=== PATIENT | female | born 1935 | race Caucasian/White ===

== ENCOUNTER 2016-05-10 04:47 | Inpatient (IN) | payer BC, OTHER ==
[2016-05-10] VITALS (8 sets, daily range): BP systolic 114–161; BP diastolic 55–73; PULSE 72–88; TEMP 36.7–37.9; O2SAT 90–99; Ht 154.9 cm; Wt 81.1 kg
[~2016-05-10] VITALS: Ht 154.9 cm; Wt 81.1 kg
[~2016-05-10 04:47] MED LIST: CLIN300C2 PO; CYAN100020 PO; LACTCAP3 PO; MENT1CRE TOP; OMEG10007 PO; PRED10TA PO
[2016-05-10] MEDS ORDERED: ACETAMINOPHEN 500 MG TAB PO STA (05:07)
[2016-05-10] MEDS ORDERED: SODIUM CHLORIDE 0.9% 1000ML 1,000 ML IV ONE (05:15)
[2016-05-10 05:31] LABS: URINE APPEARANCE CLOUDY (CLEAR); URINE BILIRUBIN NEG (NEG); URINE COLOR YELLOW; URINE NITRITE NEG (NEG); URINE PH 6.5 (4.5-7.5); URINE SPECIFIC GRAVITY 1.012 (1.000-1.030); UROBILINOGEN NEG (NEG); ZZUR CULT IF INDIC CLEAN CATCH YES
[2016-05-10 05:32] LABS: MANUAL MICROSCOPIC REQUIRED? NO; REVIEW REQ? NO
[2016-05-10] MEDS ORDERED: PRD/1 PO (05:32)
[2016-05-10] MEDS ORDERED: LEVAQUIN 500MG / 100ML D5W IV ONE (05:45)
--- NOTE | 2016-05-10 06:27 | DIAGNOSTIC IMAGING REPORT ---
CT HEAD WITHOUT CONTRAST (CT) CLINICAL HISTORY: Head pain status post head trauma COMPARISON STUDY: 09/25/2015 TECHNIQUE: Axial CT of the brain is performed from the vertex to the skull base. IV contrast was not administered for this examination. CT DOSE: 638.56 mGycm FINDINGS: No intra or extra-axial mass lesions are visualized. There is no CT evidence of acute cortical infarction. There is no evidence of midline shift. There is no acute hemorrhage. No calvarial fractures are visualized. There are patchy white matter hypodensities likely on a small vessel basis. There is no evidence of pathologic ventricular dilatation. There is no evidence of acute sinusitis IMPRESSION: No acute intracranial findings Electronically signed by: Chung Quispe M.D. 05/10/2016 6:25 AM
--- NOTE | 2016-05-10 06:29 | DIAGNOSTIC IMAGING REPORT ---
RIGHT SHOULDER MIN 2 VIEWS ROUTINE CLINICAL HISTORY: Right shoulder pain status post trauma COMPARISON: None. DISCUSSION: No fractures or dislocations are visualized. There are degenerative changes present within the AC joint. There are low lung volumes with interstitial thickening visualized within the right lung. IMPRESSION: No acute fractures or dislocations. Electronically signed by: Chung Quispe M.D. 05/10/2016 6:27 AM
--- NOTE | 2016-05-10 06:30 | DIAGNOSTIC IMAGING REPORT ---
CHEST ONE VIEW PORTABLE CLINICAL HISTORY: Fever. Fall. COMPARISON STUDY: 09/25/2015 FINDINGS: The heart is enlarged. There is mild interstitial thickening similar to the prior study. There is no lobar consolidation. There are no definite pleural effusions.[ No pneumothorax is visualized. IMPRESSION: Cardiomegaly and stable residual thickening. No evidence of lobar consolidation Electronically signed by: Chung Quispe M.D. 05/10/2016 6:29 AM
[2016-05-10 06:55] LABS: BUN/CREATININE RATIO 20.4 (10-20); CALCIUM 8.9 mg/dl (8.5-10.1); CREATININE 1.2 mg/dl (0.60-1.20); MAGNESIUM 1.8 mg/dl (1.8-2.4); POTASSIUM 3.2 mmol/L (3.5-5.1)
[2016-05-10 06:58] LABS: ALB/GLOB RATIO 0.8 (0.9-2)
[2016-05-10 07:15] LABS: BASO % 0.1 %; BASO ABS # 0.02 K/uL (0-0.2); COMPLETE YES; EOS % 0.1 %; HEMATOCRIT 31.9 % (37-47); IG% 0.5 %; LYMPH % 7.2 %; LYMPH ABS # 1.09 K/uL (1.2-3.4); MEAN CELL VOLUME 86.2 fL (80-100); MEAN CORPUSCULAR HEMOGLOBIN 28.4 pg (25-34); MEAN CORPUSCULAR HGB CONC 32.9 g/dl (32-36); MEAN PLATELET VOLUME 9.8 fL (7.4-10.4); MONO % 6.9 %; NEUT % 85.2 %; PLATELET COUNT 188 K/uL (130-400); WHITE BLOOD COUNT 15.05 K/uL (4.8-10.8)
[2016-05-10 07:26] LABS: INR 1.1 (0.9-1.1); PARTIAL THROMBOPLASTIN RATIO 1.2
[2016-05-10 07:37] LABS: CKMB/CK RATIO 0.9 (0-3.0)
--- NOTE | 2016-05-10 07:58 | EMERGENCY ROOM VISIT NOTE ---
ED Visit Note First contact with patient: 04:55 I have personally evaluated and examined this patient. I agree with assessment and plan of Matias Penaloza PA-C. 80 yr old female with fall, generalized weakness, and fever found to have UTI as well as mild hypoxia. In no distress and feeling comfortable on NC O2.
[2016-05-10] MEDS: SODIUM CHLORIDE 0.9% 1000ML 1,000 ML IV SCH ×2 (09:25→22:14)
[2016-05-10] MEDS ORDERED: ONDANSETRON INJ 2 MG/ML 2 ML VIAL IV PRN (09:30)
[2016-05-10] MEDS ORDERED: GLUCOSE 40% GEL 15 GM TUBE PO PRN (09:30)
[2016-05-10] MEDS ORDERED: ALUMINUM/MAGNESIUM/SIMETH (MAALOX MAX) 30 ML UDC PO PRN (09:30)
[2016-05-10] MEDS ORDERED: GLUCAGON FOR INJ 1 MG VIAL SQ PRN (09:30)
[2016-05-10] MEDS ORDERED: GLUCOSE 10 TABS/TUBE PO PRN (09:30)
[2016-05-10] MEDS ORDERED: DEXTROSE 50% 50 ML SYR IV PRN (09:30)
[2016-05-10] MEDS ORDERED: POLYETHYLENE (MIRALAX) 17 GM PACK PO PRN (09:30)
[2016-05-10] MEDS ORDERED: NON-FORMULARY MEDICATION (Misc Natural Products (Osteo Bi-Flex Triple Stre) 1 TAB) PO SCH (09:30)
[2016-05-10] MEDS ORDERED: MAGNESIUM HYDROXIDE SUSP 30 ML UDC PO PRN (09:30)
[2016-05-10] MEDS ORDERED: PRED10TA PO (09:49)
[2016-05-10] MEDS ORDERED: OPTIRAY 320 IV PRN (10:00)
--- NOTE | 2016-05-10 10:19 | History and Physical ---
History & Physical Date & Time of Service: May 10, 2016 at 09:45 Chief Complaint: FALL Primary Care Physician: Olvin Quigley M.D. History of Present Illness Source: patient, clinic records, hospital records This is a 80 y/o female with a history of CAD, DM II, HTN, HLD, ischemic cardiomyopathy, anemia, polymyalgia rheumatica, and GERD who presented to the ED on 05/10 following a fall one hour prior to arrival and fever. The patient states that she fell out of her bed this morning and hit the right side of her head and right shoulder. She does not really recall the actual fall, just recalls waking up on the floor. She thinks she was probably getting up to go the bathroom as she has nocturia and urge incontinence. She was not able to get up, so she activated her Life Alert. She states that she has felt weak in her left leg for the last 2 weeks and has been more fatigued than usual. She complains of lightheadedness when standing up. She complains of 5/10 aching pain on the right side of head where she hit the ground and her right shoulder. The right shoulder pain radiates down to her elbow. She is able to move her shoulder freely, but it is painful to do so. She complains of some nausea since this morning but denies any vomiting. She states that when she was on the ground, a suitcase fell onto her lower abdomen, causing her some mild bruising discomfort there where the suitcase fell. The patient denies chills, sweats, chest pain, claudication, cough, wheezing, shortness of breath, vomiting , dysuria, hematuria, urinary retention, paralysis, numbness and tingling. Past Medical/Surgical History Medical Problems: (1) Arthritis Status: Chronic (2) Cardiac stent placement Status: Resolved (3) Chronic myocardial ischemia Status: Resolved (4) Diabetes mellitus type 2 Status: Chronic (5) Heart disease Status: Chronic (6) HTN (hypertension) Status: Chronic HLD Anemia PMR GERD H/o uterine cancer Surgical Problems: (1) H/O cardiac catheterization Status: Resolved (2) History of knee replacement Status: Resolved Family History FH: HTN (hypertension) FH: diabetes mellitus Stroke Social History Smoking Status: Never Smoker Smokeless Tobacco Use: No Alcohol Use: none Drug Use: none Marital Status: Housing status: lives alone (son lives next door) Occupational Status: retired Immunizations History of Influenza Vaccine: Yes History of Tetanus Vaccine?: Unknown History of Pneumococcal: Yes History of Hepatitis B Vaccine: No Multi-Drug Resistant Organisms History of MDRO: No Allergies Coded Allergies: Cephalosporins (Verified Allergy, Intermediate, HIVES, 05/10/16) Penicillins (Verified Allergy, Intermediate, HIVES, 05/10/16) Valdecoxib (Verified Allergy, Unknown, ITCHING,NAUSEATED, 05/10/16) Codeine (Verified Adverse Reaction, Mild, NAUSEA, 05/10/16) Pantoprazole (Verified Adverse Reaction, Mild, NAUSEATED, 05/10/16) Home Medications Scheduled Aspirin (Aspirin Ec), 81 MG PO QAM Carvedilol (Coreg), 1 TAB PO BID Clindamycin Hcl (Cleocin), 600 MG PO UD Coenzyme Q10 (Ubidecarenone) (Co Q10), 200 MG PO QAM Cyanocobalamin (Vitamin B12), 1 TAB PO QAM Fish Oil ([place]-3), 1 CAP PO QPM Metformin Hcl (Glucophage), 250 MG PO BID Misc Natural Products (Osteo Bi-Flex Triple Stre), 1 TAB PO noon Multivitamin (Multivitamin), 1 TAB PO DAILY Prednisone Tab (Prednisone), 10 MG PO DAILY Ranitidine HCl (Zantac), 150 MG PO BID Rosuvastatin Calcium (Crestor), 40 MG PO QPM Saccharomyces Boulardii (Probiotic), 1 CAP PO HS Tolterodine Tartrate (Detrol LA), 2 CAP PO QPM Valsartan/Hctz (Diovan Hct 320MG/25MG), 1 TAB PO QAM Scheduled PRN Acetaminophen (Tylenol), 650 MG PO q5 PRN for Pain Fluticasone Furoate (Veramyst), 2 SPRY DAVID DAILY PRN for prn Review of Systems Constitutional: + fatigue, + fever (this am, resolved with Tylenol in ED), + weakness, No chills, No sweats Eyes: No diplopia, No eye pain, No worsening of vision ENT: No hearing loss, No sore throat, No tinnitus Respiratory: No cough, No shortness of breath, No wheezing Cardiovascular: + palpitations, No chest pain, No claudication Abdomen: + nausea, + pain (lower abdomen), No diarrhea, No vomiting Musculoskeletal: + joint pain (R shoulder), No calf pain, No swelling Genitourinary - Female: + urinary frequency, + urinary incontinence, No dysuria , No hematuria Neurologic: + problem reported (lightheaded), + weakness (L leg), No numbness/ tingling, No paralysis Integumentary: No color change, No itch, No rash Physical Exam Vital Signs Date Time Temp Pulse Resp B/P Pulse Ox O2 Delivery O2 Flow Rate FiO2 05/10/16 09:09 69 23 129/58 94 Room Air 05/10/16 08:35 94 Room Air 2.0 05/10/16 08:05 66 05/10/16 07:12 37.5 74 20 101/51 92 Room Air 05/10/16 06:19 74 18 108/57 97 Nasal Cannula 2.0 05/10/16 04:57 87 05/10/16 04:53 38.2 84 18 124/47 89 Room Air General Appearance: WD/WN, no apparent distress Head: normocephalic, atraumatic Eyes: normal inspection, PERRL, EOMI ENT: normal ENT inspection, hearing grossly normal, pharynx normal, + pertinent finding (dry oral mucosa) Neck: supple, no JVD, trachea midline Respiratory/Chest: normal breath sounds, no respiratory distress, + crackles ( bases bilaterally R>L) Cardiovascular: regular rate, rhythm, no gallop, + systolic murmur Abdomen/GI: normal bowel sounds, soft, + tenderness (mild diffuse tenderness without guarding) Extremities/Musculoskelatal: normal inspection, no calf tenderness, no pedal edema Neurologic/Psych: alert, normal mood/affect, oriented x 3 Skin: normal color, warm/dry, no rash Diagnostics Laboratory Results Results Past 24 Hours Test 05/10/16 05:18 05/10/16 05:55 05/10/16 06:01 05/10/16 06:05 Range/Units Urine Color YELLOW Urine Appearance CLOUDY CLEAR Urine pH 6.5 4.5-7.5 Urine Specific [place] 1.012 1.000-1.030 Urine Protein 1+ NEG Urine Glucose (UA) NEG NEG Urine Ketones NEG NEG Urine Occult Blood 3+ NEG Urine Nitrite NEG NEG Urine Bilirubin NEG NEG Urine Urobilinogen NEG NEG Urine Leukocyte Esterase MODERATE NEG Urine WBC (Auto) >30 0-5 /hpf Urine RBC (Auto) 10-30 0-4 /hpf Urine Hyaline Casts (Auto) 5-10 0-5 /lpf Urine Epithelial Cells (Auto) 10-20 0-5 /lpf Urine Bacteria (Auto) 4+ NEG Sodium Level 138 136-145 mmol/L Potassium Level 3.2 3.5-5.1 mmol/L Chloride Level 99 98-107 mmol/L Carbon Dioxide Level 27 21-32 mmol/L Anion Gap 12.0 3-11 mmol/L Blood Urea Nitrogen 25 7-18 mg/dl Creatinine 1.20 0.60-1.20 mg/dl Est Creatinine Clear Calc Drug Dose 37.7 ml/min Estimated GFR () 50.1 Estimated GFR (Non- 43.3 BUN/Creatinine Ratio 20.4 10-20 Random Glucose 160 70-99 mg/dl Calcium Level 8.9 8.5-10.1 mg/dl Magnesium Level 1.8 1.8-2.4 mg/dl Total Bilirubin 1.0 0.2-1 mg/dl Aspartate Amino Transf (AST/SGOT) 25 15-37 U/L Alanine Aminotransferase (ALT/SGPT) 12 12-78 U/L Alkaline Phosphatase 58 45-117 U/L Total Protein 7.0 6.4-8.2 gm/dl Albumin 3.1 3.4-5.0 gm/dl Globulin 3.9 2.5-4.0 gm/dl Albumin/Globulin Ratio 0.8 0.9-2 Bedside Lactic Acid Venous 1.24 0.90-1.70 mmol/L Bedside Troponin I 0.220 0-0.045 ng/ml Test 05/10/16 07:03 05/10/16 09:25 Range/Units White Blood Count 15.05 4.8-10.8 K/uL Red Blood Count 3.70 4.2-5.4 M/uL Hemoglobin 10.5 12.0-16.0 g/dL Hematocrit 31.9 37-47 % Mean Corpuscular Volume 86.2 80-100 fL Mean Corpuscular Hemoglobin 28.4 25-34 pg Mean Corpuscular Hemoglobin Concent 32.9 32-36 g/dl Platelet Count 188 130-400 K/uL Mean Platelet Volume 9.8 7.4-10.4 fL Neutrophils (%) (Auto) 85.2 % Lymphocytes (%) (Auto) 7.2 % Monocytes (%) (Auto) 6.9 % Eosinophils (%) (Auto) 0.1 % Basophils (%) (Auto) 0.1 % Neutrophils # (Auto) 12.81 1.4-6.5 K/uL Lymphocytes # (Auto) 1.09 1.2-3.4 K/uL Monocytes # (Auto) 1.04 0.11-0.59 K/uL Eosinophils # (Auto) 0.02 0-0.5 K/uL Basophils # (Auto) 0.02 0-0.2 K/uL RDW Standard Deviation 49.3 36.4-46.3 fL RDW Coefficient of Variation 15.6 11.5-14.5 % Immature Granulocyte % (Auto) 0.5 % Immature Granulocyte # (Auto) 0.07 0.00-0.02 K/uL Prothrombin Time 12.0 9.0-12.0 SECONDS Prothromb Time International Ratio 1.1 0.9-1.1 Activated Partial Thromboplast Time 31.6 21.0-31.0 SECONDS Partial Thromboplastin Ratio 1.2 Total Creatine Kinase 284 26-192 U/L Creatine Kinase MB 2.5 0.5-3.6 ng/ml Creatine Kinase MB Ratio 0.9 0-3.0 Microbiology Results 05/10/16 Blood Culture, Received Pending 05/10/16 Blood Culture, Received Pending 05/10/16 Urine Culture, Received Pending Diagnostic Radiology Reviewed the following studies and agree with interpretation as follows: Patient Name: EMANUEL ORONA Unit Number: [id number] Dictated: 05/10/16625 Transcribed: 05/10/16625 ARG Printed Date/Time: [~ rep prt dt]/[~ rep prt tm] [~ rep ct labl] - [~ rep ct ivnm] [facility] [place] [address] Dictated: 05/10/16625 Transcribed: 05/10/16625 ARG Printed Date/Time: [~ rep prt dt]/[~ rep prt tm] [~ rep ct labl] - [~ rep ct ivnm] Patient: EMANUEL ORONA Address1: [address] [facility] Rec: [id number] Address2: [address] Acct ID: [id number] [facility] Zip: [place] [address] Date: 1935 Sex: F Room/Bed: Ref Phy: Olvin Quigley M.D. SC: AJB Att Phy: Report #: [id number] [place] Phy: Olvin Quigley M.D. Test: SHD Admit Phy: Counter Former: JAJA Interpreting Phy: Chung Quispe M.D. Diagnosis: FALL Ordering Phy: Matias Penaloza PA-C Service Date: 05/10/16 Admit Date: 05/10/16 MNE: PWRSCRIBE CONF: DICTATED BY: Chung Quispe M.D.]] CC: Matias Penaloza PA-C Dranov, Jonathan, M.D. McKinley, Daniel F., M.D. Endcc: [~ rep ct add3]] RIGHT SHOULDER MIN 2 VIEWS ROUTINE CLINICAL HISTORY: Right shoulder pain status post trauma COMPARISON: None. DISCUSSION: No fractures or dislocations are visualized. There are degenerative changes present within the AC joint. There are low lung volumes with interstitial thickening visualized within the right lung. IMPRESSION: No acute fractures or dislocations. Electronically signed by: Chung Quispe M.D. 05/10/2016 6:27 AM The status of this report is Signed. Draft = Not yet reviewed or approved by Radiologist. Signed = Reviewed and approved by Radiologist. <AttendingPhy></AttendingPhy> <FamilyPhy>Olvin Quigley M.D.</FamilyPhy> < PrimaryPhy>Olvin Quigley M.D.</PrimaryPhy> <UnitNumber>[id number]</UnitNumber > <VisitNumber>[id number]</VisitNumber> <PatientName>EMANUEL ORONA</ PatientName> <DateOfBirth>1935</DateOfBirth> <Location>C.EDB</Location> < ServiceDate>05/10/16</ServiceDate> <MNE>ESINDI</MNE> <OrderingPhy>Matias Penaloza PA-C</OrderingPhy> <OrderingPhyMNE>f rep ord dr cesar</OrderingPhyMNE> < DictatingPhyMNE>f rep dict dr cesar</DictatingPhyMNE> <CCListMNE>f rep ct mne</ CCListMNE> <AdmittingPhyMNE>f pt admit dr cesar</AdmittingPhyMNE> <AttendingPhyMNE >f pt attend dr cesar</AttendingPhyMNE> <ConsultingPhyMNE>f pt consult dr cesar</ConsultingPhyMNE> <FamilyPhyMNE>f pt fam dr cesar</FamilyPhyMNE> <OtherPhyMNE>f pt other dr cesar</OtherPhyMNE> < PrimaryPhyMNE>f pt prim care dr cesar</PrimaryPhyMNE> <ReferringPhyMNE>f pt referring dr cesar</ReferringPhyMNE> Patient Name: EMANUEL ORONA Unit Number: [id number] Dictated: 05/10/16624 Transcribed: 05/10/16624 ARG Printed Date/Time: [~ rep prt dt]/[~ rep prt tm] [~ rep ct labl] - [~ rep ct ivnm] [facility] [place] [address] Dictated: 05/10/16624 Transcribed: 05/10/16624 ARG Printed Date/Time: [~ rep prt dt]/[~ rep prt tm] [~ rep ct labl] - [~ rep ct ivnm] Patient: EMANUEL ORONA Address1: [address] [facility] Rec: [id number] Address2: [facility] [address] Acct ID: [id number] [facility] Zip: [place] [address] Date: 1935 Sex: F Room/Bed: Ref Phy: Olvin Quigley M.D. SC: ZEYAD Att Phy: Report #: [id number] [place] Phy: Olvin Quigley M.D. Test: HWO Admit Phy: Counter Former: COLE Interpreting Phy: Chung Quispe M.D. Diagnosis: FALL Ordering Phy: Matias Penaloza PA-C Service Date: 05/10/16 Admit Date: 05/10/16 MNE: PWRSCRIBE CONF: DICTATED BY: Chung Quispe M.D.]] CC: Matias Penaloza PA-C Dranov, Jonathan, M.D. McKinley, Daniel F., M.D. Endcc: [~ rep ct add3]] CT HEAD WITHOUT CONTRAST (CT) CLINICAL HISTORY: Head pain status post head trauma COMPARISON STUDY: 09/25/2015 TECHNIQUE: Axial CT of the brain is performed from the vertex to the skull base. IV contrast was not administered for this examination. CT DOSE: 638.56 mGycm FINDINGS: No intra or extra-axial mass lesions are visualized. There is no CT evidence of acute cortical infarction. There is no evidence of midline shift. There is no acute hemorrhage. No calvarial fractures are visualized. There are patchy white matter hypodensities likely on a small vessel basis. There is no evidence of pathologic ventricular dilatation. There is no evidence of acute sinusitis IMPRESSION: No acute intracranial findings Electronically signed by: Chung Quispe M.D. 05/10/2016 6:25 AM The status of this report is Signed. Draft = Not yet reviewed or approved by Radiologist. Signed = Reviewed and approved by Radiologist. <AttendingPhy></AttendingPhy> <FamilyPhy>Olvin Quigley M.D.</FamilyPhy> < PrimaryPhy>Olvin Quigley M.D.</PrimaryPhy> <UnitNumber>[id number]</UnitNumber > <VisitNumber>[id number]</VisitNumber> <PatientName>EMANUEL ORONA</ PatientName> <DateOfBirth>1935</DateOfBirth> <Location>C.EDB</Location> < ServiceDate>05/10/16</ServiceDate> <MNE>ESINDI</MNE> <OrderingPhy>Matias Penaloza PA-C</OrderingPhy> <OrderingPhyMNE>f rep ord dr mne</OrderingPhyMNE> < DictatingPhyMNE>f rep dict dr cesar</DictatingPhyMNE> <CCListMNE>f rep ct mne</ CCListMNE> <AdmittingPhyMNE>f pt admit dr cesar</AdmittingPhyMNE> <AttendingPhyMNE >f pt attend dr cesar</AttendingPhyMNE> <ConsultingPhyMNE>f pt consult dr cesar</ConsultingPhyMNE> <FamilyPhyMNE>f pt fam dr cesar</FamilyPhyMNE> <OtherPhyMNE>f pt other dr cesar</OtherPhyMNE> < PrimaryPhyMNE>f pt prim care dr cesar</PrimaryPhyMNE> <ReferringPhyMNE>f pt referring dr cesar</ReferringPhyMNE> Patient Name: EMANUEL ORONA Unit Number: [id number] Dictated: 05/10/16627 Transcribed: 05/10/16627 ARG Printed Date/Time: [~ rep prt dt]/[~ rep prt tm] [~ rep ct labl] - [~ rep ct ivnm] [facility] [place] [address] Dictated: 05/10/16627 Transcribed: 05/10/16627 ARG Printed Date/Time: [~ rep prt dt]/[~ rep prt tm] [~ rep ct labl] - [~ rep ct ivnm] Patient: EMANUEL ORONA Address1: [address] [facility] Rec: [id number] Address2: [place] [address] Acct ID: [id number] [facility] Zip: [place] [address] Date: 1935 Sex: F Room/Bed: Ref Phy: Olvin Quigley M.D. SC: ZEYAD Att Phy: Report #: [id number] [place] Phy: Olvin Quigley M.D. Test: CXR1P Admit Phy: Counter Former: JAJA Interpreting Phy: Chung Quispe M.D. Diagnosis: FALL Ordering Phy: Matias Penaloza PA-C Service Date: 05/10/16 Admit Date: 05/10/16 MNE: PWRSCRIBE CONF: DICTATED BY: Chung Quispe M.D.]] CC: Matias Penaloza PA-C Dranov, Jonathan, M.D. McKinley, Daniel F., M.D. Endcc: [~ rep ct add3]] CHEST ONE VIEW PORTABLE CLINICAL HISTORY: Fever. Fall. COMPARISON STUDY: 09/25/2015 FINDINGS: The heart is enlarged. There is mild interstitial thickening similar to the prior study. There is no lobar consolidation. There are no definite pleural effusions.[ No pneumothorax is visualized. IMPRESSION: Cardiomegaly and stable residual thickening. No evidence of lobar consolidation Electronically signed by: Chnug Quispe M.D. 05/10/2016 6:29 AM The status of this report is Signed. Draft = Not yet reviewed or approved by Radiologist. Signed = Reviewed and approved by Radiologist. <AttendingPhy></AttendingPhy> <FamilyPhy>Olvin Quigley M.D.</FamilyPhy> < PrimaryPhy>Olvin Quigley M.D.</PrimaryPhy> <UnitNumber>[id number]</UnitNumber > <VisitNumber>[id number]</VisitNumber> <PatientName>EMANUEL ORONA</ PatientName> <DateOfBirth>1935</DateOfBirth> <Location>C.EDB</Location> < ServiceDate>05/10/16</ServiceDate> <MNE>ESINDI</MNE> <OrderingPhy>Matias Penaloza PA-C</OrderingPhy> <OrderingPhyMNE>f rep ord dr cesar</OrderingPhyMNE> < DictatingPhyMNE>f rep dict dr cesar</DictatingPhyMNE> <CCListMNE>f rep ct mne</ CCListMNE> <AdmittingPhyMNE>f pt admit dr cesar</AdmittingPhyMNE> <AttendingPhyMNE >f pt attend dr cesar</AttendingPhyMNE> <ConsultingPhyMNE>f pt consult dr cesar</ConsultingPhyMNE> <FamilyPhyMNE>f pt fam dr cesar</FamilyPhyMNE> <OtherPhyMNE>f pt other dr cesar</OtherPhyMNE> < PrimaryPhyMNE>f pt prim care dr cesar</PrimaryPhyMNE> <ReferringPhyMNE>f pt referring dr cesar</ReferringPhyMNE> EKG Reviewed EKG and agree with interpretation as follows: 80 bpm, NSR, old inferior infarct Impression Assessment and Plan 80 y/o female with a history of CAD, DM II, HTN, HLD, ischemic cardiomyopathy, anemia, polymyalgia rheumatica, and GERD who presented to the ED on 05/10 following a fall one hour prior to arrival and fever. Temp 38.2 upon arrival, resolved with Tylenol in ED. EKG no ischemic changes. Shoulder x-ray negative for fractures, dislocations or acute disease. Head CT negative for acute disease. CXR negative. Elevated WBC at 15.05. UA positive for UTI. -Admit to telemetry for cardiac monitoring -CT abdomen/pelvis with IV contrast to r/o pyelonephritis, obstruction, hydronephrosis -Levaquin 750 mg IV q48h as pt. allergic to cephalosporins. Renally dosed as creatinine clearance 37. Will receive 5 doses total. 1 dose given in ED. -IVF NSS at 100 cc/hr. Continue to monitor renal function. Baseline creatinine around 0.8, was 1.2 upon arrival and elevated BUN of 25. CAD, h/o ME and 2 cardiac stents in circumflex 2014 -Mildly elevated POC troponin at 0.22. No chest pain, shortness of breath -Mildly elevated CK at 284, likely due to fall -Trend cardiac enzymes q8h x 3 -EKG q am and prn with chest pain -Continue ASA 81 mg PO qd Diabetes mellitus type 2--Last HgbA1c checked 04/25/16 was 6.8 -Hold metformin -Insulin sliding scale -Check BSGs q ac and qhs Cardiomyopathy, HTN--stable, BP 129/58 during examination -Continue carvedilol 12.5 mg PO BID -Hold valsartan/HCTZ for now as pt receiving IVF and renal function mildly elevated above baseline as above HLD -Continue Crestor 40 mg PO qpm Polymyalgia rheumatica -Continue prednisone 10 mg PO qd Urinary incontinence -Continue Detrol 4 mg PO qd GERD -Continue ranitidine 150 mg PO BID GI prophylaxis -Maalox Max 15 mL PO q4h prn dyspepsia -Milk of magnesia 30 mL PO q6h prn constipation -Miralax 17 gm PO qd prn constipation -Zofran 4 mg IV q6h prn nausea DVT prophylaxis -Enoxaparin 40 mg SC q24h -MARYBEL carmichael and SCDs Code Status -Level I, FULL RESUSCITATION STATUS Level of Care Telemetry Advanced Directives Existing Advance Directive: Yes Existing Living Will: Yes Existing Power of Power Saw Operator: Yes Resuscitation Status FULL RESUSCITATION VTE Prophylaxis VTE Risk Assessment Done? Y/N: Yes Risk Level: Moderate Given or contraindicated: Enoxaparin (Lovenox)SQ, T.E.D. Stockings, SCD's
--- NOTE | 2016-05-10 10:32 | DIAGNOSTIC IMAGING REPORT ---
ABDOMEN AND PELVIS CT WITH IV CONTRAST CT DOSE: 1004.38 mGycm HISTORY: febrile, positive UA, r/o pyelo, obstruction TECHNIQUE: Multiaxial CT images of the abdomen and pelvis were performed following the use of intravenous contrast. COMPARISON STUDY: Abdomen and pelvis CT 06/30/2015. FINDINGS: Calcified granuloma seen within the left lower lobe. Bibasilar interstitial thickening. No pneumoperitoneum. No pneumatosis. Left total hip arthroplasty. The liver, adrenal glands, and pancreas are unremarkable. There are few small gallstones. No retroperitoneal lymphadenopathy. The uterus is surgically absent. Mild pelvic floor collapse. Colonic diverticulosis. No bowel wall thickening or obstruction. Bladder is partially obscured by the metallic artifact from the left hip prosthesis. No definite bladder wall thickening. No hydronephrosis. The right kidney enhances normally. Focal area of heterogeneous enhancement within the left kidney at the interpolar region. This measures approximately 2.7 cm in size. There is also mild thickening within the left Gerota's fascia. Tiny focus of fluid inferior to the spleen. Multiple calcified splenic granulomas. An 11 mm cyst within the left kidney. The right kidney enhances normally. IMPRESSION: 1. A 2.7 cm area of heterogeneity within the interpolar region of the left kidney with adjacent fat stranding/thickening of Gerota's fascia. This likely represents a pyelonephritis. One month abdomen CT follow-up is recommended to ensure resolution of this finding. 2. Cholelithiasis. 3. Colonic diverticulosis. 4. No bowel wall thickening or obstruction. Electronically signed by: Anthony Conley M.D. 05/10/2016 10:30 AM
[2016-05-10] MEDS: ENOXAPARIN 40 MG/0.4 ML SYR SC SCH (12:30)
[2016-05-10 16:09] LABS: CKMB/CK RATIO 0.5 (0-3.0)
[2016-05-10] MEDS: INSULIN ASPART 100 UNITS/ML 3 ML PEN SC SCH ×2 (16:15→21:00)
[2016-05-10] MEDS: CARVEDILOL 12.5 MG TAB PO SCH (22:08)
[2016-05-10] MEDS: ROSUVASTATIN CALCIUM 20 MG TAB PO SCH (22:08)
[2016-05-10] MEDS: TOLTERODINE TARTRATE LA 2 MG CAPCR PO SCH (22:08)
[2016-05-10] MEDS: SACCHAROMYCES BOUL (FLORASTOR) 250 MG CAP PO SCH (22:08)
[2016-05-10] MEDS: RANITIDINE HCL 150 MG TAB PO SCH (22:08)
[2016-05-10] MEDS: ACETAMINOPHEN 325 MG TAB PO PRN (22:24)
[2016-05-11] VITALS (9 sets, daily range): BP systolic 117–155; BP diastolic 65–76; PULSE 57–68; TEMP 36.5–37.2; O2SAT 95–99
[2016-05-11 00:20] LABS: CKMB/CK RATIO 0.3 (0-3.0)
--- NOTE | 2016-05-11 06:37 | EMERGENCY ROOM VISIT NOTE ---
History First contact with patient: 04:55 Chief Complaint: FALL Stated Complaint: FALL History of Present Illness The patient is a 80 year old female who presents to the Emergency Room with complaints of a fall that occurred about one hour ago. The patient states that she got out of bed, and she believes that she lost her balance, falling to the ground and striking her right shoulder and the right side of her head. The patient was not able to stand after the fall, and utilized her life alert. The patient presents to the department via ambulance, where she is found to have a low-grade fever as well as mild hypoxia. The patient states her primary discomfort is her right shoulder and the right side of her head. She does not laceration or bleeding. She is unsure if she lost consciousness. She does not report other symptoms and rates her discomfort a 5/10. Review of Systems More than 10 systems were reviewed and otherwise negative with the exception of history of present illness. Past Medical/Surgical History Medical Problems: (1) Abnormal EKG (2) Arthritis (3) Cardiac stent placement (4) Chronic myocardial ischemia (5) Diabetes mellitus (6) Elevated troponin (7) Fall (8) Heart disease (9) HTN (hypertension) (10) Stroke (11) Syncope Surgical Problems: (1) H/O cardiac catheterization (2) History of knee replacement Family History FH: HTN (hypertension) FH: diabetes mellitus Social History Smoking Status: Never Smoker Drug Use: none Marital Status: Housing Status: lives with family Occupation Status: retired Current/Historical Medications Scheduled Aspirin (Aspirin Ec), 81 MG PO QAM Carvedilol (Coreg), 1 TAB PO BID Clindamycin Hcl (Cleocin), 600 MG PO UD Coenzyme Q10 (Ubidecarenone) (Co Q10), 200 MG PO QAM Cyanocobalamin (Vitamin B12), 1 TAB PO QAM Fish Oil ([place]-3), 1 CAP PO QPM Metformin Hcl (Glucophage), 250 MG PO BID Misc Natural Products (Osteo Bi-Flex Triple Stre), 1 TAB PO noon Multivitamin (Multivitamin), 1 TAB PO DAILY Prednisone Tab (Prednisone), 10 MG PO DAILY Ranitidine HCl (Zantac), 150 MG PO BID Rosuvastatin Calcium (Crestor), 40 MG PO QPM Saccharomyces Boulardii (Probiotic), 1 CAP PO HS Tolterodine Tartrate (Detrol LA), 2 CAP PO QPM Valsartan/Hctz (Diovan Hct 320MG/25MG), 1 TAB PO QAM Scheduled PRN Acetaminophen (Tylenol), 650 MG PO q5 PRN for Pain Fluticasone Furoate (Veramyst), 2 SPRY DAVID DAILY PRN for prn Allergies Coded Allergies: Cephalosporins (Verified Allergy, Intermediate, HIVES, 05/10/16) Penicillins (Verified Allergy, Intermediate, HIVES, 05/10/16) Valdecoxib (Verified Allergy, Unknown, ITCHING,NAUSEATED, 05/10/16) Codeine (Verified Adverse Reaction, Mild, NAUSEA, 05/10/16) Pantoprazole (Verified Adverse Reaction, Mild, NAUSEATED, 05/10/16) Physical Exam Vital Signs Date Time Temp Pulse Resp B/P Pulse Ox O2 Delivery O2 Flow Rate FiO2 05/10/16 09:09 69 23 129/58 94 Room Air 05/10/16 08:35 94 Room Air 2.0 05/10/16 08:05 66 05/10/16 07:12 37.5 74 20 101/51 92 Room Air 05/10/16 06:19 74 18 108/57 97 Nasal Cannula 2.0 05/10/16 04:57 87 05/10/16 04:53 38.2 84 18 124/47 89 Room Air Physical Exam VITALS: Vitals are noted on the nurse's note and reviewed by myself. Vital signs with fever GENERAL: Elderly appearing white female who is comfortable in her emergency department bed. She does not appear in acute distress. HEAD: Normocephalic atraumatic. HEART: Regular rate and rhythm without murmurs gallops or rubs. LUNGS: Clear to auscultation bilaterally without wheezes, rales or rhonchi. No retractions or accessory muscle use. MUSCULOSKELETAL: No muscle atrophy, erythema, or edema noted. Mild tenderness appreciated over the lateral aspect of the right shoulder. Exam is somewhat limited secondary to patient's discomfort and body habitus. NEURO: Patient was alert and oriented to person place and time. Medical Decision & Procedures ER Provider Diagnostic Interpretation: CT HEAD WITHOUT CONTRAST (CT) CLINICAL HISTORY: Head pain status post head trauma COMPARISON STUDY: 09/25/2015 TECHNIQUE: Axial CT of the brain is performed from the vertex to the skull base. IV contrast was not administered for this examination. CT DOSE: 638.56 mGycm FINDINGS: No intra or extra-axial mass lesions are visualized. There is no CT evidence of acute cortical infarction. There is no evidence of midline shift. There is no acute hemorrhage. No calvarial fractures are visualized. There are patchy white matter hypodensities likely on a small vessel basis. There is no evidence of pathologic ventricular dilatation. There is no evidence of acute sinusitis IMPRESSION: No acute intracranial findings CHEST ONE VIEW PORTABLE CLINICAL HISTORY: Fever. Fall. COMPARISON STUDY: 09/25/2015 FINDINGS: The heart is enlarged. There is mild interstitial thickening similar to the prior study. There is no lobar consolidation. There are no definite pleural effusions.[ No pneumothorax is visualized. IMPRESSION: Cardiomegaly and stable residual thickening. No evidence of lobar consolidation RIGHT SHOULDER MIN 2 VIEWS ROUTINE CLINICAL HISTORY: Right shoulder pain status post trauma COMPARISON: None. DISCUSSION: No fractures or dislocations are visualized. There are degenerative changes present within the AC joint. There are low lung volumes with interstitial thickening visualized within the right lung. IMPRESSION: No acute fractures or dislocations. Laboratory Results Test 05/10/16 05:18 05/10/16 05:55 05/10/16 06:01 05/10/16 06:05 Urine Color YELLOW Urine Appearance CLOUDY (CLEAR) Urine pH 6.5 (4.5-7.5) Urine Specific [place] 1.012 (1.000-1.030) Urine Protein 1+ (NEG) Urine Glucose (UA) NEG (NEG) Urine Ketones NEG (NEG) Urine Occult Blood 3+ (NEG) Urine Nitrite NEG (NEG) Urine Bilirubin NEG (NEG) Urine Urobilinogen NEG (NEG) Urine Leukocyte Esterase MODERATE (NEG) Urine WBC (Auto) >30 /hpf (0-5) Urine RBC (Auto) 10-30 /hpf (0-4) Urine Hyaline Casts (Auto) 5-10 /lpf (0-5) Urine Epithelial Cells (Auto) 10-20 /lpf (0-5) Urine Bacteria (Auto) 4+ (NEG) Est Creatinine Clear Calc Drug Dose 37.7 ml/min Magnesium Level 1.8 mg/dl (1.8-2.4) Total Bilirubin 1.0 mg/dl (0.2-1) Aspartate Amino Transf (AST/SGOT) 25 U/L (15-37) Alanine Aminotransferase (ALT/SGPT) 12 U/L (12-78) Alkaline Phosphatase 58 U/L (45-117) Total Protein 7.0 gm/dl (6.4-8.2) Albumin 3.1 gm/dl (3.4-5.0) Globulin 3.9 gm/dl (2.5-4.0) Albumin/Globulin Ratio 0.8 (0.9-2) Bedside Lactic Acid Venous 1.24 mmol/L (0.90-1.70) Bedside Troponin I 0.220 ng/ml (0-0.045) Test 05/10/16 07:03 RDW Standard Deviation 49.3 fL (36.4-46.3) RDW Coefficient of Variation 15.6 % (11.5-14.5) White Blood Count 15.05 K/uL (4.8-10.8) Red Blood Count 3.70 M/uL (4.2-5.4) Hemoglobin 10.5 g/dL (12.0-16.0) Hematocrit 31.9 % (37-47) Mean Corpuscular Volume 86.2 fL (80-100) Mean Corpuscular Hemoglobin 28.4 pg (25-34) Mean Corpuscular Hemoglobin Concent 32.9 g/dl (32-36) Platelet Count 188 K/uL (130-400) Mean Platelet Volume 9.8 fL (7.4-10.4) Neutrophils (%) (Auto) 85.2 % Lymphocytes (%) (Auto) 7.2 % Monocytes (%) (Auto) 6.9 % Eosinophils (%) (Auto) 0.1 % Basophils (%) (Auto) 0.1 % Neutrophils # (Auto) 12.81 K/uL (1.4-6.5) Lymphocytes # (Auto) 1.09 K/uL (1.2-3.4) Monocytes # (Auto) 1.04 K/uL (0.11-0.59) Eosinophils # (Auto) 0.02 K/uL (0-0.5) Basophils # (Auto) 0.02 K/uL (0-0.2) Immature Granulocyte % (Auto) 0.5 % Immature Granulocyte # (Auto) 0.07 K/uL (0.00-0.02) Prothrombin Time 12.0 SECONDS (9.0-12.0) Prothromb Time International Ratio 1.1 (0.9-1.1) Activated Partial Thromboplast Time 31.6 SECONDS (21.0-31.0) Partial Thromboplastin Ratio 1.2 Medications Administered Medications (Trade) Dose Ordered Sig/Chaz Route Start Time Stop Time Status Last Admin Dose Admin Sodium Chloride (Nss 1000ml) 1,000 ml @ 333 mls/hr Q3H1M ONCE IV 05/10/16 05:15 05/10/16 08:15 DC 05/10/16 05:15 333 MLS/HR Acetaminophen (Tylenol Tab) 1,000 mg NOW STAT PO 05/10/16 05:07 05/10/16 05:17 DC 05/10/16 05:07 1,000 MG Levofloxacin 500 mg 500 mg NOW ONCE IV 05/10/16 05:45 05/10/16 05:46 DC 05/10/16 06:34 500 MG Sodium Chloride (Nss 1000ml) 1,000 ml @ 100 mls/hr Q10H IV 05/10/16 09:25 06/09/16 09:24 05/10/16 22:14 100 MLS/HR Acetaminophen (Tylenol Tab) 650 mg Q4H PRN PO 05/10/16 09:30 06/09/16 09:29 05/10/16 22:24 650 MG Ondansetron HCl (Zofran Inj) 4 mg Q6H PRN IV 05/10/16 09:30 06/09/16 09:29 05/10/16 20:24 4 MG ED Course Physical exam and history were performed. Nursing notes and EMR were reviewed. Patient appears to have suffered a fall just prior to arrival. On examination the patient does have a low-grade fever. She does not have significant hour signs of trauma. IV access was established and labs were obtained. Patient was medicated as above. Imaging studies were performed due to the patient's injuries. EKG was performed did not show signs of acute ST elevation. The patient will result was reviewed. She does have an elevated white blood count 15,000. She is mildly anemic. Her CK is not elevated. Her troponin, however is elevated. The patient does not have a cranial bleed or skull fracture on CT scan. X-rays are without significant findings. Lactic acid is negative. Urine is concerning for possible infection, and the patient was started on Levaquin. Overall the patient does not appear stable for discharge home. She has an elevated white blood cell count possibly from a urinary tract infection. Additionally she has a fall and elevated troponin that will need further evaluation. I discussed the case with the on-call hospitalist, who agreed to evaluate the patient here in the emergency department. Please see their dictation for further course, plan, and disposition. The chart was completed utilizing [employer] Speech Voice Recognition Software. Grammatical errors, random word insertions, pronoun errors, and incomplete sentences are an occasional consequence of this system due to software limitations, ambient noise, and hardware issues. Any formal questions or concerns about the content, text, or information contained within the body of this dictation should be directly addressed to the provider for clarification. . Medical Decision Differential diagnosis: Etiologies such as metabolic, infection, hypo/hyperglycemia, electrolyte abnormalities, cardiac sources, intracerebral event, toxicologic, neurologic, as well as others were entertained. Impression Primary Impression: Fall Additional Impressions: Contusion of multiple sites, Elevated troponin Departure Information Referrals Olvin Quigley M.D. (PCP) Patient Instructions A Signature Page, [facility]
[2016-05-11] MEDS: INSULIN ASPART 100 UNITS/ML 3 ML PEN SC SCH ×4 (07:00→20:56)
[2016-05-11 07:11] LABS: BASO % 0.1 %; BASO ABS # 0.01 K/uL (0-0.2); COMPLETE YES; EOS % 0.4 %; HEMATOCRIT 32.3 % (37-47); IG% 0.2 %; LYMPH % 9.1 %; LYMPH ABS # 0.81 K/uL (1.2-3.4); MEAN CELL VOLUME 87.3 fL (80-100); MEAN CORPUSCULAR HEMOGLOBIN 27.8 pg (25-34); MEAN CORPUSCULAR HGB CONC 31.9 g/dl (32-36); MEAN PLATELET VOLUME 9.8 fL (7.4-10.4); MONO % 7.2 %; PLATELET COUNT 154 K/uL (130-400)
[2016-05-11 07:36] LABS: CALCIUM 8.1 mg/dl (8.5-10.1); CREATININE 1.1 mg/dl (0.60-1.20); POTASSIUM 3.3 mmol/L (3.5-5.1)
[2016-05-11] MEDS ORDERED: POTASSIUM CHLORIDE 20 MEQ TABCR PO ONE (08:00)
[2016-05-11] MEDS: SODIUM CHLORIDE 0.9% 1000ML 1,000 ML IV SCH (08:25)
[2016-05-11] MEDS: ACETAMINOPHEN 325 MG TAB PO PRN ×2 (08:25→20:59)
[2016-05-11] MEDS: MULTIVITAMIN TAB PO SCH (08:26)
[2016-05-11] MEDS: ASPIRIN 81 MG ECTAB PO SCH (08:26)
[2016-05-11] MEDS: CARVEDILOL 12.5 MG TAB PO SCH ×2 (08:27→21:00)
[2016-05-11] MEDS: CYANOCOBALAMIN 500 MCG TAB (VIT B-12) PO SCH (08:27)
[2016-05-11] MEDS: RANITIDINE HCL 150 MG TAB PO SCH ×2 (08:28→21:00)
[2016-05-11] MEDS: POTASSIUM CHLR 10 MEQ / WTR 10 MEQ in PREMIXED WATER 100 ML IV SCH (08:59)
[2016-05-11] MEDS ORDERED: NON-FORMULARY MEDICATION (Coenzyme Q10 (Ubidecarenone) (Co Q10) 200 MG) PO SCH (09:00)
--- NOTE | 2016-05-11 09:08 | Urology Consultation ---
History General Date of Service: May 11, 2016. Chief Complaint: bladder pressure and pain Primary Care Physician: Olvin Quigley M.D. Pt seen a urologist before?: No History of Present Illness 80 yo female presents to [facility] s/p fall and with fever. She reports 2 weeks of UTI symptoms of bladder pressure and pain which she thought would go away on their own. She has a hx of UTI and nephrolithiasis in the past, but has never seen a urologist. CT scan on admission shows ? small area of the left kidney consistent with pyelonephritis. No ureteral stones or hydro seen. The pt is noted to have a temperature of 38.2C on admission and 37.9C last evening. Blood and urine cultures pending. She has been started on Levaquin. White count has normalized since admission. Cr is 1.1. Imaging Imaging: CT Laboratory Last 24 Hours Test 05/10/16 15:25 05/10/16 16:17 05/10/16 20:34 05/10/16 23:05 Total Creatine Kinase 480 U/L 514 U/L Creatine Kinase MB 2.6 ng/ml 1.6 ng/ml Creatine Kinase MB Ratio 0.5 0.3 Troponin I 0.247 ng/ml 0.405 ng/ml Bedside Glucose 113 mg/dl 154 mg/dl Test 05/11/16 06:27 05/11/16 06:40 Bedside Glucose 109 mg/dl White Blood Count 8.90 K/uL Red Blood Count 3.70 M/uL Hemoglobin 10.3 g/dL Hematocrit 32.3 % Mean Corpuscular Volume 87.3 fL Mean Corpuscular Hemoglobin 27.8 pg Mean Corpuscular Hemoglobin Concent 31.9 g/dl Platelet Count 154 K/uL Mean Platelet Volume 9.8 fL Neutrophils (%) (Auto) 83.0 % Lymphocytes (%) (Auto) 9.1 % Monocytes (%) (Auto) 7.2 % Eosinophils (%) (Auto) 0.4 % Basophils (%) (Auto) 0.1 % Neutrophils # (Auto) 7.38 K/uL Lymphocytes # (Auto) 0.81 K/uL Monocytes # (Auto) 0.64 K/uL Eosinophils # (Auto) 0.04 K/uL Basophils # (Auto) 0.01 K/uL RDW Standard Deviation 50.7 fL RDW Coefficient of Variation 15.6 % Immature Granulocyte % (Auto) 0.2 % Immature Granulocyte # (Auto) 0.02 K/uL Sodium Level 141 mmol/L Potassium Level 3.3 mmol/L Chloride Level 106 mmol/L Carbon Dioxide Level 27 mmol/L Anion Gap 8.0 mmol/L Blood Urea Nitrogen 19 mg/dl Creatinine 1.10 mg/dl Est Creatinine Clear Calc Drug Dose 40.6 ml/min Estimated GFR () 55.7 Estimated GFR (Non- 48.1 BUN/Creatinine Ratio 17.0 Random Glucose 102 mg/dl Calcium Level 8.1 mg/dl Problem List Medical Problems: (1) Angina effort Status: Acute (2) Arthritis Status: Chronic (3) Contusion of multiple sites Status: Acute (4) Diabetes mellitus Status: Chronic (5) Fall Status: Acute (6) Head injury Status: Acute (7) Heart disease Status: Chronic (8) HTN (hypertension) Status: Chronic (9) Injury of left shoulder Status: Acute (10) Non-ST elevation NH (NSTEMI) Status: Acute Past History arthritis, cancer (uterine), coronary artery disease, diabetes, GERD, hypertension, other (HLD, PMR, anemia) Past Surgical History: angioplasty with stent (coronary artery), cardiac catheterization, TKR Family History FH: HTN (hypertension) FH: diabetes mellitus Stroke Social History Hx Tobacco Use In Past Year?: No Smoking: non-smoker Alcohol: never Drug use: none Marital status: Housing status: lives alone (son lives next door) Occupation status: retired Immunizations History of Influenza Vaccine: Yes History of Tetanus Vaccine?: Unknown History of Pneumococcal: Yes History of Hepatitis B Vaccine: No History of MDRO No Allergies Coded Allergies: Cephalosporins (Verified Allergy, Intermediate, HIVES, 05/10/16) Penicillins (Verified Allergy, Intermediate, HIVES, 05/10/16) Valdecoxib (Verified Allergy, Unknown, ITCHING,NAUSEATED, 05/10/16) Codeine (Verified Adverse Reaction, Mild, NAUSEA, 05/10/16) Pantoprazole (Verified Adverse Reaction, Mild, NAUSEATED, 05/10/16) Medications Home Medications: Home Meds and Scripts Medications Dose Route/Sig Max Daily Dose Days Date Category Dose Instructions Prednisone 10 Mg Tab 10 Mg PO DAILY 05/10/16 Reported Veramyst (Fluticasone Furoate) 27.5 Mcg/Helper Spr 2 Oral DAVID DAILY PRN 30 04/25/16 Reported Tylenol (Acetaminophen) 325 Mg Tab 650 Mg PO Q5 PRN 04/25/16 Reported Probiotic (Saccharomyces Boulardii) 250 Mg Cap 1 Cap PO HS 04/25/16 Reported Detrol LA (Tolterodine Tartrate) 2 Mg Capcr 2 Cap PO QPM 90 04/25/16 Reported [place]-3 (Fish Oil) 1 Ea Cap 1 Cap PO QPM 04/25/16 Reported Crestor (Rosuvastatin Calcium) 40 Mg Tab 40 Mg PO QPM 04/25/16 Reported Osteo Bi-Flex Triple Stre (Misc Natural Products) 1 Tab Tab 1 Tab PO NOON 04/25/16 Reported Co Q10 (Coenzyme Q10) 50 Mg Cap 200 Mg PO QAM 04/25/16 Reported Vitamin B12 (Cyanocobalamin) 1,000 Mcg Tab 1 Tab PO QAM 04/25/16 Reported Diovan Hct 320MG/25MG (HCTZ/Valsartan) 1 Tab Tab 1 Tab PO QAM 04/25/16 Reported Coreg (Carvedilol) 12.5 Mg Tab 1 Tab PO BID 90 04/25/16 Reported Glucophage (Metformin Hcl) 500 Mg Tab 250 Mg PO BID 04/25/16 Reported Aspirin Ec (Aspirin) 81 Mg Tab 81 Mg PO QAM 09/25/15 Reported Zantac (Ranitidine HCl) 150 Mg Tab 150 Mg PO BID 09/09/13 Reported Cleocin (Clindamycin Hcl) 300 Mg Cap 600 Mg PO UD 7 05/14/13 Reported TAKE 2 CAPSULES 1 HOUR PRIOR TO PROCEDURES. Multivitamin (Multivitamins) Tab 1 Tab PO DAILY 12/17/08 Reported Inpatient Medications: Current Inpatient Medications Medications (Trade) Dose Ordered Sig/Chaz Route Start Time Stop Time Status Last Admin Dose Admin Enoxaparin Sodium 40 mg 40 mg Q24H SC 05/10/16 12:30 06/09/16 12:29 05/10/16 12:30 40 MG Sodium Chloride (Nss 1000ml) 1,000 ml @ 100 mls/hr Q10H IV 05/10/16 09:25 06/09/16 09:24 05/11/16 08:25 100 MLS/HR Acetaminophen (Tylenol Tab) 650 mg Q4H PRN PO 05/10/16 09:30 06/09/16 09:29 05/11/16 08:25 650 MG Al Hydrox/Mg Hydrox/Simethicone (Maalox Max Susp) 15 ml Q4H PRN PO 05/10/16 09:30 06/09/16 09:29 Magnesium Hydroxide (Milk Of Magnesia Susp) 30 ml Q12H PRN PO 05/10/16 09:30 06/09/16 09:29 Ondansetron HCl (Zofran Inj) 4 mg Q6H PRN IV 05/10/16 09:30 06/09/16 09:29 05/10/16 20:24 4 MG Polyethylene (Miralax Powder Packet) 17 gm DAILY PRN PO 05/10/16 09:30 06/09/16 09:29 Glucose (Glucose 40% Gel) 15-30 GRAMS 15 GRAMS... UD PRN PO 05/10/16 09:30 06/09/16 09:29 Glucose (Glucose Chew Tab) 4-8 Tablets 4 Tabl... UD PRN PO 05/10/16 09:30 06/09/16 09:29 Dextrose (Dextrose 50% 50ML Syringe) 25-50ML OF 50% DW IV FOR... UD PRN IV 05/10/16 09:30 06/09/16 09:29 Glucagon (Glucagon Inj) 1 mg UD PRN SQ 05/10/16 09:30 06/09/16 09:29 Insulin Aspart (novoLOG ASPART) SLIDING SCALE G... ACHS SC 05/10/16 16:15 06/09/16 16:14 Aspirin (Ecotrin Tab) 81 mg QAM PO 05/11/16 09:00 06/10/16 08:59 05/11/16 08:26 81 MG Carvedilol (Coreg Tab) 12.5 mg BID PO 05/10/16 21:00 06/09/16 20:59 05/11/16 08:27 12.5 MG Multivitamins (Multivitamin Tab) 1 tab DAILY PO 05/11/16 09:00 06/10/16 08:59 05/11/16 08:26 1 TAB Ranitidine HCl (zANTac TAB) 150 mg BID PO 05/10/16 21:00 06/09/16 20:59 05/11/16 08:28 150 MG Rosuvastatin Calcium (Crestor Tab) 40 mg QPM PO 05/10/16 21:00 06/09/16 20:59 05/10/16 22:08 40 MG Saccharomyces Boulardii (Florastor Cap) 250 mg HS PO 05/10/16 21:00 06/09/16 20:59 05/10/16 22:08 250 MG Tolterodine Tartrate (Detrol LA Cap) 4 mg QPM PO 05/10/16 21:00 06/09/16 20:59 05/10/16 22:08 4 MG Cyanocobalamin (Vitamin B-12 Tab) 1,000 mcg QAM PO 05/11/16 09:00 06/10/16 08:59 05/11/16 08:27 1,000 MCG Miscellaneous Information 1 ea 1 ea QS N/A 05/10/16 16:00 06/09/16 15:59 Levofloxacin/Prmx (Levaquin / D5W/ Premixed D5W) 150 ml @ 100 mls/hr Q48H IV 05/12/16 08:00 05/20/16 07:59 Prednisone (PredniSONE TAB) 10 mg DAILY PO 05/11/16 09:00 06/10/16 08:59 05/11/16 08:26 10 MG Ioversol 100 ml 100 ml UD PRN IV 05/10/16 10:00 05/14/16 09:59 Potassium Chloride/Prmx (Kcl 10 Meq / Wtr/Premixed Water) 100 ml @ 100 mls/hr TODAY@0800,0900 IV 05/11/16 08:00 05/11/16 09:59 Review of Systems Review of Systems Constitutional: + problem reported (headache after fall, pain 5/10), No chills , No fever Eyes: No double vision Neurological: No dizzy Endocrine: No excessive thirst Gastrointestinal: + abdominal pain (suprapubic pain ), No nausea, No vomiting Cardiovascular: No chest pain Respiratory: No shortness of breath Skin: No rash Musculoskeletal: + joint pain (right shoulder pain 3/10) Female : + painful urination, No blood in urine Physical Exam Vital Signs: Vital Signs Past 12 Hours Date Time Temp Pulse Resp B/P Pulse Ox O2 Delivery O2 Flow Rate FiO2 05/11/16 08:07 36.7 60 18 148/70 99 Room Air 05/11/16 04:00 Nasal Cannula 2.0 05/11/16 03:03 36.6 57 19 117/70 99 Nasal Cannula 2.0 05/10/16 23:59 Nasal Cannula 2.0 05/10/16 22:55 37.9 75 18 134/73 98 Nasal Cannula 2.0 Physical Exam: General Appearance: no apparent distress Eyes: bilateral eyes normal inspection ENT: hearing grossly normal Neck: no JVD Respiratory/Chest: no respiratory distress, no accessory muscle use Cardiovascular: no JVD Gastrointestinal: Abdomen: normal abdomen Extremities: normal inspection Neurologic/Psychiatric: alert, normal mood/affect, oriented x 3 Skin: normal color Assessment & Plan Assessment & Plan A/P: Suspected pyelonephritis AFVSS. Continue IV abx pending culture sensitivities. Would then transition to 14 days of oral abx such as Cipro or Bactrim if sensitive. CT reviewed with Dr. Panchal this morning. CT findings not overly concerning at this time. ? area of pyelonephritis. Recommend repeat CT in 1 month to ensure resolution. Thanks for the consult. Will continue to follow along with primary service at this time.
--- NOTE | 2016-05-11 10:48 | CARDIOLOGY CONSULTATION ---
DATE OF CONSULTATION: 05/11/2016 REASON FOR CONSULTATION: Elevated troponin. CONSULTATION REQUESTED BY: Dr. Rendon. HISTORY OF PRESENT ILLNESS: Ms. Lugo is a very pleasant 80-year-old woman with a history of coronary artery disease status post prior PCI with drug-eluting stent placement to her left circumflex, mild ischemic cardiomyopathy with EF 45-50% and a prior inferior wall motion abnormality, hypertension, dyslipidemia, polymyalgia rheumatica, and diabetes who was admitted yesterday after a fall. The patient is followed by me as an outpatient for her cardiology care. She was last seen 3 weeks ago. At that time she was doing well with no significant changes to her recent health. She has endorsed 1 episode of atypical chest pain recently and a stress test was ordered More recently, the patient states that for the last 3 days prior to admission she had been feeling ill, fatigued, with generalized weakness. On the night prior to admission she states she went to bed, got up to use the restroom and next thing she knew she was on the ground. She fell striking her head, shoulder and arm and was unable to get up. Eventually was brought to the Emergency Department by EMS. Upon arrival, the patient was noted to be febrile with temperature 38.2. She was mildly hypoxic on room air with sats in the high 80s. Initial white count was noted to be elevated at 15 on presentation, her initial troponin was positive at 0.35. Her EKG was unchanged without dynamic ST changes. She was admitted to telemetry, started on levofloxacin and IV fluids, and has had no recurrence of any syncopal or presyncopal events. She denies any precipitating chest pain, palpitations, or shortness of breath. Denies any chest pain while she has been admitted. PAST MEDICAL HISTORY: 1. Coronary artery disease status post prior PCI with drug-eluting stent x2 to her circumflex, known moderate residual LAD disease. 2. GERD. 3. Prior cholecystitis. 4. Diabetes. 5. Polymyalgia rheumatica. 6. Hypertension. 7. Hyperlipidemia. 8. Ischemic cardiomyopathy. 9. Lumbar radiculopathy. 10. Pulmonary nodule. 11. Urinary incontinence. FAMILY HISTORY: Mother had a stroke and her brother had diabetes. No history of premature coronary artery disease or sudden cardiac . SOCIAL HISTORY: She is . She is a never smoker. Denies any significant alcohol or illicit drug use. HOME MEDICATIONS: Include ranitidine, aspirin 81, metformin, docusate, fish oil, fluticasone, multivitamin, rosuvastatin 40, valsartan/hydrochlorothiazide 320/25, carvedilol 12.5 b.i.d., prednisone 5 mg, tolterodine, Coenzyme Q12, metformin, probiotics and B12. ALLERGIES: ALLERGIC TO BEXTRA, CEPHALOSPORINS, CODEINE, PENICILLINS, PROTONIX. REVIEW OF SYSTEMS: Ten point review of systems was completed and otherwise negative unless stated in HPI. PHYSICAL EXAMINATION: VITAL SIGNS: Temperature 36.2, pulse 60, blood pressure 148/70. She is satting 97% on room air. GENERAL: Appears comfortable, in no acute distress. She is alert and oriented x3. HEENT: Sclerae anicteric. Oropharynx is clear. Mucous membranes are moist. NECK: Supple with no lymphadenopathy. She has no jugular venous distention. LUNGS: Clear except for a few crackles at the left base, otherwise no significant rhonchi or wheezes. CARDIAC: She has a regular rate and rhythm. She has a 2/6 systolic ejection murmur heard best at the right upper sternal border. Otherwise, no rubs or gallops. ABDOMEN: Soft, nontender, nondistended with positive bowel sounds. EXTREMITIES: Has positive costovertebral angle tenderness on the left. Her extremities are well perfused. She has no significant lower extremity edema. SKIN: Shows no rashes or lesions. NEUROLOGIC: Nonfocal with grossly intact cranial nerves. PSYCHIATRIC: She is alert and oriented x3. DATA: Her sodium is 141, potassium is 3.3, BUN is 19, creatinine is 1.1. Her white blood cell count is 8.9, down from 15 this morning, hemoglobin is 10.3, platelets 154. Troponins have been 0.3, 0.25, 0.4. UA was grossly positive with blood cultures and urine cultures pending. IMAGING: Shoulder x-ray is negative for fracture. Head CT showed no acute cranial process. CT of her abdomen and pelvis showed questionable left pyelonephritis, also evidence of cholelithiasis and chronic diverticulosis. CARDIAC IMAGING: EKG on admission showed normal sinus rhythm at a rate of 80 with LVH and inferior infarct. Repeat EKG this morning showed normal sinus rhythm with a ventricular rate of 58. Again, LVH, no dynamic ST changes prior. Prior cardiac imaging includes echo September 2015, which showed mild LVH, normal LV function with an EF of 65%, mild eccentric MR and inferior wall motion abnormality. Carotid duplex September of 2015, mild to moderate atherosclerotic plaque, less than 50% stenosis bilaterally. Holter October 2015, normal sinus rhythm with heart rates ranging 58 to 92, mean of 69. No significant pauses, few isolated APCs and VPCs. Cardiac catheterization (July 2013) proximal LAD 50-70% stenosis. Mid circumflex with 80% long diffuse stenosis. RCA with no significant disease. PCI was performed with 2.25 x 22 Resolute drug-eluting stent overlapped with another 2.25 x 15 Resolute stent. IMPRESSION AND PLAN: 1. Fall. 2. Urinary tract infection/pyelonephritis. 3. Mildly elevated troponin. 4. Severe coronary artery disease status post prior percutaneous coronary intervention with drug-eluting stent to circumflex. 5. Mild cardiomyopathy. 6. Diabetes. Patient is currently hemodynamically, electrically stable, and is chest pain free. Mild troponin elevation. Suspect it is likely due to demand ischemia in the setting of the patient's pyelonephritis and residual coronary artery disease. Low concern for true ACS/acute plaque rupture. Going forward, would plan to continue to trend troponins as you are doing. Would plan to repeat an echocardiogram. Continue on aspirin, beta anamaria and current statin. At this time, would hold off on heparin, unless chest pain , rising troponins, or new wall motion abnormalities. Otherwise, additional risk stratification including stress testing can be completed as an outpatient assuming clinical course is unremarkable. Thank you for allowing us to participate in the care of this patient. Please contact with any questions. CADY
[2016-05-11] MEDS: ENOXAPARIN 40 MG/0.4 ML SYR SC SCH (12:30)
--- NOTE | 2016-05-11 14:59 | Hospitalist Progress Note ---
Hospitalist Progress Note Date of Service May 11, 2016. Subjective Pt evaluation today including: conversation w/ patient, physical exam, chart review, lab review, review of studies, review of inpatient medication list Pain: 5/10 dull headache, 4/10 dull right shoulder pain PO Intake: Tolerating PO diet Voiding: no voiding problems The patient had a low grade fever over night, Tmax 37.9C with chills. Patient complains of pain in the right side of her head where she hit the floor. It remains unchanged from yesterday, 5/10 dull pain. The patient states that her right shoulder is now bruised by the pain is somewhat less severe than yesterday. She rates her shoulder pain as a 4/10 dull pain. She complains of generalized myalgias from her fall, as well as mild dull pain in her suprapubic area, where a suitcase had fell on her yesterday. The patient states that she had one episode of nausea and vomiting last night. No nausea or vomiting since then. The patient denies sweats, chest pain, palpitations, claudication, cough , wheezing, shortness of breath, dysuria, hematuria, urinary retention, paralysis, weakness, numbness and tingling. Additional Comments: See HPI for pertinent positives and negatives. All other systems reviewed and negative. Objective Vital Signs Date Time Temp Pulse Resp B/P Pulse Ox O2 Delivery O2 Flow Rate FiO2 05/11/16 12:00 99 Nasal Cannula 2.0 05/11/16 11:22 37.0 62 20 131/76 97 Nasal Cannula 2.0 05/11/16 08:07 36.7 60 18 148/70 99 Room Air 05/11/16 08:00 99 Nasal Cannula 2.0 05/11/16 04:00 Nasal Cannula 2.0 05/11/16 03:03 36.6 57 19 117/70 99 Nasal Cannula 2.0 05/10/16 23:59 Nasal Cannula 2.0 05/10/16 22:55 37.9 75 18 134/73 98 Nasal Cannula 2.0 05/10/16 20:30 37.9 88 18 161/71 90 05/10/16 20:00 Nasal Cannula 2.0 05/10/16 19:45 36.8 76 18 129/59 99 05/10/16 16:00 92 Room Air 2.0 05/10/16 15:39 36.7 76 18 136/55 98 Physical Exam General Appearance: WD/WN, no apparent distress Eyes: normal inspection, PERRL, EOMI ENT: normal ENT inspection, hearing grossly normal, pharynx normal Neck: supple, no JVD, trachea midline Respiratory/Chest: normal breath sounds, no respiratory distress, + crackles ( bases bilaterally) Cardiovascular: regular rate, rhythm, no gallop, no murmur Abdomen: normal bowel sounds, soft, + tenderness (mild diffuse tenderness without guarding) Extremities: non-tender, normal inspection, no pedal edema Neurologic/Psychiatric: alert, normal mood/affect, oriented x 3 Skin: normal color, warm/dry, no rash, + pertinent finding (ecchymosis on right posterior shoulder) Laboratory Results Last 24 Hours Test 05/10/16 15:25 05/10/16 16:17 05/10/16 20:34 05/10/16 23:05 Total Creatine Kinase 480 U/L 514 U/L Creatine Kinase MB 2.6 ng/ml 1.6 ng/ml Creatine Kinase MB Ratio 0.5 0.3 Troponin I 0.247 ng/ml 0.405 ng/ml Bedside Glucose 113 mg/dl 154 mg/dl Test 05/11/16 06:27 05/11/16 06:40 05/11/16 11:15 Bedside Glucose 109 mg/dl 147 mg/dl White Blood Count 8.90 K/uL Red Blood Count 3.70 M/uL Hemoglobin 10.3 g/dL Hematocrit 32.3 % Mean Corpuscular Volume 87.3 fL Mean Corpuscular Hemoglobin 27.8 pg Mean Corpuscular Hemoglobin Concent 31.9 g/dl Platelet Count 154 K/uL Mean Platelet Volume 9.8 fL Neutrophils (%) (Auto) 83.0 % Lymphocytes (%) (Auto) 9.1 % Monocytes (%) (Auto) 7.2 % Eosinophils (%) (Auto) 0.4 % Basophils (%) (Auto) 0.1 % Neutrophils # (Auto) 7.38 K/uL Lymphocytes # (Auto) 0.81 K/uL Monocytes # (Auto) 0.64 K/uL Eosinophils # (Auto) 0.04 K/uL Basophils # (Auto) 0.01 K/uL RDW Standard Deviation 50.7 fL RDW Coefficient of Variation 15.6 % Immature Granulocyte % (Auto) 0.2 % Immature Granulocyte # (Auto) 0.02 K/uL Sodium Level 141 mmol/L Potassium Level 3.3 mmol/L Chloride Level 106 mmol/L Carbon Dioxide Level 27 mmol/L Anion Gap 8.0 mmol/L Blood Urea Nitrogen 19 mg/dl Creatinine 1.10 mg/dl Est Creatinine Clear Calc Drug Dose 40.6 ml/min Estimated GFR () 55.7 Estimated GFR (Non- 48.1 BUN/Creatinine Ratio 17.0 Random Glucose 102 mg/dl Calcium Level 8.1 mg/dl Diagnostic Results Reviewed the following studies and agree with interpretation as follows: Patient Name: EMANUEL ORONA Unit Number: [id number] Dictated: 05/10/161018 Transcribed: 05/10/161018 PA Printed Date/Time: [~ rep prt dt]/[~ rep prt tm] [~ rep ct labl] - [~ rep ct ivnm] [facility] [place] [address] Dictated: 05/10/161018 Transcribed: 05/10/16 101 PAJ Printed Date/Time: [~ rep prt dt]/[~ rep prt tm] [~ rep ct labl] - [~ rep ct ivnm] Patient: EMANUEL ORONA Address1: [address] [place] [address] Rec: [id number] Address2: [place] [address] Acct ID: [id number] [facility] Zip: [place] [address] Date: 1935 Sex: F Room/Bed: Ref Phy: Olvin Quigley M.D. SC: ZEYAD Att Phy: Report #: [id number] [place] Phy: Olvin Quigley M.D. Test: APIV Admit Phy: [employer]ight: PARAS Interpreting Phy: Anthony Conley MD Diagnosis: FALL Ordering Phy: Ashley Goodman PA-C Service Date: 05/10/16 Admit Date: 05/10/16 MNE: [id number] CONF: DICTATED BY: Anthony Conley M.D.]] CC: Ashley Goodman .JARON Jonathan, M.D. McKinley, Daniel F., M.D. End: [~ rep ct add3]] ABDOMEN AND PELVIS CT WITH IV CONTRAST CT DOSE: 1004.38 mGycm HISTORY: febrile, positive UA, r/o pyelo, obstruction TECHNIQUE: Multiaxial CT images of the abdomen and pelvis were performed following the use of intravenous contrast. COMPARISON STUDY: Abdomen and pelvis CT 06/30/2015. FINDINGS: Calcified granuloma seen within the left lower lobe. Bibasilar interstitial thickening. No pneumoperitoneum. No pneumatosis. Left total hip arthroplasty. The liver, adrenal glands, and pancreas are unremarkable. There are few small gallstones. No retroperitoneal lymphadenopathy. The uterus is surgically absent. Mild pelvic floor collapse. Colonic diverticulosis. No bowel wall thickening or obstruction. Bladder is partially obscured by the metallic artifact from the left hip prosthesis. No definite bladder wall thickening. No hydronephrosis. The right kidney enhances normally. Focal area of heterogeneous enhancement within the left kidney at the interpolar region. This measures approximately 2.7 cm in size. There is also mild thickening within the left Gerota's fascia. Tiny focus of fluid inferior to the spleen. Multiple calcified splenic granulomas. An 11 mm cyst within the left kidney. The right kidney enhances normally. IMPRESSION: 1. A 2.7 cm area of heterogeneity within the interpolar region of the left kidney with adjacent fat stranding/thickening of Gerota's fascia. This likely represents a pyelonephritis. One month abdomen CT follow-up is recommended to ensure resolution of this finding. 2. Cholelithiasis. 3. Colonic diverticulosis. 4. No bowel wall thickening or obstruction. Electronically signed by: Anthony Conley M.D. 05/10/2016 10:30 AM The status of this report is Signed. Draft = Not yet reviewed or approved by Radiologist. Signed = Reviewed and approved by Radiologist. <AttendingPhy></AttendingPhy> <FamilyPhy>Olvin Quigley M.D.</FamilyPhy> < PrimaryPhy>Olvin Quigley M.D.</PrimaryPhy> <UnitNumber>[id number]</UnitNumber > <VisitNumber>[id number]</VisitNumber> <PatientName>EMANUEL ORONA</ PatientName> <DateOfBirth>1935</DateOfBirth> <Location>C.EDB</Location> < ServiceDate>05/10/16</ServiceDate> <MNE>ESINDI</MNE> <OrderingPhy>Ashley Goodman PA-C</OrderingPhy> <OrderingPhyMNE>f rep ord dr cesar</OrderingPhyMNE> < DictatingPhyMNE>f rep dict dr cesar</DictatingPhyMNE> <CCListMNE>f rep ct arsenio</ CCListMNE> <AdmittingPhyMNE>f pt admit dr cesar</AdmittingPhyMNE> <AttendingPhyMNE >f pt attend dr cesar</AttendingPhyMNE> <ConsultingPhyMNE>f pt consult dr cesar</ConsultingPhyMNE> <FamilyPhyMNE>f pt fam dr cesar</FamilyPhyMNE> <OtherPhyMNE>f pt other dr cesar</OtherPhyMNE> < PrimaryPhyMNE>f pt prim care dr cesar</PrimaryPhyMNE> <ReferringPhyMNE>f pt referring dr cesar</ReferringPhyMNE> Assessment and Plan 80 y/o female with a history of CAD, DM II, HTN, HLD, ischemic cardiomyopathy, anemia, polymyalgia rheumatica, and GERD who presented to the ED on 05/10 following a fall one hour prior to arrival and fever. Temp 38.2 upon arrival, resolved with Tylenol in ED. EKG no ischemic changes. Shoulder x-ray negative for fractures, dislocations or acute disease. Head CT negative for acute disease. CXR negative. Elevated WBC at 15.05. UA positive for UTI. -Admit to telemetry for cardiac monitoring -Urine culture positive for Gram negative deanna, sensitivities pending -Blood cultures pending -CT abdomen/pelvis with IV contrast to r/o pyelonephritis, obstruction, hydronephrosis: 2.7 cm heterogeneity w/stranding likely pyelonephritis of left kidney. Recommend f/u CT in 1 month to ensure resolution. -Levaquin 750 mg IV q48h as pt. allergic to cephalosporins. Renally dosed as creatinine clearance 37. Will receive 5 doses total. 1 dose given in ED. -WBC improved to 8.9 on 05/11 -IVF NSS at 100 cc/hr. Continue to monitor renal function. Baseline creatinine around 0.8, was 1.2 upon arrival and elevated BUN of 25. Renal function improved 05/11, creatinine 1.1 and BUN 19. -Urology consulted: agree with current management, awaiting culture sensitivities then switch to PO abx CAD, h/o ME and 2 cardiac stents in circumflex 2013 -Mildly elevated POC troponin at 0.22 on arrival. No chest pain, shortness of breath -Mildly elevated CK at 284 on arrival, likely due to fall -Trend cardiac enzymes q8h x 3 -CK trending upward, most likely from fall and mild rhabdomyolysis: 284-->480-- >514 -Troponin trending upward: 0.305-->0.247-->0.405 -EKG q am and prn with chest pain -Continue ASA 81 mg PO qd -Cardiology consulted: continue to trend troponin, mild elevation likely demand ischemia due to infection. Recommend repeat echo. Can do stress test outpatient. Diabetes mellitus type 2--Last HgbA1c checked 04/25/16 was 6.8 -Hold metformin -Insulin sliding scale -Check BSGs q ac and qhs Cardiomyopathy, HTN--stable, BP 129/58 during examination -Continue carvedilol 12.5 mg PO BID -Hold valsartan/HCTZ for now as pt receiving IVF and renal function mildly elevated above baseline as above HLD -Continue Crestor 40 mg PO qpm Polymyalgia rheumatica -Continue prednisone 10 mg PO qd Urinary incontinence -Continue Detrol 4 mg PO qd GERD -Continue ranitidine 150 mg PO BID GI prophylaxis -Maalox Max 15 mL PO q4h prn dyspepsia -Milk of magnesia 30 mL PO q6h prn constipation -Miralax 17 gm PO qd prn constipation -Zofran 4 mg IV q6h prn nausea DVT prophylaxis -Enoxaparin 40 mg SC q24h -MARYBEL Tavares Code Status -Level I, FULL RESUSCITATION STATUS
[2016-05-11] MEDS: ROSUVASTATIN CALCIUM 20 MG TAB PO SCH (21:00)
[2016-05-11] MEDS: TOLTERODINE TARTRATE LA 2 MG CAPCR PO SCH (21:00)
[2016-05-11] MEDS: SACCHAROMYCES BOUL (FLORASTOR) 250 MG CAP PO SCH (21:01)
[2016-05-12] VITALS (7 sets, daily range): BP systolic 137–175; BP diastolic 67–79; PULSE 63–71; TEMP 36.7–37; O2SAT 94–98
[2016-05-12 06:53] LABS: BASO % 0.1 %; BASO ABS # 0.01 K/uL (0-0.2); COMPLETE YES; EOS % 1.4 %; HEMATOCRIT 31.4 % (37-47); IG% 0.1 %; LYMPH % 12.6 %; MEAN CELL VOLUME 88.2 fL (80-100); MEAN CORPUSCULAR HEMOGLOBIN 28.1 pg (25-34); MEAN CORPUSCULAR HGB CONC 31.8 g/dl (32-36); MEAN PLATELET VOLUME 10.5 fL (7.4-10.4); MONO % 6.5 %; NEUT % 79.3 %; PLATELET COUNT 152 K/uL (130-400); RED BLOOD COUNT 3.56 M/uL (4.2-5.4); WHITE BLOOD COUNT 7.13 K/uL (4.8-10.8)
[2016-05-12] MEDS: INSULIN ASPART 100 UNITS/ML 3 ML PEN SC SCH ×4 (07:00→21:22)
[2016-05-12 07:29] LABS: BUN/CREATININE RATIO 19.6 (10-20); CALCIUM 8.6 mg/dl (8.5-10.1); CREATININE 0.92 mg/dl (0.60-1.20); MAGNESIUM 2.4 mg/dl (1.8-2.4); POTASSIUM 3.6 mmol/L (3.5-5.1)
[2016-05-12] MEDS: RANITIDINE HCL 150 MG TAB PO SCH ×2 (07:46→21:18)
[2016-05-12] MEDS: ASPIRIN 81 MG ECTAB PO SCH (07:46)
[2016-05-12] MEDS: CYANOCOBALAMIN 500 MCG TAB (VIT B-12) PO SCH (07:47)
[2016-05-12] MEDS: MULTIVITAMIN TAB PO SCH (07:47)
[2016-05-12] MEDS: CARVEDILOL 12.5 MG TAB PO SCH ×2 (07:47→21:19)
[2016-05-12] MEDS ORDERED: LEVOFLOXACIN / D5W 750 MG in PREMIXED IN D5W 150 ML IV SCH (08:00)
[2016-05-12] MEDS ORDERED: PERFLUTREN LIPID MICROSPHERE (DEFINITY) IV ONE (09:42)
--- NOTE | 2016-05-12 10:10 | Progress Note ---
Subjective Date of Service: May 12, 2016. Subjective Pt evaluation today including: conversation w/ patient, chart review, lab review, review of studies pt reports she is feeling better- bladder pressure and back pain are mild. AFVSS White count and creatinine normal. Preliminary reports on Blood cultures show no growth and Urine culture shows diaz sensitive Klebsiella pneumoniae. She remains on IV Levaquin. Problem List Medical Problems: (1) Angina effort Status: Acute (2) Arthritis Status: Chronic (3) Contusion of multiple sites Status: Acute (4) Diabetes mellitus Status: Chronic (5) Fall Status: Acute (6) Head injury Status: Acute (7) Heart disease Status: Chronic (8) HTN (hypertension) Status: Chronic (9) Injury of left shoulder Status: Acute (10) Non-ST elevation WI (NSTEMI) Status: Acute Review of Systems Constitutional: No chills, No fever ENT: No hearing loss Respiratory: No cough, No dyspnea on exertion, No shortness of breath Cardiac: No chest pain Abdomen: No pain Female : + see HPI Neurologic: No memory loss Psychiatric: No depression symptoms Heme: No abnormal bleeding/bruising Endo: No fatigue Objective Vital Signs Date Time Temp Pulse Resp B/P Pulse Ox O2 Delivery O2 Flow Rate FiO2 05/12/16 09:10 71 95 05/12/16 08:00 98 Room Air 05/12/16 07:42 36.8 63 18 163/67 98 Room Air 05/12/16 04:00 Room Air 05/12/16 04:00 36.9 63 18 137/74 97 Room Air 05/11/16 23:59 Room Air 05/11/16 23:24 36.5 60 18 155/74 98 Room Air 05/11/16 20:19 37.1 63 18 134/71 95 Room Air 05/11/16 20:00 Room Air 05/11/16 16:00 99 Nasal Cannula 2.0 05/11/16 15:33 37.2 68 21 118/65 96 Room Air 05/11/16 12:00 99 Nasal Cannula 2.0 05/11/16 11:22 37.0 62 20 131/76 97 Nasal Cannula 2.0 Physical Exam General Appearance: WD/WN, no apparent distress ENT: hearing grossly normal Respiratory/Chest: no respiratory distress, no accessory muscle use Extremities: non-tender Neurologic/Psychiatric: alert, normal mood/affect Skin: normal color, warm/dry Laboratory Results Last 24 Hours Test 05/11/16 11:15 05/11/16 16:02 05/11/16 20:23 05/12/16 06:30 Bedside Glucose 147 mg/dl 214 mg/dl 162 mg/dl White Blood Count 7.13 K/uL Red Blood Count 3.56 M/uL Hemoglobin 10.0 g/dL Hematocrit 31.4 % Mean Corpuscular Volume 88.2 fL Mean Corpuscular Hemoglobin 28.1 pg Mean Corpuscular Hemoglobin Concent 31.8 g/dl Platelet Count 152 K/uL Mean Platelet Volume 10.5 fL Neutrophils (%) (Auto) 79.3 % Lymphocytes (%) (Auto) 12.6 % Monocytes (%) (Auto) 6.5 % Eosinophils (%) (Auto) 1.4 % Basophils (%) (Auto) 0.1 % Neutrophils # (Auto) 5.65 K/uL Lymphocytes # (Auto) 0.90 K/uL Monocytes # (Auto) 0.46 K/uL Eosinophils # (Auto) 0.10 K/uL Basophils # (Auto) 0.01 K/uL RDW Standard Deviation 49.9 fL RDW Coefficient of Variation 15.5 % Immature Granulocyte % (Auto) 0.1 % Immature Granulocyte # (Auto) 0.01 K/uL Sodium Level 144 mmol/L Potassium Level 3.6 mmol/L Chloride Level 110 mmol/L Carbon Dioxide Level 25 mmol/L Anion Gap 9.0 mmol/L Blood Urea Nitrogen 18 mg/dl Creatinine 0.92 mg/dl Est Creatinine Clear Calc Drug Dose 48.6 ml/min Estimated GFR () 69.1 Estimated GFR (Non- 59.6 BUN/Creatinine Ratio 19.6 Random Glucose 99 mg/dl Calcium Level 8.6 mg/dl Magnesium Level 2.4 mg/dl Troponin I 0.074 ng/ml Test 05/12/16 06:38 Bedside Glucose 98 mg/dl Assessment and Plan UTI Afebrile Upon discharge recommend transition to 14 days of oral abx such as Cipro or Bactrim. Recommend repeat CT in 1 month to ensure resolution of possible small area of pyelonephritis. Our office will contact for follow up appt in 1 month. No further acute management at this time. Please recall prn.
--- NOTE | 2016-05-12 10:35 | Hospitalist Progress Note ---
Hospitalist Progress Note Date of Service May 12, 2016. Subjective Pt evaluation today including: conversation w/ patient, physical exam, chart review, lab review, review of inpatient medication list Pain: 4/10 dull pain right side of head, 3/10 dull R shoulder pain PO Intake: Tolerating PO diet Voiding: no voiding problems Patient reports feeling well. She has been afebrile for over 24 hours. She states that she still has generalized myalgias from her fall, but states that the pain in her head and right shoulder have improved. She currently rates the pain on the right side of her head as a dull 4/10 and the pain in her right shoulder as a 3/10. Her abdominal pain has resolved. She states that she feels weak and fatigued. The patient began to develop some chest tightness last night that is intermittent. This is accompanied by some intermittent shortness of breath. She also now complains of a non-productive cough. The patient denies fevers, chills, sweats, chest pain, palpitations, claudication, wheezing, nausea, vomiting, abdominal pain, dysuria, hematuria, urinary retention, paralysis, numbness and tingling. Additional Comments: See HPI for pertinent positives and negatives. All other systems reviewed and negative. Objective Vital Signs Date Time Temp Pulse Resp B/P Pulse Ox O2 Delivery O2 Flow Rate FiO2 05/12/16 09:10 71 95 05/12/16 08:00 98 Room Air 05/12/16 07:42 36.8 63 18 163/67 98 Room Air 05/12/16 04:00 Room Air 05/12/16 04:00 36.9 63 18 137/74 97 Room Air 05/11/16 23:59 Room Air 05/11/16 23:24 36.5 60 18 155/74 98 Room Air 05/11/16 20:19 37.1 63 18 134/71 95 Room Air 05/11/16 20:00 Room Air 05/11/16 16:00 99 Nasal Cannula 2.0 05/11/16 15:33 37.2 68 21 118/65 96 Room Air 05/11/16 12:00 99 Nasal Cannula 2.0 05/11/16 11:22 37.0 62 20 131/76 97 Nasal Cannula 2.0 Physical Exam General Appearance: WD/WN, no apparent distress Eyes: normal inspection, PERRL, EOMI ENT: normal ENT inspection, hearing grossly normal, pharynx normal Neck: supple, no JVD, trachea midline Respiratory/Chest: normal breath sounds, no respiratory distress, + crackles ( bases bilaterally) Cardiovascular: regular rate, rhythm, no gallop, + systolic murmur Abdomen: normal bowel sounds, non tender, soft Extremities: non-tender, normal inspection, no pedal edema Neurologic/Psychiatric: alert, normal mood/affect, oriented x 3 Skin: normal color, warm/dry, no rash, + pertinent finding (ecchymoses right posterior shoulder and right mid back) Laboratory Results Last 24 Hours Test 05/11/16 11:15 05/11/16 16:02 05/11/16 20:23 05/12/16 06:30 Bedside Glucose 147 mg/dl 214 mg/dl 162 mg/dl White Blood Count 7.13 K/uL Red Blood Count 3.56 M/uL Hemoglobin 10.0 g/dL Hematocrit 31.4 % Mean Corpuscular Volume 88.2 fL Mean Corpuscular Hemoglobin 28.1 pg Mean Corpuscular Hemoglobin Concent 31.8 g/dl Platelet Count 152 K/uL Mean Platelet Volume 10.5 fL Neutrophils (%) (Auto) 79.3 % Lymphocytes (%) (Auto) 12.6 % Monocytes (%) (Auto) 6.5 % Eosinophils (%) (Auto) 1.4 % Basophils (%) (Auto) 0.1 % Neutrophils # (Auto) 5.65 K/uL Lymphocytes # (Auto) 0.90 K/uL Monocytes # (Auto) 0.46 K/uL Eosinophils # (Auto) 0.10 K/uL Basophils # (Auto) 0.01 K/uL RDW Standard Deviation 49.9 fL RDW Coefficient of Variation 15.5 % Immature Granulocyte % (Auto) 0.1 % Immature Granulocyte # (Auto) 0.01 K/uL Sodium Level 144 mmol/L Potassium Level 3.6 mmol/L Chloride Level 110 mmol/L Carbon Dioxide Level 25 mmol/L Anion Gap 9.0 mmol/L Blood Urea Nitrogen 18 mg/dl Creatinine 0.92 mg/dl Est Creatinine Clear Calc Drug Dose 48.6 ml/min Estimated GFR () 69.1 Estimated GFR (Non- 59.6 BUN/Creatinine Ratio 19.6 Random Glucose 99 mg/dl Calcium Level 8.6 mg/dl Magnesium Level 2.4 mg/dl Troponin I 0.074 ng/ml Test 05/12/16 06:38 Bedside Glucose 98 mg/dl Diagnostic Results Reviewed EKG and agree with interpretation as follows: 57 bpm, sinus bradycardia Assessment and Plan 80 y/o female with a history of CAD, DM II, HTN, HLD, ischemic cardiomyopathy, anemia, polymyalgia rheumatica, and GERD who presented to the ED on 05/10 following a fall one hour prior to arrival and fever. Temp 38.2 upon arrival, resolved with Tylenol in ED. EKG no ischemic changes. Shoulder x-ray negative for fractures, dislocations or acute disease. Head CT negative for acute disease. CXR negative. Elevated WBC at 15.05. UA positive for UTI. -Admit to telemetry for cardiac monitoring. Transfer to med/surg 05/12 as stable -Urine culture positive for klebsiella pneumoniae, diaz-sensitive -Blood cultures NGTD x 2 -CT abdomen/pelvis with IV contrast to r/o pyelonephritis, obstruction, hydronephrosis: 2.7 cm heterogeneity w/stranding likely pyelonephritis of left kidney. Recommend f/u CT in 1 month to ensure resolution. -D/C Levaquin, switch to Cipro 500 mg PO BID x 12 days to start 05/13. Will need total of 14 day course, received 2 doses Levaquin (last dose today 05/12). -WBC stable, 7.13 on 05/12 -D/C IVF as pt has adequate PO intake and kidney function back to baseline. -Urology consulted: agree with current management, awaiting culture sensitivities then switch to PO abx Dehydration--resolved -Baseline creatinine around 0.8, was 1.2 upon arrival with elevated BUN of 25 -Creatinine 0.92 on 05/12 -Continue to monitor with PRP CAD, h/o MD and 2 cardiac stents in circumflex 2013 -Mildly elevated POC troponin at 0.22 on arrival. No chest pain, shortness of breath -Mildly elevated CK at 284 on arrival, likely due to fall -Trend cardiac enzymes q8h x 3 -CK trending upward, most likely from fall and mild rhabdomyolysis: 284-->480-- >514 -Troponin trending upward 05/11: 0.305-->0.247-->0.405 -Troponin 05/12 significantly dropped to 0.074 -EKG q am and prn with chest pain -Continue ASA 81 mg PO qd -Cardiology consulted: continue to trend troponin, mild elevation likely demand ischemia due to infection. Recommend repeat echo. Can do stress test outpatient. -Echo ordered for this am, pending Diabetes mellitus type 2--Last HgbA1c checked 04/25/16 was 6.8 -Hold metformin -Insulin sliding scale -Check BSGs q ac and qhs Cardiomyopathy, HTN--stable, BP 129/58 during examination -Continue carvedilol 12.5 mg PO BID -Resume valsartan/HCTZ 320/25 mg PO qd as renal function back to baseline and IVF d/c'd HLD -Continue Crestor 40 mg PO qpm Polymyalgia rheumatica -Continue prednisone 10 mg PO qd Urinary incontinence -Continue Detrol 4 mg PO qd GERD -Continue ranitidine 150 mg PO BID GI prophylaxis -Maalox Max 15 mL PO q4h prn dyspepsia -Milk of magnesia 30 mL PO q6h prn constipation -Miralax 17 gm PO qd prn constipation -Zofran 4 mg IV q6h prn nausea DVT prophylaxis -Enoxaparin 40 mg SC q24h -MARYBEL carmichael and SCDs Code Status -Level I, FULL RESUSCITATION STATUS Dispo -Pt. stable, awaiting echo. Anticipate discharge tomorrow. PT evaluated, recommend continuing physical therapy. Pt. safe to go home with home health services. CM consulted.
[2016-05-12] MEDS: ENOXAPARIN 40 MG/0.4 ML SYR SC SCH (12:30)
--- NOTE | 2016-05-12 12:31 | ECHOCARDIOGRAM REPORT ---
*NOTICE TO RECEIVING REPUBLICAN AGENCY This information is strictly Confidential and protected under [place] law. [place] law prohibits you from making any further disclosure of this information unless further disclosure is expressly permitted by the written consent of the person to whom it pertains or is authorized by law. A general authorization for the release of medical or other information is not sufficient for this purpose. Hospital accepts no responsibility if the information is made available to any other person, INCLUDING THE PATIENT. Interpretation Summary * Name: EMANUEL ORONA Study Date: 05/12/2016 10:11 AM BP: 163/67 mmHg * Patient Location: C.2T\S\E222\S\1 HR: 71 * : 1935 (M/d/yy) Gender: Female Height: 61 in * Age: 80 yrs Ethnicity: [place] Weight: 178 lb * Ordering Physician: Ashley Goodman * Referring Physician: Self, Referred * Performed By: Lubna Menendez RDCS * * Reason For Study: ELEVATED TROPONIN, CARDIOMYOPATHY, H.O [place], CATH W/STENTS * BSA: 1.8 m2 * History: ELEVATED TROPONIN, CARDIOMYOPATHY, H/O [place], CATH WITH STENTS * -- Conclusions -- * Compared with 09/27/15 study, no significant change. * The left ventricle is normal in size. * There is moderate concentric left ventricular hypertrophy. * Ejection Fraction = 50-55%. * Left ventricular systolic function is low normal. * Moderate size inferobasal infarct. * There is mild to moderate right ventricular hypertrophy. * Minimal excursion of posterior mitral leaflet. * There is mild to moderate mitral regurgitation. * The left atrium is mildly dilated. Procedure Details * A contrast injection of Definity was performed to improve assessment of LV function. * Contrast was injected into an intravenous site in the right arm. * One vial of Definity ultrasound contrast was diluted in normal saline to a total volume of 10 ml. A total of '2' ml of solution was administered during imaging. * Lot # [id number] of Definity utilized for procedure. * Expiration date OCT 21. * The attending nurse who injected the contrast agent was SUREKHA VINCENT. Left Ventricle * The left ventricle is normal in size. * There is moderate concentric left ventricular hypertrophy. * Ejection Fraction = 50-55%. * Left ventricular systolic function is low normal. * Moderate size inferobasal infarct. Right Ventricle * The right ventricular cavity size is normal (basal dimension <4.2 cm in right ventricular apical 4-chamber view). * There is mild to moderate right ventricular hypertrophy. * The right ventricular systolic function is normal. Atria * The left atrium is mildly dilated. * Right atrial size is normal. * The interatrial septum is intact with no evidence for an atrial septal defect. Mitral Valve * Minimal excursion of posterior mitral leaflet. * There is mild mitral annular calcification. * There is mild to moderate mitral regurgitation. Tricuspid Valve * The tricuspid valve is normal in structure and function. * Significant tricuspid regurgitation is absent. Aortic Valve * The aortic valve is normal in structure and function. * There is no significant aortic regurgitation. Pulmonic Valve * The pulmonary valve is inadequately visualized, but the Doppler data is adequate for interpretation. * Mild pulmonic valvular regurgitation. Great Vessels * The aortic root is normal size. * No obvious dissection could be visualized. * The pulmonary artery is normal size. Pericardium/Pleural * There is no pericardial effusion. Right Ventricle * The right ventricular wall motion is normal. Great Vessels * Normal inferior vena cava diameter and respiratory variation suggests normal central venous pressure. MMode 2D Measurements and Calculations IVSd 1.1 cm IVSs 1.6 cm LVIDd 5.3 cm LVIDs 3.8 cm LVPWd 1.2 cm LVPWs 1.4 cm IVS/LVPW 0.87 FS 27.2 % EDV(Teich) 133.4 ml ESV(Teich) 63.3 ml EF(Teich) 52.6 % EDV(cubed) 146.2 ml ESV(cubed) 56.3 ml EF(cubed) 61.5 % % IVS thick 51.1 % % LVPW thick 17.9 % LV mass(C)d 235.1 grams LV mass(C)dI 130.8 grams/m\S\2 LV mass(C)s 222.1 grams LV mass(C)sI 123.5 grams/m\S\2 SV(Teich) 70.2 ml SI(Teich) 39.0 ml/m\S\2 SV(cubed) 89.9 ml SI(cubed) 50.0 ml/m\S\2 LA dimension 3.5 cm LVAd ap4 31.5 cm\S\2 LVLd ap4 8.6 cm EDV(MOD-sp4) 94.9 ml EDV(sp4-el) 97.6 ml LVAs ap4 19.1 cm\S\2 LVLs ap4 6.6 cm ESV(MOD-sp4) 45.8 ml ESV(sp4-el) 47.4 ml EF(MOD-sp4) 51.7 % EF(sp4-el) 51.4 % LVAd ap2 31.6 cm\S\2 LVLd ap2 8.8 cm EDV(MOD-sp2) 94.0 ml EDV(sp2-el) 96.2 ml LVAs ap2 19.3 cm\S\2 LVLs ap2 7.2 cm ESV(MOD-sp2) 44.2 ml ESV(sp2-el) 43.5 ml EF(MOD-sp2) 52.9 % EF(sp2-el) 54.8 % LVLd %diff 2.4 % EDV(MOD-bp) 94.7 ml LVLs %diff 9.2 % ESV(MOD-bp) 44.2 ml EF(MOD-bp) 53.4 % SV(MOD-sp4) 49.1 ml SI(MOD-sp4) 27.3 ml/m\S\2 SV(MOD-sp2) 49.7 ml SI(MOD-sp2) 27.7 ml/m\S\2 SV(MOD-bp) 50.5 ml SI(MOD-bp) 28.1 ml/m\S\2 SV(sp4-el) 50.2 ml SI(sp4-el) 27.9 ml/m\S\2 SV(sp2-el) 52.7 ml SI(sp2-el) 29.3 ml/m\S\2 Doppler Measurements and Calculations MV E max morgan 123.1 cm/sec MV A max morgan 99.7 cm/sec MV E/A 1.2 MV dec time 0.26 sec Ao V2 max 200.3 cm/sec Ao max PG 16.0 mmHg Ao max PG (full) 11.8 mmHg LV V1 max PG 4.3 mmHg LV V1 max 103.2 cm/sec TR max morgan 203.2 cm/sec
[2016-05-12] MEDS: ACETAMINOPHEN 325 MG TAB PO PRN ×2 (19:33→21:19)
[2016-05-12] MEDS: TOLTERODINE TARTRATE LA 2 MG CAPCR PO SCH (21:18)
[2016-05-12] MEDS: SACCHAROMYCES BOUL (FLORASTOR) 250 MG CAP PO SCH (21:19)
[2016-05-12] MEDS: ROSUVASTATIN CALCIUM 20 MG TAB PO SCH (21:20)
[2016-05-13] MEDS: INSULIN ASPART 100 UNITS/ML 3 ML PEN SC SCH ×2 (06:30→11:00)
[2016-05-13 06:55] VITALS: BP 170/75; PULSE 61; TEMP 36.8; O2SAT 95
[2016-05-13 07:12] LABS: BASO % 0.3 %; BASO ABS # 0.02 K/uL (0-0.2); COMPLETE YES; EOS % 1.9 %; HEMATOCRIT 30.9 % (37-47); IG% 0.2 %; LYMPH % 21.1 %; LYMPH ABS # 1.34 K/uL (1.2-3.4); MEAN CELL VOLUME 87.3 fL (80-100); MEAN CORPUSCULAR HEMOGLOBIN 27.7 pg (25-34); MEAN CORPUSCULAR HGB CONC 31.7 g/dl (32-36); MONO % 7.2 %; NEUT % 69.3 %; PLATELET COUNT 200 K/uL (130-400); RED BLOOD COUNT 3.54 M/uL (4.2-5.4); WHITE BLOOD COUNT 6.35 K/uL (4.8-10.8)
[2016-05-13 07:41] LABS: BUN/CREATININE RATIO 18.6 (10-20); CALCIUM 8.7 mg/dl (8.5-10.1); CREATININE 0.93 mg/dl (0.60-1.20); POTASSIUM 3.6 mmol/L (3.5-5.1)
[2016-05-13] MEDS: CYANOCOBALAMIN 500 MCG TAB (VIT B-12) PO SCH (07:55)
[2016-05-13] MEDS: RANITIDINE HCL 150 MG TAB PO SCH (07:55)
[2016-05-13] MEDS: MULTIVITAMIN TAB PO SCH (07:56)
[2016-05-13] MEDS: CARVEDILOL 12.5 MG TAB PO SCH (07:56)
[2016-05-13] MEDS: ASPIRIN 81 MG ECTAB PO SCH (07:56)
[2016-05-13] MEDS ORDERED: VALSARTAN/HCTZ 160/12.5 MG TAB PO SCH (08:00)
[2016-05-13] MEDS ORDERED: CPR500 PO (08:48)
--- NOTE | 2016-05-13 08:49 | Discharge Instructions ---
Discharge Instructions Admission Reason for Admission: FALL Discharge Discharge Diagnosis / Problem: uti, pyelonephritis Discharge Goals Goal(s): Decrease discomfort, Improve function, Increase independence, Improve disease control, Improve nutritional status, Learn about illness, Diagnostic testing, Therapeutic intervention, Prevent Disease Progression, Specific goals Activity Recommendations Activity Limitations: resume your previous activity Lifting Limitations: none Exercise/Sports Limitations: as tolerated May Resume Sexual Activity: when tolerated Shower/Bathe: no limitations Driving or Machine Use: no limitations . 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 Loco in 1-2 weeks - you need to follow up with your primary care physician in 1 week, - take medication as instructed, never overdose or any misuse, or take with alcohol, because misuse of medicine may cause organ damage or , call your primary care physician if have questions of medicaitons. - call your primary care physician OR go to local emergency room if has any fever/chill, chest pain, shortness of breathing, nausea/vomiting/abdominal pain , facial droop/slurry speech/local weakness, or if has any questions. - fall precaution - diet as instructed - you need to follow up with your subspecialist - you should understand that it is important to follow up the above instruction , and "not following the above instruction" may cause delayed or missed care of your medical conditions which may cause permanent organ damage and even . Current Hospital Diet Patient's current hospital diet: Diabetes Type 2 Diet Discharge Diet Recommended Diet: AHA Diet (Heart Healthy) Pending Studies Studies pending at discharge: no Laboratory Results Hemoglobin A1c Test 04/25/16 13:08 Range/Units Estimated Average Glucose 148 mg/dl Hemoglobin A1c 6.8 H 4.5-5.6 % Medical Emergencies . Who to Call and When: Medical Emergencies: If at any time you feel your situation is an emergency, please call 911 immediately. . Non-Emergent Contact Non-Emergency issues call your: Primary Care Provider, [facility] . . "Provider Documentation" section prepared by John Rendon. VTE Core Measure Inpt VTE Proph given/why not?: Enoxaparin (Lovenox)ELIZABETH, T.E.D. Stockings, SCD's
[2016-05-13 08:55] VITALS: BP 170/75; PULSE 61; TEMP 36.8; O2SAT 95
--- NOTE | 2016-05-13 08:55 | Discharge Summary ---
Discharge Summary Admission Date: May 10, 2016 at 09:45 Discharge Date: May 13, 2016 Discharge Disposition: Home Principal Diagnosis: urinary track infection and pyelonephritis Problems/Secondary Diagnoses: (1) Arthritis Status: Chronic (2) Diabetes mellitus Status: Chronic (3) Heart disease Status: Chronic (4) HTN (hypertension) Status: Chronic Immunizations: Have You Had Influenza Vaccine: Yes History of Tetanus Vaccine?: Unknown History of Pneumococcal: Yes History of Hepatitis B Vaccine: No Procedures: no Consultations: cardio, Medication Reconciliation New Medications: Ciprofloxacin (Ciprofloxacin HCl) 500 Mg Tab 500 MG PO BID for 10 Days, TAB Continued Medications: Acetaminophen (Tylenol) 325 Mg Tab 650 MG PO q5 PRN for Pain, TAB Aspirin (Aspirin Ec) 81 Mg Tab 81 MG PO QAM Carvedilol (Coreg) 12.5 Mg Tab 1 TAB PO BID for 90 Days, #180 TAB 3 Refills Coenzyme Q10 (Ubidecarenone) (Co Q10) 50 Mg Cap 200 MG PO QAM, CAP Cyanocobalamin (Vitamin B12) 1,000 Mcg Tab 1 TAB PO QAM Fish Oil ([place]-3) 1 Ea Cap 1 CAP PO QPM, CAP Fluticasone Furoate (Veramyst) 27.5 Mcg/[place] Spr 2 SPRY DAVID DAILY PRN for prn for 30 Days, #10 GM 5 Refills Metformin Hcl (Glucophage) 500 Mg Tab 250 MG PO BID, TAB Misc Natural Products (Osteo Bi-Flex Triple Stre) 1 Tab Tab 1 TAB PO noon Multivitamin (Multivitamin) Tab 1 TAB PO DAILY Prednisone Tab (Prednisone) 10 Mg Tab 10 MG PO DAILY, TAB Ranitidine HCl (Zantac) 150 Mg Tab 150 MG PO BID Rosuvastatin Calcium (Crestor) 40 Mg Tab 40 MG PO QPM, TAB Saccharomyces Boulardii (Probiotic) 250 Mg Cap 1 CAP PO HS Tolterodine Tartrate (Detrol LA) 2 Mg Capcr 2 CAP PO QPM for 90 Days, CAP 3 Refills Valsartan/Hctz (Diovan Hct 320MG/25MG) 1 Tab Tab 1 TAB PO QAM, TAB Discontinued Medications: Clindamycin Hcl (Cleocin) 300 Mg Cap 600 MG PO UD for 7 Days, CAP TAKE 2 CAPSULES 1 HOUR PRIOR TO PROCEDURES. Discharge Exam doing well, no f/c, OOB and walk, no c/o Review of Systems: Constitutional: No chills, No fatigue, No fever, No problem reported, No sweats, No weakness, No weight loss Eyes: No diplopia, No discharge, No eye pain, No problem reported, No redness, No worsening of vision ENT: No dental problems, No hearing loss, No nasal symptoms, No problem reported, No sore throat, No tinnitus, No trouble swallowing, No unusual epistaxis Respiratory: No cough, No dyspnea at rest, No dyspnea on exertion, No hemoptysis, No problem reported, No shortness of breath, No sputum, No wheezing Cardiovascular: No PND, No chest pain, No claudication, No edema, No orthopnea, No palpitations, No problem reported Abdomen: No GI bleeding, No constipation, No diarrhea, No nausea, No pain, No problem reported, No vomiting Musculoskeletal: No calf pain, No joint pain, No muscle pain, No problem reported, No swelling Genitourinary - Female: No dysmenorrhea, No dysuria, No hematuria, No menorrhagia, No metrorrhagia, No , No problem reported, No rash, No urinary frequency, No urinary incontinence, No urinary retention, No urinary urgency, No vaginal bleeding, No vaginal discharge, No vaginal itching, No vulvodynia Neurologic: No balance problems, No memory loss, No numbness/tingling, No paralysis, No problem reported, No vertigo, No weakness Psychiatric: No anhedonism, No anxiety, No depression symptoms, No insomnia , No problem reported, No substance abuse Endocrine: No excessive thirst, No excessive urination, No fatigue, No problem reported Hematologic / Lymphatic: No abnormal bleeding/bruising, No clotting problems , No night sweats, No problem reported, No swollen lymph nodes Integumentary: No bleeding, No color change, No itch, No new/changing skin lesions, No problem reported, No rash Physical Exam: General Appearance: WD/WN, no apparent distress, + obese Eyes: normal inspection, PERRL, EOMI ENT: normal ENT inspection, hearing grossly normal Neck: supple, no adenopathy, thyroid normal Respiratory/Chest: chest non-tender, normal breath sounds, no respiratory distress, no accessory muscle use, + decreased breath sounds Cardiovascular: regular rate, rhythm, no edema, no gallop, no JVD, no murmur , normal peripheral pulses Abdomen / GI: normal bowel sounds, non tender, soft, no organomegaly, no pulsatile mass Extremities: normal inspection, no calf tenderness, normal capillary refill , no pedal edema, normal range of motion Neurologic/Psychiatric: crate tier II-XII nml as tested, no motor/sensory deficits , normal mood/affect, normal reflexes Skin: normal color, warm/dry Hospital Course 80 y/o female with a history of CAD, DM II, HTN, HLD, ischemic cardiomyopathy, anemia, polymyalgia rheumatica, and GERD who presented to the ED on 05/10/2016 following a fall one hour prior to arrival and fever. upon admission: Temp 38.2 upon arrival, resolved with Tylenol in ED. EKG no ischemic changes. Shoulder x-ray negative for fractures, dislocations or acute disease. Head CT negative for acute disease. CXR negative. Elevated WBC at 15.05. UA positive for UTI. -Admit to telemetry for cardiac monitoring because of elevated Tn, mild, cardio saw pt, Suspect it is likely due to demand ischemia in the setting of the patient's pyelonephritis and residual coronary artery disease. Low concern for true ACS/acute plaque rupture., continue stable, no medicine changes, echo was done, need out patient follow up with cardio, I told patient about this. UTI, pyelo, -Urine culture positive for klebsiella pneumoniae, diaz-sensitive -Blood cultures NGTD x 2 -CT abdomen/pelvis with IV contrast to r/o pyelonephritis, obstruction, hydronephrosis: 2.7 cm heterogeneity w/stranding likely pyelonephritis of left kidney. Recommend f/u CT in 1 month to ensure resolution. - had been on Levaquin since admission, switch to Cipro 500 mg PO BID x days to start 05/13. Will need total of 10 to 14 day course, will give 10 days cipro upon discharge. -WBC stable, 7.13 on 05/12 -D/C IVF as pt has adequate PO intake and kidney function back to baseline. -Urology consulted: agree with current management, awaiting culture sensitivities then switch to PO abx Dehydration--resolved -Baseline creatinine around 0.8, was 1.2 upon arrival with elevated BUN of 25 -Creatinine 0.92 on 05/12 -Continue to monitor with PRP CAD, h/o AR and 2 cardiac stents in circumflex 2013 -Mildly elevated POC troponin at 0.22 on arrival. No chest pain, shortness of breath -Mildly elevated CK at 284 on arrival, likely due to fall -Trend cardiac enzymes q8h x 3 -CK trending upward, most likely from fall and mild rhabdomyolysis: 284-->480-- >514 -Troponin trending upward 05/11: 0.305-->0.247-->0.405 -Troponin 05/12 significantly dropped to 0.074 -EKG q am and prn with chest pain -Continue ASA 81 mg PO qd -Cardiology consulted: continue to trend troponin, mild elevation likely demand ischemia due to infection. Recommend repeat echo. Can do stress test outpatient. -Echo ordered for this am Diabetes mellitus type 2--Last HgbA1c checked 04/25/16 was 6.8 -Hold metformin while in hospital, restart upon discharge -Insulin sliding scale -Check BSGs q ac and qhs Cardiomyopathy, HTN--stable, BP 129/58 during examination -Continue carvedilol 12.5 mg PO BID -Resume valsartan/HCTZ 320/25 mg PO qd as renal function back to baseline and IVF d/c'd HLD -Continue Crestor 40 mg PO qpm Polymyalgia rheumatica -Continue prednisone 10 mg PO qd Urinary incontinence -Continue Detrol 4 mg PO qd GERD -Continue ranitidine 150 mg PO BID GI prophylaxis -Maalox Max 15 mL PO q4h prn dyspepsia -Milk of magnesia 30 mL PO q6h prn constipation -Miralax 17 gm PO qd prn constipation -Zofran 4 mg IV q6h prn nausea DVT prophylaxis -Enoxaparin 40 mg SC q24h -MARYBEL Tavares Code Status -Level I, FULL RESUSCITATION STATUS Dispo -Pt. 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 Loco in 1-2 weeks - you need to follow up with your primary care physician in 1 week, - take medication as instructed, never overdose or any misuse, or take with alcohol, because misuse of medicine may cause organ damage or , call your primary care physician if have questions of medicaitons. - call your primary care physician OR go to local emergency room if has any fever/chill, chest pain, shortness of breathing, nausea/vomiting/abdominal pain , facial droop/slurry speech/local weakness, or if has any questions. - fall precaution - diet as instructed - you need to follow up with your subspecialist - you should understand that it is important to follow up the above instruction , and "not following the above instruction" may cause delayed or missed care of your medical conditions which may cause permanent organ damage and even . Total Time Spent: Greater than 30 minutes This includes examination of the patient, discharge planning, medication reconciliation, and communication with other providers. Discharge Instructions Please refer to the electronic Patient Visit Report (Discharge Instructions) for additional information. Additional Copies To Olvin Quigley M.D.; Barry Cruz MD
[2016-05-13] MEDS: ENOXAPARIN 40 MG/0.4 ML SYR SC SCH (12:30)
[2016-05-14] MEDS ORDERED: CIPROFLOXACIN 500 MG TAB PO SCH (08:00)
[2016-06-22] MEDS ORDERED: MULT-506 PO (07:35)
[2016-06-22] MEDS ORDERED: ZNTT/150 PO (11:42)
[2016-06-22] MEDS ORDERED: ROSU40TA PO (12:02)
[2016-06-22] MEDS ORDERED: MISCTAB88 PO (12:02)
[2016-06-22] MEDS ORDERED: ACET-1311 PO (12:02)
[2016-06-22] MEDS ORDERED: GLC/500 PO (12:02)
[2016-06-22] MEDS ORDERED: CARV12.5 PO (12:02)
[2016-06-22] MEDS ORDERED: SACC250C11 PO (12:02)
[2016-06-22] MEDS ORDERED: DTRSR/2 PO (12:02)
[2016-06-22] MEDS ORDERED: FLUT27.5 NAE (12:02)
[2016-06-22] MEDS ORDERED: VALS320T2 PO (12:02)
[2016-06-22] MEDS ORDERED: COEN1CAP28 PO (12:02)
[2016-06-22] MEDS ORDERED: ASPI81TA28 PO (14:23)
== END 2016-05-13 13:44 | disposition home or self-care (01) | DRG 690 ==
LOC: CANRESERV → ENRESERVDT → ENRESERVTM → EDBD 04:47 → C.EDB 04:49 → C.2T 09:45 → C.MS4W 05-12 11:06 → CMPBEDREQ 05-12 11:08
PROVIDERS: ADMIT Hospitalist; ATTEND Hospitalist
DX: N39.0 Urinary tract infection, site not specified (principal); I24.8 Other forms of acute ischemic heart disease; M62.82 Rhabdomyolysis; N12 Tubulo-interstitial nephritis, not specified as acute or chronic; B96.1 Klebsiella pneumoniae [K. pneumoniae] as the cause of diseases classified elsewhere; S40.011A Contusion of right shoulder, initial encounter; R51 Headache; E86.0 Dehydration; E11.9 Type 2 diabetes mellitus without complications; I10 Essential (primary) hypertension; I25.10 Atherosclerotic heart disease of native coronary artery without angina pectoris; M35.3 Polymyalgia rheumatica; E78.5 Hyperlipidemia, unspecified; I25.5 Ischemic cardiomyopathy; I25.2 Old myocardial infarction; N39.41 Urge incontinence; K21.9 Gastro-esophageal reflux disease without esophagitis; Z51.81 Encounter for therapeutic drug level monitoring; E66.9 Obesity, unspecified; Z79.899 Other long term (current) drug therapy; Z79.82 Long term (current) use of aspirin; Z79.84 Long term (current) use of oral hypoglycemic drugs; Z79.52 Long term (current) use of systemic steroids; Z68.33 Body mass index [BMI] 33.0-33.9, adult; Z86.73 Personal history of transient ischemic attack (TIA), and cerebral infarction without residual deficits; Z95.5 Presence of coronary angioplasty implant and graft; Z85.42 Personal history of malignant neoplasm of other parts of uterus; Z83.3 Family history of diabetes mellitus; Z82.49 Family history of ischemic heart disease and other diseases of the circulatory system; Z82.3 Family history of stroke; W18.39XA Other fall on same level, initial encounter; Y92.003 Bedroom of unspecified non-institutional (private) residence as the place of occurrence of the external cause; Y99.8 Other external cause status

== ENCOUNTER → 2016-06-01 | Outpatient (CLI) | payer BC ==
[~2016-06-01] MED LIST changes: +ACET-1311 PO; +ASPI81TA28 PO; +CARV12.5 PO; -CLIN300C2 PO; +COEN1CAP28 PO; +CPR500 PO; +DTRSR/2 PO; +FLUT27.5 NAE; +GLC/500 PO; -LACTCAP3 PO; +MCRB100HP PO; -MENT1CRE TOP; +MISCTAB88 PO; +MULT-506 PO; +NIFE1TAB53 PO; +OMEP40CA41 PO; +ROSU40TA PO; +SACC250C11 PO; +VALS320T PO; +VALS320T2 PO; +ZNTT/150 PO
[2016-06-02 06:58] LABS: ESTIMATED AVERAGE GLUCOSE 154 mg/dl; HA1C FLAG Normal (Normal)
== END | disposition home or self-care (01) ==
LOC: C.LAB1850 14:26
PROVIDERS: ATTEND Internal Medicine
DX: E11.9 Type 2 diabetes mellitus without complications (principal)

== ENCOUNTER → 2016-06-01 | Outpatient (CLI) | payer BC ==
--- NOTE | 2016-06-01 14:32 | DIAGNOSTIC IMAGING REPORT ---
ABDOMEN AND PELVIS CT WITHOUT CONTRAST CT DOSE: 1050.66 mGycm HISTORY: N12 [id number] History of kidney [id number] History TECHNIQUE: Multiaxial CT images of the abdomen and pelvis were performed without contrast. COMPARISON STUDY: Abdomen and pelvis CT 05/10/2016. FINDINGS: Focal thickening at the interpolar region of the left kidney has slightly improved. This measures 2.5 cm, previously measuring 2.7 cm. The adjacent perinephric fat stranding/thickening has also significantly improved in the interval. Evaluation for a renal mass is essentially nondiagnostic due to the lack of intravenous contrast on this study. Stable 1 cm hypodense lesion within the interpolar region of the left kidney posteriorly. This is difficult to characterize due to its small size but favors a cyst. Normal right kidney. No renal stones or hydronephrosis. Pelvic floor collapse. Bladder and distal ureters are not well visualized due to the metallic artifact from the left hip prosthesis. However, there is no definite bladder wall thickening. The bladder is not well-distended. Prior hysterectomy. Suboptimal evaluation for bowel pathology due to the lack of intravenous and oral contrast. However, there is no definite bowel wall thickening or obstruction. Colonic diverticulosis. Normal appendix. Multiple small gallstones. Trace pericardial fluid, unchanged. Calcified granulomas within the spleen. The unenhanced liver, adrenal glands, and pancreas are unremarkable. No retroperitoneal lymphadenopathy. There is a left circumaortic renal vein. Interstitial thickening at the lung bases persists. Calcified granuloma at the left lower lobe. IMPRESSION: 1. Interval improvement in the focal area of thickening within the interpolar region of the left kidney and adjacent perinephric fat stranding/thickening. This favors near complete resolution of the suspected pyelonephritis. However, an additional one month abdomen CT with intravenous contrast is recommended for follow-up to exclude the possibility of an underlying renal mass and to ensure complete resolution of these findings. 2. Cholelithiasis. 3. Colonic diverticulosis. Electronically signed by: Anthony Conley M.D. 06/01/2016 2:31 PM Dictated Date/Time: 06/01/2016 2:10 PM
== END | disposition home or self-care (01) ==
LOC: C.CTS 13:46
PROVIDERS: ATTEND Nurse Practitioner Family
DX: N12 Tubulo-interstitial nephritis, not specified as acute or chronic (principal); Z87.442 Personal history of urinary calculi; Z87.440 Personal history of urinary (tract) infections; K80.20 Calculus of gallbladder without cholecystitis without obstruction; K57.90 Diverticulosis of intestine, part unspecified, without perforation or abscess without bleeding; E11.9 Type 2 diabetes mellitus without complications

== ENCOUNTER → 2016-06-06 | Outpatient (CLI) | payer BC ==
[2016-06-06 15:44] LABS: URINE APPEARANCE CLEAR (CLEAR); URINE BILIRUBIN NEG (NEG); URINE COLOR YELLOW; URINE EPITHELIAL CELL AUTO >30 /lpf (0-5); URINE NITRITE NEG (NEG); URINE PH 5.5 (4.5-7.5); UROBILINOGEN NEG (NEG)
[2016-06-06 15:51] LABS: MANUAL MICROSCOPIC REQUIRED? NO; REVIEW REQ? NO
== END | disposition home or self-care (01) ==
LOC: C.LAB1850 14:20
PROVIDERS: ATTEND Internal Medicine
DX: N39.0 Urinary tract infection, site not specified (principal)

== ENCOUNTER → 2016-06-12 | Outpatient (CLI) | payer BC ==
[~2016-06-12] MED LIST changes: +OPTIRAY 320 IV PRN
--- NOTE | 2016-06-12 13:17 | DIAGNOSTIC IMAGING REPORT ---
CT SCAN OF THE CHEST WITH IV CONTRAST CLINICAL HISTORY: Follow-up pulmonary nodule. COMPARISON STUDY: Chest CT dated 10/29/2014. TECHNIQUE: Following the IV administration of 119 cc of Optiray 320, CT scan of the thorax was performed from the thoracic inlet to the upper abdomen. Images are reviewed in the axial, sagittal, and coronal planes. IV contrast was administered without complication. CT DOSE: 543.57 mGy.cm FINDINGS: Thyroid: Imaged portions of the thyroid gland are normal in size and attenuation. A subcentimeter nodule and a coarse calcification are noted in the right lobe. Thoracic aorta: There is moderate atherosclerotic calcification of the thoracic aorta, which is normal in caliber and demonstrates standard 3-vessel arch anatomy. No dissection is seen. Pulmonary vasculature: The main pulmonary arteries are dilated suggesting pulmonary artery hypertension. There are no filling defects identified in the central pulmonary vessels to indicate pulmonary embolus. Note that this examination was not protocoled for evaluation of the pulmonary arteries. Heart: The heart is mildly enlarged and without pericardial effusion. There are coronary artery calcifications. Lungs and pleural spaces: There is diffuse subpleural reticulation with a lower lobe predominance. There are mild associated groundglass opacities. No traction bronchiectasis or honeycombing is seen. No airspace consolidation or pleural effusion is seen. Scattered calcified granulomas are identified. The trachea and central airways are clear. Mediastinum: There is no mediastinal lymphadenopathy. Anjali: Clear. There are calcified left hilar nodes. Axillae: There is no axillary lymphadenopathy. Upper abdomen: There are numerous calcified splenic granulomas. Cholelithiasis is identified. The kidneys demonstrate cortical atrophy. A 1.3 cm cyst is noted in the left kidney. There is a circumaortic left renal vein. Skeletal structures: The skeletal structures are osteopenic. Mild degenerative change is noted in the spine and shoulders. No lytic or blastic bony lesions are seen. IMPRESSION: 1. Findings are consistent with interstitial lung disease. This is similar to previous. 2. There is no airspace consolidation or pleural effusion. 3. No concerning pulmonary nodule is identified as clinically queried. 4. There is evidence of remote granulomas infection. 5. Mild cardiomegaly. 6. Additional changes as above. Electronically signed by: Marcus Todd M.D. 06/12/2016 1:16 PM Dictated Date/Time: 06/12/2016 1:08 PM
== END | disposition home or self-care (01) ==
LOC: C.CTS 12:06
PROVIDERS: ATTEND Internal Medicine
DX: R91.1 Solitary pulmonary nodule (principal); I51.7 Cardiomegaly

== ENCOUNTER → 2016-06-16 | Outpatient (CLI) | payer BC ==
[~2016-06-16] MED LIST changes: -OPTIRAY 320 IV PRN
== END | disposition home or self-care (01) ==
LOC: C.LABSPEC 15:06
PROVIDERS: ATTEND Urology
DX: N28.9 Disorder of kidney and ureter, unspecified (principal)

== ENCOUNTER 2016-06-22 14:49 | Inpatient (IN) | payer BC, OTHER ==
[~2016-06-22] VITALS: Ht 154.9 cm; Wt 83.2 kg
[~2016-06-22 14:49] MED LIST changes: -MCRB100HP PO; -NIFE1TAB53 PO; -OMEP40CA41 PO; -VALS320T PO
[2016-06-22] MEDS ORDERED: KETOROLAC TROMETHAMINE 30 MG/ML VIAL IV STA (15:13)
[2016-06-22] MEDS ORDERED: ACETAMINOPHEN 500 MG TAB PO STA (15:13)
[2016-06-22] MEDS ORDERED: ONDANSETRON INJ 2 MG/ML 2 ML VIAL IV STA (15:13)
[2016-06-22] MEDS ORDERED: HYDROmorphone INJ 1 MG/ML SYR IV STA (15:13)
[2016-06-22] MEDS ORDERED: SODIUM CHLORIDE 0.9% 1000ML 1,000 ML IV STA (15:13)
[2016-06-22 15:45] LABS: BASO % 0.1 %; BASO ABS # 0.01 K/uL (0-0.2); COMPLETE YES; EOS % 0.9 %; HEMATOCRIT 37.1 % (37-47); IG% 0.3 %; LYMPH % 4.9 %; LYMPH ABS # 0.43 K/uL (1.2-3.4); MEAN CELL VOLUME 84.9 fL (80-100); MEAN CORPUSCULAR HEMOGLOBIN 28.8 pg (25-34); MEAN PLATELET VOLUME 9.9 fL (7.4-10.4); MONO % 2.9 %; NEUT % 90.9 %; PLATELET COUNT 174 K/uL (130-400); RED BLOOD COUNT 4.37 M/uL (4.2-5.4); WHITE BLOOD COUNT 8.71 K/uL (4.8-10.8)
[2016-06-22 15:53] LABS: PARTIAL THROMBOPLASTIN RATIO 1.2; PROTHROMBIN TIME (PATIENT) 10.7 SECONDS (9.0-12.0)
[2016-06-22 15:58] LABS: MANUAL MICROSCOPIC REQUIRED? NO; REVIEW REQ? YES; URINE APPEARANCE CLOUDY (CLEAR); URINE BILIRUBIN NEG (NEG); URINE COLOR YELLOW; URINE EPITHELIAL CELL AUTO >30 /lpf (0-5); URINE NITRITE NEG (NEG); URINE SPECIFIC GRAVITY 1.015 (1.000-1.030); UROBILINOGEN NEG (NEG)
[2016-06-22 16:06] LABS: BUN/CREATININE RATIO 17.9 (10-20); CALCIUM 9.6 mg/dl (8.5-10.1); CREATININE 1.7 mg/dl (0.60-1.20); POTASSIUM 3.1 mmol/L (3.5-5.1)
[2016-06-22] MEDS ORDERED: MCRB100HP PO (16:06)
--- NOTE | 2016-06-22 16:10 | EMERGENCY ROOM VISIT NOTE ---
History Report prepared by Denia: Zheng Srinivasan Under the Supervision of: Dr. Brittani Monroy M.D. First contact with patient: 14:59 Chief Complaint: ABDOMINAL PAIN Stated Complaint: HEADACHE/ ABD PAIN/ PAIN ALL OVER History of Present Illness The patient is a 80 year old female who presents to the Emergency Room with complaints of persistent abdominal pain that started 3 days ago. She rates her pain an 8/10 in severity. Associated symptoms include body aches, nausea, dizziness, and a headache. The patient is currently being treated for a UTI. She denies urinary symptoms. Source of History: patient Onset: 12/14 Position: abdomen Symptom Intensity: 8/10 Timing: other (Persistent ) Associated Symptoms: + headache, + nausea, No urinary symptoms Review of Systems See HPI for pertinent positives & negatives. A total of 10 systems reviewed and were otherwise negative. Past Medical & Surgical Medical Problems: (1) Abnormal EKG (2) Acute electrocardiography changes (3) Arthritis (4) Cardiac stent placement (5) Chronic myocardial ischemia (6) Diabetes mellitus (7) Elevated troponin (8) Fall (9) Heart disease (10) HTN (hypertension) (11) Pneumonia (12) Stroke (13) Syncope Surgical Problems: (1) H/O cardiac catheterization (2) History of knee replacement Family History FH: HTN (hypertension) FH: diabetes mellitus Stroke Social History Smoking Status: Never Smoker Drug Use: none Marital Status: Housing Status: lives with family Occupation Status: retired Current/Historical Medications Scheduled Aspirin (Aspirin Ec), 81 MG PO QAM Carvedilol (Coreg), 1 TAB PO BID Coenzyme Q10 (Ubidecarenone) (Co Q10), 200 MG PO QAM Metformin Hcl (Glucophage), 250 MG PO BID Misc Natural Products (Osteo Bi-Flex Triple Stre), 1 TAB PO noon Multivitamin (Multivitamin), 1 TAB PO DAILY Nitrofurantoin (Nitrofurantoin Monohydrat), 1 TAB PO BID Prednisone Tab (Prednisone), 10 MG PO DAILY Ranitidine HCl (Zantac), 150 MG PO BID Rosuvastatin Calcium (Crestor), 40 MG PO QPM Saccharomyces Boulardii (Probiotic), 1 CAP PO HS Tolterodine Tartrate (Detrol LA), 2 CAP PO QPM Valsartan/Hctz (Diovan Hct 320MG/25MG), 1 TAB PO QAM Scheduled PRN Acetaminophen (Tylenol), 650 MG PO q5 PRN for Pain Fluticasone Furoate (Veramyst), 2 SPRY DAVID DAILY PRN for prn Allergies Coded Allergies: Cephalosporins (Verified Allergy, Intermediate, HIVES, 05/10/16) Penicillins (Verified Allergy, Intermediate, HIVES, 05/10/16) Valdecoxib (Verified Allergy, Unknown, ITCHING,NAUSEATED, 05/10/16) Codeine (Verified Adverse Reaction, Mild, NAUSEA, 05/10/16) Pantoprazole (Verified Adverse Reaction, Mild, NAUSEATED, 05/10/16) Physical Exam Vital Signs Date Time Temp Pulse Resp B/P Pulse Ox O2 Delivery O2 Flow Rate FiO2 06/22/16 23:25 60 18 141/82 97 Room Air 06/22/16 22:01 62 20 147/63 97 Room Air 06/22/16 18:57 63 06/22/16 18:30 100 20 152/87 98 06/22/16 17:30 37.2 103 20 127/83 98 06/22/16 17:00 106 20 146/76 94 06/22/16 14:52 38.2 82 20 151/81 94 Room Air Physical Exam CONSTITUTIONAL: Mild painful distress, non toxic. HEENT: No icterus, moist mucous membranes NECK: No meningismus, trachea is midline. CARDIOVASCULAR: Regular rate, normal perfusion RESPIRATORY: Unlabored breathing. Clear to auscultation. GASTROINTESTINAL: Moderate suprapubic tenderness without rebound or guarding. GENITOURINARY: No flank tenderness MUSCULOSKELETAL: Full range of motion NEUROLOGIC: No acute gross focal deficits. PSYCHIATRIC: Normal affect SKIN: Normal for ethnicity. Medical Decision & Procedures ER Provider Diagnostic Interpretation: Radiology results as stated below per my review and radiologist interpretation. CHEST 2 VIEWS ROUTINE CLINICAL HISTORY: fever cough COMPARISON STUDY: 05/10/2016 FINDINGS: Developing lower lobe infiltrate in the left. Chronic parenchymal and pleural changes otherwise stable. Moderate stable cardiomegaly. Mild chronic elevation right hemidiaphragm. IMPRESSION: Developing infiltrate left lung base Electronically signed by: Cm Costa M.D. 06/22/2016 5:54 PM Dictated Date/Time: 06/22/2016 5:53 PM ABDOMEN AND PELVIS CT WITH IV AND ORAL CONTRAST CT DOSE: 623.95 mGy.cm HISTORY: Fever fever, lower abd pain x 3 days. Appears unwell but not toxic TECHNIQUE: Multiaxial CT images of the abdomen and pelvis were performed following the use of intravenous and oral contrast. COMPARISON STUDY: 06/01/2016 FINDINGS: Chronic fibrotic and atelectatic change both lung bases. Mild stable cardiomegaly. Mild fatty infiltration of liver. There are calcified granulomas in the spleen considered benign. Several small gallstones within the gallbladder lumen. Kidneys enhance uniformly. 1 cm cyst posterior aspect lower pole left kidney. Mild cortical scarring centrally unchanged. No evidence for hydronephrosis. Pancreas is unremarkable. Bowel pattern is considered nonobstructive. Normal appendix. Bowel pattern within the pelvis is considered unremarkable for mild scattered colonic diverticulosis. No evidence for acute diverticulitis. Patient status post left hip arthroplasty. IMPRESSION: 1. Several small gallstones unchanged. 2. Mild colonic diverticulosis primarily of the sigmoid. 3. No acute process of the abdomen or pelvis. 4. No change from the prior study. Electronically signed by: Cm Costa M.D. 06/22/2016 6:08 PM Dictated Date/Time: 06/22/2016 6:06 PM Laboratory Results 06/22/16 15:30 Red Blood Count 4.37, Mean Corpuscular Volume 84.9, Mean Corpuscular Hemoglobin 28.8, Mean Corpuscular Hemoglobin Concent 34.0, Mean Platelet Volume 9.9, Neutrophils (%) (Auto) 90.9, Lymphocytes (%) (Auto) 4.9, Monocytes (%) (Auto) 2.9, Eosinophils (%) (Auto) 0.9, Basophils (%) (Auto) 0.1, Neutrophils # (Auto) 7.91, Lymphocytes # (Auto) 0.43, Monocytes # (Auto) 0.25, Eosinophils # (Auto) 0.08, Basophils # (Auto) 0.01 06/22/16 15:30 Test 06/22/16 15:00 06/22/16 15:30 06/22/16 15:35 06/22/16 15:40 Urine Color YELLOW Urine Appearance CLOUDY (CLEAR) Urine pH 6.0 (4.5-7.5) Urine Specific [place] 1.015 (1.000-1.030) Urine Protein 3+ (NEG) Urine Glucose (UA) NEG (NEG) Urine Ketones NEG (NEG) Urine Occult Blood 2+ (NEG) Urine Nitrite NEG (NEG) Urine Bilirubin NEG (NEG) Urine Urobilinogen NEG (NEG) Urine Leukocyte Esterase NEG (NEG) Urine WBC (Auto) 10-30 /hpf (0-5) Urine RBC (Auto) 0-4 /hpf (0-4) Urine Hyaline Casts (Auto) >30 /lpf (0-5) Urine Epithelial Cells (Auto) >30 /lpf (0-5) Urine Bacteria (Auto) 1+ (NEG) Urine Renal Epithelial Cells /lpf (0-5) Urine Crystals AMORPHOUS SEDIMENT (NONE Urine Pathogenic Casts 1-5 GRANULAR CASTS /lpf (0) White Blood Count 8.71 K/uL (4.8-10.8) Red Blood Count 4.37 M/uL (4.2-5.4) Hemoglobin 12.6 g/dL (12.0-16.0) Hematocrit 37.1 % (37-47) Mean Corpuscular Volume 84.9 fL (80-100) Mean Corpuscular Hemoglobin 28.8 pg (25-34) Mean Corpuscular Hemoglobin Concent 34.0 g/dl (32-36) Platelet Count 174 K/uL (130-400) Mean Platelet Volume 9.9 fL (7.4-10.4) Neutrophils (%) (Auto) 90.9 % Lymphocytes (%) (Auto) 4.9 % Monocytes (%) (Auto) 2.9 % Eosinophils (%) (Auto) 0.9 % Basophils (%) (Auto) 0.1 % Neutrophils # (Auto) 7.91 K/uL (1.4-6.5) Lymphocytes # (Auto) 0.43 K/uL (1.2-3.4) Monocytes # (Auto) 0.25 K/uL (0.11-0.59) Eosinophils # (Auto) 0.08 K/uL (0-0.5) Basophils # (Auto) 0.01 K/uL (0-0.2) RDW Standard Deviation 51.5 fL (36.4-46.3) RDW Coefficient of Variation 16.5 % (11.5-14.5) Immature Granulocyte % (Auto) 0.3 % Immature Granulocyte # (Auto) 0.03 K/uL (0.00-0.02) Prothrombin Time 10.7 SECONDS (9.0-12.0) Prothromb Time International Ratio 1.0 (0.9-1.1) Activated Partial Thromboplast Time 30.6 SECONDS (21.0-31.0) Partial Thromboplastin Ratio 1.2 Anion Gap 14.0 mmol/L (3-11) Est Creatinine Clear Calc Drug Dose 25.8 ml/min Estimated GFR () 32.9 Estimated GFR (Non- 28.4 BUN/Creatinine Ratio 17.9 (10-20) Calcium Level 9.6 mg/dl (8.5-10.1) Total Bilirubin 1.1 mg/dl (0.2-1) Direct Bilirubin 0.2 mg/dl (0-0.2) Aspartate Amino Transf (AST/SGOT) 20 U/L (15-37) Alanine Aminotransferase (ALT/SGPT) 11 U/L (12-78) Alkaline Phosphatase 54 U/L (45-117) Troponin I 0.031 ng/ml (0-0.045) Total Protein 7.6 gm/dl (6.4-8.2) Albumin 3.3 gm/dl (3.4-5.0) Bedside Lactic Acid Venous 1.17 mmol/L (0.90-1.70) Phosphorus Level 3.5 mg/dl (2.5-4.9) Magnesium Level 2.3 mg/dl (1.8-2.4) Test 06/22/16 21:27 Influenza Type A Antigen Neg for Influ A (NEG) Influenza Type B Antigen Neg for Influ B (NEG) Labs reviewed by ED physician. Medications Administered Medications (Trade) Dose Ordered Sig/Chaz Route Start Time Stop Time Status Last Admin Dose Admin Acetaminophen 1000 mg 1,000 mg NOW STAT PO 06/22/16 15:13 06/22/16 15:15 DC 06/22/16 16:01 1,000 MG Sodium Chloride (Nss 1000ml) 1,000 ml @ 0 mls/hr Q0M STAT IV 06/22/16 15:13 06/22/16 15:15 DC 06/22/16 16:01 999 MLS/HR Hydromorphone HCl (Dilaudid Inj) 1 mg PRN STAT IV 06/22/16 15:13 06/22/16 15:15 DC 06/22/16 16:00 1 MG Ondansetron HCl (Zofran Inj) 4 mg NOW STAT IV 06/22/16 15:13 06/22/16 15:15 DC 06/22/16 15:59 4 MG Ketorolac Tromethamine (Toradol Inj) 15 mg NOW STAT IV 06/22/16 15:13 06/22/16 15:15 DC 06/22/16 16:00 15 MG Levofloxacin 500 mg 500 mg NOW ONCE IV 06/22/16 19:00 06/22/16 19:01 DC 06/22/16 20:20 500 MG Potassium Chloride/Prmx (Kcl 10 Meq / Wtr/Premixed Water) 100 ml @ 100 mls/hr Q1H IV 06/22/16 21:30 06/22/16 23:29 DC 06/22/16 21:27 100 MLS/HR ED Course 1505: Past medical records reviewed. The patient was evaluated in room C5. A complete history and physical examination was performed. 151: Ordered Toradol Injection 15 mg IV, Zofran Injection 4 mg Iv, Dilaudid Injection 1 mg IV, Sodium Chloride 1,000 ml @ 0mls/hr Wide Open IV, Tylenol Tablet 1,000 mg PO. 1899: Ordered Levofloxacin 500 mg IV. 1901: I updated the patient on the test results and treatment plan. She is agreeable at this time. 1999: I discussed the patient's case with Dr. Starr ([facility] [place]). He will evaluate the patient for further management and care. Medical Decision Differential diagnosis include but are not limited to: UTI, diverticulitis. 80-year-old presented to the emergency room for evaluation of lower abdominal pain for several days after failed treatment for UTI. She notes she feels generally unwell and equally nauseous and dizzy. She denies any focal complaints although temperature to 30.2 is noted in triage. She appears unwell is nontoxic. She clearly had mild to moderate lower abdominal tenderness with a normal CAT scan although likely infiltrate was noted on the left. She has a penicillin allergy and Levaquin IV was subsequently ordered as well as arrangements made for admission. Consults Time Called: 1957 Consulting Physician: Dr. Starr ([facility] [place]) Returned Call: 1999 I discussed the patient's case with Dr. Starr ([facility] [place]). He will evaluate the patient for further management and care. Impression Primary Impression: Pneumonia Scribe Attestation The scribe's documentation has been prepared under my direction and personally reviewed by me in its entirety. I confirm that the note above accurately reflects all work, treatment, procedures, and medical decision making performed by me. Departure Information Dispostion Being Evaluated By Hospitalist Referrals Olvin Quigley M.D. (PCP) Patient Instructions My [facility]
[2016-06-22 16:31] LABS: URINE PATH CASTS 1-5 GRANULAR CASTS /lpf (0)
[2016-06-22] MEDS ORDERED: OPTIRAY 320 IV PRN (17:45)
--- NOTE | 2016-06-22 17:55 | DIAGNOSTIC IMAGING REPORT ---
CHEST 2 VIEWS ROUTINE CLINICAL HISTORY: fever cough COMPARISON STUDY: 05/10/2016 FINDINGS: Developing lower lobe infiltrate in the left. Chronic parenchymal and pleural changes otherwise stable. Moderate stable cardiomegaly. Mild chronic elevation right hemidiaphragm. IMPRESSION: Developing infiltrate left lung base Electronically signed by: Cm Costa M.D. 06/22/2016 5:54 PM Dictated Date/Time: 06/22/2016 5:53 PM
--- NOTE | 2016-06-22 18:10 | DIAGNOSTIC IMAGING REPORT ---
ABDOMEN AND PELVIS CT WITH IV AND ORAL CONTRAST CT DOSE: 623.95 mGy.cm HISTORY: Fever fever, lower abd pain x 3 days. Appears unwell but not toxic TECHNIQUE: Multiaxial CT images of the abdomen and pelvis were performed following the use of intravenous and oral contrast. COMPARISON STUDY: 06/01/2016 FINDINGS: Chronic fibrotic and atelectatic change both lung bases. Mild stable cardiomegaly. Mild fatty infiltration of liver. There are calcified granulomas in the spleen considered benign. Several small gallstones within the gallbladder lumen. Kidneys enhance uniformly. 1 cm cyst posterior aspect lower pole left kidney. Mild cortical scarring centrally unchanged. No evidence for hydronephrosis. Pancreas is unremarkable. Bowel pattern is considered nonobstructive. Normal appendix. Bowel pattern within the pelvis is considered unremarkable for mild scattered colonic diverticulosis. No evidence for acute diverticulitis. Patient status post left hip arthroplasty. IMPRESSION: 1. Several small gallstones unchanged. 2. Mild colonic diverticulosis primarily of the sigmoid. 3. No acute process of the abdomen or pelvis. 4. No change from the prior study. Electronically signed by: Cm Costa M.D. 06/22/2016 6:08 PM Dictated Date/Time: 06/22/2016 6:06 PM
[2016-06-22] MEDS ORDERED: LEVAQUIN 500MG / 100ML D5W IV ONE (19:00)
[2016-06-22] MEDS ORDERED: POLYETHYLENE (MIRALAX) 17 GM PACK PO PRN (20:30)
[2016-06-22] MEDS ORDERED: ONDANSETRON INJ 2 MG/ML 2 ML VIAL IV PRN (20:30)
[2016-06-22] MEDS ORDERED: ACETAMINOPHEN 325 MG TAB PO PRN (20:30)
[2016-06-22] MEDS ORDERED: MAGNESIUM HYDROXIDE SUSP 30 ML UDC PO PRN (20:30)
[2016-06-22] MEDS ORDERED: ALUMINUM/MAGNESIUM/SIMETH (MAALOX MAX) 30 ML UDC PO PRN (20:30)
[2016-06-22] MEDS ORDERED: FLUTICASONE PROPIONATE NA SPR 16 GM BTL NAE PRN (20:45)
[2016-06-22] MEDS ORDERED: NITROGLYCERIN 0.4 MG SL PER TAB CHARGE SL PRN (20:45)
[2016-06-22] MEDS ORDERED: POTASSIUM CHLORIDE 10 MEQ / 100ML WTR IV ONE (21:17)
--- NOTE | 2016-06-22 21:20 | History and Physical ---
History & Physical Date & Time of Service: Jun 22, 2016 at 20:57 Chief Complaint: Headache/ Abd Pain/ Pain All Over Primary Care Physician: Olvin Quigley M.D. History of Present Illness Source: patient This is a 80 year old female coming by ambulance stating "I feel like crap". She complains of diffuse muscles aches and pains as well as a low grade headache. In addition, she is predominantly complaining of lower abdominal pain. It comes and goes without any exacerbating or alleviating factors that she can recall. It is a 6/10 mixed sharp/aching pain across the lower abdomen. She has also been having diarrhea for the past 3 days. She denies blood or dark tarry stool. She notes that she has been on Macrobid for treatment of a UTI since Sunday. She also gives vague complaints on long-standing chest pain discomfort that is overall unchanged. The pain is not related to exertion. She feels it may be slightly worse with coughing. She denies palpitations, syncope or lower extremity edema. She also notes being more short of breath primarily with exertion. She has a chronic cough, but it is not been productive. She denies wheezing. Her appetite has been poor and she has not been able to eat and rink for the past 3 days. She is also nauseated and has been vomiting. She denies fevers, chills or nightsweats. Past Medical/Surgical History Medical Problems: (1) Arthritis Status: Chronic (2) Cardiac stent placement Status: Resolved (3) Chronic myocardial ischemia Status: Resolved (4) Diabetes mellitus Status: Chronic (5) Heart disease Status: Chronic (6) HTN (hypertension) Status: Chronic (7) Stroke Status: Resolved Type 2 Diabetes Hypertension Rheumatoid Arthritis Surgical Problems: (1) H/O cardiac catheterization Status: Resolved (2) History of knee replacement Status: Resolved Family History FH: HTN (hypertension) FH: diabetes mellitus Stroke Social History Smoking Status: Never Smoker Smokeless Tobacco Use: No Alcohol Use: none Drug Use: none Marital Status: Housing status: lives with family (son in [place]) Occupational Status: retired Immunizations History of Influenza Vaccine: Yes History of Tetanus Vaccine?: Unknown History of Pneumococcal: Yes History of Hepatitis B Vaccine: No Multi-Drug Resistant Organisms History of MDRO: No Allergies Coded Allergies: Cephalosporins (Verified Allergy, Intermediate, HIVES, 05/10/16) Penicillins (Verified Allergy, Intermediate, HIVES, 05/10/16) Valdecoxib (Verified Allergy, Unknown, ITCHING,NAUSEATED, 05/10/16) Codeine (Verified Adverse Reaction, Mild, NAUSEA, 05/10/16) Pantoprazole (Verified Adverse Reaction, Mild, NAUSEATED, 05/10/16) Home Medications Scheduled Aspirin (Aspirin Ec), 81 MG PO QAM Carvedilol (Coreg), 1 TAB PO BID Coenzyme Q10 (Ubidecarenone) (Co Q10), 200 MG PO QAM Metformin Hcl (Glucophage), 250 MG PO BID Misc Natural Products (Osteo Bi-Flex Triple Stre), 1 TAB PO noon Multivitamin (Multivitamin), 1 TAB PO DAILY Nitrofurantoin (Nitrofurantoin Monohydrat), 1 TAB PO BID Prednisone Tab (Prednisone), 10 MG PO DAILY Ranitidine HCl (Zantac), 150 MG PO BID Rosuvastatin Calcium (Crestor), 40 MG PO QPM Saccharomyces Boulardii (Probiotic), 1 CAP PO HS Tolterodine Tartrate (Detrol LA), 2 CAP PO QPM Valsartan/Hctz (Diovan Hct 320MG/25MG), 1 TAB PO QAM Scheduled PRN Acetaminophen (Tylenol), 650 MG PO q5 PRN for Pain Fluticasone Furoate (Veramyst), 2 SPRY DAVID DAILY PRN for prn Review of Systems Constitutional: No chills, No fever, No sweats Eyes: No diplopia, No worsening of vision ENT: No hearing loss, No nasal symptoms Respiratory: No cough, No sputum Cardiovascular: No orthopnea, No palpitations Abdomen: + diarrhea, + nausea, + pain, + vomiting Musculoskeletal: + joint pain, + muscle pain Genitourinary - Female: No dysuria, No urinary frequency, No urinary urgency Neurologic: + weakness, No numbness/tingling, No vertigo Hematologic / Lymphatic: No night sweats, No swollen lymph nodes Integumentary: No rash Physical Exam Vital Signs Date Time Temp Pulse Resp B/P Pulse Ox O2 Delivery O2 Flow Rate FiO2 06/22/16 18:57 63 06/22/16 18:30 100 20 152/87 98 06/22/16 17:30 37.2 103 20 127/83 98 06/22/16 17:00 106 20 146/76 94 06/22/16 14:52 38.2 82 20 151/81 94 Room Air General Appearance: WD/WN, no apparent distress, + obese Head: normocephalic, atraumatic Eyes: normal inspection, EOMI ENT: hearing grossly normal, pharynx normal Neck: supple, no adenopathy, no JVD Respiratory/Chest: chest non-tender, + crackles (bilateral, L > R) Cardiovascular: regular rate, rhythm, no gallop, no murmur Abdomen/GI: normal bowel sounds, non tender, soft Genitourinary - Female: normal pelvic exam, uterus normal shape and size Back: normal inspection, no CVA tenderness Extremities/Musculoskelatal: normal inspection, no calf tenderness, no pedal edema Neurologic/Psych: sub acute care nurse II-XII nml as tested, normal mood/affect, oriented x 3 Skin: normal color, warm/dry, no rash Lymphatic: no adenopathy Diagnostics Laboratory Results Results Past 24 Hours Test 06/22/16 15:00 06/22/16 15:30 06/22/16 15:35 Range/Units Urine Color YELLOW Urine Appearance CLOUDY CLEAR Urine pH 6.0 4.5-7.5 Urine Specific Mcleod 1.015 1.000-1.030 Urine Protein 3+ NEG Urine Glucose (UA) NEG NEG Urine Ketones NEG NEG Urine Occult Blood 2+ NEG Urine Nitrite NEG NEG Urine Bilirubin NEG NEG Urine Urobilinogen NEG NEG Urine Leukocyte Esterase NEG NEG Urine WBC (Auto) 10-30 0-5 /hpf Urine RBC (Auto) 0-4 0-4 /hpf Urine Hyaline Casts (Auto) >30 0-5 /lpf Urine Epithelial Cells (Auto) >30 0-5 /lpf Urine Bacteria (Auto) 1+ NEG Urine Renal Epithelial Cells 0-5 /lpf Urine Crystals AMORPHOUS SEDIMENT NONE PRSENT Urine Pathogenic Casts 1-5 GRANULAR CASTS 0 /lpf White Blood Count 8.71 4.8-10.8 K/uL Red Blood Count 4.37 4.2-5.4 M/uL Hemoglobin 12.6 12.0-16.0 g/dL Hematocrit 37.1 37-47 % Mean Corpuscular Volume 84.9 80-100 fL Mean Corpuscular Hemoglobin 28.8 25-34 pg Mean Corpuscular Hemoglobin Concent 34.0 32-36 g/dl Platelet Count 174 130-400 K/uL Mean Platelet Volume 9.9 7.4-10.4 fL Neutrophils (%) (Auto) 90.9 % Lymphocytes (%) (Auto) 4.9 % Monocytes (%) (Auto) 2.9 % Eosinophils (%) (Auto) 0.9 % Basophils (%) (Auto) 0.1 % Neutrophils # (Auto) 7.91 1.4-6.5 K/uL Lymphocytes # (Auto) 0.43 1.2-3.4 K/uL Monocytes # (Auto) 0.25 0.11-0.59 K/uL Eosinophils # (Auto) 0.08 0-0.5 K/uL Basophils # (Auto) 0.01 0-0.2 K/uL RDW Standard Deviation 51.5 36.4-46.3 fL RDW Coefficient of Variation 16.5 11.5-14.5 % Immature Granulocyte % (Auto) 0.3 % Immature Granulocyte # (Auto) 0.03 0.00-0.02 K/uL Prothrombin Time 10.7 9.0-12.0 SECONDS Prothromb Time International Ratio 1.0 0.9-1.1 Activated Partial Thromboplast Time 30.6 21.0-31.0 SECONDS Partial Thromboplastin Ratio 1.2 Sodium Level 133 136-145 mmol/L Potassium Level 3.1 3.5-5.1 mmol/L Chloride Level 92 98-107 mmol/L Carbon Dioxide Level 27 21-32 mmol/L Anion Gap 14.0 3-11 mmol/L Blood Urea Nitrogen 31 7-18 mg/dl Creatinine 1.70 0.60-1.20 mg/dl Est Creatinine Clear Calc Drug Dose 25.8 ml/min Estimated GFR () 32.9 Estimated GFR (Non- 28.4 BUN/Creatinine Ratio 17.9 10-20 Random Glucose 139 70-99 mg/dl Calcium Level 9.6 8.5-10.1 mg/dl Total Bilirubin 1.1 0.2-1 mg/dl Direct Bilirubin 0.2 0-0.2 mg/dl Aspartate Amino Transf (AST/SGOT) 20 15-37 U/L Alanine Aminotransferase (ALT/SGPT) 11 12-78 U/L Alkaline Phosphatase 54 45-117 U/L Troponin I 0.031 0-0.045 ng/ml Total Protein 7.6 6.4-8.2 gm/dl Albumin 3.3 3.4-5.0 gm/dl Bedside Lactic Acid Venous 1.17 0.90-1.70 mmol/L Microbiology Results 06/22/16 Blood Culture, Received Pending 06/22/16 Blood Culture, Received Pending Diagnostic Radiology ABDOMEN AND PELVIS CT WITH IV AND ORAL CONTRAST CT DOSE: 623.95 mGy.cm HISTORY: Fever fever, lower abd pain x 3 days. Appears unwell but not toxic TECHNIQUE: Multiaxial CT images of the abdomen and pelvis were performed following the use of intravenous and oral contrast. COMPARISON STUDY: 06/01/2016 FINDINGS: Chronic fibrotic and atelectatic change both lung bases. Mild stable cardiomegaly. Mild fatty infiltration of liver. There are calcified granulomas in the spleen considered benign. Several small gallstones within the gallbladder lumen. Kidneys enhance uniformly. 1 cm cyst posterior aspect lower pole left kidney. Mild cortical scarring centrally unchanged. No evidence for hydronephrosis. Pancreas is unremarkable. Bowel pattern is considered nonobstructive. Normal appendix. Bowel pattern within the pelvis is considered unremarkable for mild scattered colonic diverticulosis. No evidence for acute diverticulitis. Patient status post left hip arthroplasty. IMPRESSION: 1. Several small gallstones unchanged. 2. Mild colonic diverticulosis primarily of the sigmoid. 3. No acute process of the abdomen or pelvis. 4. No change from the prior study. Electronically signed by: Cm Costa M.D. 06/22/2016 6:08 PM Dictated Date/Time: 06/22/2016 6:06 PM EKG Normal sinus rhythm Voltage criteria for left ventricular hypertrophy Inferior infarct , age undetermined Abnormal ECG When compared with ECG of 12-MAY-2016 06:53, Inferior infarct is now Present Nonspecific T wave abnormality has replaced inverted T waves in Inferior leads Nonspecific T wave abnormality now evident in Lateral leads Confirmed by ISELA CHAWLA ([id number]) on 06/22/2016 8:57:39 PM Impression Assessment and Plan 80 year old female with new left basilar pneumonia. She also presents with an acute kidney injury and electrode abnormalities. These findings are likely secondary to an acute gastroenteritis, vomiting and diarrhea. She has also been receiving treatment for urinary tract infection since 3 days and has experienced diarrhea since then. Our plan for her is as follows: Left basilar Pneumonia - Left basilar infiltrate - Rapid influenza screen - Levaquin 750 daily (or renally dosed per pharmacy) - Duonebs Q4H PRN - Oxygen by nasal cannula; titrate to sat > 94% Acute Kidney Injury - Cr. 1.7 currently; likely secondary to vomiting and poor PO intake, vomiting and diarrhea - Baseline Cr. 0.9 - 1.0 - Will continue IV rehydration at 125 ml/hr and encourage PO intake with full liquid diet and advance as tolerated Diarrhea - Gastro-enteritis vs C.diff infection (due to hx of antibiotic use) - Will check C.diff toxin assay - add Flagyl to current meds if (+) - stool culture if diarrhea persists Chest pain - Appears chronic, based on history; cardiac enzymes negative x 2 - Noted to have had NSTEMI in 2016 - New Q waves reported on EKG in inferior leads - May reflect chronic evolution of known preceding infarction - Will monitor in telemetry overnight with serial enzyme monitoring until peak - Nitro with chest pain - EKG in the morning or with chest pain Urinary Tract Infection - Patient on Macrobid prior to admission - UA in ED not suspicious for UTI - Will be on Levaquin; will add culture of urine to confirm treatment of infection Rheumatoid Arthritis - Patient taking 10 mg PO prednisone daily; to be continued on admission - Patient BP stable in the ED 151/81; Na 133; K 3.1 - If BP drops, would consider adding stress dose of steroids, but will monitor BP until sign out to day team Hyponatremia - No neurological sequelae; drop is mild 133 - Current getting IV rehydration with NSS; continue maintenance rate of 125 mL/ hr - Re-check with morning labs Hypokalemia - K 3.1 - 20 mEq KCl IV now - Re-check with morning labs Coronary Artery Disease - Continue ASA 81 mg daily - Continue Coreg daily - Continue Rosuvastatin Hypertension - Continue Valstartan HCTZ Type 2 Diabetes - Hold Metformin - Start Insulin Sliding Scale Goal 140 - 180 mg/dl; CF 30; Carb Ratio of 10 DVT prophylaxis - Heparin 5000 s.c BID Code Status - Level I Code - Designates Daughter Liliana Junior (daughter) as a substitute decision maker, if she cannot make decisions for herself Disposition - Telemetry - OT and PT orders place; patient lives at home with son and is overall independent prior to arrival (uses cane mostly) Resident Physician Supervision Note: I was present with [Name of resident] during the history and exam. I discussed the case with the resident and agree with the findings and plan as documented in the note. Any exceptions or clarifications are listed here: [None ] Documented By: Jason Starr Pt seen examined - admitted with multiple complaints including Diarrhea , JOHN, weakness and PNM had been treated for a UTI - on Abx which may have triggered her diarrhea O/E gen lethargy AAO x 3 CTA - poor effort but no distinct crackles NT, ND P: JOHN: IVF - recheck BMP AM Levaquin for PNM C diff pending - consider stool culture Sliding scale for DM Discussed above with resident Level of Care Telemetry Resuscitation Status FULL RESUSCITATION VTE Prophylaxis VTE Risk Assessment Done? Y/N: Yes Risk Level: Moderate Given or contraindicated: Unfractionated heparin SQ
[2016-06-22] MEDS: POTASSIUM CHLR 10 MEQ / WTR 10 MEQ in PREMIXED WATER 100 ML IV SCH (21:27)
[2016-06-22] MEDS ORDERED: ALBUT/IPRATROP 3MG/0.5MG NEB 3 ML VIAL INH PRN (21:30)
[2016-06-22 22:02] LABS: MAGNESIUM 2.3 mg/dl (1.8-2.4); PHOSPHORUS 3.5 mg/dl (2.5-4.9)
[2016-06-23] VITALS (8 sets, daily range): BP systolic 136–185; BP diastolic 63–77; PULSE 55–72; TEMP 36.5–37.3; O2SAT 93–98; Ht 154.9 cm; Wt 83.2 kg
[2016-06-23] MEDS ORDERED: GLUCAGON FOR INJ 1 MG VIAL SQ PRN (01:00)
[2016-06-23] MEDS ORDERED: GLUCOSE 40% GEL 15 GM TUBE PO PRN (01:00)
[2016-06-23] MEDS ORDERED: GLUCOSE 10 TABS/TUBE PO PRN (01:00)
[2016-06-23] MEDS ORDERED: DEXTROSE 50% 50 ML SYR IV PRN (01:00)
[2016-06-23] MEDS ORDERED: LEVOFLOXACIN CONSULT ACTIVE PRN (01:15)
[2016-06-23] MEDS: SODIUM CHLORIDE 0.9% 1000ML 1,000 ML IV SCH ×3 (02:31→18:39)
[2016-06-23 02:50] LABS: BASO % 0.1 %; BASO ABS # 0.01 K/uL (0-0.2); COMPLETE YES; EOS % 2.4 %; HEMATOCRIT 32.5 % (37-47); IG% 0.3 %; LYMPH % 3.3 %; LYMPH ABS # 0.24 K/uL (1.2-3.4); MEAN CELL VOLUME 83.3 fL (80-100); MEAN CORPUSCULAR HEMOGLOBIN 27.9 pg (25-34); MEAN CORPUSCULAR HGB CONC 33.5 g/dl (32-36); MEAN PLATELET VOLUME 9.6 fL (7.4-10.4); MONO % 2.7 %; NEUT % 91.2 %; PLATELET COUNT 133 K/uL (130-400); WHITE BLOOD COUNT 7.38 K/uL (4.8-10.8)
[2016-06-23] MEDS: ROSUVASTATIN CALCIUM 20 MG TAB PO SCH ×2 (03:04→21:16)
[2016-06-23] MEDS: TOLTERODINE TARTRATE LA 2 MG CAPCR PO SCH ×2 (03:04→21:16)
[2016-06-23] MEDS: CARVEDILOL 12.5 MG TAB PO SCH ×3 (03:05→21:16)
[2016-06-23] MEDS: SACCHAROMYCES BOUL (FLORASTOR) 250 MG CAP PO SCH ×2 (03:05→21:15)
[2016-06-23 03:11] LABS: BUN/CREATININE RATIO 19.4 (10-20); CREATININE 1.7 mg/dl (0.60-1.20); POTASSIUM 3.3 mmol/L (3.5-5.1)
[2016-06-23 03:21] LABS: ALB/GLOB RATIO 0.7 (0.9-2); CKMB/CK RATIO 1.6 (0-3.0)
[2016-06-23] MEDS: POTASSIUM CHLR 10 MEQ / WTR 10 MEQ in PREMIXED WATER 100 ML IV SCH ×3 (05:30→10:22)
[2016-06-23] MEDS ORDERED: VANCOMYCIN INJ 1,000 MG in SODIUM CHLORIDE 0.9% 250ML 250 ML IV ONE (08:02)
[2016-06-23] MEDS: ASPIRIN 81 MG ECTAB PO SCH (08:28)
[2016-06-23] MEDS: MULTIVITAMIN TAB PO SCH (08:28)
[2016-06-23] MEDS: INSULIN ASPART 100 UNITS/ML 3 ML PEN SC SCH ×4 (08:30→21:00)
[2016-06-23] MEDS: HEPARIN SOD 5000 UNIT/0.5 ML CARP SQ SCH ×2 (08:32→21:19)
[2016-06-23] MEDS ORDERED: PNEUMOCOCCAL ADMINISTRATION CHARGE ONE (09:00)
[2016-06-23] MEDS ORDERED: VANCOMYCIN INJ 2,000 MG in SODIUM CHLORIDE 0.9% 500ML 500 ML IV ONE (09:00)
[2016-06-23] MEDS ORDERED: VALSARTAN/HCTZ 160/12.5 MG TAB PO SCH (09:00)
[2016-06-23] MEDS ORDERED: PNEUMOCOCCAL POLYSACCHARIDES 25 MCG/0.5 ML VIAL/SYR IM. ONE (09:00)
[2016-06-23 11:32] LABS: CKMB/CK RATIO 1.8 (0-3.0)
--- NOTE | 2016-06-23 13:24 | Pharmacy Progress Note ---
Pharmacy Antibiotic Consult Date of Service: Jun 23, 2016. Pharmacy Dosing Scope Pharmacy is consulted to initiate Vancomycin IV dosing therapy, order appropriate labs and adjust drug dose/frequency. Subjective The patient is a 80 year old female admitted on Jun 22, 2016 at 20:47 with UTI, previously treated with Macrobid. Patient in JOHN with antibiotic allergies to cephalosporins and penicillins. Objective Height (Feet): 5 Height (Inches): 1.00 Weight (Kilograms): 80.450 Lab Results (24hrs): Laboratory Tests Test 06/22/16 15:30 06/23/16 02:40 BUN/Creatinine Ratio 17.9 19.4 Blood Urea Nitrogen 31 mg/dl 33 mg/dl Creatinine 1.70 mg/dl 1.70 mg/dl White Blood Count 8.71 K/uL 7.38 K/uL Red Blood Count 4.37 M/uL 3.90 M/uL Hemoglobin 12.6 g/dL 10.9 g/dL Hematocrit 37.1 % 32.5 % Mean Corpuscular Volume 84.9 fL 83.3 fL Mean Corpuscular Hemoglobin 28.8 pg 27.9 pg Mean Corpuscular Hemoglobin Concent 34.0 g/dl 33.5 g/dl Platelet Count 174 K/uL 133 K/uL Mean Platelet Volume 9.9 fL 9.6 fL Neutrophils (%) (Auto) 90.9 % 91.2 % Lymphocytes (%) (Auto) 4.9 % 3.3 % Monocytes (%) (Auto) 2.9 % 2.7 % Eosinophils (%) (Auto) 0.9 % 2.4 % Basophils (%) (Auto) 0.1 % 0.1 % Neutrophils # (Auto) 7.91 K/uL 6.73 K/uL Lymphocytes # (Auto) 0.43 K/uL 0.24 K/uL Monocytes # (Auto) 0.25 K/uL 0.20 K/uL Eosinophils # (Auto) 0.08 K/uL 0.18 K/uL Basophils # (Auto) 0.01 K/uL 0.01 K/uL Micro Results: Urine blood and stool pending Recent Pertinent Medications Levaquin 500mg IV x 1 dose 06/22 Assessment & Plan Per Dr Chen, treating for UTI (not looking like a pneumonia at this time) Loading dose: Vancomycin 2000 mg (25mg/kg) IV X 1 dose then * Draw random level about 12 hours after dose, due to JOHN, SCr = 1.7mg/dL ( baseline 0.9-1.0mg/dL) * Estimated pharmacokinetics (based on SCr 1.7mg/dL) - T1/2 = 27hrs, Guzman = 0.026 /hr, Vd = 0.7L/kg * Goal trough level estimate: between 15 - 20 mcg/mL for UTI * Random level has been ordered for: at 2100, then further Vanco doses will be ordered empirically based on levels until renal function improves back to baseline. Pharmacy will continue to follow and will adjust dose/frequency as necessary. Thank you
[2016-06-23] MEDS ORDERED: VANCOMYCIN CONSULT ACTIVE PRN (13:30)
[2016-06-23 18:57] LABS: INFLUENZA A PCR Neg for Influ A (NEG); INFLUENZA B PCR Neg for Influ B (NEG)
--- NOTE | 2016-06-23 19:59 | Family Medicine Progress Note ---
Progress Note Date of Service Jun 23, 2016. Subjective Pt evaluation today including: conversation w/ patient, physical exam, chart review, lab review, review of studies, review of inpatient medication list Mrs Lugo was seen in the morning and was feeling generally unwell and not much improved from admission. She did not get a good nights sleep and feels generally weak all over. Denies cough, chest pain, shortness of breath, dysuria or urinary frequency. Constitutional: No chills, No fever Respiratory: No cough, No shortness of breath, No wheezing Cardiovascular: + edema, No chest pain Abdomen: + diarrhea, No constipation, No nausea, No pain, No vomiting Female : No dysuria, No urinary frequency Skin: No itch, No rash Medications Current Inpatient Medications Medications (Trade) Dose Ordered Sig/Chaz Route Start Time Stop Time Status Last Admin Dose Admin Ioversol (Optiray 320) 100 ml UD PRN IV 06/22/16 17:45 06/26/16 17:44 Acetaminophen (Tylenol Tab) 650 mg Q4H PRN PO 06/22/16 20:30 07/22/16 20:29 Al Hydrox/Mg Hydrox/Simethicone (Maalox Max Susp) 15 ml Q4H PRN PO 06/22/16 20:30 07/22/16 20:29 Magnesium Hydroxide (Milk Of Magnesia Susp) 30 ml Q6H PRN PO 06/22/16 20:30 07/22/16 20:29 Polyethylene (Miralax Powder Packet) 17 gm DAILY PRN PO 06/22/16 20:30 07/22/16 20:29 Ondansetron HCl (Zofran Inj) 4 mg Q6H PRN IV 06/22/16 20:30 07/22/16 20:29 06/23/16 00:49 4 MG Heparin Sodium (Porcine) 5000 unit 5,000 unit Q12H SQ 06/23/16 09:00 07/23/16 08:59 06/23/16 08:32 5,000 UNIT Sodium Chloride (Nss 1000ml) 1,000 ml @ 125 mls/hr Q8H IV 06/23/16 01:00 07/23/16 00:59 06/23/16 18:39 125 MLS/HR Aspirin (Ecotrin Tab) 81 mg QAM PO 06/23/16 09:00 07/23/16 08:59 06/23/16 08:28 81 MG Carvedilol (Coreg Tab) 12.5 mg BID PO 06/22/16 21:00 07/22/16 20:59 06/23/16 08:28 12.5 MG Multivitamins (Multivitamin Tab) 1 tab DAILY PO 06/23/16 09:00 07/23/16 08:59 06/23/16 08:28 1 TAB Rosuvastatin Calcium (Crestor Tab) 40 mg QPM PO 06/22/16 21:00 07/22/16 20:59 06/23/16 03:04 40 MG Saccharomyces Boulardii (Florastor Cap) 250 mg HS PO 06/22/16 21:00 07/22/16 20:59 06/23/16 03:05 250 MG Tolterodine Tartrate (Detrol LA Cap) 4 mg QPM PO 06/22/16 21:00 07/22/16 20:59 06/23/16 03:04 4 MG Fluticasone Propionate (Flonase Nasal [place]) 2 sprays DAILY PRN DAVID 06/22/16 20:45 07/22/16 20:44 Nitroglycerin (Nitrostat Tab) 0.4 mg UD PRN SL 06/22/16 20:45 07/22/16 20:44 Albuterol/ Ipratropium (Duoneb) 3 ml Q4R PRN INH 06/22/16 21:30 07/22/16 21:29 Insulin Aspart (novoLOG ASPART) SLIDING SCALE G... ACHS SC 06/23/16 06:30 07/23/16 06:59 06/23/16 18:01 5 UNITS Prednisone (PredniSONE TAB) 10 mg DAILY PO 06/23/16 09:00 07/23/16 08:59 06/23/16 08:29 10 MG Glucose (Glucose 40% Gel) 15-30 GRAMS 15 GRAMS... UD PRN PO 06/23/16 01:00 07/23/16 00:59 Glucose (Glucose Chew Tab) 4-8 Tablets 4 Tabl... UD PRN PO 06/23/16 01:00 07/23/16 00:59 Dextrose (Dextrose 50% 50ML Syringe) 25-50ML OF 50% DW IV FOR... UD PRN IV 06/23/16 01:00 07/23/16 00:59 Glucagon (Glucagon Inj) 1 mg UD PRN SQ 06/23/16 01:00 07/23/16 00:59 Vancomycin HCl (Consult) 1 ea UD PRN N/A 06/23/16 13:30 07/23/16 13:29 Objective Vital Signs Date Time Temp Pulse Resp B/P Pulse Ox O2 Delivery O2 Flow Rate FiO2 06/23/16 16:14 36.9 61 20 167/71 96 Room Air 06/23/16 16:00 Room Air 06/23/16 12:00 Room Air 06/23/16 11:13 37.3 63 17 151/70 95 Room Air 06/23/16 07:45 Room Air 06/23/16 04:50 37.0 65 20 185/77 98 Room Air 06/23/16 04:00 Room Air 06/23/16 02:28 36.5 62 22 136/63 Room Air 06/23/16 00:37 36.5 62 22 136/63 93 Room Air 06/22/16 23:25 60 18 141/82 97 Room Air 06/22/16 22:01 62 20 147/63 97 Room Air Physical Exam General Appearance: WD/WN, no apparent distress Eyes: normal inspection, EOMI Neck: supple Respiratory/Chest: no respiratory distress, no accessory muscle use, + crackles (right base) Cardiovascular: regular rate, rhythm, no murmur Abdomen: normal bowel sounds, soft, + tenderness (suprapubic mild, no guarding , no rebound) Extremities: no calf tenderness, + pedal edema (2+ to shins) Neurologic/Psychiatric: alert, oriented x 3, + depressed affect Skin: normal color, warm/dry, no rash Laboratory Results 06/23/16 02:40 Red Blood Count 3.90, Mean Corpuscular Volume 83.3, Mean Corpuscular Hemoglobin 27.9, Mean Corpuscular Hemoglobin Concent 33.5, Mean Platelet Volume 9.6, Neutrophils (%) (Auto) 91.2, Lymphocytes (%) (Auto) 3.3, Monocytes (%) (Auto) 2.7, Eosinophils (%) (Auto) 2.4, Basophils (%) (Auto) 0.1, Neutrophils # (Auto) 6.73, Lymphocytes # (Auto) 0.24, Monocytes # (Auto) 0.20, Eosinophils # (Auto) 0.18, Basophils # (Auto) 0.01 06/23/16 02:40 Test 06/22/16 21:27 06/23/16 02:40 06/23/16 10:58 06/23/16 16:13 Influenza Type A Antigen Neg for Influ A (NEG) Influenza Type B Antigen Neg for Influ B (NEG) White Blood Count 7.38 K/uL (4.8-10.8) Red Blood Count 3.90 M/uL (4.2-5.4) Hemoglobin 10.9 g/dL (12.0-16.0) Hematocrit 32.5 % (37-47) Mean Corpuscular Volume 83.3 fL (80-100) Mean Corpuscular Hemoglobin 27.9 pg (25-34) Mean Corpuscular Hemoglobin Concent 33.5 g/dl (32-36) Platelet Count 133 K/uL (130-400) Mean Platelet Volume 9.6 fL (7.4-10.4) Neutrophils (%) (Auto) 91.2 % Lymphocytes (%) (Auto) 3.3 % Monocytes (%) (Auto) 2.7 % Eosinophils (%) (Auto) 2.4 % Basophils (%) (Auto) 0.1 % Neutrophils # (Auto) 6.73 K/uL (1.4-6.5) Lymphocytes # (Auto) 0.24 K/uL (1.2-3.4) Monocytes # (Auto) 0.20 K/uL (0.11-0.59) Eosinophils # (Auto) 0.18 K/uL (0-0.5) Basophils # (Auto) 0.01 K/uL (0-0.2) RDW Standard Deviation 49.6 fL (36.4-46.3) RDW Coefficient of Variation 16.4 % (11.5-14.5) Immature Granulocyte % (Auto) 0.3 % Immature Granulocyte # (Auto) 0.02 K/uL (0.00-0.02) Anion Gap 12.0 mmol/L (3-11) Est Creatinine Clear Calc Drug Dose 25.8 ml/min Estimated GFR () 32.9 Estimated GFR (Non- 28.4 BUN/Creatinine Ratio 19.4 (10-20) Calcium Level 8.0 mg/dl (8.5-10.1) Total Bilirubin 0.8 mg/dl (0.2-1) Aspartate Amino Transf (AST/SGOT) 19 U/L (15-37) Alanine Aminotransferase (ALT/SGPT) 10 U/L (12-78) Alkaline Phosphatase 45 U/L (45-117) Total Protein 6.2 gm/dl (6.4-8.2) Albumin 2.6 gm/dl (3.4-5.0) Globulin 3.6 gm/dl (2.5-4.0) Albumin/Globulin Ratio 0.7 (0.9-2) Total Creatine Kinase 67 U/L (26-192) Creatine Kinase MB 1.2 ng/ml (0.5-3.6) Creatine Kinase MB Ratio 1.8 (0-3.0) Troponin I 0.026 ng/ml (0-0.045) Influenza Type A (RT-PCR) Neg for Influ A (NEG) Influenza Type B (RT-PCR) Neg for Influ B (NEG) Test 06/23/16 16:34 Bedside Glucose 157 mg/dl (70-90) Date/Time Source Procedure Growth Status 06/23/16 01:28 Stool C.difficile Toxin B Gene (PCR) - Final No C. difficile toxin B gene detected Complete Assessment and Plan 80 year old female admitted feeling generally unwell with diarrhea. JOHN on admission Cr 1.7. CXR suggestive of left lung base pneumonia but not on CT A/P, auscultation worse on right base crackles. Urinary Tract Infection / cystitis - suprapubic pain - Patient on Macrobid prior to admission covering enterococcus faecalis - Switch Levaquin to vancomycin as enterococcus on 06/16/16 resistant Possible community acquired Pneumonia - Left basilar infiltrate on CXR but nothing on bottom of lungs on CT - Rapid influenza and PCR negative - Stop Levaquin, vancomycin will provide some coverage, will broaden coverage if clinically getting worse - Duonebs Q4H PRN - Oxygen by nasal cannula; titrate to sat > 94% Diarrhea - Suspect gastroenteritis, clear fluids today, full liquids tomorrow if tolerating diet - monitor if getting worse, stool culture, consider AXR as may have fecal impaction. - c.diff negative Acute Kidney Injury - Cr. 1.7 currently; likely secondary to vomiting and poor PO intake, vomiting and diarrhea - Hold valsartan + metformin - Baseline Cr. 0.9 - 1.0 - Will continue IV rehydration at 125 ml/hr and encourage PO intake with full liquid diet and advance as tolerated Rheumatoid Arthritis - Patient taking 10 mg PO prednisone daily; to be continued on admission Hyponatremia - mild 133. Hypo/euvolemic - Hold HCZT - IV rehydration with NSS; continue maintenance rate of 125 mL/hr - Re-check with morning labs Hypokalemia - K 3.3 - 20 mEq KCl IV now - Re-check with morning labs Coronary Artery Disease - Continue ASA 81 mg daily - Continue Coreg BID - Continue Rosuvastatin Hypertension - Hold valsartan/HCZT due to JOHN and hyponatremia - Continue Coreg Type 2 Diabetes - Hold Metformin - Start Insulin Sliding Scale Goal 140 - 180 mg/dl; CF 30; Carb Ratio of 10 DVT prophylaxis - Heparin 5000 s.c BID Code Status - Level I Code - Designates Daughter Liliana Junior (daughter) as a substitute decision maker, if she cannot make decisions for herself Disposition - continued inpatient stay due to need for antibiotics - OT and PT orders place; patient lives at home with son and is overall independent prior to arrival (uses cane mostly) Resident Physician Supervision Note: I was present with PGY2 Dr. Olvin Chen during the history and exam. I discussed the case with the resident and agree with the findings and plan as documented in the note. Any exceptions or clarifications are listed here: none. Pt continues to feel weak, c/o left sided headache, has myalgias & arthralgias; scant cough. VSS, Tm 38.2 at presentation gen - obese, NAD, looks sick but nontoxic mouth - MM dry neck - no JVD heart - RRR, s1, s2 lungs - fine dry rales bases abd - soft, NT ext - no edema A/P: 1. recent enterococcal UTI - cont IV vanco 2. fever - 2nd to #1? other source? check flu PCR; consider repeat cxr 2- view in AM 3. chronic RA on prednisone - increase dose to 40mg daily for stress dose purposes 4. acute kidney injury - hydrate, repeat bmp am. J SIUTA MD Documented By: Olvin Luna Resident Tracking Resident Involvement: Resident Care Provided Care Provided: Adult [facility] Medicine
[2016-06-23 20:49] LABS: CREATININE 1.6 mg/dl (0.60-1.20)
[2016-06-23] MEDS ORDERED: VANCOMYCIN INJ 500 MG in SODIUM CHLORIDE 0.9% 250ML 250 ML IV ONE (23:00)
[2016-06-24] VITALS (9 sets, daily range): BP systolic 145–203; BP diastolic 61–74; PULSE 58–72; TEMP 37–37.1; O2SAT 94–97
[2016-06-24] MEDS: SODIUM CHLORIDE 0.9% 1000ML 1,000 ML IV SCH ×2 (01:09→09:05)
[2016-06-24 06:42] LABS: BASO % 0.2 %; BASO ABS # 0.01 K/uL (0-0.2); COMPLETE YES; EOS % 3.2 %; HEMATOCRIT 30.2 % (37-47); IG% 0.2 %; LYMPH % 7.4 %; LYMPH ABS # 0.46 K/uL (1.2-3.4); MEAN CELL VOLUME 84.1 fL (80-100); MEAN CORPUSCULAR HEMOGLOBIN 27.6 pg (25-34); MEAN CORPUSCULAR HGB CONC 32.8 g/dl (32-36); MEAN PLATELET VOLUME 9.8 fL (7.4-10.4); MONO % 8.2 %; NEUT % 80.8 %; PLATELET COUNT 155 K/uL (130-400); RED BLOOD COUNT 3.59 M/uL (4.2-5.4); WHITE BLOOD COUNT 6.19 K/uL (4.8-10.8)
[2016-06-24 07:29] LABS: ALB/GLOB RATIO 0.7 (0.9-2); BUN/CREATININE RATIO 14.6 (10-20); CALCIUM 8.5 mg/dl (8.5-10.1); CREATININE 1.3 mg/dl (0.60-1.20)
[2016-06-24] MEDS: ASPIRIN 81 MG ECTAB PO SCH (08:52)
[2016-06-24] MEDS: CARVEDILOL 12.5 MG TAB PO SCH ×2 (08:54→21:33)
[2016-06-24] MEDS: MULTIVITAMIN TAB PO SCH (08:56)
[2016-06-24] MEDS: INSULIN ASPART 100 UNITS/ML 3 ML PEN SC SCH ×4 (09:01→21:37)
[2016-06-24] MEDS: HEPARIN SOD 5000 UNIT/0.5 ML CARP SQ SCH ×2 (09:01→21:37)
[2016-06-24] MEDS: POTASSIUM CHLORIDE 20 MEQ TABCR PO SCH ×2 (09:47→21:34)
[2016-06-24] MEDS: NSS + 20MEQ KCL 1000ML 1,000 ML IV SCH ×2 (09:50→22:29)
--- NOTE | 2016-06-24 12:25 | Pharmacy Progress Note ---
Pharmacy Antibiotic Prog Note Date of Service: Jun 24, 2016. Subjective: The patient is currently on day # 2 of Vancomycin IV therapy. Objective: Height (Feet): 5 Height (Inches): 1.00 Weight (Kilograms): 83.100 Levels: Item Value Date Time Random Vancomycin Level 20.9 mcg/ml 06/23/162009 Random Vancomycin Level 21.2 mcg/ml 06/24/16 0600 Lab Results (24hrs): Laboratory Tests Test 06/23/16 20:10 06/24/16 06:00 Creatinine 1.60 mg/dl 1.30 mg/dl BUN/Creatinine Ratio 14.6 Blood Urea Nitrogen 19 mg/dl White Blood Count 6.19 K/uL Red Blood Count 3.59 M/uL Hemoglobin 9.9 g/dL Hematocrit 30.2 % Mean Corpuscular Volume 84.1 fL Mean Corpuscular Hemoglobin 27.6 pg Mean Corpuscular Hemoglobin Concent 32.8 g/dl Platelet Count 155 K/uL Mean Platelet Volume 9.8 fL Neutrophils (%) (Auto) 80.8 % Lymphocytes (%) (Auto) 7.4 % Monocytes (%) (Auto) 8.2 % Eosinophils (%) (Auto) 3.2 % Basophils (%) (Auto) 0.2 % Neutrophils # (Auto) 5.00 K/uL Lymphocytes # (Auto) 0.46 K/uL Monocytes # (Auto) 0.51 K/uL Eosinophils # (Auto) 0.20 K/uL Basophils # (Auto) 0.01 K/uL Micro Results: Item Value Date Time Urine Culture - Final Complete 06/16/16 0000 Urine , Clean Catch Enterococcus Faecalis Urine Culture - Final Complete 06/06/16 1423 Urine , Clean Catch Enterococcus Faecalis Urine Culture Received 06/22/16 1500 Urine,Catheterized Pending Blood Culture - Preliminary Resulted 06/22/162004 Blood NO GROWTH TO DATE. Blood Culture - Preliminary Resulted 06/22/162011 Blood NO GROWTH TO DATE. C.difficile Toxin B Gene (PCR) - Final Complete 06/23/16 0128 Stool No C. difficile toxin B gene detected Procedure Result Verified Site URINE CULTURE Final 06/19/16-1246 Organism 1 ENTEROCOCCUS FAECALIS COLONY COUNT >100,000 CFU/ml SENS SENSITIVITY TO FOLLOW Organism 2 LACTOBACILLUS SPECIES COLONY COUNT 50,000 CFU/ml SENS NO SENSITIVITY TO FOLLOW 1. ENTEROCOCCUS FAECALIS Target Route Dose RX AB Cost M.I.C. IQ ------ ----- ------ -- ------ -------- - ------ AMPICILLIN S <=2 GENT SYNERGY R >500 VANCOMYCIN S 2 PENICILLIN S 8 CIPROFLOXACIN R >2 LEVOFLOXACIN R >4 DAPTOMYCIN S 1 NITROFURANTOIN S <=32 STREP SYNERGY R >1000 Procedure Result Verified Site URINE CULTURE Final 06/08/16-1321 Organism 1 ENTEROCOCCUS FAECALIS COLONY COUNT >100,000 CFU/ml SENS SENSITIVITY TO FOLLOW Organism 2 GROUP B BETA STREP COLONY COUNT >100,000 CFU/ml SENS NO SENSITIVITY TO FOLLOW 1. ENTEROCOCCUS FAECALIS Target Route Dose RX AB Cost M.I.C. IQ ------ ----- ------ -- ------ -------- - ------ AMPICILLIN S <=2 GENT SYNERGY R >500 VANCOMYCIN S 2 PENICILLIN S 8 CIPROFLOXACIN R >2 LEVOFLOXACIN R >4 DAPTOMYCIN S 1 NITROFURANTOIN S <=32 STREP SYNERGY R >1000 Assessment & Plan: Assessment * 80 y/o F on IV Vancomycin for complicated UTI (previous cultures grew E. faecalis). She previously failed Macrobid and has multiple drug allergies. * Renal function appears to be changing. sCr was 1.7 mg/dL on 06/23, but is improved to 1.3 mg/dL today. * Vancomycin was previously being dosed empirically based on random levels due to renal impairment * Last Vancomycin dose of 500mg (~6mg/kg) IV was given on 06/23 @ 2312 * Random level on 06/24 @ 0600 was 21.2 mcg/mL (~7 hours after last dose). Earlier, she had a random level on 06/23 @ 2009 of 20.9 mcg/mL (which was ~10 hours after last dose of Vancomycin 2000mg (~25mg/kg)). Based on population pharmacokinetics, patient should not need a dose more frequently than q24. However, she appears to be eliminating Vancomycin much more rapidly than expected from the random levels obtained. Her actual half-life may be ~12 hours ? Plan * Initiate Vancomycin 1000mg (~12mg/kg) IV q12 * Goal Vancomycin trough 15-20 mcg/mL (higher trough concentration desirable due to Vancomycin HANNAH = 2 per prior urine culture results from 06/16/16 and ) * Trough level ordered for 06/25 @ 1130 (only prior to the 3rd dose and therefore not reflective of steady state, but would like to assess dosing regimen earlier due to the patient's age, changing renal function, and dosing more frequently than estimated half-life) Pharmacy will continue to follow and will adjust dose/frequency as necessary. Thank you
[2016-06-24] MEDS ORDERED: VANCOMYCIN INJ 1,000 MG in SODIUM CHLORIDE 0.9% 250ML 250 ML IV SCH (13:00)
[2016-06-24] MEDS ORDERED: NIFEdipine 30 MG CR TAB PO ONE (16:00)
[2016-06-24] MEDS: DOXYCYCLINE HYCLATE 100 MG CAP PO SCH ×2 (16:37→22:40)
--- NOTE | 2016-06-24 18:28 | DIAGNOSTIC IMAGING REPORT ---
CHEST 2 VIEWS ROUTINE HISTORY: fibrosis ? pneumonia ? COMPARISON: Chest 06/22/2016. FINDINGS: The heart remains mildly enlarged. There are low lung volumes. No pleural effusions. No pneumothorax. Peripheral interstitial thickening/reticulation consistent with fibrotic change. This is most pronounced at the lung bases. This is unchanged from the prior studies. No new focal lung consolidations. No evidence for pulmonary edema. IMPRESSION: No change in the low lung volumes with chronic fibrotic change. No new focal lung consolidations. Electronically signed by: Anthony Conley M.D. 06/24/2016 6:26 PM Dictated Date/Time: 06/24/2016 6:24 PM
[2016-06-24] MEDS ORDERED: LEVOFLOXACIN / D5W 750 MG in PREMIXED IN D5W 150 ML IV SCH (20:00)
--- NOTE | 2016-06-24 20:20 | Progress Note ---
Subjective Date of Service: Jun 24, 2016. Subjective Pt evaluation today including: conversation w/ patient, conversation w/ family (son by phone), physical exam, chart review, lab review, review of studies (cxr) , review of inpatient medication list Pain: denies abd pain PO Intake: improved; tolerating clears Voiding: no voiding problems "I feel much better today." Diarrhea continues but less in frequency. No significant cough. has mild baseline dyspnea but no worse than usual. no dysuria. Problem List Medical Problems: (1) Angina effort Status: Acute (2) Arthritis Status: Chronic (3) Contusion of multiple sites Status: Acute (4) Diabetes mellitus Status: Chronic (5) Fall Status: Acute (6) Head injury Status: Acute (7) Heart disease Status: Chronic (8) HTN (hypertension) Status: Chronic (9) Injury of left shoulder Status: Acute (10) Non-ST elevation [place] (NSTEMI) Status: Acute (11) Pneumonia Status: Acute Review of Systems Constitutional: No chills, No fever Respiratory: No dyspnea at rest, No sputum Cardiac: No chest pain Abdomen: + diarrhea, No nausea, No pain, No vomiting Objective Vital Signs Date Time Temp Pulse Resp B/P Pulse Ox O2 Delivery O2 Flow Rate FiO2 06/24/16 18:30 72 145/69 06/24/16 15:31 37.1 65 18 203/74 96 Room Air 06/24/16 11:53 Room Air 06/24/16 11:52 60 20 180/67 97 Room Air 06/24/16 08:54 68 06/24/16 08:00 Room Air 06/24/16 07:20 37.1 58 20 158/70 94 Room Air 06/24/16 04:13 37.0 61 20 174/72 94 Room Air 06/24/16 04:00 Room Air 06/24/16 00:01 Room Air 06/23/16 23:45 37.3 60 18 175/73 96 06/23/16 21:14 72 06/23/16 20:00 Room Air 06/23/16 19:56 37.0 55 18 153/69 97 Room Air Physical Exam General Appearance: no apparent distress ENT: pharynx normal (MMM) Neck: no JVD Respiratory/Chest: no respiratory distress, no accessory muscle use, + rales ( dry, both bases - no change from prior exam) Cardiovascular: regular rate, rhythm, no gallop, no murmur Abdomen: normal bowel sounds, non tender, soft, no organomegaly Extremities: no pedal edema Neurologic/Psychiatric: alert, oriented x 3 Laboratory Results Last 24 Hours Test 06/23/16 20:10 06/23/16 20:54 06/24/16 06:00 06/24/16 07:39 Creatinine 1.60 mg/dl 1.30 mg/dl Est Creatinine Clear Calc Drug Dose 27.8 ml/min 34.9 ml/min Estimated GFR () 35.4 45.5 Estimated GFR (Non- 30.5 39.3 Random Vancomycin Level 20.9 mcg/ml 21.2 mcg/ml Bedside Glucose 122 mg/dl 109 mg/dl White Blood Count 6.19 K/uL Red Blood Count 3.59 M/uL Hemoglobin 9.9 g/dL Hematocrit 30.2 % Mean Corpuscular Volume 84.1 fL Mean Corpuscular Hemoglobin 27.6 pg Mean Corpuscular Hemoglobin Concent 32.8 g/dl Platelet Count 155 K/uL Mean Platelet Volume 9.8 fL Neutrophils (%) (Auto) 80.8 % Lymphocytes (%) (Auto) 7.4 % Monocytes (%) (Auto) 8.2 % Eosinophils (%) (Auto) 3.2 % Basophils (%) (Auto) 0.2 % Neutrophils # (Auto) 5.00 K/uL Lymphocytes # (Auto) 0.46 K/uL Monocytes # (Auto) 0.51 K/uL Eosinophils # (Auto) 0.20 K/uL Basophils # (Auto) 0.01 K/uL RDW Standard Deviation 49.7 fL RDW Coefficient of Variation 16.0 % Immature Granulocyte % (Auto) 0.2 % Immature Granulocyte # (Auto) 0.01 K/uL Sodium Level 144 mmol/L Potassium Level 3.0 mmol/L Chloride Level 110 mmol/L Carbon Dioxide Level 21 mmol/L Anion Gap 13.0 mmol/L Blood Urea Nitrogen 19 mg/dl BUN/Creatinine Ratio 14.6 Random Glucose 99 mg/dl Calcium Level 8.5 mg/dl Total Bilirubin 0.4 mg/dl Aspartate Amino Transf (AST/SGOT) 23 U/L Alanine Aminotransferase (ALT/SGPT) 11 U/L Alkaline Phosphatase 45 U/L Total Protein 5.9 gm/dl Albumin 2.4 gm/dl Globulin 3.5 gm/dl Albumin/Globulin Ratio 0.7 Test 06/24/16 11:35 06/24/16 16:29 Bedside Glucose 151 mg/dl 180 mg/dl Assessment and Plan 80yo female with: 1. acute kidney injury - improving. Cut fluid rate to 75cc/hr. Repeat BMP in am. 2. HTN - uncontrolled. Cont to hold ARB/HCTZ due to #1. Thus, Rx with nifedipine xl 30mg po x 1. Follow. 3. hypokalemia - replace, repeat K in am. 4. ?pneumonia - clinically no evidence of such. Repeat cxr today w/ fibrotic changes but no superimposed infiltrates. 5. lactobacilli UTI - stop vanco. doxy 100mg po bid x 3 days then stop all abx (was recently on 5-7+ days of macrobid). 6. recent enterococcal uti - resolved. 7. diarrhea - c. diff negative. Likely abx-associated vs viral GE; favor former. 8. steroid-dependent RA - cont stress dose steroids; wean starting tomorrow. 9. T2DM - control adequate; novolog SSI. 10. DVT proph - heparin BID 11. 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 12. hyponatremia - 2nd to diarrhea - resolved. PT, OT evals appreciated; looks like she is cleared for home son updated d/c Sunday? Continued [facility] stay due to: multiple IV medications needed Discharge planning: home with home health
[2016-06-24] MEDS: TOLTERODINE TARTRATE LA 2 MG CAPCR PO SCH (21:33)
[2016-06-24] MEDS: ROSUVASTATIN CALCIUM 20 MG TAB PO SCH (21:33)
[2016-06-24] MEDS: SACCHAROMYCES BOUL (FLORASTOR) 250 MG CAP PO SCH (21:33)
[2016-06-25] VITALS: O2SAT 96
[2016-06-25 00:07] VITALS: BP 164/60; PULSE 65; TEMP 36.9; O2SAT 96
[2016-06-25 06:54] LABS: BUN/CREATININE RATIO 11.8 (10-20); CALCIUM 8.7 mg/dl (8.5-10.1); CREATININE 1.3 mg/dl (0.60-1.20); POTASSIUM 3.9 mmol/L (3.5-5.1)
[2016-06-25 08:04] VITALS: BP 168/70; PULSE 70; TEMP 36.8; O2SAT 95
[2016-06-25] MEDS: CARVEDILOL 12.5 MG TAB PO SCH ×2 (08:46→21:05)
[2016-06-25] MEDS: DOXYCYCLINE HYCLATE 100 MG CAP PO SCH ×2 (08:47→21:05)
[2016-06-25] MEDS: MULTIVITAMIN TAB PO SCH (08:47)
[2016-06-25] MEDS: ASPIRIN 81 MG ECTAB PO SCH (08:47)
[2016-06-25] MEDS: VALSARTAN 80 MG TAB PO SCH (08:51)
[2016-06-25] MEDS: INSULIN ASPART 100 UNITS/ML 3 ML PEN SC SCH ×4 (08:59→21:00)
[2016-06-25] MEDS: HEPARIN SOD 5000 UNIT/0.5 ML CARP SQ SCH ×2 (09:00→21:00)
[2016-06-25] MEDS ORDERED: RANITIDINE HCL 150 MG TAB PO ONE (10:45)
[2016-06-25] MEDS ORDERED: VANCOMYCIN TROUGH ONE (11:30)
[2016-06-25] MEDS ORDERED: PRED10TA PO (12:22)
[2016-06-25] MEDS ORDERED: VALS320T PO (12:22)
[2016-06-25] MEDS ORDERED: ZNTT/150 PO (12:22)
[2016-06-25] MEDS ORDERED: NIFE1TAB53 PO (12:22)
[2016-06-25] MEDS ORDERED: OMEP40CA41 PO (12:22)
[2016-06-25 12:26] VITALS: BP_SYST 166; BP_SYST 170; BP_DIAS 76; BP_DIAS 77; PULSE 75
[2016-06-25] MEDS ORDERED: NIFEdipine 30 MG CR TAB PO ONE (12:45)
[2016-06-25 15:48] VITALS: BP 139/79; PULSE 64; TEMP 36.6; O2SAT 97
[2016-06-25 19:49] VITALS: BP 125/58; PULSE 67; TEMP 36.4; O2SAT 96
[2016-06-25] MEDS: SACCHAROMYCES BOUL (FLORASTOR) 250 MG CAP PO SCH (21:05)
[2016-06-25] MEDS: TOLTERODINE TARTRATE LA 2 MG CAPCR PO SCH (21:05)
[2016-06-25] MEDS: RANITIDINE HCL 150 MG TAB PO SCH (21:06)
[2016-06-25] MEDS: ROSUVASTATIN CALCIUM 20 MG TAB PO SCH (21:06)
--- NOTE | 2016-06-25 21:41 | Progress Note ---
Subjective Date of Service: Jun 25, 2016. Subjective Pt evaluation today including: conversation w/ patient, conversation w/ family (son at bedside), physical exam, chart review, lab review, review of inpatient medication list Pain: mild dyspepsia PO Intake: tolerating diet but eating small amounts; taking very good liquid intake Voiding: no voiding problems no issues overnight telemetry normal she feels good ambulating without difficulty no nausea or emesis diarrhea improved anxious to get home Problem List Medical Problems: (1) Angina effort Status: Acute (2) Arthritis Status: Chronic (3) Contusion of multiple sites Status: Acute (4) Diabetes mellitus Status: Chronic (5) Fall Status: Acute (6) Head injury Status: Acute (7) Heart disease Status: Chronic (8) HTN (hypertension) Status: Chronic (9) Injury of left shoulder Status: Acute (10) Non-ST elevation [place] (NSTEMI) Status: Acute (11) Pneumonia Status: Acute Review of Systems Constitutional: No chills, No fever Respiratory: + dyspnea on exertion (at baseline - chronic), No cough Cardiac: No chest pain Abdomen: + pain, + see HPI, No GI bleeding Objective Vital Signs Date Time Temp Pulse Resp B/P Pulse Ox O2 Delivery O2 Flow Rate FiO2 06/25/16 19:49 36.4 67 18 125/58 96 Room Air 06/25/16 16:00 Room Air 06/25/16 15:48 36.6 64 18 139/79 97 Room Air 06/25/16 12:26 75 166/76 170/77 06/25/16 08:04 36.8 70 20 168/70 95 Room Air 06/25/16 07:25 Room Air 06/25/16 00:07 36.9 65 18 164/60 96 Room Air 06/25/16 00:00 96 Room Air 06/24/16 22:46 66 185/70 06/24/16 21:29 69 199/61 Physical Exam General Appearance: no apparent distress ENT: pharynx normal, + pertinent finding (geographic tongue) Neck: no JVD Respiratory/Chest: no respiratory distress, no accessory muscle use, + rales ( fine, dry both bases ) Cardiovascular: regular rate, rhythm, no gallop, no murmur Abdomen: normal bowel sounds, soft, no organomegaly, + tenderness (slight - high epigastric region ) Extremities: no pedal edema Neurologic/Psychiatric: alert, normal mood/affect, oriented x 3 Laboratory Results Last 24 Hours Test 06/25/16 05:23 06/25/16 07:38 06/25/16 11:45 06/25/16 16:48 Sodium Level 144 mmol/L Potassium Level 3.9 mmol/L Chloride Level 112 mmol/L Carbon Dioxide Level 22 mmol/L Anion Gap 10.0 mmol/L Blood Urea Nitrogen 15 mg/dl Creatinine 1.30 mg/dl Est Creatinine Clear Calc Drug Dose 34.9 ml/min Estimated GFR () 45.5 Estimated GFR (Non- 39.3 BUN/Creatinine Ratio 11.8 Random Glucose 112 mg/dl Calcium Level 8.7 mg/dl Bedside Glucose 132 mg/dl 153 mg/dl 170 mg/dl Test 06/25/16 20:30 Bedside Glucose 171 mg/dl Assessment and Plan 80yo female with: 1. acute kidney injury - Cr today 1.3; baseline about 1. d/c fluids; she is taking very adequate liquid intake at this point. ok to resume diovan for HTN. 2. HTN - patient received nifedipine last pm and diovan this AM. Despite such she was high most of this AM. We made a decision to cancel her discharge due to her elevated BPs. Nifedipine given again early this afternoon and BPs improved by the early evening. Patient has chronic dizziness and HCTZ could be playing a role in such. Thus, will send out on nifedipine xl 30mg daily and diovan once daily along with coreg. HCTZ stopped completely. 3. hypokalemia - resolved. 4. ?pneumonia - clinically no evidence of such. Repeat cxr today w/ fibrotic changes but no superimposed infiltrates. 5. lactobacilli UTI - repeat urine cx negative. Stop all antibiotics. 6. recent enterococcal uti - resolved. 7. diarrhea - c. diff negative. Likely abx-associated vs viral GE; favor former. 8. steroid-dependent RA - cont stress dose steroids but wean from 30mg to 20mg tomorrow then resume 10mg daily thereafter. 9. T2DM - control adequate; novolog SSI. 10. DVT proph - heparin BID 11. 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 She has had chronic [place] for about 1-2 years. I recommended pulmonary consultation after discharge. 12. hyponatremia - 2nd to diarrhea - resolved. 13. GERD - takes zantac BID but having breakthrough symptoms. Will send home with PPI. PT, OT evals appreciated; patient cleared for home with home PT, OT son updated at bedside today can d/c in AM if BPs are controlled and labs are stable prescriptions for diovan, nifedipine, and prilosec sent to [facility] this am Discharge planning: home with home health
[2016-06-26 03:44] VITALS: BP 134/60; PULSE 63; TEMP 36.7; O2SAT 97
[2016-06-26 06:18] LABS: HEMATOCRIT 29.9 % (37-47); MEAN CELL VOLUME 85.4 fL (80-100); MEAN CORPUSCULAR HEMOGLOBIN 27.7 pg (25-34); MEAN CORPUSCULAR HGB CONC 32.4 g/dl (32-36); MEAN PLATELET VOLUME 9.6 fL (7.4-10.4); PLATELET COUNT 179 K/uL (130-400); WHITE BLOOD COUNT 8.11 K/uL (4.8-10.8)
[2016-06-26 07:04] LABS: BUN/CREATININE RATIO 13.4 (10-20); CALCIUM 8.6 mg/dl (8.5-10.1); CREATININE 1.3 mg/dl (0.60-1.20); POTASSIUM 3.3 mmol/L (3.5-5.1)
[2016-06-26 07:43] VITALS: BP 143/61; PULSE 75; TEMP 36.9; O2SAT 93
[2016-06-26] MEDS: CARVEDILOL 12.5 MG TAB PO SCH (08:07)
[2016-06-26] MEDS: RANITIDINE HCL 150 MG TAB PO SCH (08:07)
[2016-06-26] MEDS: VALSARTAN 80 MG TAB PO SCH (08:08)
[2016-06-26] MEDS: ASPIRIN 81 MG ECTAB PO SCH (08:10)
[2016-06-26] MEDS: MULTIVITAMIN TAB PO SCH (08:10)
[2016-06-26] MEDS: HEPARIN SOD 5000 UNIT/0.5 ML CARP SQ SCH (08:14)
--- NOTE | 2016-06-26 08:50 | Discharge Instructions ---
Discharge Instructions Admission Reason for Admission: Acute Electrocardiograpy Changes, Pneumonia Discharge Discharge Diagnosis / Problem: Pneumonia, UTI, Acute kidney injury Discharge Goals Goal(s): Decrease discomfort, Improve function, Prevent Disease Progression Activity Recommendations Activity Limitations: resume your previous activity Lifting Limitations: gradually increase as tolerated Exercise/Sports Limitations: gradually increase as tolerated May Resume Sexual Activity: when tolerated Shower/Bathe: no limitations Driving or Machine Use: no limitations . Instructions / Follow-Up Instructions / Follow-Up Dear Mrs. Lugo, You were admitted to the hospital for dehydration from diarrhea and found to have a urinary tract infection as well as a pneumonia. Your diarrhea was likely from antibiotics you were taking outpatient. You were treated with different antibiotics and IV fluids. You were also found to have mild worsening of your kidney function which improved with hydration. During your stay, your Blood pressure was difficult to control and you had some dizziness; therefore some adjustments were made to your medicines. STOP Valsartan-hydrochlorothiazide combination Continue nifedipine, diovan (without hydrochlorothiazide) and coreg Continue your home dose of steroids for your rheumatoid arthritis. We do recommend following up with a art model for evaluation of your chest X-ray findings which shows chronic fibrotic changes (that could be contributing to your long history of shortness of breath) Diet - * avoid fried foods, high fiber foods (beans, certain cereals, large amounts of fruits/veggies, etc), excessive amounts of caffeinated beverages (soda, coffee, tea, etc) If you experience any further symptoms or have other concerns, please call your PCP or go to the ER. Thank you for allowing us to participate in your care. Current Hospital Diet Patient's current hospital diet: Diabetes Type 2 Diet, Low Fiber Diet Discharge Diet Recommended Diet: Diabetes Type 2 Diet Pending Studies Studies pending at discharge: no Laboratory Results Hemoglobin A1c Test 06/01/16 14:30 Range/Units Estimated Average Glucose 154 mg/dl Hemoglobin A1c 7.0 H 4.5-5.6 % Medical Emergencies . Who to Call and When: Medical Emergencies: If at any time you feel your situation is an emergency, please call 911 immediately. . Non-Emergent Contact Non-Emergency issues call your: Primary Care Provider, Database Administration Manager . . "Provider Documentation" section prepared by Radha Sosa. VTE Core Measure Inpt VTE Proph given/why not?: Unfractionated heparin SQ
[2016-06-26] MEDS: INSULIN ASPART 100 UNITS/ML 3 ML PEN SC SCH ×2 (08:59→12:35)
[2016-06-26] MEDS ORDERED: POTASSIUM CHLR 10 MEQ / WTR 10 MEQ in PREMIXED WATER 100 ML IV ONE (09:00)
[2016-06-26] MEDS ORDERED: NIFEdipine 30 MG CR TAB PO SCH (09:00)
[2016-06-26 11:39] VITALS: BP 115/58; PULSE 58; TEMP 36.9; O2SAT 95
--- NOTE | 2016-06-26 13:17 | Discharge Summary ---
Discharge Summary Admission Date: Jun 22, 2016 at 20:47 Discharge Date: Jun 26, 2016 Discharge Disposition: Home Principal Diagnosis: UTI Problems/Secondary Diagnoses: Acute kidney injury HTN Immunizations: Have You Had Influenza Vaccine: Yes History of Tetanus Vaccine?: Unknown History of Pneumococcal: Yes History of Hepatitis B Vaccine: No Procedures: CHEST 2 VIEWS ROUTINE HISTORY: fibrosis ? pneumonia ? COMPARISON: Chest 06/22/2016. FINDINGS: The heart remains mildly enlarged. There are low lung volumes. No pleural effusions. No pneumothorax. Peripheral interstitial thickening/reticulation consistent with fibrotic change. This is most pronounced at the lung bases. This is unchanged from the prior studies. No new focal lung consolidations. No evidence for pulmonary edema. IMPRESSION: No change in the low lung volumes with chronic fibrotic change. No new focal lung consolidations. ABDOMEN AND PELVIS CT WITH IV AND ORAL CONTRAST CT DOSE: 623.95 mGy.cm HISTORY: Fever fever, lower abd pain x 3 days. Appears unwell but not toxic TECHNIQUE: Multiaxial CT images of the abdomen and pelvis were performed following the use of intravenous and oral contrast. COMPARISON STUDY: 06/01/2016 FINDINGS: Chronic fibrotic and atelectatic change both lung bases. Mild stable cardiomegaly. Mild fatty infiltration of liver. There are calcified granulomas in the spleen considered benign. Several small gallstones within the gallbladder lumen. Kidneys enhance uniformly. 1 cm cyst posterior aspect lower pole left kidney. Mild cortical scarring centrally unchanged. No evidence for hydronephrosis. Pancreas is unremarkable. Bowel pattern is considered nonobstructive. Normal appendix. Bowel pattern within the pelvis is considered unremarkable for mild scattered colonic diverticulosis. No evidence for acute diverticulitis. Patient status post left hip arthroplasty. IMPRESSION: 1. Several small gallstones unchanged. 2. Mild colonic diverticulosis primarily of the sigmoid. 3. No acute process of the abdomen or pelvis. 4. No change from the prior study. Medication Reconciliation New Medications: Nifedipine (Nifedipine Er) 30 Mg Tab 1 TAB PO DAILY for 30 Days, #30 TAB 5 Refills for high blood pressure Omeprazole (Prilosec) 40 Mg Cap 40 MG PO QAM, #30 CAP 5 Refills for heartburn Valsartan (Diovan) 320 Mg Tab 1 TAB PO DAILY for 30 Days, #30 TAB 5 Refills for high blood pressure; note that the "HCT" has been removed. Changed Medications: Prednisone Tab (Prednisone) 10 Mg Tab 10 MG PO DIRECTED, #30 TAB 0 Refills (Changed from: DAILY; Refills: ) on 06/26/16 take 2 tabs, then on 06/27/16 take 1 tab daily thereafter. take with food. Ranitidine HCl (Zantac) 150 Mg Tab 150 MG PO BID PRN for heartburn/reflux, #30 TAB 0 Refills (Changed from: Refills : ) Continued Medications: Acetaminophen (Tylenol) 325 Mg Tab 650 MG PO q5 PRN for Pain, TAB Aspirin (Aspirin Ec) 81 Mg Tab 81 MG PO QAM Carvedilol (Coreg) 12.5 Mg Tab 1 TAB PO BID for 90 Days, #180 TAB 3 Refills Coenzyme Q10 (Ubidecarenone) (Co Q10) 50 Mg Cap 200 MG PO QAM, CAP Fluticasone Furoate (Veramyst) 27.5 Mcg/[place] Spr 2 SPRY DAVID DAILY PRN for prn for 30 Days, #10 GM 5 Refills Metformin Hcl (Glucophage) 500 Mg Tab 250 MG PO BID, TAB Misc Natural Products (Osteo Bi-Flex Triple Stre) 1 Tab Tab 1 TAB PO noon Multivitamin (Multivitamin) Tab 1 TAB PO DAILY Rosuvastatin Calcium (Crestor) 40 Mg Tab 40 MG PO QPM, TAB Saccharomyces Boulardii (Probiotic) 250 Mg Cap 1 CAP PO HS Tolterodine Tartrate (Detrol LA) 2 Mg Capcr 2 CAP PO QPM for 90 Days, CAP 3 Refills Discontinued Medications: Nitrofurantoin (Nitrofurantoin Monohydrat) 1 Homepack Ea 1 TAB PO BID, #20 Valsartan/Hctz (Diovan Hct 320MG/25MG) 1 Tab Tab 1 TAB PO QAM, TAB Discharge Exam This is a 80 y/o F with multiple comorbidities who presented with generally feeling unwell and diarrhea. She was found to have acute kidney injury, existing UTI HAND I BLOCKER (on macrobid) as well as a possible community acquired pneumonia. She was started Vancomycin due to Enterococcus on culture done outpatient (as well as possible pneumonia). Urine culture from the hospital grew Lactobacillus. Her Urinary symptoms improved with Antibiotics. Her diarrhea was likely secondary to outpatient antibiotics vs. Gastroenteritis. ( Stool cultures and C.Diff was negative). This improved as well. With respect to her pneumonia, she was improving clinically with supplemental O2 and duonebs and did not have any signs on repeat Xray. She did have incidental findings of fibrotic changes on lung Xray and was recommended Pulmonology follow up outpatient. The acute kidney injury resolved to baseline with IV Fluids. Her Blood pressure in the hospital was labile. She also complained of dizziness. As a result, her Valsartan-HCTZ combination was discontinued and she was maintained on valsartan, nifedipine and coreg. All other co-morbidities and acute issues were managed appropriately. Review of Systems: Constitutional: No chills, No fatigue, No fever, No problem reported, No sweats, No weakness, No weight loss Respiratory: No dyspnea at rest, No dyspnea on exertion, No shortness of breath, No sputum, No wheezing Cardiovascular: No PND, No chest pain, No orthopnea, No palpitations, No problem reported Abdomen: No constipation, No diarrhea, No nausea, No pain, No vomiting Genitourinary - Female: No dysuria, No urinary frequency, No urinary urgency Physical Exam: General Appearance: no apparent distress Eyes: PERRL, EOMI ENT: hearing grossly normal Neck: supple, trachea midline Respiratory/Chest: lungs clear, normal breath sounds, no respiratory distress, no accessory muscle use Cardiovascular: regular rate, rhythm, no edema Abdomen / GI: normal bowel sounds, non tender, soft Extremities: no calf tenderness, no pedal edema Neurologic/Psychiatric: alert, normal mood/affect Hospital Course This includes examination of the patient, discharge planning, medication reconciliation, and communication with other providers. Discharge Instructions Please refer to the electronic Patient Visit Report (Discharge Instructions) for additional information. Resident Tracking Resident Involvement: Resident Care Provided Care Provided: Adult Hospital Medicine
== END 2016-06-26 13:47 | disposition home health service (06) | DRG 689 ==
LOC: ENRESERVTM → ENRESERVDT → EDBD 14:49 → C.EDC 14:50 → C.MED 20:47 → EDBEDREQSVC 22:00
PROVIDERS: ADMIT Student in an Organized Health Care Education/Training Program; ATTEND Internal Medicine
DX: N39.0 Urinary tract infection, site not specified (principal); J18.9 Pneumonia, unspecified organism; E87.1 Hypo-osmolality and hyponatremia; B17.9 Acute viral hepatitis, unspecified; N17.9 Acute kidney failure, unspecified; N30.90 Cystitis, unspecified without hematuria; E11.9 Type 2 diabetes mellitus without complications; R19.7 Diarrhea, unspecified; M06.9 Rheumatoid arthritis, unspecified; E87.6 Hypokalemia; I25.10 Atherosclerotic heart disease of native coronary artery without angina pectoris; I12.9 Hypertensive chronic kidney disease with stage 1 through stage 4 chronic kidney disease, or unspecified chronic kidney disease; B99.8 Other infectious disease; K21.9 Gastro-esophageal reflux disease without esophagitis; Z86.73 Personal history of transient ischemic attack (TIA), and cerebral infarction without residual deficits; Z96.659 Presence of unspecified artificial knee joint; Z82.49 Family history of ischemic heart disease and other diseases of the circulatory system; Z79.82 Long term (current) use of aspirin; Z79.84 Long term (current) use of oral hypoglycemic drugs; I25.2 Old myocardial infarction; Z79.52 Long term (current) use of systemic steroids; Z83.3 Family history of diabetes mellitus; Z82.3 Family history of stroke

== ENCOUNTER → 2016-07-07 | Outpatient (CLI) | payer BC ==
[~2016-07-07] MED LIST changes: -CPR500 PO; -CYAN100020 PO; +NIFE1TAB53 PO; -OMEG10007 PO; +OMEP40CA41 PO; +VALS320T PO; -VALS320T2 PO
[2016-07-07 13:07] LABS: BASO % 0.2 %; BASO ABS # 0.02 K/uL (0-0.2); COMPLETE YES; EOS % 2.2 %; HEMATOCRIT 32.5 % (37-47); IG% 0.4 %; LYMPH % 14.3 %; LYMPH ABS # 1.19 K/uL (1.2-3.4); MEAN CELL VOLUME 88.8 fL (80-100); MEAN CORPUSCULAR HEMOGLOBIN 28.4 pg (25-34); MEAN PLATELET VOLUME 9.8 fL (7.4-10.4); MONO % 6.4 %; NEUT % 76.5 %; PLATELET COUNT 268 K/uL (130-400); RED BLOOD COUNT 3.66 M/uL (4.2-5.4); WHITE BLOOD COUNT 8.34 K/uL (4.8-10.8)
[2016-07-07 13:27] LABS: URINE APPEARANCE CLEAR (CLEAR); URINE BILIRUBIN NEG (NEG); URINE COLOR YELLOW; URINE EPITHELIAL CELL AUTO >30 /lpf (0-5); URINE NITRITE NEG (NEG); URINE SPECIFIC GRAVITY 1.004 (1.000-1.030); UROBILINOGEN NEG (NEG)
[2016-07-07 13:30] LABS: MANUAL MICROSCOPIC REQUIRED? NO; REVIEW REQ? NO
[2016-07-07 13:46] LABS: BLOOD UREA NITROGEN 19 mg/dl (7-18); BUN/CREATININE RATIO 20.8 (10-20); CALCIUM 9.7 mg/dl (8.5-10.1); CARBON DIOXIDE 28 mmol/L (21-32); CHLORIDE 103 mmol/L (98-107); CREATININE 0.93 mg/dl (0.60-1.20); GLUCOSE 127 mg/dl (70-99); POTASSIUM 3.2 mmol/L (3.5-5.1); SODIUM 140 mmol/L (136-145)
== END | disposition home or self-care (01) ==
LOC: C.LAB1850 11:57
PROVIDERS: ATTEND Internal Medicine
DX: I25.10 Atherosclerotic heart disease of native coronary artery without angina pectoris (principal); D64.9 Anemia, unspecified; Z87.440 Personal history of urinary (tract) infections

== ENCOUNTER → 2016-09-28 | Outpatient (CLI) | payer BC ==
--- NOTE | 2016-09-28 09:01 | DIAGNOSTIC IMAGING REPORT ---
RENAL ULTRASOUND HISTORY: N28.9 Renal lesion COMPARISON: Abdomen and pelvis CT 06/22/2016. FINDINGS: Right kidney: 9.9 cm. No hydronephrosis. Normal corticomedullary differentiation. Mild cortical thinning. Left kidney: 9 cm. No hydronephrosis. Normal corticomedullary differentiation. Mild cortical thinning. A 1.3 x 1.0 cm cyst. Bladder: No bladder wall thickening. IMPRESSION: A 1.3 x 1.0 cm left renal cyst. No solid renal masses identified. Electronically signed by: Anthony Conley M.D. 09/28/2016 9:00 AM Dictated Date/Time: 09/28/2016 8:58 AM
== END | disposition home or self-care (01) ==
LOC: C.ULTR 08:17
PROVIDERS: ATTEND Physician Assistant
DX: N28.1 Cyst of kidney, acquired (principal)

== ENCOUNTER → 2016-10-25 | Outpatient (CLI) | payer BC ==
[2016-10-25 12:09] LABS: BASO % 0.2 %; BASO ABS # 0.02 K/uL (0-0.2); COMPLETE YES; EOS % 1.4 %; HEMATOCRIT 36.4 % (37-47); IG% 0.2 %; LYMPH ABS # 1.08 K/uL (1.2-3.4); MEAN CELL VOLUME 88.8 fL (80-100); MEAN CORPUSCULAR HEMOGLOBIN 27.8 pg (25-34); MEAN CORPUSCULAR HGB CONC 31.3 g/dl (32-36); MEAN PLATELET VOLUME 10.1 fL (7.4-10.4); MONO % 6.8 %; NEUT % 79.4 %; PLATELET COUNT 224 K/uL (130-400); WHITE BLOOD COUNT 8.97 K/uL (4.8-10.8)
[2016-10-25 12:25] LABS: ESTIMATED AVERAGE GLUCOSE 148 mg/dl; HA1C FLAG Normal (Normal)
[2016-10-25 12:38] LABS: BLOOD UREA NITROGEN 22 mg/dl (7-18); BUN/CREATININE RATIO 24.2 (10-20); CARBON DIOXIDE 28 mmol/L (21-32); CHLORIDE 104 mmol/L (98-107); CREATININE 0.89 mg/dl (0.60-1.20); GLUCOSE 121 mg/dl (70-99); POTASSIUM 4.2 mmol/L (3.5-5.1); SODIUM 139 mmol/L (136-145)
[2016-10-25 12:43] LABS: FERRITIN 50.7 ng/ml (8.0-388.0); TOTAL IRON BINDING CAPACITY 324 mcg/dl (250-450)
[2016-10-25 12:48] LABS: CALCIUM 9.2 mg/dl (8.5-10.1)
== END | disposition home or self-care (01) ==
LOC: C.LAB1850 11:22
PROVIDERS: ATTEND Physician Assistant
DX: E11.9 Type 2 diabetes mellitus without complications (principal); I25.10 Atherosclerotic heart disease of native coronary artery without angina pectoris

== ENCOUNTER → 2016-10-31 | Outpatient (CLI) | payer BC | END | disposition home or self-care (01) | LOC: C.LABSPEC 12:14 | PROVIDERS: ATTEND Internal Medicine | DX: Z00.00 Encounter for general adult medical examination without abnormal findings (principal); D64.9 Anemia, unspecified ==

== ENCOUNTER → 2016-11-21 | Outpatient (CLI) | payer BC | END | disposition home or self-care (01) | LOC: C.LAB1850 11:44 | PROVIDERS: ATTEND Internal Medicine Rheumatology | DX: M35.3 Polymyalgia rheumatica (principal); Z79.52 Long term (current) use of systemic steroids ==

== ENCOUNTER → 2016-11-28 | Outpatient (CLI) | payer BC ==
[~2016-11-28] MED LIST changes: +REGADENOSON 0.4 MG/5 ML SYR ONE
--- NOTE | 2016-11-29 16:33 | MYOCARDIAL PERFUSION SCAN ---
ONE-DAY NUCLEAR MEDICINE TECHNETIUM 99-M CARDIOLITE MYOCARDIAL PERFUSION SCAN REQUESTING PHYSICIAN: Dr. Barry Cruz. PRIMARY CARE PHYSICIAN: Dr. Quigley. INDICATION: History of coronary artery disease status post prior circumflex stents in the setting of atypical chest pain. Resting EKG shows normal sinus rhythm at a rate of [address] abnormalities. Stress EKG showed normal sinus rhythm with ventricular rate rising from 64-80 beats per minute. Blood pressure went from 129/58 to 109/50. There were no significant regadenoson induced T-wave abnormalities. There was a single PVC, but no other significant arrhythmias. TECHNIQUE: For the stress portion of the study 34.6 mCi of technetium-99m Cardiolite IV was injected at 9:20 a.m. on 11/28/2016. Thirty minutes following the injection, imaging of the heart was performed in multiple projections. For the rest portion of the study 10.9 mCi of technetium-99m Cardiolite was injected IV at 7:30 a.m. One hour following the injection, imaging of the heart was performed in the same projections. FINDINGS: The rotating raw images were reviewed in detail. There was mild gut/liver uptake impacting the inferior imaging border of the heart. There was a large uniform breast shadow over the cardiac silhouette. There was also mild diaphragmatic attenuation. There was no significant extracardiac pathologic uptake. The short axis, vertical long axis, and horizontal long axis images were reviewed in detail. There was no visual TID. There was a small partially reversible mild perfusion defect involving the inferolateral wall, primarily at the base to mid segment, summed difference score approximately 2. LV function was normal with an EF of 68%. LV size was normal with an end-diastolic volume of 76 mL. There was mild hypokinesis at the basal inferolateral wall. IMPRESSIONS: 1. Mild largely fixed perfusion defect involving the basal to mid inferolateral wall consistent with circumflex distribution infarct with minimal miladis-infarct ischemia. Less likely represents diaphragmatic attenuation. 2. Normal left ventricular size and function with an ejection fraction of 64%. Mild inferolateral basilar hypokinesis. 3. Nondiagnostic Lexiscan stress EKG due to inability to reach target heart rate. MTDD
== END | disposition home or self-care (01) ==
LOC: C.NUCL 06:58
PROVIDERS: ATTEND Internal Medicine Interventional Cardiology
DX: I25.10 Atherosclerotic heart disease of native coronary artery without angina pectoris (principal); R07.9 Chest pain, unspecified

== ENCOUNTER → 2016-12-11 | Outpatient (CLI) | payer BC ==
[~2016-12-11] MED LIST changes: -REGADENOSON 0.4 MG/5 ML SYR ONE
--- NOTE | 2016-12-11 12:29 | MAMMOGRAPHY REPORT ---
BILATERAL DIGITAL SCREENING MAMMOGRAM WITH CAD: 12/11/2016 CLINICAL HISTORY: Routine screening. Patient has no complaints. TECHNIQUE: Bilateral CC, MLO and repeat left MLO views were obtained. Current study was also evalua britta with a Computer Aided Detection (CAD) system. COMPARISON: Comparison is made to exams dated: 12/08/2015 mammogram, 12/03/2014 mammogram, 12/02/2013 ma mmogram, 11/28/2012 mammogram, 11/27/2011 mammogram, and 11/23/2010 mammogram - [facility]ter. BREAST COMPOSITION: The tissue of both breasts is heterogeneously dense, which may obscure small mas ses. FINDINGS: There are moderate vascular calcifications in the breasts. A few scattered benign-appearin g round and punctate microcalcifications. The parenchymal pattern is similar to prior mammograms. N o developing mass, architectural distortion or cluster of suspicious microcalcifications is seen. IMPRESSION: ACR BI-RADS CATEGORY 2: BENIGN There is no mammographic evidence of malignancy. A 1 year screening mammogram is recommended. The pa tient will receive written notification of the results. Approximately 10% of breast cancers are not detected with mammography. A negative mammographic report should not delay biopsy if a clinically suggestive mass is present. Margaret Valdovinos M.D. ay/:12/11/2016 10:17:13 Clearance Diver: Xiomy Martins, [facility] letter sent: Normal 1/2 BI-RADS Code: ACR BI-RADS Category 2: Benign
== END | disposition home or self-care (01) ==
LOC: C.MAMM 09:33
PROVIDERS: ATTEND Obstetrics & Gynecology
DX: Z12.31 Encounter for screening mammogram for malignant neoplasm of breast (principal)

== ENCOUNTER → 2016-12-26 | Outpatient (CLI) | payer BC ==
--- NOTE | 2016-12-26 14:52 | DIAGNOSTIC IMAGING REPORT ---
RIGHT HAND 3 VIEWS HISTORY: M79.641 Hand pain, right Painful 2nd MCP and looking for erosions Right COMPARISON: None. FINDINGS: No acute fracture or dislocation. No erosions at the MCP joints. Suggestion of a single tiny periarticular erosion at the head of the middle phalanx of the index finger. There is a small bone island at the base of the fifth metacarpal. Mild soft tissue swelling within the wrist. Mild soft tissue swelling at the second MCP joint. Tiny periarticular ossific density may be due to an old injury at this location. The bones are osteopenic. Severe degenerative changes at the STT joint. Mild to moderate osteoarthritis at the DIP and PIP joints. IMPRESSION: 1. No erosions at the MCP joints. 2. Mild soft tissue swelling at the second MCP joint. No acute fracture or dislocation. Tiny periarticular ossific density at the second MCP joint may be due to an old injury. 3. Suggestion of a single tiny periarticular erosion at the head of the middle phalanx of the index finger. 4. Degenerative changes within the hand/wrist as described above. Electronically signed by: Anthony Conley M.D. 12/26/2016 2:51 PM Dictated Date/Time: 12/26/2016 2:47 PM
== END | disposition home or self-care (01) ==
LOC: C.RAD1850 14:28
PROVIDERS: ATTEND Internal Medicine Rheumatology
DX: M79.641 Pain in right hand (principal)

== ENCOUNTER → 2017-01-26 | Outpatient (CLI) | payer BC | END | disposition home or self-care (01) | LOC: C.LAB1850 09:53 | PROVIDERS: ATTEND Internal Medicine Rheumatology | DX: M79.641 Pain in right hand (principal); Z79.52 Long term (current) use of systemic steroids ==

== ENCOUNTER → 2017-02-01 | Outpatient (CLI) | payer BC ==
[2017-02-01 10:00] LABS: BASO % 0.2 %; BASO ABS # 0.02 K/uL (0-0.2); COMPLETE YES; EOS % 2.2 %; HEMATOCRIT 37.9 % (37-47); IG% 0.2 %; LYMPH % 13.3 %; LYMPH ABS # 1.33 K/uL (1.2-3.4); MEAN CELL VOLUME 88.6 fL (80-100); MEAN CORPUSCULAR HEMOGLOBIN 28.3 pg (25-34); MEAN CORPUSCULAR HGB CONC 31.9 g/dl (32-36); MEAN PLATELET VOLUME 10.2 fL (7.4-10.4); MONO % 5.8 %; NEUT % 78.3 %; PLATELET COUNT 213 K/uL (130-400); RED BLOOD COUNT 4.28 M/uL (4.2-5.4); WHITE BLOOD COUNT 9.98 K/uL (4.8-10.8)
[2017-02-01 10:02] LABS: ESTIMATED AVERAGE GLUCOSE 137 mg/dl; HA1C FLAG Normal (Normal)
[2017-02-01 10:25] LABS: ALT/SGPT 12 U/L (12-78); AST/SGOT 17 U/L (15-37); BLOOD UREA NITROGEN 16 mg/dl (7-18); BUN/CREATININE RATIO 19.9 (10-20); CALCIUM 9.3 mg/dl (8.5-10.1); CARBON DIOXIDE 25 mmol/L (21-32); CHLORIDE 107 mmol/L (98-107); CREATININE 0.82 mg/dl (0.60-1.20); GLUCOSE 128 mg/dl (70-99); POTASSIUM 4.3 mmol/L (3.5-5.1); SODIUM 141 mmol/L (136-145)
[2017-02-01 10:26] LABS: CHOLESTEROL 119 mg/dl (0-200); CHOLESTEROL/HDL RATIO 1.7; HDL CHOLESTEROL 69 mg/dl; LDL CHOLESTEROL CALCULATED 23 mg/dl; TRIGLYCERIDES 136 mg/dl (0-150); VERY LOW DENSITY LIPOPROT CALC 27 mg/dl
== END | disposition home or self-care (01) ==
LOC: C.LAB1850 09:04
PROVIDERS: ATTEND Physician Assistant
DX: E11.9 Type 2 diabetes mellitus without complications (principal); I25.10 Atherosclerotic heart disease of native coronary artery without angina pectoris

== ENCOUNTER → 2017-04-09 | Outpatient (CLI) | payer BC | END | disposition home or self-care (01) | LOC: C.PAPS 12:40 | PROVIDERS: ATTEND Obstetrics & Gynecology | DX: Z12.4 Encounter for screening for malignant neoplasm of cervix (principal) ==

== ENCOUNTER → 2017-04-16 | Outpatient (CLI) | payer BC ==
[2017-04-16 12:54] LABS: ESTIMATED AVERAGE GLUCOSE 126 mg/dl; HA1C FLAG Normal (Normal)
== END | disposition home or self-care (01) ==
LOC: C.LAB1850 10:27
PROVIDERS: ATTEND Physician Assistant
DX: E11.9 Type 2 diabetes mellitus without complications (principal)

== ENCOUNTER → 2017-08-01 | Outpatient (CLI) | payer BC ==
[~2017-08-01] MED LIST changes: -NIFE1TAB53 PO; +NIFE30TA86 PO; +RANI150T81 PO; -ZNTT/150 PO
[2017-08-01 09:40] LABS: BASO % 0.3 %; BASO ABS # 0.02 K/uL (0-0.2); EOS % 1.4 %; EOS ABS # 0.11 K/uL (0-0.5); HEMATOCRIT 37.7 % (37-47); HEMOGLOBIN 11.9 g/dL (12.0-16.0); IG# 0.01 K/uL (0.00-0.02); LYMPH % 10.2 %; LYMPH ABS # 0.78 K/uL (1.2-3.4); MEAN CELL VOLUME 90.4 fL (80-100); MEAN CORPUSCULAR HEMOGLOBIN 28.5 pg (25-34); MEAN CORPUSCULAR HGB CONC 31.6 g/dl (32-36); MEAN PLATELET VOLUME 10.4 fL (7.4-10.4); MONO % 4.7 %; MONO ABS # 0.36 K/uL (0.11-0.59); NEUT % 83.3 %; NEUT ABS # 6.34 K/uL (1.4-6.5); PLATELET COUNT 196 K/uL (130-400); RED CELL DISTRIBUTION WIDTH CV 14.9 % (11.5-14.5); RED CELL DISTRIBUTION WIDTH SD 49.3 fL (36.4-46.3); WHITE BLOOD COUNT 7.62 K/uL (4.8-10.8)
[2017-08-01 10:15] LABS: ALT/SGPT 13 U/L (12-78); AST/SGOT 18 U/L (15-37); BLOOD UREA NITROGEN 18 mg/dl (7-18); CALCIUM 9.4 mg/dl (8.5-10.1); CARBON DIOXIDE 27 mmol/L (21-32); CREATININE 0.85 mg/dl (0.60-1.20); GLUCOSE 121 mg/dl (70-99); SODIUM 138 mmol/L (136-145)
[2017-08-01 10:17] LABS: HEMOGLOBIN A1C 6.1 % (4.5-5.6)
[2017-08-01 10:25] LABS: CHOLESTEROL 109 mg/dl (0-200); LDL CHOLESTEROL CALCULATED 33 mg/dl
== END | disposition home or self-care (01) ==
LOC: C.LAB1850 08:52
PROVIDERS: ATTEND Internal Medicine
DX: M35.3 Polymyalgia rheumatica (principal); Z79.52 Long term (current) use of systemic steroids; M06.9 Rheumatoid arthritis, unspecified; Z79.899 Other long term (current) drug therapy; R68.2 Dry mouth, unspecified; F22 Delusional disorders

== ENCOUNTER → 2017-09-03 | Outpatient (CLI) | payer BC ==
[2017-09-03 12:43] LABS: BASO % 0.3 %; BASO ABS # 0.02 K/uL (0-0.2); EOS % 2.9 %; EOS ABS # 0.21 K/uL (0-0.5); HEMATOCRIT 36.7 % (37-47); HEMOGLOBIN 11.5 g/dL (12.0-16.0); IG# 0.01 K/uL (0.00-0.02); LYMPH % 14.8 %; LYMPH ABS # 1.06 K/uL (1.2-3.4); MEAN CELL VOLUME 90.4 fL (80-100); MEAN CORPUSCULAR HEMOGLOBIN 28.3 pg (25-34); MEAN CORPUSCULAR HGB CONC 31.3 g/dl (32-36); MEAN PLATELET VOLUME 10.2 fL (7.4-10.4); NEUT % 74.9 %; NEUT ABS # 5.36 K/uL (1.4-6.5); PLATELET COUNT 196 K/uL (130-400); RED CELL DISTRIBUTION WIDTH CV 15.1 % (11.5-14.5); RED CELL DISTRIBUTION WIDTH SD 50.1 fL (36.4-46.3); WHITE BLOOD COUNT 7.16 K/uL (4.8-10.8)
[2017-09-03 12:55] LABS: CREATININE 0.71 mg/dl (0.60-1.20)
== END | disposition home or self-care (01) ==
LOC: C.LAB1850 10:25
PROVIDERS: ATTEND Internal Medicine Rheumatology
DX: R68.2 Dry mouth, unspecified (principal); M35.3 Polymyalgia rheumatica; M06.9 Rheumatoid arthritis, unspecified; Z79.52 Long term (current) use of systemic steroids; Z79.899 Other long term (current) drug therapy

== ENCOUNTER → 2017-12-13 | Outpatient (CLI) | payer BC ==
--- NOTE | 2017-12-13 15:12 | MAMMOGRAPHY REPORT ---
BILATERAL DIGITAL SCREENING MAMMOGRAM TOMOSYNTHESIS WITH CAD: 12/13/2017 CLINICAL HISTORY: Routine screening. Patient has no complaints. TECHNIQUE: The study was acquired using full field digital technology and interpreted from soft copy. Breast tomosynthesis in addition to standard 2D mammography was performed. Current study was also ev aluated with a Computer Aided Detection (CAD) system. COMPARISON: Comparison is made to exams dated: 12/11/2016 mammogram, 12/08/2015 mammogram, 12/03/2014 anna marie mogram, 12/02/2013 mammogram, 11/28/2012 mammogram, and 11/27/2011 mammogram - [facility]. BREAST COMPOSITION: The tissue of both breasts is heterogeneously dense, which may obscure small mass es. FINDINGS: No suspicious masses, calcifications, or areas of architectural distortion are noted in either breast . There has been no significant interval change compared to prior exams. Scattered bilateral benign-a ppearing calcifications are not significantly changed. IMPRESSION: ACR BI-RADS CATEGORY 2: BENIGN There is no mammographic evidence of malignancy. A 1 year screening mammogram is recommended.( 019) The patient will receive written notification of the results. Some breast cancers are not detected with mammography. A negative mammographic report should not cait y biopsy if a clinically suggestive mass is present. Marina Mason M.D. /:12/13/2017 12:26:47 [employer] Technical Lead Senior Developer: RT Nan(R)(M), [facility] letter sent: Normal 1/2 BI-RADS Code: ACR BI-RADS Category 2: Benign
== END | disposition home or self-care (01) ==
LOC: C.MAMM 09:14
PROVIDERS: ATTEND Obstetrics & Gynecology
DX: Z12.31 Encounter for screening mammogram for malignant neoplasm of breast (principal)

== ENCOUNTER 2018-08-27 19:17 | Inpatient (IN) ==
[2018-08-27 19:40] LABS: Basophils # (auto) 0.01 K/uL (0-0.2); Basophils % (auto) 0.1 %; Hemoglobin 11.9 g/dL (12.0-16.0); Immature Granulocytes # (auto) 0.02 K/uL (0.00-0.02); Immature Granulocytes % (auto) 0.2 %; Lymphocytes # (auto) 1.51 K/uL (1.2-3.4); Lymphocytes % (auto) 14.4 %; Mean Corpuscular Hgb Conc 33.1 g/dL (32-36); Mean Corpuscular Volume 89.8 fL (80-100); Mean Platelet Volume 11.2 fL (7.4-10.4); Monocytes % (auto) 6.7 %; Neutrophils # (auto) 8.18 K/uL (1.4-6.5); Neutrophils % (auto) 77.6 %; Platelet Count 212 K/uL (130-400); RDW Coefficient of Variation 15.5 % (11.5-14.5); RDW Standard Deviation 50.9 fL (36.4-46.3); Red Blood Count 4.01 M/uL (4.2-5.4); White Blood Count 10.52 K/uL (4.8-10.8)
--- NOTE | 2018-08-27 19:46 | XRay Report ---
XR chest 1V portable CLINICAL HISTORY: Atypical chest pain COMPARISON STUDY: 03/15/2018 FINDINGS: The heart is mildly enlarged. There is no lobar consolidation. There is progressive interst itial thickening. There are no pleural effusions.[ IMPRESSION: Cardiomegaly and progressive interstitial thickening. Diagnostic considerations include p rogressive interstitial lung disease, interstitial lung disease with mild superimposed congestive tereza lure, or interstitial lung disease with a superimposed acute interstitial inflammatory process. Clini rufina and radiographic follow-up is recommended. Electronically signed by: hCung Quispe M.D. 08/27/2018 7:45 PM
[2018-08-27 20:02] LABS: Albumin Level 3.2 gm/dl (3.4-5.0); BUN Creatinine Ratio 21.1 (10-20); Calcium 9.1 mg/dl (8.5-10.1); Creatinine Clr Calc Pharmacy 49.1 ml/min; Est GFR (African American) 74.5; Est GFR (Non-African American) 64.3; Potassium 3.9 mmol/L (3.5-5.1)
[2018-08-27] MEDS ORDERED: ALBUT/IPRATROP 3MG/0.5MG NEB 3 ML VIAL NEB STA (20:03)
[2018-08-27 20:08] LABS: Albumin Globulin Ratio 0.7 (0.9-2); Bilirubin,Total 1.3 mg/dl (0.2-1); Globulin 4.4 gm/dl (2.5-4.0); Phosphorus 2.8 mg/dl (2.5-4.9); Total Protein 7.6 gm/dl (6.4-8.2)
[2018-08-27 20:19] LABS: Troponin I 0.019 ng/ml (0-0.045)
[2018-08-27 21:22] LABS: Base Excess VBG 0.4 mEq/L; Oxygen Saturation VBG 83.4 %; pH VBG 7.45 (7.36-7.41)
[2018-08-27] MEDS ORDERED: SODIUM CHLORIDE 0.9% 250 ML IV ONE (21:26)
--- NOTE | 2018-08-27 21:51 | History & Physical Report ---
Date of Service August 27, 2018 Assessment & Plan (1) AV block, Mob[place] II: 83 y/o F Hx CAD, CVA, RA, HTN, HLD, DM II. Presents with weakness, chest discomfort and exertional dyspnea. She has not c/o fevers or a productive cough. She reports that her chest discomfort is largely R sided. An initial EKG obtained in the ER demonstrated type II heart block with a rate of 40-45 BPM. The pt takes Carvedilol BID and no additional rate agents. 1) Heart block - symptomatic bradycardia. We will hold her Carvedilol, monitor overnight for recovery and request a cardiology evaluation. An echo is pending. 2) HTN - uncontrolled - she can continue Telmisartan and Nifedipine which appears to have little effect on conduction. We will provide PRN Hydralazine if needed. 3) CAD - no evidence of ACS - can remain on her Statin and ASA. A trop was WNL but detectable - a repeat is pending. 4) DM - placed on a SS 5) History of CVA - improve BP control - cont ASA, Statin Full code -Lovenox prophylaxis Total time for this admit including review of labs, meds, imaging, records - discussion with pt and ER attending 40 min History of Present Illness Chief Complaint: exertional dyspnea, chest discomfort Primary Care Provider: Neftali Quigley MD 83 y/o F Hx CAD, CVA, RA, HTN, HLD, DM II. Presents with weakness, chest discomfort and exertional dyspnea. She has not c/o fevers or a productive cough. She reports that her chest discomfort is largely R sided. An initial EKG obtained in the ER demonstrated type II heart block with a rate of 40-45 BPM. The pt takes Carvedilol BID and no additional rate agents. 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 5) CAD - states she had a silent SC followed by a cath and 2 stents 6) RA 7) Glaucoma Surgical: 1) TKA 2) Cardiac cath - 2 stents Social: No history of smoking or drinking Family: Mother owing to complications of DM Father in combat WWII Allergies Allergy/AdvReac Type Severity Reaction Status Date / Time Cephalosporins Allergy Intermediate HIVES Verified 08/27/18 21:57 Penicillins Allergy Intermediate HIVES Verified 08/27/18 21:57 valdecoxib Allergy Unknown ITCHING,ANTOLIN Verified 08/27/18 21:57 SEATED codeine AdvReac Mild NAUSEA Verified 08/27/18 21:57 pantoprazole AdvReac Mild NAUSEATED Verified 08/27/18 21:57 Home Medications Home Medications Medication Instructions Recorded Confirmed Type Lactobac 40-Bifido 3-S.thermop 1 cap PO DAILY 03/15/18 03/15/18 History [Probiotic] aspirin [Aspir-81] 81 mg PO DAILY 03/15/18 03/15/18 History carvedilol 12.5 mg PO BID 03/15/18 03/15/18 History clindamycin HCl 600 mg PO UD PRN 03/15/18 03/15/18 History coQ10 (ubiquinol) 200 mg PO DAILY 03/15/18 03/15/18 History fluticasone propionate [Flonase 2 spray INTRANASAL DAILY 03/15/18 03/15/18 History Allergy Relief] ioozueta-redzv-fovrh-CF borate 1 tab PO DAILY 03/15/18 03/15/18 History [[employer] [facility]] multivitamin 1 tab PO DAILY 03/15/18 03/15/18 History nifedipine 30 mg PO DAILY 03/15/18 03/15/18 History nitroglycerin [Nitrostat] 0.4 mg SUBLINGUAL UD PRN 03/15/18 03/15/18 History ranitidine HCl 150 mg PO Q12 03/15/18 03/15/18 History rosuvastatin 40 mg PO DAILY 03/15/18 03/15/18 History timolol maleate 1 drp OPHTHALMIC (EYE) UD 03/15/18 03/15/18 History indapamide 1.25 mg PO DAILY 08/27/18 08/27/18 History metformin 250 mg PO BID 08/27/18 08/27/18 History prednisone 4 mg PO DAILY 08/27/18 08/27/18 History telmisartan [Micardis] 40 mg PO DAILY 08/27/18 08/27/18 History tolterodine [Detrol LA] 4 mg PO QPM 08/27/18 08/27/18 History Past Med/Surg History Medical History Chest pain (Acute) LUE weakness (Acute 09/09/13) Chest pain (Acute) Left knee DJD (Acute) Stroke (Resolved) Abnormal EKG Acute electrocardiography changes Anxiety (Acute) Chest pain (Acute) Elevated troponin Fall HTN (hypertension) (Acute) Pneumonia Syncope Surgical History History of knee replacement (Resolved) Family History Other No significant family history Social History Preferred Language: Bulgarian Communication Ability: Effective 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: No Beliefs That Will Affect Care: Alevism Alevism Beliefs: Anglican Current Living Situation: Alone Other Information That Helps Us Care for You: No Feels Safe at Home: Yes Safety Concerns: Feels Safe At This Time Smoking Status: Never smoker Do You Dip or Chew Tobacco: No Hx Alcohol Use: No Hx Substance Use: No Review of Systems Review of Systems: Gen: Denies fevers, night sweats, weight loss/gain - repo rts gen weakness ENT: Denies congestion, throat pain, hearing loss Eyes: Denies acute visual changes CV: R sided CP - exertional dyspnea Pulmonary: Denies a cough, wheezing, + SOB as above GI: Denies N/V, diarrhea, constipation Neuro: Denies acute or unilateral weakness, acute gait impairment, headache or acute visual changes Musculoskeletal: Denies joint pain, inflammation Endocrine: Denies polydipsia, polyuria Skin: Denies acute rashes or ulcers Physical Exam Physical Exam: General: AAO x 3, no distress ENT: No erythema or exudates, no thrush Eyes: NATANAEL, EOMI Head and neck: Normocephalic, atraumatic, No JVD, neck is supple. Chest/heart: Nontender, S1,2, R, loyda no murmurs Lungs: CTAB, no wheezing or crackles Abdomen: Nontender, nondistended, BS+ Neuro: AAO x 3, speech is clear, no unilateral weakness or loss of sensation, coordination intact Musculoskeletal: No joint inflammation, muscle tenderness, FROM Skin: No acute rashes or ulcers Extremities: No clubbing, cyanosis, edema Results & Data Vital Signs (Past 12 Hours) Vital Signs Temp Pulse Pulse Resp BP BP Pulse Ox 08/27/18 21:15 42 L 18 192/63 H 92 08/27/18 20:29 46 L 16 92 08/27/18 20:28 100 08/27/18 19:22 98.2 F 46 L 16 186/75 H 90
[2018-08-27] MEDS ORDERED: ONDANSETRON INJ 2 MG/ML 2 ML VIAL IV PRN (22:28)
[2018-08-27] MEDS ORDERED: MAGNESIUM HYDROXIDE SUSP 30 ML UDC PO PRN (22:28)
[2018-08-27] MEDS ORDERED: POLYETHYLENE (MIRALAX) 17 GM PACK PO PRN (22:28)
[2018-08-27] MEDS ORDERED: ALUMINUM/MAGNESIUM SUSP 30 ML UDC PO PRN (22:28)
[2018-08-27] MEDS ORDERED: NITROGLYCERIN SL 0.4 MG/TAB TAB SL PRN (22:28)
[2018-08-27] MEDS ORDERED: NSS + 20MEQ KCL 20 MEQ/1,000 ML BAG IV SCH (23:15)
[2018-08-27] MEDS ORDERED: CARBOHYDRATES FOR HYPOGLYCEMIA PO PRN (23:15)
[2018-08-27] MEDS ORDERED: GLUCOSE 40% GEL 15 GM TUBE PO PRN (23:15)
[2018-08-27] MEDS ORDERED: GLUCAGON FOR INJ 1 MG VIAL IM PRN (23:15)
[2018-08-27] MEDS ORDERED: DEXTROSE 50% 50 ML SYRINGE IV PRN (23:15)
[2018-08-27] MEDS ORDERED: GLUCOSE 10 TABS/TUBE PO PRN (23:15)
[2018-08-27] MEDS: HydrALAZINE HCL 20 MG/ML VIAL IV PRN (23:17)
--- NOTE | 2018-08-27 23:26 | Emergency Department Note ---
Entered by Yeimy Carson acting as a scribe for Carlos Dial MD History of Present Illness General Chief complaint: Chest Pain Stated complaint: CHEST PAIN, DIZZINESS Time Seen by Provider: 08/27/18 19:27 Source: patient Mode of arrival: ambulatory Limitations: no limitations History of Present Illness Provider complaint: chest pain Onset (ago): day(s) 3 Location: chest Associated symptoms: + cough, + shortness of breath and + other (+congestion) The patient is a 83 year old female who presents to the Emergency Room with complaints of chest pain that began 3 days prior to arrival. The patient states that she has shortness of breath, cough, and congestion. The patient states that she has a history of 1 heart attack, 2 strokes, and 2 stents. The patient states that she has been monitoring her weight and states that it has been consistent. The patient denies being on oxygen normally. Home Medications Home Medications Medication Instructions Recorded Confirmed Type Lactobac 40-Bifido 3-S.thermop 1 cap PO DAILY 03/15/18 08/27/18 History [Probiotic] aspirin [Aspir-81] 81 mg PO DAILY 03/15/18 08/27/18 History carvedilol 12.5 mg PO BID 03/15/18 08/27/18 History clindamycin HCl 600 mg PO UD PRN 03/15/18 08/27/18 History coQ10 (ubiquinol) 200 mg PO DAILY 03/15/18 08/27/18 History fluticasone propionate [Flonase 1 spray INTRANASAL BID PRN 03/15/18 08/27/18 History Allergy Relief] uhgzvhnd-[id number]-[id number]-CF borate 1 tab PO DAILY 03/15/18 08/27/18 History [[facility]] multivitamin 1 tab PO DAILY 03/15/18 08/27/18 History nifedipine 30 mg PO DAILY 03/15/18 08/27/18 History nitroglycerin [Nitrostat] 0.4 mg SUBLINGUAL UD PRN 03/15/18 08/27/18 History ranitidine HCl 150 mg PO Q12 03/15/18 08/27/18 History rosuvastatin 40 mg PO DAILY 03/15/18 08/27/18 History timolol maleate 1 drp OPHTHALMIC (EYE) UD 03/15/18 08/27/18 History indapamide 1.25 mg PO DAILY 08/27/18 08/27/18 History metformin 250 mg PO BID 08/27/18 08/27/18 History prednisone 4 mg PO DAILY 08/27/18 08/27/18 History telmisartan [Micardis] 40 mg PO DAILY 08/27/18 08/27/18 History tolterodine [Detrol LA] 4 mg PO QPM 08/27/18 08/27/18 History Allergies Allergy/AdvReac Type Severity Reaction Status Date / Time Cephalosporins Allergy Intermediate HIVES Verified 08/27/18 21:57 Penicillins Allergy Intermediate HIVES Verified 08/27/18 21:57 valdecoxib Allergy Unknown ITCHING,ANTOLIN Verified 08/27/18 21:57 SEATED codeine AdvReac Mild NAUSEA Verified 08/27/18 21:57 pantoprazole AdvReac Mild NAUSEATED Verified 08/27/18 21:57 Past Med/Surg History Medical History Chest pain (Acute) LUE weakness (Acute 09/09/13) Chest pain (Acute) Left knee DJD (Acute) Stroke (Resolved) Abnormal EKG Acute electrocardiography changes Anxiety (Acute) Chest pain (Acute) Elevated troponin Fall HTN (hypertension) (Acute) Pneumonia Syncope Surgical History History of knee replacement (Resolved) Family History Other No significant family history Social History Preferred Language: Welsh Communication Ability: Effective Grocery Associate Required: No Beliefs That Will Affect Care: Protestant Protestant Beliefs: Yazdanism Current Living Situation: Alone Other Information That Helps Us Care for You: No Feels Safe at Home: Yes Safety Concerns: Feels Safe At This Time Smoking Status: Never smoker Do You Dip or Chew Tobacco: No Hx Alcohol Use: No Hx Substance Use: No Review of Systems See HPI for pertinent positives & negatives. and A total of 10 systems reviewed and were otherwise negative See HPI for pertinent positives & negatives. A total of 10 systems reviewed and were otherwise negative. Physical Exam Vital Signs Vital Signs - 24 hr 08/27/18 19:22 08/27/18 19:25 08/27/18 19:27 Temperature 36.8 C Temperature Source Oral Sepsis Recent Fever Within 48 Hours No Sepsis Action Taken by Nursing No Action Required Pulse Rate 46 L 46 L 44 L Pulse Rate [Right Finger] Pulse Rate from SpO2 Sensor 45 L 44 L Pulse Rhythm Regular Pulse Rhythm [Right Finger] Pulse Strength Normal Pulse Strength [Right Finger] Respiratory Rate 16 17 15 Respiratory Effort / Characteristics Non-Labored Respiratory Depth Normal Respiratory Pattern Regular Blood Pressure 186/75 H 186/75 H Blood Pressure [Right Arm] Blood Pressure Mean 112 112 Blood Pressure Mean [Right Arm] Blood Pressure Position Lying Blood Pressure Position [Right Arm] Pulse Oximetry 90 93 92 Oxygen Delivery Method Room Air Oxygen Flow Rate 08/27/18 19:30 08/27/18 20:00 08/27/18 20:28 Temperature Temperature Source Sepsis Recent Fever Within 48 Hours Sepsis Action Taken by Nursing Pulse Rate 43 L 44 L Pulse Rate [Right Finger] Pulse Rate from SpO2 Sensor 44 L 43 L Pulse Rhythm Pulse Rhythm [Right Finger] Pulse Strength Pulse Strength [Right Finger] Respiratory Rate 19 26 H Respiratory Effort / Characteristics Respiratory Depth Respiratory Pattern Blood Pressure Blood Pressure [Right Arm] Blood Pressure Mean Blood Pressure Mean [Right Arm] Blood Pressure Position Blood Pressure Position [Right Arm] Pulse Oximetry 90 98 100 Oxygen Delivery Method Aerosol Mask Oxygen Flow Rate 8 08/27/18 20:29 08/27/18 20:30 08/27/18 21:00 Temperature Temperature Source Sepsis Recent Fever Within 48 Hours Sepsis Action Taken by Nursing Pulse Rate 46 L 44 L 43 L Pulse Rate [Right Finger] Pulse Rate from SpO2 Sensor 44 L 43 L Pulse Rhythm Regular Pulse Rhythm [Right Finger] Pulse Strength Pulse Strength [Right Finger] Respiratory Rate 16 16 15 Respiratory Effort / Characteristics Respiratory Depth Respiratory Pattern Blood Pressure Blood Pressure [Right Arm] Blood Pressure Mean Blood Pressure Mean [Right Arm] Blood Pressure Position Blood Pressure Position [Right Arm] Pulse Oximetry 92 92 90 Oxygen Delivery Method Room Air Oxygen Flow Rate 08/27/18 21:15 08/27/18 21:16 08/27/18 21:30 Temperature Temperature Source Sepsis Recent Fever Within 48 Hours Sepsis Action Taken by Nursing Pulse Rate 41 L 42 L Pulse Rate [Right Finger] 42 L Pulse Rate from SpO2 Sensor 42 L 42 L Pulse Rhythm Pulse Rhythm [Right Finger] Regular Pulse Strength Pulse Strength [Right Finger] Normal Respiratory Rate 18 6 L 18 Respiratory Effort / Characteristics Respiratory Depth Respiratory Pattern Blood Pressure 192/63 H Blood Pressure [Right Arm] 192/63 H Blood Pressure Mean 106 Blood Pressure Mean [Right Arm] 106 Blood Pressure Position Blood Pressure Position [Right Arm] Pulse Oximetry 92 91 91 Oxygen Delivery Method Room Air Oxygen Flow Rate 08/27/18 21:31 08/27/18 21:46 08/27/18 22:00 Temperature Temperature Source Sepsis Recent Fever Within 48 Hours Sepsis Action Taken by Nursing Pulse Rate 42 L 41 L 42 L Pulse Rate [Right Finger] Pulse Rate from SpO2 Sensor 43 L 41 L Pulse Rhythm Pulse Rhythm [Right Finger] Pulse Strength Pulse Strength [Right Finger] Respiratory Rate 17 11 L 12 Respiratory Effort / Characteristics Respiratory Depth Respiratory Pattern Blood Pressure 190/69 H 187/65 H 187/65 H Blood Pressure [Right Arm] Blood Pressure Mean 109 105 Blood Pressure Mean [Right Arm] Blood Pressure Position Blood Pressure Position [Right Arm] Pulse Oximetry 93 93 91 Oxygen Delivery Method Room Air Oxygen Flow Rate 08/27/18 22:06 08/27/18 22:30 08/27/18 22:58 Temperature 37.2 C Temperature Source Oral Sepsis Recent Fever Within 48 Hours Sepsis Action Taken by Nursing Pulse Rate Pulse Rate [Right Finger] 43 L Pulse Rate from SpO2 Sensor Pulse Rhythm Pulse Rhythm [Right Finger] Pulse Strength Pulse Strength [Right Finger] Respiratory Rate 22 Respiratory Effort / Characteristics Non-Labored Spontaneous Short of Breath SOB on Exertion Non-Labored Spontaneous SOB on Exertion Respiratory Depth Normal Normal Respiratory Pattern Regular Regular Blood Pressure Blood Pressure [Right Arm] 215/65 H 198/67 H Blood Pressure Mean Blood Pressure Mean [Right Arm] 115 110 Blood Pressure Position Blood Pressure Position [Right Arm] Pulse Oximetry 92 Oxygen Delivery Method Room Air Room Air Oxygen Flow Rate 08/27/18 23:44 08/28/18 03:29 Temperature 36.7 C 37.4 C Temperature Source Oral Oral Sepsis Recent Fever Within 48 Hours Sepsis Action Taken by Nursing Pulse Rate Pulse Rate [Right Finger] 47 L 50 L Pulse Rate from SpO2 Sensor Pulse Rhythm Pulse Rhythm [Right Finger] Pulse Strength Pulse Strength [Right Finger] Respiratory Rate 18 22 Respiratory Effort / Characteristics Respiratory Depth Respiratory Pattern Blood Pressure Blood Pressure [Right Arm] 175/52 H 185/62 H Blood Pressure Mean Blood Pressure Mean [Right Arm] 93 103 Blood Pressure Position Blood Pressure Position [Right Arm] Lying Lying Pulse Oximetry 93 91 Oxygen Delivery Method Room Air Room Air Oxygen Flow Rate GENERAL: Awake, alert, fatigued-appearing, in no distress HENT: Normocephalic, atraumatic. Oropharynx with dry mucous membranes and otherwise unremarkable. EYES: Normal conjunctiva. Sclera non-icteric. NECK: Supple. No nuchal rigidity. FROM. No JVD. RESPIRATORY: Diminished breath sounds at bases, intermittent wheezing. CARDIAC: Bradycardic rate, regular rhythm. Extremities warm and well perfused. Pulses equal. ABDOMEN: Soft, non-distended. No tenderness to palpation. No rebound or guarding. No masses. RECTAL: Deferred. MUSCULOSKELETAL: Chest examination reveals no tenderness. The back is symmetrical on inspection without obvious abnormality. There is no CVA tenderness to palpation. No joint edema. LOWER EXTREMITIES: Calves are equal size bilaterally and non-tender. Scant edema. No discoloration. NEURO: Normal sensorium. No sensory or motor deficits noted. SKIN: No rash or jaundice noted. Course 1957: The patient was evaluated in room C9, and a complete history and physical examination were performed. 2100: I reviewed the patient's case with Dr. Higgins [facility] visual merchandise manager who will come and evaluate the patient. 2126: I reviewed the patient's case with Dr. Starr [facility] Hospitalist who will evaluate the patient for further management. Consultations Consultation #1: Dr. Higgins [facility] visual merchandise manager Time: 21:00 Consultation #2: Dr. Matty Faith [facility] Hospitalist Time: 21:27 Administered Medications Hydralazine HCl (Hydralazine Hcl) 5 mg IV Q6H PRN PRN Reason: SBP > 170 Stop: 09/26/18 22:27 Last Admin: 08/27/18 23:17 Dose: 5 mg Documented by: [id number] Potassium Chloride/Sodium Chloride (Normal Saline W/20 Meq Kcl) 20 meq in 1,000 mls @ 80 mls/hr IV .[id number] [place] Stop: 08/28/18 05:29 Last Admin: 08/27/18 23:16 Dose: 80 mls/hr Documented by: [id number] Discontinued Medications Albuterol (Duoneb) 3 ml NEB NOW STA Stop: 08/27/18 20:04 Last Admin: 08/27/18 20:10 Dose: 3 ml Documented by: [id number] Sodium Chloride (Nss) 250 mls @ 999 mls/hr IV .Q16M ONE Stop: 08/27/18 21:41 Last Infusion: 08/27/18 21:46 Dose: 0 mls/hr Documented by: [id number] Admin: 08/27/18 21:30 Dose: 999 mls/hr Documented by: [id number] Lorazepam (Ativan) Confirm Administered Dose 0.5 mg .ROUTE .STK-MED ONE Stop: 08/28/18 01:27 Last Admin: 08/28/18 01:27 Dose: 0.5 mg Documented by: [id number] Medical Decision Making Differential Diagnosis Differential diagnoses includes but is not limited to pneumonia, bronchitis, COPD/Asthma exacerbation, pneumothorax, pulmonary embolism, congestive heart failure, acute coronary syndrome. Medical Records Attestation: I reviewed the patient's medical records. Home Medications Current Medication List: was personally reviewed by me Laboratory Data Attestation: I reviewed the patient's lab results. Result diagrams: 08/27/18 19:30 08/27/18 19:30 Lab Results 08/27/18 08/27/18 08/27/18 Range/Units 19:30 19:30 21:03 WBC 10.52 (4.8-10.8) K/uL RBC 4.01 L (4.2-5.4) M/uL Hgb 11.9 L (12.0-16.0) g/dL Hct 36.0 L (37-47) % MCV 89.8 (80-100) fL MCH 29.7 (25-34) pg MCHC 33.1 (32-36) g/dL RDW Std Deviation 50.9 H (36.4-46.3) fL RDW Coeff of Neeru 15.5 H (11.5-14.5) % Plt Count 212 (130-400) K/uL MPV 11.2 H (7.4-10.4) fL Immature Gran % (Auto) 0.2 % Neut % (Auto) 77.6 % Lymph % (Auto) 14.4 % Menard % (Auto) 6.7 % Eos % (Auto) 1.0 % Baso % (Auto) 0.1 % Immature Gran # (Auto) 0.02 (0.00-0.02) K/uL Neut # (Auto) 8.18 H (1.4-6.5) K/uL Lymph # (Auto) 1.51 (1.2-3.4) K/uL Menard # (Auto) 0.70 H (0.11-0.59) K/uL Eos # (Auto) 0.10 (0-0.5) K/uL Baso # (Auto) 0.01 (0-0.2) K/uL VBG pH 7.45 H (7.36-7.41) VBG pCO2 35 L (38-50) mmHg VBG pO2 48 mmHg VBG HCO3 24 mmol/L VBG O2 Saturation 83.4 % VBG Base Excess 0.4 mEq/L Barometric Pressure 726.4 mm/Hg Sodium 139 (136-145) mmol/L Potassium 3.9 (3.5-5.1) mmol/L Chloride 108 H (98-107) mmol/L Carbon Dioxide 23 (21-32) mmol/L Anion Gap 8.0 (3-11) BUN 18 (7-18) mg/dl Creatinine 0.85 (0.6-1.2) mg/dl Est Cr Clr Drug Dosing 49.1 ml/min Est GFR ( Amer) 74.5 Est GFR (Non-Af Amer) 64.3 BUN/Creatinine Ratio 21.1 H (10-20) Glucose 116 H (70-99) mg/dl Calcium 9.1 (8.5-10.1) mg/dl Phosphorus 2.8 (2.5-4.9) mg/dl Magnesium 2.0 (1.8-2.4) mg/dl Total Bilirubin 1.3 H (0.2-1) mg/dl AST 13 L (15-37) U/L ALT 9 L (12-78) U/L Alkaline Phosphatase 66 (45-117) U/L Troponin I 0.019 (0-0.045) ng/ml NT-Pro-B Natriuret Pep 4078 H (0-1800) pg/ml Total Protein 7.6 (6.4-8.2) gm/dl Albumin 3.2 L (3.4-5.0) gm/dl Globulin 4.4 H (2.5-4.0) gm/dl Albumin/Globulin Ratio 0.7 L (0.9-2) Lipase 98 (73-393) U/L 04/23/19 Range/Units 23:16 WBC (4.8-10.8) K/uL RBC (4.2-5.4) M/uL Hgb (12.0-16.0) g/dL Hct (37-47) % MCV (80-100) fL MCH (25-34) pg MCHC (32-36) g/dL RDW Std Deviation (36.4-46.3) fL RDW Coeff of Neeru (11.5-14.5) % Plt Count (130-400) K/uL MPV (7.4-10.4) fL Immature Gran % (Auto) % Neut % (Auto) % Lymph % (Auto) % Menard % (Auto) % Eos % (Auto) % Baso % (Auto) % Immature Gran # (Auto) (0.00-0.02) K/uL Neut # (Auto) (1.4-6.5) K/uL Lymph # (Auto) (1.2-3.4) K/uL Menard # (Auto) (0.11-0.59) K/uL Eos # (Auto) (0-0.5) K/uL Baso # (Auto) (0-0.2) K/uL VBG pH (7.36-7.41) VBG pCO2 (38-50) mmHg VBG pO2 mmHg VBG HCO3 mmol/L VBG O2 Saturation % VBG Base Excess mEq/L Barometric Pressure mm/Hg Sodium (136-145) mmol/L Potassium (3.5-5.1) mmol/L Chloride (98-107) mmol/L Carbon Dioxide (21-32) mmol/L Anion Gap (3-11) BUN (7-18) mg/dl Creatinine (0.6-1.2) mg/dl Est Cr Clr Drug Dosing ml/min Est GFR ( Amer) Est GFR (Non-Af Amer) BUN/Creatinine Ratio (10-20) Glucose (70-99) mg/dl Calcium (8.5-10.1) mg/dl Phosphorus (2.5-4.9) mg/dl Magnesium (1.8-2.4) mg/dl Total Bilirubin (0.2-1) mg/dl AST (15-37) U/L ALT (12-78) U/L Alkaline Phosphatase (45-117) U/L Troponin I 0.022 (0-0.045) ng/ml NT-Pro-B Natriuret Pep (0-1800) pg/ml Total Protein (6.4-8.2) gm/dl Albumin (3.4-5.0) gm/dl Globulin (2.5-4.0) gm/dl Albumin/Globulin Ratio (0.9-2) Lipase (73-393) U/L Imaging Data Radiologist's Impression: Radiology results as stated below per my review and the radiologist's interpretation: XR chest 1V portable CLINICAL HISTORY: Atypical chest pain COMPARISON STUDY: 03/15/2018 FINDINGS: The heart is mildly enlarged. There is no lobar consolidation. There is progressive interstitial thickening. There are no pleural effusions.[ IMPRESSION: Cardiomegaly and progressive interstitial thickening. Diagnostic considerations include progressive interstitial lung disease, interstitial lung disease with mild superimposed congestive failure, or interstitial lung disease with a superimposed acute interstitial inflammatory process. Clinical and radiographic follow-up is recommended. Electronically signed by: Chung Quispe M.D. 08/27/2018 7:45 PM ECG Data Attestation: I personally reviewed and interpreted this ECG as follows: Indication: chest pain Rate (beats per minute): 46 Rhythm: sinus bradycardia and other Findings: + other (Mobitz Type II heart block) and + nonspecific-ST abn; no acute ischemic change Blood Pressure Blood Pressure Findings: Elevated blood pressure Blood Pressure Disposition: further management by hospitalist LUCRECIA Narrative The patient is a pleasant 83-year-old woman with a past medical history of CAD status post PCI history of ischemic cardia myopathy, hypertension, Rheumatoid arthritis who presents emergency department with several days of worsening cough and congestion with shortness of breath per hpi. Reports stable weights. Denies fevers. On arrival patient is uncomfortable and fatigued appearing but no acute distress, afebrile with heart rate bradycardic in the 40s and blood pressure 190s/60s. The patient was 88% on room air and so placed on nasal cannula. Patient has dry mucous membranes but with scant lower extremity edema. She has diminished breath sounds at the bases with scattered wheezes. EKG demonstrates bradycardia at 46 with Mobitz type II block. Of note, patient home meds include Carvedilol and timolol ophthalmic gtts. Chest x-ray with interstitial thickening that could represent progressive interstitial lung disease with superimposed venous congestion. WBC within normal limits. H/H 11.9/36 similar to prior values. Platelets within normal limits. VBG unremarkable. Chemistry without acidosis. BUN/creatinine >20 suggestive of mild dehydration. Troponin 0.019 in setting of several days of constant symptoms. BNP 4K without prior values for comparison. Limited bedside echo with 100% variability with respirations suggesting the patient is more euvolemic to dehydrated despite her venous congestion. EF grossly normal per MAPSE 14mm. No overt pericardial effusion. Pacer pads placed on patient as a precaution however patient remained stable during ED observation with oxygen requirement improving without intervention. Case was discussed with Dr. Amaya, [place] cardiology, who is aware of the patient should her heart block not improve and need a pacemaker. However, no indication for emergent pacing at this time. Case d/[place] St[place], [facility] [place], who will evaluate the patient for admission. Impression & Plan AV block, Mobitz II Discharge Plan Visit Data *Final* Discharge Date/Time: 08/27/18 22:00 Chief Complaint: Chest Pain Stated Complaint: CHEST PAIN, DIZZINESS ED Provider: Carlos Dial Discharge Problem: AV block, Mobitz II Patient Disposition: Admitted As Inpatient Discharge Instructions Interventions: ED Discharge Assessment Last Done: 08/27/18 22:00 The scribe's documentation has been prepared under my direction and personally reviewed by me in its entirety. I confirm that the note above accurately reflects all work, treatment, procedures, and medical decision making performed by me.
[2018-08-28] MEDS ORDERED: LORazepam 0.5 MG TAB PO STA (01:13)
[2018-08-28] MEDS ORDERED: LORazepam 0.5 MG TAB ONE (01:26)
[2018-08-28 05:41] LABS: INR 1.1 (0.9-1.1)
[2018-08-28] MEDS ORDERED: PERFLUTREN LIPID MICROSPHERE (DEFINITY) IV ONE (07:09)
[2018-08-28] MEDS: INSULIN ASPART 100 UNITS/ML 3 ML PEN SC SCH ×4 (07:56→20:36)
[2018-08-28] MEDS: TELMISARTAN 40 MG TAB PO SCH (07:57)
[2018-08-28] MEDS: predniSONE 1 MG TAB PO SCH (07:57)
[2018-08-28] MEDS: hydroCHLOROthiazide 25 MG TAB PO SCH (07:57)
[2018-08-28] MEDS: ASPIRIN 81 MG ECTAB PO SCH (07:57)
[2018-08-28] MEDS: TOLTERODINE TARTRATE LA 4 MG CAPCR PO SCH (07:58)
[2018-08-28] MEDS: NIFEdipine EXTENDED REL 30 MG TABCR PO SCH (07:58)
--- NOTE | 2018-08-28 08:00 | Family Medicine Progress Note ---
Date of Service August 28, 2018 Assessment & Plan (1) AV block, Mobitz II: 83-year-old female with past medical history of coronary artery disease cerebrovascular accident rheumatoid arthritis hypertension hyperlipidemia diabetes type 2 presented to the ED with symptomatic bradycardia, carvedilol was held overnight, and evaluated by cardiology this morning. 1) Heart block - -following cards recs: Permanent placer placement scheduled for this afternoon -D/c beta-anamaria likely will have little effect, beta-anamaria has benefit given known coronary artery disease and hypertension 2) HTN: Has been significantly hypertensive since admission, continue to hold carvedilol - continue with home medications: telmisartan, nifedipine. Started on HCTZ 12.5mg which can be increased if BPs continue to remain elevated. 3) CAD - no evidence of ACS - can remain on her Statin and ASA. Initially patient had a troponin bump repeat troponin demonstrating resolution -Continue aspirin,beta anamaria, and statin 4) DM - placed on a SS, glycemic consult placed 5) History of CVA - improve BP control - cont ASA, Statin Supervising Physician Co-Signing Physician Notes Patient seen and examined with Dr. Burt. Agree with history, exam, assessment and plan of care with the following additions and corrections: 83 year old female with hx of CAD, CVA, RA, HTN, DM2 admitted with right sided chest pain and found to have Mobitz II block. 1.Mobitz II block. Holding carvedilol. Seen by cardiology. Getting pacer this afternoon. Echo with preserved EF. 2. HTN. Continue telmisartan and nifedipine. HCTZ 12.5mg started this morning. Increase to HCTZ 25mg in the AM. 3. CAD. Stable. 4. DM. sliding scale. Dispo: discharge home tomorrow AM if doing well. Subjective Patient resting in bed this morning in no acute distress. Reports she had a difficult night last night, IV hydralazine made her nauseous and she had a vomiting episode that was relieved by Zofran. Furthermore due to her anxiety regarding her medical condition and [facility] the hospital she was unable to sleep. Patient was seen by cardiology prior to arrival and informed that she was scheduled for pacemaker placement. Patient is tolerating her diet, sleeping okay, voiding and stooling appropriately. All questions were answered no acute concerns at present. Patient denies fevers chills nausea vomiting chest pain diarrhea constipation muscle aches or pains congestion and other signs of acute infectious process Physical Exam Physical Exam: General: 83-year-old female in no acute distress, AT/NC Eyes: EOMI Neck: Trachea midline and normal to visual inspection, negative JVD Chest: Clear to auscultation bilaterally, no wheezes rales or rhonchi Cardiac: Bradycardic regular rhythm, normal S1 and S2, systolic murmur present GI: Soft nontender nondistended, normal bowel sounds MSK: Moves all 4 extremities Skin: Warm dry and intact Neuro: Alert and oriented x4 Psych: Calm, cooperative, anxious about upcoming procedure Results & Data Vital Signs (Past 12 Hours) Vital Signs Temp Pulse Pulse Resp BP BP BP 08/28/18 07:53 37.7 C H 51 L 18 187/83 H 08/28/18 03:29 37.4 C 50 L 22 185/62 H 08/27/18 23:44 36.7 C 47 L 18 175/52 H 08/27/18 22:58 198/67 H 08/27/18 22:30 37.2 C 43 L 22 215/65 H 08/27/18 22:00 42 L 12 187/65 H 08/27/18 21:46 41 L 11 L 187/65 H 08/27/18 21:31 42 L 17 190/69 H 08/27/18 21:30 42 L 18 08/27/18 21:16 41 L 6 L 192/63 H 08/27/18 21:15 42 L 18 192/63 H 08/27/18 21:00 43 L 15 08/27/18 20:30 44 L 16 08/27/18 20:29 46 L 16 08/27/18 20:28 Pulse Ox 08/28/18 07:53 93 08/28/18 03:29 91 08/27/18 23:44 93 08/27/18 22:58 08/27/18 22:30 92 08/27/18 22:00 91 08/27/18 21:46 93 08/27/18 21:31 93 08/27/18 21:30 91 08/27/18 21:16 91 08/27/18 21:15 92 08/27/18 21:00 90 08/27/18 20:30 92 08/27/18 20:29 92 08/27/18 20:28 100 Laboratory Results 08/27/18 19:30 08/27/18 19:30 08/28/18 08/28/18 08/28/18 Range/Units 11:27 10:05 07:51 WBC (4.8-10.8) K/uL RBC (4.2-5.4) M/uL Hgb (12.0-16.0) g/dL Hct (37-47) % MCV (80-100) fL MCH (25-34) pg MCHC (32-36) g/dL RDW Std Deviation (36.4-46.3) fL RDW Coeff of Neeru (11.5-14.5) % Plt Count (130-400) K/uL MPV (7.4-10.4) fL Immature Gran % (Auto) % Neut % (Auto) % Lymph % (Auto) % [place] % (Auto) % Eos % (Auto) % Baso % (Auto) % Immature Gran # (Auto) (0.00-0.02) K/uL Neut # (Auto) (1.4-6.5) K/uL Lymph # (Auto) (1.2-3.4) K/uL [place] # (Auto) (0.11-0.59) K/uL Eos # (Auto) (0-0.5) K/uL Baso # (Auto) (0-0.2) K/uL PT (9.0-12.0) Seconds INR (0.9-1.1) VBG pH (7.36-7.41) VBG pCO2 (38-50) mmHg VBG pO2 mmHg VBG HCO3 mmol/L VBG O2 Saturation % VBG Base Excess mEq/L Barometric Pressure mm/Hg Sodium (136-145) mmol/L Potassium (3.5-5.1) mmol/L Chloride (98-107) mmol/L Carbon Dioxide (21-32) mmol/L Anion Gap (3-11) BUN (7-18) mg/dl Creatinine (0.6-1.2) mg/dl Est Cr Clr Drug Dosing ml/min Est GFR ( Amer) Est GFR (Non-Af Amer) BUN/Creatinine Ratio (10-20) Glucose (70-99) mg/dl POC Glucose 123 H 122 H (70-99) Calcium (8.5-10.1) mg/dl Phosphorus (2.5-4.9) mg/dl Magnesium (1.8-2.4) mg/dl Total Bilirubin (0.2-1) mg/dl AST (15-37) U/L ALT (12-78) U/L Alkaline Phosphatase (45-117) U/L Troponin I (0-0.045) ng/ml NT-Pro-B Natriuret Pep (0-1800) pg/ml Total Protein (6.4-8.2) gm/dl Albumin (3.4-5.0) gm/dl Globulin (2.5-4.0) gm/dl Albumin/Globulin Ratio (0.9-2) Lipase (73-393) U/L Lyme Disease IgG Ab Negative (Negative) Lyme Disease IgM Ab Negative (Negative) 08/28/18 08/27/18 08/27/18 Range/Units 05:13 23:16 21:03 WBC (4.8-10.8) K/uL RBC (4.2-5.4) M/uL Hgb (12.0-16.0) g/dL Hct (37-47) % MCV (80-100) fL MCH (25-34) pg MCHC (32-36) g/dL RDW Std Deviation (36.4-46.3) fL RDW Coeff of Neeru (11.5-14.5) % Plt Count (130-400) K/uL MPV (7.4-10.4) fL Immature Gran % (Auto) % Neut % (Auto) % Lymph % (Auto) % [place] % (Auto) % Eos % (Auto) % Baso % (Auto) % Immature Gran # (Auto) (0.00-0.02) K/uL Neut # (Auto) (1.4-6.5) K/uL Lymph # (Auto) (1.2-3.4) K/uL [place] # (Auto) (0.11-0.59) K/uL Eos # (Auto) (0-0.5) K/uL Baso # (Auto) (0-0.2) K/uL PT 11.0 (9.0-12.0) Seconds INR 1.1 (0.9-1.1) VBG pH 7.45 H (7.36-7.41) VBG pCO2 35 L (38-50) mmHg VBG pO2 48 mmHg VBG HCO3 24 mmol/L VBG O2 Saturation 83.4 % VBG Base Excess 0.4 mEq/L Barometric Pressure 726.4 mm/Hg Sodium (136-145) mmol/L Potassium (3.5-5.1) mmol/L Chloride (98-107) mmol/L Carbon Dioxide (21-32) mmol/L Anion Gap (3-11) BUN (7-18) mg/dl Creatinine (0.6-1.2) mg/dl Est Cr Clr Drug Dosing ml/min Est GFR ( Amer) Est GFR (Non-Af Amer) BUN/Creatinine Ratio (10-20) Glucose (70-99) mg/dl POC Glucose (70-99) Calcium (8.5-10.1) mg/dl Phosphorus (2.5-4.9) mg/dl Magnesium (1.8-2.4) mg/dl Total Bilirubin (0.2-1) mg/dl AST (15-37) U/L ALT (12-78) U/L Alkaline Phosphatase (45-117) U/L Troponin I 0.022 (0-0.045) ng/ml NT-Pro-B Natriuret Pep (0-1800) pg/ml Total Protein (6.4-8.2) gm/dl Albumin (3.4-5.0) gm/dl Globulin (2.5-4.0) gm/dl Albumin/Globulin Ratio (0.9-2) Lipase (73-393) U/L Lyme Disease IgG Ab (Negative) Lyme Disease IgM Ab (Negative) 08/27/18 08/27/18 Range/Units 19:30 19:30 WBC 10.52 (4.8-10.8) K/uL RBC 4.01 L (4.2-5.4) M/uL Hgb 11.9 L (12.0-16.0) g/dL Hct 36.0 L (37-47) % MCV 89.8 (80-100) fL MCH 29.7 (25-34) pg MCHC 33.1 (32-36) g/dL RDW Std Deviation 50.9 H (36.4-46.3) fL RDW Coeff of Neeru 15.5 H (11.5-14.5) % Plt Count 212 (130-400) K/uL MPV 11.2 H (7.4-10.4) fL Immature Gran % (Auto) 0.2 % Neut % (Auto) 77.6 % Lymph % (Auto) 14.4 % [place] % (Auto) 6.7 % Eos % (Auto) 1.0 % Baso % (Auto) 0.1 % Immature Gran # (Auto) 0.02 (0.00-0.02) K/uL Neut # (Auto) 8.18 H (1.4-6.5) K/uL Lymph # (Auto) 1.51 (1.2-3.4) K/uL [place] # (Auto) 0.70 H (0.11-0.59) K/uL Eos # (Auto) 0.10 (0-0.5) K/uL Baso # (Auto) 0.01 (0-0.2) K/uL PT (9.0-12.0) Seconds INR (0.9-1.1) VBG pH (7.36-7.41) VBG pCO2 (38-50) mmHg VBG pO2 mmHg VBG HCO3 mmol/L VBG O2 Saturation % VBG Base Excess mEq/L Barometric Pressure mm/Hg Sodium 139 (136-145) mmol/L Potassium 3.9 (3.5-5.1) mmol/L Chloride 108 H (98-107) mmol/L Carbon Dioxide 23 (21-32) mmol/L Anion Gap 8.0 (3-11) BUN 18 (7-18) mg/dl Creatinine 0.85 (0.6-1.2) mg/dl Est Cr Clr Drug Dosing 49.1 ml/min Est GFR ( Amer) 74.5 Est GFR (Non-Af Amer) 64.3 BUN/Creatinine Ratio 21.1 H (10-20) Glucose 116 H (70-99) mg/dl POC Glucose (70-99) Calcium 9.1 (8.5-10.1) mg/dl Phosphorus 2.8 (2.5-4.9) mg/dl Magnesium 2.0 (1.8-2.4) mg/dl Total Bilirubin 1.3 H (0.2-1) mg/dl AST 13 L (15-37) U/L ALT 9 L (12-78) U/L Alkaline Phosphatase 66 (45-117) U/L Troponin I 0.019 (0-0.045) ng/ml NT-Pro-B Natriuret Pep 4078 H (0-1800) pg/ml Total Protein 7.6 (6.4-8.2) gm/dl Albumin 3.2 L (3.4-5.0) gm/dl Globulin 4.4 H (2.5-4.0) gm/dl Albumin/Globulin Ratio 0.7 L (0.9-2) Lipase 98 (73-393) U/L Lyme Disease IgG Ab (Negative) Lyme Disease IgM Ab (Negative) Medications Administered Current Inpatient Medications Acetaminophen (Tylenol) 650 mg PO Q4H PRN PRN Reason: Pain or Fever Stop: 09/26/18 22:27 Last Admin: 08/28/18 17:09 Dose: 650 mg Documented by: Al Hydrox/Mg Hydrox/Simethicone (Maalox) 15 ml PO Q4H PRN PRN Reason: Dyspepsia Stop: 09/26/18 22:27 Aspirin (Ecotrin Ectab) 81 mg PO DAILY [facility] Stop: 09/27/18 08:59 Last Admin: 08/28/18 07:57 Dose: 81 mg Documented by: Atorvastatin Calcium (Lipitor) 80 mg PO QAM [facility] Stop: 09/28/18 08:59 Dextrose (Dextrose 50%) 25 - 50 ml IV UD PRN; Protocol PRN Reason: Hypoglycemia Protocol Stop: 09/26/18 23:14 Enoxaparin Sodium (Lovenox) 40 mg SQ Q24H [facility] Stop: 09/27/18 08:59 Last Admin: 08/28/18 10:03 Dose: 40 mg Documented by: Glucagon (Glucagen) 1 mg IM UD PRN; Protocol PRN Reason: Hypoglycemia Protocol Stop: 09/26/18 23:14 Glucose (Glucose 40%) 15 - 30 gm PO UD PRN; Protocol PRN Reason: Hypoglycemia Protocol Stop: 09/26/18 23:14 Glucose (Dex4 Glucose) 4 - 8 tabs PO UD PRN; Protocol PRN Reason: Hypoglycemia Protocol Stop: 09/26/18 23:14 Hydralazine HCl (Hydralazine Hcl) 5 mg IV Q6H PRN PRN Reason: SBP > 170 Stop: 09/26/18 22:27 Last Admin: 08/27/18 23:17 Dose: 5 mg Documented by: Hydrochlorothiazide (Hctz) 12.5 mg PO DAILY [facility] Stop: 09/27/18 08:59 Last Admin: 08/28/18 07:57 Dose: 12.5 mg Documented by: Clindamycin Phosphate 600 mg/ (Dextrose) 54 mls @ 100 mls/hr IV Q8H [facility] Stop: 08/29/18 22:29 Insulin Aspart (Novolog Flexpen) 0 units SC ACHS [facility] Stop: 09/27/18 07:29 Last Admin: 08/28/18 16:58 Dose: Not Given Documented by: Magnesium Hydroxide (Milk Of Magnesia) 30 ml PO Q12H PRN PRN Reason: Constipation Stop: 09/26/18 22:27 Miscellaneous (Order Awaiting Action) 1 ea N/A DAILY [facility] Stop: 09/27/18 08:59 Last Admin: 08/28/18 10:04 Dose: Not Given Documented by: Miscellaneous (Carbohydrates For Hypoglycemia) 15 - 30 gm PO UD PRN PRN Reason: Hypoglycemia Treatment Stop: 09/26/18 23:14 Nifedipine (Procardia Xl) 30 mg PO DAILY [facility] Stop: 09/27/18 08:59 Last Admin: 08/28/18 07:58 Dose: 30 mg Documented by: Nitroglycerin (Nitrostat) 0.4 mg SL UD PRN PRN Reason: Chest Pain Stop: 09/26/18 22:27 Ondansetron HCl (Zofran) 4 mg IV Q6H PRN PRN Reason: Nausea Stop: 09/26/18 22:27 Polyethylene Glycol (Miralax Powder Packet) 17 gm PO DAILY PRN PRN Reason: Constipation Stop: 09/26/18 22:27 Prednisone (Prednisone) 4 mg PO DAILY [facility] Stop: 09/27/18 08:59 Last Admin: 08/28/18 07:57 Dose: 4 mg Documented by: Ranitidine HCl (Zantac) 150 mg PO Q12 [facility] Stop: 09/27/18 08:59 Last Admin: 08/28/18 07:58 Dose: 150 mg Documented by: Telmisartan (Micardis) 40 mg PO DAILY [facility] Stop: 09/27/18 08:59 Last Admin: 08/28/18 07:57 Dose: 40 mg Documented by: Tolterodine Tartrate (Detrol La) 4 mg PO DAILY [facility] Stop: 09/27/18 08:59 Last Admin: 08/28/18 07:58 Dose: 4 mg Documented by: Resident Activity Tracking Resident Involvement: Resident Care Provided Care Provided: Adult [facility] Medicine
[2018-08-28] MEDS ORDERED: ROSUVASTATIN CALCIUM 20 MG TAB PO SCH (09:00)
[2018-08-28] MEDS: ENOXAPARIN INJ 40 MG/0.4 ML SYR SQ SCH (10:03)
--- NOTE | 2018-08-28 10:03 | Cardiology Consultation ---
Date of Consultation August 28, 2018 Assessment & Plan (1) Second degree heart block: I presentation she had 2-1 heart block. She has evidence infra Hisian disease with a right bundle branch block. With ambulation around the goodrich she did not augment her heart rate or improve her heart block which is more suggestive of infra Hisian disease. The last assessment we have of her conduction system was in 2016. An EKG at that time demonstrated normal conduction without evidence of right bundle branch block. She has a diffuse symptom constellation. If her Lyme titers are negative I think proceeding with permanent pacing would be indicated. I doubt that discontinuation of her beta-anamaria will have much of an effect, and she does have significant benefit from taking that medication in the setting of her known coronary disease and hypertension. Left ventricular systolic function is normal. No indication for an ICD. Present on Admission?: Yes (2) Coronary artery disease: She underwent percutaneous intervention to the left circumflex artery in 2013. Her current symptoms of chest discomfort are atypical. She has extended episodes of chest discomfort without elevation in her biomarkers. Think we will continue aggressive secondary prevention which would include aspirin, beta- blockade and some form of statin therapy. Present on Admission?: Yes (3) Cardiomyopathy: She had mildly reduced LV systolic function with wall motion abnormalities in the past. However, her current echocardiogram demonstrates normal wall motion and function. She did have a perfusion study performed in November 2016 suggesting a very small fixed defect without ischemia. EF was felt to be preserved at that time. History of Present Illness Reason for Consultation: Heart block Requesting Physician: Jason Attending Physician: Adis Moreno DO History of Present Illness The patient is 83-year-old woman with a history of coronary disease having suffered an acute coronary syndrome in 2013. She was advised to go to [facility] Emergency room primary care physician yesterday for persistent symptoms myalgias, weakness and exercise intolerance. It seems that the patient has a long history of fairly diffuse symptoms. She has had symptoms of atypical chest discomfort, prominent weakness, fatigue, palpitations, arthralgias and exercise intolerance. She states that over the past 3 days some of her symptoms worsened but she had difficulty characterizing the exact nature of this worsening. She reports her legs feeling heavy at times. She reports some dizziness and lightheadedness at times. At 1 point she stated that she feels presyncopal on occasion, but this seems to be related to falling asleep during television episodes in the evening rather than true loss of postural tone or consciousness. Otherwise, she cannot recall an episode of syncope. She states she has palpitations nearly every day. He is a fairly fleeting in nature and longstanding. She seems to be very sedentary individual who uses a walker for ambulation and a cane at times. She can buy groceries at the grocery store while pushing a shopping cart. However, she did have difficulty with gardening recently due to shortness of breath and fatigue. She performs very little physical activity due to fatigue and dyspnea. She sleeps poorly due to interruptions from her CT. She did not report overt orthopnea. She has not noticed swelling in her lower extremities. She felt that some of her recent symptoms related to medication changes. There was a change in her anti-lipid agent which she felt caused her to urinate often. However, she was also prescribed a diuretic around that time. Allergies Allergy/AdvReac Type Severity Reaction Status Date / Time Cephalosporins Allergy Intermediate HIVES Verified 08/27/18 21:57 Penicillins Allergy Intermediate HIVES Verified 08/27/18 21:57 valdecoxib Allergy Unknown ITCHING,ANTOLIN Verified 08/27/18 21:57 SEATED codeine AdvReac Mild NAUSEA Verified 08/27/18 21:57 pantoprazole AdvReac Mild NAUSEATED Verified 08/27/18 21:57 Home Medications Home Medications Medication Instructions Recorded Confirmed Type Lactobac 40-Bifido 3-S.thermop 1 cap PO DAILY 03/15/18 08/27/18 History [Probiotic] aspirin [Aspir-81] 81 mg PO DAILY 03/15/18 08/27/18 History carvedilol 12.5 mg PO BID 03/15/18 08/27/18 History clindamycin HCl 600 mg PO UD PRN 03/15/18 08/27/18 History coQ10 (ubiquinol) 200 mg PO DAILY 03/15/18 08/27/18 History fluticasone propionate [Flonase 1 spray INTRANASAL BID PRN 03/15/18 08/27/18 History Allergy Relief] egohrush-leppu-wxtzu-CF borate 1 tab PO DAILY 03/15/18 08/27/18 History [Move Free Joint [facility]] multivitamin 1 tab PO DAILY 03/15/18 08/27/18 History nifedipine 30 mg PO DAILY 03/15/18 08/27/18 History nitroglycerin [Nitrostat] 0.4 mg SUBLINGUAL UD PRN 03/15/18 08/27/18 History ranitidine HCl 150 mg PO Q12 03/15/18 08/27/18 History rosuvastatin 40 mg PO DAILY 03/15/18 08/27/18 History timolol maleate 1 drp OPHTHALMIC (EYE) UD 03/15/18 08/27/18 History indapamide 1.25 mg PO DAILY 08/27/18 08/27/18 History metformin 250 mg PO BID 08/27/18 08/27/18 History prednisone 4 mg PO DAILY 08/27/18 08/27/18 History telmisartan [Micardis] 40 mg PO DAILY 08/27/18 08/27/18 History tolterodine [Detrol LA] 4 mg PO QPM 08/27/18 08/27/18 History Patient History Medical History Chest pain (Acute) LUE weakness (Acute 09/09/13) Chest pain (Acute) Left knee DJD (Acute) Stroke (Resolved) Abnormal EKG Acute electrocardiography changes Anxiety (Acute) Chest pain (Acute) Elevated troponin Fall HTN (hypertension) (Acute) Pneumonia Syncope Surgical History History of knee replacement (Resolved) Family History Other No significant family history Social History Preferred Language: Cypriot Communication Ability: Effective 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 She did have some right-sided chest discomfort yesterday. This involved the chest, arm, shoulder and right side of her face. This seems to have resolved currently. There was a pleuritic element of these symptoms as well. Physical Exam Physical Exam: She is alert and oriented x3. Mood affect appear normal. She answered all questions appropriately. Somewhat cushingoid. HEENT: Sclerae are anicteric. Pupils are equal and reactive to light and accommodation. Extraocular movements were intact. Neuro: Cranial nerves intact Neck: Examination of the submandibular region did not reveal any significant lymphadenopathy. Carotids are palpable bilaterally and free of bruits on auscultation. There was no evidence of jugular venous distention. The thyroid was not enlarged. Lungs: Lungs are clear to auscultation bilaterally. There are no rales wheezes or rhonchi. She has normal respiratory effort without use of accessory muscles. There is normal pulmonary excursion. Cardiac: The rhythm was regular. S1 and S2 were normal. Crescendo systolic murmur. The PMI was not markedly displaced on palpation. Abdomen: The abdomen was soft and nontender. Extremities: Patient has bilateral radial pulses that are equal in intensity. There is no evidence cyanosis or clubbing. There was no evidence of significant peripheral edema bilaterally. Skin: There are no rashes noted on examination today. Results & Data Vital Signs (Past 12 Hours) Vital Signs Temp Pulse Pulse Resp BP BP BP 08/28/18 07:53 37.7 C H 51 L 18 187/83 H 08/28/18 03:29 37.4 C 50 L 22 185/62 H 08/27/18 23:44 36.7 C 47 L 18 175/52 H 08/27/18 22:58 198/67 H 08/27/18 22:30 37.2 C 43 L 22 215/65 H 08/27/18 22:00 42 L 12 187/65 H Pulse Ox 08/28/18 07:53 93 08/28/18 03:29 91 08/27/18 23:44 93 08/27/18 22:58 08/27/18 22:30 92 08/27/18 22:00 91 Laboratory Results Abnormal Lab Results 08/27/18 08/27/18 08/27/18 19:30 19:30 21:03 WBC 10.52 RBC 4.01 L Hgb 11.9 L Hct 36.0 L MCV 89.8 MCH 29.7 MCHC 33.1 RDW Std Deviation 50.9 H RDW Coeff of Neeru 15.5 H Plt Count 212 MPV 11.2 H Immature Gran % (Auto) 0.2 Neut % (Auto) 77.6 Lymph % (Auto) 14.4 [place] % (Auto) 6.7 Eos % (Auto) 1.0 Baso % (Auto) 0.1 Immature Gran # (Auto) 0.02 Neut # (Auto) 8.18 H Lymph # (Auto) 1.51 [place] # (Auto) 0.70 H Eos # (Auto) 0.10 Baso # (Auto) 0.01 PT INR VBG pH 7.45 H VBG pCO2 35 L VBG pO2 48 VBG HCO3 24 VBG O2 Saturation 83.4 VBG Base Excess 0.4 Barometric Pressure 726.4 Sodium 139 Potassium 3.9 Chloride 108 H Carbon Dioxide 23 Anion Gap 8.0 BUN 18 Creatinine 0.85 Est Cr Clr Drug Dosing 49.1 Est GFR ( Amer) 74.5 Est GFR (Non-Af Amer) 64.3 BUN/Creatinine Ratio 21.1 H Glucose 116 H POC Glucose Calcium 9.1 Phosphorus 2.8 Magnesium 2.0 Total Bilirubin 1.3 H AST 13 L ALT 9 L Alkaline Phosphatase 66 Troponin I 0.019 NT-Pro-B Natriuret Pep 4078 H Total Protein 7.6 Albumin 3.2 L Globulin 4.4 H Albumin/Globulin Ratio 0.7 L Lipase 98 08/27/18 08/28/18 08/28/18 23:16 05:13 07:51 WBC RBC Hgb Hct MCV MCH MCHC RDW Std Deviation RDW Coeff of Neeru Plt Count MPV Immature Gran % (Auto) Neut % (Auto) Lymph % (Auto) [place] % (Auto) Eos % (Auto) Baso % (Auto) Immature Gran # (Auto) Neut # (Auto) Lymph # (Auto) [place] # (Auto) Eos # (Auto) Baso # (Auto) PT 11.0 INR 1.1 VBG pH VBG pCO2 VBG pO2 VBG HCO3 VBG O2 Saturation VBG Base Excess Barometric Pressure Sodium Potassium Chloride Carbon Dioxide Anion Gap BUN Creatinine Est Cr Clr Drug Dosing Est GFR ( Amer) Est GFR (Non-Af Amer) BUN/Creatinine Ratio Glucose POC Glucose 122 H Calcium Phosphorus Magnesium Total Bilirubin AST ALT Alkaline Phosphatase Troponin I 0.022 NT-Pro-B Natriuret Pep Total Protein Albumin Globulin Albumin/Globulin Ratio Lipase Diagnostic Findings Echocardiogram performed today revealed preserved LV systolic function. There was not very mild mitral stenosis. She had aortic sclerosis but no notable stenosis. An x-ray obtained at the time of admission revealed evidence of possible pulmonary vascular congestion or at the very least a primary pulmonary process. ECG Additional Comments: EKG reveals normal sinus rhythm with 2-1 heart block and right bundle branch block.
[2018-08-28 11:17] LABS: Lyme Ab IgG w/WB Rflx Negative (Negative); Lyme Ab IgM w/WB Rflx Negative (Negative)
--- NOTE | 2018-08-28 13:33 | Pre Anesthesia Assessment ---
Date of Service August 28, 2018 Pre Sedation Assessment Vital Signs Temp Pulse Pulse Resp BP BP BP 08/28/18 11:31 37.3 C 46 L 16 181/64 H 08/28/18 07:53 37.7 C H 51 L 18 187/83 H 08/28/18 03:29 37.4 C 50 L 22 185/62 H 08/27/18 23:44 36.7 C 47 L 18 175/52 H 08/27/18 22:58 198/67 H 08/27/18 22:30 37.2 C 43 L 22 215/65 H 08/27/18 22:00 42 L 12 187/65 H 08/27/18 21:46 41 L 11 L 187/65 H 08/27/18 21:31 42 L 17 190/69 H 08/27/18 21:30 42 L 18 08/27/18 21:16 41 L 6 L 192/63 H 08/27/18 21:15 42 L 18 192/63 H 08/27/18 21:00 43 L 15 08/27/18 20:30 44 L 16 08/27/18 20:29 46 L 16 08/27/18 20:28 08/27/18 20:00 44 L 26 H 08/27/18 19:30 43 L 19 08/27/18 19:27 44 L 15 08/27/18 19:25 46 L 17 186/75 H 08/27/18 19:22 36.8 C 46 L 16 186/75 H Pulse Ox 08/28/18 11:31 92 08/28/18 07:53 93 08/28/18 03:29 91 08/27/18 23:44 93 08/27/18 22:58 08/27/18 22:30 92 08/27/18 22:00 91 08/27/18 21:46 93 08/27/18 21:31 93 08/27/18 21:30 91 08/27/18 21:16 91 08/27/18 21:15 92 08/27/18 21:00 90 08/27/18 20:30 92 08/27/18 20:29 92 08/27/18 20:28 100 08/27/18 20:00 98 08/27/18 19:30 90 08/27/18 19:27 92 08/27/18 19:25 93 08/27/18 19:22 90 Cardiovascular + regular rate Respiratory + respiratory effort normal Pre-Sedation Airway Assessment Smoking Status: Never smoker Hx Sleep Apnea: No Hx Difficult Intubation: No Short, Thick Neck: No Thyromental Distance: > or= 3.5 Finger Breadths Oral Cavity: + WNL Mallampati Class: III ASA: ASA3 Procedure Planning Contraindications for Sedation: none Current Medications Reviewed: Yes Notes The planned sedation has been discussed with the patient. Informed Consent was obtained. I have identified the patient, determined the appropriateness of sedation and have assessed the patient immediately prior to the procedure. All medicine(s) and interventions are by my order.
[2018-08-28] MEDS ORDERED: CLINDAMYCIN 600 MG/54 ML BAG IV SCH (13:35)
[2018-08-28] MEDS ORDERED: LIDOCAINE HCL 1% 20 ML VIAL ONE (13:56)
[2018-08-28] MEDS ORDERED: fentaNYL citrate 100 MCG/2 ML VIAL ONE (13:56)
[2018-08-28] MEDS ORDERED: MIDAZOLAM HCL 5 MG/ML 1 ML VIAL ONE (13:56)
[2018-08-28] MEDS ORDERED: BUPIVACAINE 0.25% 30 ML VIAL ONE (13:57)
[2018-08-28] MEDS ORDERED: BACITRACIN INJ 50,000 UNIT VIAL ONE (13:57)
--- NOTE | 2018-08-28 15:21 | Procedure Note ---
Procedure Note Date of Service August 28, 2018 Note Procedure performed: Implantation of dual-chamber permanent pacemaker Staff assembler carbon brushes: Barry Zhong MD Indication: The patient is a 83-year-old woman who presented to [facility] with symptoms of weakness, exercise intolerance and dizziness. She was noted to be in 2 1 heart block which was later determined to be Mobitz 2 heart block. Based on her symptoms and conduction disease she is felt be good candidate for permanent pacemaker. A dual-chamber device was selected she is currently in sinus rhythm and wished to maintain AV synchrony. Procedure in detail: The patient was informed of the risks benefits and alternatives to the intended procedure and she wished to proceed. She was taken to the electrophysiology suite in a fasting state. A preoperative antibiotic had been administered. The patient was monitored electrocardiographically throughout today's procedure and conscious sedation was administered per protocol. The left upper pectoral area is prepped and draped in usual sterile fashion. This area was anesthetized using subcutaneous administration of a xylocaine solution. An incision was made at this site and carried down to the prepectoralis fascia using sharp dissection. Electrocautery was also employed for dissection as well as for hemostasis. A device pocket was fashioned tissues above the pectoralis muscle. Subsequent to this maneuver the left axillary vein was accessed using modified Seldinger technique. Sheaths were placed over guidewires at this site and used to facilitate passage of the pacing leads to the respective chambers under fluoroscopic guidance. This included right atrial and right ventricular leads. Adequate sensing and threshold parameters were obtained prior to Active fixation of the leads to the endocardial surface. The proximal portion leads were then sutured the prepectoral fascia using nonabsorbable suture. The device pocket was irrigated with antibiotic solution. The leads were then attached to the device. The device and leads were then placed in the pocket and pocket was closed in 3 layers of absorbable suture. Steri-Strips and sterile dressing were applied. The device was tested noninvasively prior to conclusion the procedure. The patient tolerated procedure well there no immediate complications. Equipment used: New pulse generator: Hat Conditioner [employer]. Model number: [id number] serial number [id number] Right atrial lead: Hat Conditioner [employer]. Model number: 5076 serial number [id number] Right ventricular lead: Hat Conditioner [employer]. Model number: 5076 serial number [id number] Measured data: Right atrial lead: P waves measured 4.8 mV. Pacing threshold was 1.7 V at 0.4 ms with a pacing impedance of 600 ohms Right ventricular lead: R waves measured 6.1 mV. Pacing threshold was 0.8 V at 0.4 ms with a pacing impedance of 625 ohms Impression: Successful implantation of dual-chamber pacemaker Coding
[2018-08-28] MEDS: ACETAMINOPHEN 325 MG TAB PO PRN (17:09)
[2018-08-28] MEDS ORDERED: PHARMACY GLYCEMIC MGMT CONSULT PRN (18:08)
[2018-08-28] MEDS: HydrALAZINE HCL 20 MG/ML VIAL IV PRN (18:24)
[2018-08-28] MEDS ORDERED: COUGH DROP (SUGAR FREE) LOZ 24 LOZ/1 BOX BUCCAL ONE (19:09)
[2018-08-28] MEDS ORDERED: COUGH DROP (SUGAR FREE) LOZ 24 LOZ/1 BOX BUCCAL PRN (19:11)
[2018-08-28] MEDS: CLINDAMYCIN 600 MG in DEXTROSE 5% 50 ML IV SCH (20:57)
[2018-08-28] MEDS ORDERED: CARVEDILOL 12.5 MG TAB PO SCH (21:00)
[2018-08-29] MEDS: ACETAMINOPHEN 325 MG TAB PO PRN ×4 (03:25→20:50)
[2018-08-29] MEDS: CLINDAMYCIN 600 MG in DEXTROSE 5% 50 ML IV SCH ×3 (06:03→20:51)
--- NOTE | 2018-08-29 07:42 | XRay Report ---
XR chest 2V routine CLINICAL HISTORY: Chest x-ray status post pacemaker placement COMPARISON STUDY: 08/27/2018 FINDINGS: The heart remains enlarged. There is a left subclavian dual-chamber central venous pacemake r. Electrodes position is unremarkable. There is no pneumothorax. There is improving mild pulmonary v ascular congestion.[ IMPRESSION: 1. Cardiomegaly and improving pulmonary vascular congestion 2. No evidence of pneumothorax status post placement of a left subclavian dual-chamber central venous pacemaker. Electronically signed by: Chung Quispe M.D. 08/29/2018 7:41 AM
[2018-08-29] MEDS: ATORVASTATIN 40 MG TAB PO SCH (07:53)
[2018-08-29] MEDS: NIFEdipine EXTENDED REL 30 MG TABCR PO SCH (07:53)
[2018-08-29] MEDS: TOLTERODINE TARTRATE LA 4 MG CAPCR PO SCH (07:54)
[2018-08-29] MEDS: TELMISARTAN 40 MG TAB PO SCH (07:54)
[2018-08-29] MEDS: hydroCHLOROthiazide 25 MG TAB PO SCH (07:54)
[2018-08-29] MEDS: predniSONE 1 MG TAB PO SCH (07:54)
[2018-08-29] MEDS: ASPIRIN 81 MG ECTAB PO SCH (07:55)
[2018-08-29] MEDS: ENOXAPARIN INJ 40 MG/0.4 ML SYR SQ SCH (07:57)
[2018-08-29] MEDS: INSULIN ASPART 100 UNITS/ML 3 ML PEN SC SCH ×4 (07:59→20:52)
--- NOTE | 2018-08-29 08:15 | Pharmacy Report ---
Glycemic Control Consultation - Date of Service August 29, 2018 - Scope Scope: Glycemic Pharmacist consulted by Dr Saniya Burt on 08/28 for glycemic control and to write orders per [facility] inpatient glycemic control protocol - Objective Weight: 76.9 kg Accuchecks BSG (last 24hrs): 08/28/18 08/28/18 08/29/18 11:27 20:30 07:20 POC Glucose 123 H 121 H 96 - Recent Pertinent Medications Outpatient Anti-diabetic Regimen: * Metformin 250 mg BID * A1c = 6.5 % 06/13/18 The patient is currently receiving: * Basal insulin: None * Correctional Insulin: Novolog Correction per scale ACHS Goal Range: Low 120 mg/dL - High 160 mg/dL Correction Factor: 30 mg/dL/unit * Prandial insulin: Per carb ratio of 1 unit per 10 grams CHO consumed * Oral Agents: None at this time Risk Factors for Insulin Resistance: * Steroids: Prednisone 4 mg daily - outpatient med * Recent Surgery: POD #1 s/p pacer * Diet: type 2 diabetes - Assessment & Plan Assessment & Plan: ASSESSMENT: * 83 y/o female admitted for heart block, now POD 1 s/p pacemaker placement. She has type 2 diabetes, well controlled on a low dose of metformin as an outpatient. This is being held while an inpatient and utilizing bolus insulin only. Fasting BSG does not indicate a need for basal insulin so will continue without for now. PLAN FOR INPATIENT GLYCEMIC CONTROL: * Holding outpatient oral diabetes medications - can resume closer to discharge * Bolus insulin - no change * NovoLog per scale ACHS or Q6hrs while NPO * Goal Range: Low 120 mg/dL - High 160 mg/dL * Correction Factor: 30 mg/dL/unit * Nutritional / Prandial insulin per carb ratio of 1 unit per 10 grams CHO consumed Discharge Recommendations: * A1c well controlled, and may even be too aggressive for patient's age/comorbidities * Continue metformin on discharge but patient may also be able to take either once daily or temporarily discontinue to determine if it is even necessary Thank you.
--- NOTE | 2018-08-29 08:17 | Discharge Summary ---
Date of Service August 29, 2018 Admission HPI Per Admitting Provider 83 y/o F Hx CAD, CVA, RA, HTN, HLD, DM II. Presents with weakness, chest discomfort and exertional dyspnea. She has not c/o fevers or a productive cough. She reports that her chest discomfort is largely R sided. An initial EKG obtained in the ER demonstrated type II heart block with a rate of 40-45 BPM. The pt takes Carvedilol BID and no additional rate agents. 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 5) CAD - states she had a silent AK followed by a cath and 2 stents 6) RA 7) Glaucoma Surgical: 1) TKA 2) Cardiac cath - 2 stents Social: No history of smoking or drinking Family: Mother owing to complications of DM Father in combat WWII Admission Exam Per Admitting Provider General: AAO x 3, no distress ENT: No erythema or exudates, no thrush Eyes: NATANAEL, EOMI Head and neck: Normocephalic, atraumatic, No JVD, neck is supple. Chest/heart: Nontender, S1,2, R, loyda no murmurs Lungs: CTAB, no wheezing or crackles Abdomen: Nontender, nondistended, BS+ Neuro: AAO x 3, speech is clear, no unilateral weakness or loss of sensation, coordination intact Musculoskeletal: No joint inflammation, muscle tenderness, FROM Skin: No acute rashes or ulcers Extremities: No clubbing, cyanosis, edema Principal Diagnosis AV Block, Mobitz Type II requiring permanent pacemaker placement Discharge Exam General: 83-year-old female in no acute distress, AT/NC Eyes: EOMI Neck: Trachea midline and normal to visual inspection, negative JVD Chest: Clear to auscultation bilaterally, no wheezes rales or rhonchi Cardiac: Bradycardic regular rhythm, normal S1 and S2, systolic murmur present GI: Soft nontender nondistended, normal bowel sounds MSK: Moves all 4 extremities Skin: Warm dry and intact Neuro: Alert and oriented x4 Psych: Calm, cooperative, Discharge Data Allergies Allergy/AdvReac Type Severity Reaction Status Date / Time Cephalosporins Allergy Intermediate HIVES Verified 08/27/18 21:57 Penicillins Allergy Intermediate HIVES Verified 08/27/18 21:57 valdecoxib Allergy Unknown ITCHING,ANTOLIN Verified 08/27/18 21:57 SEATED codeine AdvReac Mild NAUSEA Verified 08/27/18 21:57 pantoprazole AdvReac Mild NAUSEATED Verified 08/27/18 21:57 Consultations 08/27/18 21:13 ED Decision to Admit Stat 08/27/18 22:28 Consult Cardiology Routine Procedures Performed Operation Date: 08/28/18 14:00 Actual Procedures p Pacer with A/V Leads (Dual) - Norberto Zhong MD Ordered Studies 08/28/18 14:15 EP Lab Images for PACS ONCE Hospital Course (1) AV block, Mobitz II: 83-year-old female with past medical history of coronary artery disease cerebrovascular accident rheumatoid arthritis hypertension hyperlipidemia diabetes type 2 presented to the ED with symptomatic bradycardia. She was evaluated by cardiology who recommended placement of a permanent pacemaker. 1) Heart block - -Carvedilol was held on the night of admission for symptomatic bradycardia. -Patient underwent permanent pacemaker placement on 08/28/2018 without complications. She recovered well after the procedure. Carvedilol was resumed postop per cards recommendation 2) HTN: The patient was hypertensive throughout most of her hospital admission likely secondary to holding carvedilol. The patient's blood pressure became more reasonable upon resuming carvedilol. 136/62 on discharge. 3) CAD -on admission patient had a slight troponin bump but was with the normal limits repeat troponin demonstrated resolution. No signs or symptoms of ACS 4) DM - placed on a SS, followed by glycemic pharmacy 5) History of CVA Improve risk factors obtain better blood pressure control continue aspirin and statin Total Time Total Time Spent Total Time Spent (In Minutes): 90 Discharge Plan Discharge Items Patient Disposition: Home - Home Health Services Reason For Visit: SYMPTOMATIC BRADYCARDIA Discharge Diagnosis: AV block, Mobitz type II requiring permanent pacemaker placement Discharge Goals: Decrease discomfort, Improve disease control and Therapeutic intervention Activity: As commented below Activity Comment: refrain from lifting her left arm above your shoulder or behind your neck for the next 6 weeks. Please keep your wound to dry and Steri- Strips intact until follow-up in the cardiology clinic next week Non-emergency contact: Primary Care Provider Call non-emergency contact if: you have any medication questions, your symptoms worsen, your pain is worsening and your temperature is above 100.5 Follow-up/Referrals: Neftali Quigley MD [Primary Care Provider] - 09/02/18 2:00 pm (Please, follow up at Dr. Quigley's office with his it assistant, Tali RODRIGUEZ, on SundaySeptember 02 at 2:00 pm. *If you need to change this appointment, call the office at [phone].) Diet: Carb Count or DM1 and Heart Healthy Addtl Provider Instructions: Care instructions: You were admitted to [facility] for treatment of AV block, type II Requiring placement of permanent pacemaker. A discharge summary will be sent to your primary care physician to ensure continuity of care.Please bring this discharge summary with you to your next office appointment so that your provider can review it at that time. Please refrain from lifting her left arm above your shoulder or behind her neck for the next 6 weeks. Please keep your wound dry and Steri-Strips intact until follow- up in the cardiology clinic next week. Follow-up appointments: - Keep all your follow-up appointments as already scheduled. If you cannot make an appointment, notify your provider. - Please call to request a follow-up appointment with your primary care physician within one week of discharge. Please let us know if you are unable to obtain an appointment Follow-up labs: - Please go to a lab nearest you and obtain the requested lab work. Please have this completed at least 3 hours before your doctors appointment (or the day before your appointment if possible). Medications: - Your medication list has been reviewed and reconciled upon discharge to ensure accuracy and continuity of care. - You are provided with a list of all your current medications at this time. Please review this list closely and make note of any changes. - Please take all of your medications exactly as prescribed. - Tell your primary care provider if you cannot afford your medications. - Call your primary care provider if you are having any side effects or any other problems. - Call your primary care provider before taking any over the counter medications or supplements, including herbals and vitamins, because some of these may interact with your current medications and/or make your symptoms worse. Symptoms: Please call your primary care provider for symptoms including, but not limited to: fevers (temperatures greater than 100.4), chills, intractable nausea or vomiting, diarrhea, rash, shortness of breath, bleeding, pain, or if you experience any worsening of the symptoms that brought you to the hospital. For EMERGENCY and VERY SERIOUS health-related issues, such as chest pain, shortness of breath, or sudden onset of the symptoms that brought you to the hospital, you may need to call 911 or go directly to the Emergency Room It has been our privilege to take care of you during your hospital stay. And Above All Else Fell Better! Best Wishes, Patrice Burt MD PGY1 Resident, Family & Community Medicine [facility] Residency at [facility] - [address], [address] MC: [place] [address] Prescriptions: New atorvastatin 40 mg Tablet 80 mg PO QAM Qty: 30 RF: 0 Continued multivitamin Tablet 1 tab PO DAILY RF: 0 nifedipine 30 mg Tablet Extended Release 24hr 30 mg PO DAILY RF: 0 carvedilol 12.5 mg Tablet 12.5 mg PO BID RF: 0 clindamycin HCl 300 mg capsule 600 mg PO UD PRN (Reason: Prophylaxis) RF: 0 aspirin [Aspir-81] 81 mg Tablet,Delayed Release (Dr/Ec) 81 mg PO DAILY RF: 0 ranitidine HCl 150 mg Tablet 150 mg PO Q12 RF: 0 nitroglycerin [Nitrostat] 0.4 mg Tablet, Sublingual 0.4 mg Sublingual UD PRN (Reason: Chest Pain) RF: 0 timolol maleate 0.5 % drops 1 drp ophthalmic (eye) UD RF: 0 fluticasone propionate [Flonase Allergy Relief] 50 mcg/actuation Thompson,Suspension 1 spray INTRANASAL BID PRN (Reason: Nasal Congestion) RF: 0 coQ10 (ubiquinol) 200 mg Capsule 200 mg PO DAILY RF: 0 Move Free [employer] 750 mg-100 mg- 1.65 mg-108 mg Tablet 1 tab PO DAILY RF: 0 Probiotic 100 billion cell Capsule 1 cap PO DAILY RF: 0 tolterodine [Detrol LA] 4 mg capsule,extended release 24hr 4 mg PO QPM RF: 0 prednisone 1 mg tablet 4 mg PO DAILY RF: 0 telmisartan [Micardis] 40 mg tablet 40 mg PO DAILY RF: 0 indapamide 1.25 mg tablet 1.25 mg PO DAILY RF: 0 metformin 500 mg Tablet 250 mg PO BID RF: 0 Discontinued rosuvastatin 40 mg tablet 40 mg PO DAILY RF: 0 Stand-Alone Forms: [facility] Discharge Orders: Discharge Order (Routine); Ordered 08/30/18 Ordered By: Patrice Burt Admission Data Admit Date/Time: 08/29/18 10:29 Attending Provider: Norberto Toth Admit Provider: Jason Starr Primary Care Provider: Neftali Quigley Other Providers: Jason Starr ; Tom Higgins Service: Telemetry Other Interventions: Discharge Summary Assessment (RN) Last Done: 08/30/18 09:57 DC Date/Time DO NOT enter until pt leaves facility: 08/30/18 10:30 Supervising Physician Co-Signing Physician Notes Attending attestation Pt seen and examined in concert with Dr. Burt. In agreement with the documented findings as noted in the resident documentation with any exceptions or additions as noted here. Resting comfortably in bed without complaint. Pain well controlled at present. AV block, Mobitz II s/p pacemaker placement this admission - discharged on carvedilol HTN - mildly elevated BP throughout admission, monitor on follow up Less than 30 minutes spent on this patient's discharge including coordination of care. Else see resident documentation as noted. Resident Activity Tracking Resident Involvement: Resident Care Provided Care Provided: Adult Hospital Medicine
[2018-08-29 11:19] LABS: BUN Creatinine Ratio 23.7 (10-20); Calcium 9.3 mg/dl (8.5-10.1); Creatinine Clr Calc Pharmacy 43.6 ml/min; Est GFR (African American) 65.1; Est GFR (Non-African American) 56.2; Potassium 3.5 mmol/L (3.5-5.1)
--- NOTE | 2018-08-29 12:04 | Cardiology Progress Note ---
Date of Service August 29, 2018 Assessment & Plan (1) Second degree heart block: She underwent successful implantation of dual-chamber permanent pacemaker yesterday. Curiously, she appears to have regained 1-1 conduction on telemetry today. I suspect she has some instability in her conduction system and will eventually have progression of AV block. Whether she will have improvement in her symptoms with the pacemaker is unclear. Her symptoms were somewhat diffuse at the time of admission. She is safe for discharge from our standpoint. She will need to refrain from lifting left arm above the shoulder behind the neck for 6 weeks. She will need to keep her wound dry and Steri-Strips intact until follow-up in our clinic next week. (2) Coronary artery disease: No current symptoms of coronary insufficiency or angina. (3) Cardiomyopathy: Resolved. She should continue on her outpatient medical regimen which includes beta-blockade. Subjective This morning the patient claims to be feeling well. She had some concerns regarding the use of her left arm. She states that it was somewhat stiff and difficulty use. She has some mild to moderate discomfort at the device implant site. She has been ambulatory to the bathroom without other symptoms. Review of Systems Review of Systems: Per HPI Physical Exam Physical Exam: Alert and oriented x3. She answered all questions appropriately Evaluation of the implant site in left upper pectoral area did not reveal any evidence of a hematoma. No significant erythema. No drainage. Results & Data Vital Signs (Past 12 Hours) Vital Signs Temp Pulse Resp BP Pulse Ox 08/29/18 11:24 36.6 C 85 18 155/76 H 96 08/29/18 09:10 93 08/29/18 07:13 36.5 C 77 16 149/72 H 98 08/29/18 03:49 37.5 C 88 18 165/69 H 97 Laboratory Results Abnormal Lab Results 08/28/18 08/29/18 08/29/18 20:30 07:20 10:21 Sodium 138 Potassium 3.5 Chloride 106 Carbon Dioxide 24 Anion Gap 8.0 BUN 23 H Creatinine 0.95 Est Cr Clr Drug Dosing 43.6 Est GFR ( Amer) 65.1 Est GFR (Non-Af Amer) 56.2 BUN/Creatinine Ratio 23.7 H Glucose 123 H POC Glucose 121 H 96 Calcium 9.3 Diagnostic Findings Chest x-ray obtained today demonstrated stable lead position without evidence of pneumothorax Device interrogation revealed normal function of the atrial and ventricular leads. Sensing was somewhat low in the bipolar configuration in the ventricular sensing configuration was changed to unipolar.
--- NOTE | 2018-08-29 16:15 | Family Medicine Progress Note ---
Date of Service August 29, 2018 Assessment & Plan (1) AV block, Mobitz II: 83-year-old female with past medical history of coronary artery disease cerebrovascular accident rheumatoid arthritis hypertension hyperlipidemia diabetes type 2 presented to the ED with symptomatic bradycardia. She was evaluated by cardiology who recommended placement of a permanent pacemaker. 1) Heart block - -Carvedilol was held on the night of admission for symptomatic bradycardia. -Patient underwent permanent pacemaker placement on 08/28/2018 without complications. She recovered well after the procedure. Carvedilol was resumed postop per cards recommendation 2) HTN: The patient was hypertensive throughout most of her hospital admission likely secondary to holding carvedilol. The patient's blood pressure became more reasonable upon resuming carvedilol. 149/72 on discharge. 3) CAD -on admission patient had a slight troponin bump but was with the normal limits repeat troponin demonstrated resolution. No signs or symptoms of ACS 4) DM - placed on a SS, followed by glycemic pharmacy 5) History of CVA Improve risk factors obtain better blood pressure control continue aspirin and statin 6)Pain Control Patient reports pain at the pacemaker site, she states her current pain regimen is not adequate -Toradol 15 mg IV every 6 hours as needed as needed for pain Supervising Physician Co-Signing Physician Notes Patient seen and examined with Dr. Burt. Agree with history, exam, assessment and plan of care as documented. 83 year old female with hx of CAD, CVA, RA, HTN, DM2 admitted with right sided chest pain and found to have Mobitz II block. 1.Mobitz II block. s/p pacer. Restarted carvedilol. Seen by cardiology. Echo with preserved EF. Having pain at pacer site. 2. HTN. Continue telmisartan and nifedipine. HCTZ 12.5mg. 3. CAD. Stable. 4. DM. sliding scale. Dispo: Better pain control at pacer site. Will likely dc home in the morning. Subjective Patient sitting upright in bed this afternoon complaining of left-sided chest pain around the site of pacemaker placement. Patient report pain was initially well controlled but is since become worse. No signs or symptoms of coronary source. Otherwise she is meeting postoperative milestones tolerating her diet, sleeping, voiding, and stooling appropriately. No significant complaints at present aside from the operative site pain, all questions were answered, and patient continues to improve clinically Patient denies fevers chills nausea vomiting diarrhea headache congestion muscle aches or pain change in bowel or bladder habit or other signs or symptoms of acute infectious process Physical Exam Physical Exam: General: 83-year-old female in no acute distress, AT/NC Eyes: EOMI Neck: Trachea midline and normal to visual inspection, negative JVD Chest: Clear to auscultation bilaterally, no wheezes rales or rhonchi Cardiac: Bradycardic regular rhythm, normal S1 and S2, systolic murmur present GI: Soft nontender nondistended, normal bowel sounds MSK: Moves all 4 extremities Skin: Warm dry and intact, pain where pacemaker was placed Neuro: Alert and oriented x4 Psych: Calm, cooperative, anxious about upcoming procedure Results & Data Vital Signs (Past 12 Hours) Vital Signs Temp Pulse Resp BP Pulse Ox 08/29/18 15:33 37.0 C 83 18 158/74 H 92 08/29/18 11:24 36.6 C 85 18 155/76 H 96 08/29/18 09:10 93 08/29/18 07:13 36.5 C 77 16 149/72 H 98 Laboratory Results 08/29/18 08/29/18 08/29/18 Range/Units 11:39 10:21 07:20 Sodium 138 (136-145) mmol/L Potassium 3.5 (3.5-5.1) mmol/L Chloride 106 (98-107) mmol/L Carbon Dioxide 24 (21-32) mmol/L Anion Gap 8.0 (3-11) BUN 23 H (7-18) mg/dl Creatinine 0.95 (0.6-1.2) mg/dl Est Cr Clr Drug Dosing 43.6 ml/min Est GFR ( Amer) 65.1 Est GFR (Non-Af Amer) 56.2 BUN/Creatinine Ratio 23.7 H (10-20) Glucose 123 H (70-99) mg/dl POC Glucose 107 H 96 (70-99) Calcium 9.3 (8.5-10.1) mg/dl 08/28/18 Range/Units 20:30 Sodium (136-145) mmol/L Potassium (3.5-5.1) mmol/L Chloride (98-107) mmol/L Carbon Dioxide (21-32) mmol/L Anion Gap (3-11) BUN (7-18) mg/dl Creatinine (0.6-1.2) mg/dl Est Cr Clr Drug Dosing ml/min Est GFR ( Amer) Est GFR (Non-Af Amer) BUN/Creatinine Ratio (10-20) Glucose (70-99) mg/dl POC Glucose 121 H (70-99) Calcium (8.5-10.1) mg/dl Medications Administered Current Inpatient Medications Acetaminophen (Tylenol) 650 mg PO Q4H PRN PRN Reason: Pain or Fever Stop: 09/26/18 22:27 Last Admin: 08/29/18 13:47 Dose: 650 mg Documented by: Al Hydrox/Mg Hydrox/Simethicone (Maalox) 15 ml PO Q4H PRN PRN Reason: Dyspepsia Stop: 09/26/18 22:27 Aspirin (Ecotrin Ectab) 81 mg PO DAILY [facility] Stop: 09/27/18 08:59 Last Admin: 08/29/18 07:55 Dose: 81 mg Documented by: Atorvastatin Calcium (Lipitor) 80 mg PO QAM [facility] Stop: 09/28/18 08:59 Last Admin: 08/29/18 07:53 Dose: 80 mg Documented by: Carvedilol (Coreg) 12.5 mg PO BID [facility] Stop: 09/28/18 20:59 Dextrose (Dextrose 50%) 25 - 50 ml IV UD PRN; Protocol PRN Reason: Hypoglycemia Protocol Stop: 09/26/18 23:14 Enoxaparin Sodium (Lovenox) 40 mg SQ Q24H [facility] Stop: 09/27/18 08:59 Last Admin: 08/29/18 07:57 Dose: 40 mg Documented by: Glucagon (Glucagen) 1 mg IM UD PRN; Protocol PRN Reason: Hypoglycemia Protocol Stop: 09/26/18 23:14 Glucose (Glucose 40%) 15 - 30 gm PO UD PRN; Protocol PRN Reason: Hypoglycemia Protocol Stop: 09/26/18 23:14 Glucose (Dex4 Glucose) 4 - 8 tabs PO UD PRN; Protocol PRN Reason: Hypoglycemia Protocol Stop: 09/26/18 23:14 Hydralazine HCl (Hydralazine Hcl) 5 mg IV Q6H PRN PRN Reason: SBP > 170 Stop: 09/26/18 22:27 Last Admin: 08/28/18 18:24 Dose: 5 mg Documented by: Hydrochlorothiazide (Hctz) 12.5 mg PO DAILY [facility] Stop: 09/27/18 08:59 Last Admin: 08/29/18 07:54 Dose: 12.5 mg Documented by: Clindamycin Phosphate 600 mg/ (Dextrose) 54 mls @ 100 mls/hr IV Q8H [facility] Stop: 08/29/18 22:29 Last Infusion: 08/29/18 14:20 Dose: Infused Documented by: Insulin Aspart (Novolog Flexpen) 0 units SC ACHS [facility] Stop: 09/27/18 07:29 Last Admin: 08/29/18 12:02 Dose: 2 units Documented by: Magnesium Hydroxide (Milk Of Magnesia) 30 ml PO Q12H PRN PRN Reason: Constipation Stop: 09/26/18 22:27 Menthol (Nice) 1 zander BUCCAL PRN PRN PRN Reason: Sore Throat Stop: 09/27/18 19:10 Miscellaneous (Order Awaiting Action) 1 ea N/A DAILY [facility] Stop: 09/27/18 08:59 Last Admin: 08/29/18 08:31 Dose: Not Given Documented by: Miscellaneous (Carbohydrates For Hypoglycemia) 15 - 30 gm PO UD PRN PRN Reason: Hypoglycemia Treatment Stop: 09/26/18 23:14 Miscellaneous Information (Consult Glycemic Management Pharmacy) 1 ea N/A UD PRN PRN Reason: Consult Stop: 09/27/18 18:07 Nifedipine (Procardia Xl) 30 mg PO DAILY [facility] Stop: 09/27/18 08:59 Last Admin: 08/29/18 07:53 Dose: 30 mg Documented by: Nitroglycerin (Nitrostat) 0.4 mg SL UD PRN PRN Reason: Chest Pain Stop: 09/26/18 22:27 Ondansetron HCl (Zofran) 4 mg IV Q6H PRN PRN Reason: Nausea Stop: 09/26/18 22:27 Polyethylene Glycol (Miralax Powder Packet) 17 gm PO DAILY PRN PRN Reason: Constipation Stop: 09/26/18 22:27 Prednisone (Prednisone) 4 mg PO DAILY [facility] Stop: 09/27/18 08:59 Last Admin: 08/29/18 07:54 Dose: 4 mg Documented by: Ranitidine HCl (Zantac) 150 mg PO Q12 [facility] Stop: 09/27/18 08:59 Last Admin: 08/29/18 07:53 Dose: 150 mg Documented by: Telmisartan (Micardis) 40 mg PO DAILY [facility] Stop: 09/27/18 08:59 Last Admin: 08/29/18 07:54 Dose: 40 mg Documented by: Tolterodine Tartrate (Detrol La) 4 mg PO DAILY [facility] Stop: 09/27/18 08:59 Last Admin: 08/29/18 07:54 Dose: 4 mg Documented by: Resident Activity Tracking Resident Involvement: Resident Care Provided Care Provided: Adult Hospital Medicine
[2018-08-29] MEDS ORDERED: KETOROLAC TROMETHAMINE 15 MG/ML VIAL IV PRN (16:33)
[2018-08-29] MEDS: CARVEDILOL 12.5 MG TAB PO SCH (20:52)
[2018-08-30] MEDS: ACETAMINOPHEN 325 MG TAB PO PRN (02:18)
[2018-08-30 06:18] LABS: Basophils # (auto) 0.02 K/uL (0-0.2); Basophils % (auto) 0.2 %; Eosinophils # (auto) 0.29 K/uL (0-0.5); Eosinophils % (auto) 3.6 %; Hematocrit (blood only) 35.9 % (37-47); Hemoglobin 12.3 g/dL (12.0-16.0); Immature Granulocytes # (auto) 0.01 K/uL (0.00-0.02); Immature Granulocytes % (auto) 0.1 %; Lymphocytes # (auto) 1.03 K/uL (1.2-3.4); Lymphocytes % (auto) 12.8 %; Mean Corpuscular Hgb Conc 34.3 g/dL (32-36); Mean Platelet Volume 10.5 fL (7.4-10.4); Monocytes # (auto) 0.58 K/uL (0.11-0.59); Monocytes % (auto) 7.2 %; Neutrophils # (auto) 6.13 K/uL (1.4-6.5); Neutrophils % (auto) 76.1 %; Platelet Count 200 K/uL (130-400); RDW Coefficient of Variation 15.4 % (11.5-14.5); Red Blood Count 4.08 M/uL (4.2-5.4); White Blood Count 8.06 K/uL (4.8-10.8)
[2018-08-30 06:55] LABS: BUN Creatinine Ratio 28.4 (10-20); Calcium 9.3 mg/dl (8.5-10.1); Creatinine Clr Calc Pharmacy 43.1 ml/min; Est GFR (African American) 64.3; Est GFR (Non-African American) 55.5; Potassium 4.1 mmol/L (3.5-5.1)
--- NOTE | 2018-08-30 08:03 | Pharmacy Report ---
Pharmacy Glycemic Short Note 2 - Date of Service August 30, 2018 - Glycemic Short BSG Results (Last 24 hours): 08/29/18 08/29/18 08/29/18 10:21 11:39 20:45 Glucose 123 H POC Glucose 107 H 114 H 08/30/18 08/30/18 06:00 07:04 Glucose 106 H POC Glucose 118 H OUTPATIENT ANTIDIABETIC REGIMEN: * Metformin 250 mg BID * A1c 6.5% on 06/13/18 ASSESSMENT: * Patient is now POD 2 s/p pacemaker placement for heart block. BSGs have been stable on Novolog only. Patient is also continued on her outpatient dose of prednisone 4 mg daily. Patient will most likely be going home today; therefore, will transition back to metformin in preparation for discharge. PLAN FOR INPATIENT GLYCEMIC CONTROL: * Resume metformin 250 mg BID with meals * D/C Novolog PLAN FOR DISCHARGE: * See note from 08/29
[2018-08-30] MEDS: CARVEDILOL 12.5 MG TAB PO SCH (08:06)
[2018-08-30] MEDS: ASPIRIN 81 MG ECTAB PO SCH (08:06)
[2018-08-30] MEDS: TELMISARTAN 40 MG TAB PO SCH (08:07)
[2018-08-30] MEDS: hydroCHLOROthiazide 25 MG TAB PO SCH (08:07)
[2018-08-30] MEDS: NIFEdipine EXTENDED REL 30 MG TABCR PO SCH (08:08)
[2018-08-30] MEDS: ATORVASTATIN 40 MG TAB PO SCH (08:08)
[2018-08-30] MEDS: ENOXAPARIN INJ 40 MG/0.4 ML SYR SQ SCH (08:10)
[2018-08-30] MEDS: predniSONE 1 MG TAB PO SCH (08:10)
[2018-08-30] MEDS: TOLTERODINE TARTRATE LA 4 MG CAPCR PO SCH (08:11)
[2018-08-30] MEDS ORDERED: METFORMIN HCL 500 MG TAB PO SCH (08:30)
--- OUTSIDE RECORDS SUMMARY | 2018-09-02 18:16 | External Medical Summary | Continuity of Care Document ---
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) Chest Pain Localizing To The Chest Wall Cervical radiculopathy (723.4) (M54.12) Lumbar radiculopathy (724.4) (M54.16) Painful knee (719.46) (M25.569) S/P knee replacement (V43.65) (Z96.659) Pulmonary nodule (793.11) (R91.1) Syncope (780.2) (R55) Influenza vaccine needed (V04.81) (Z23) Obesity (278.00) (E66.9) Urinary incontinence (788.30) (R32) Pyelonephritis (590.80) (N12) Heartburn (787.1) (R12) Renal lesion (593.9) (N28.9) Anemia (285.9) (D64.9) Elevated erythrocyte sedimentation rate (790.1) (R70.0) History of UTI (V13.02) (Z87.440) History of kidney stones (V13.01) (Z87.442) Urinary tract infection (599.0) (N39.0) Dry mouth (527.7) (R68.2) Acid reflux disease (530.81) (K21.9) 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 (V58.65) (Z79.52) 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89) (L30.4) CAD (coronary artery disease) (414.00) (I25.10) Diabetes mellitus (250.00) (E11.9) Allergies and Adverse Reactions Bextra TABS (Allergy) Cephalosporins (Allergy) Codeine Derivatives (Allergy) Penicillins (Allergy) PredniSONE (Roberto) TABS (Allergy) Protonix TBEC (Allergy) Medications Aspirin 81 MG TABS; TAKE 1 TABLET DAILY. Refills: 0 NIFEdipine ER 30 MG Oral Tablet Extended Release 24 Hour; Take 1 tablet by mouth every day. Sharmila Quigley Quantity: 30 Refills: 11 Nitroglycerin 0.4 MG Sublingual Tablet S ublingual; DISSOLVE 1 TABLET UNDER THE TONGUE NEEDED FOR CHEST PAIN. JARON Combs Quantity: 25 Refills: 5 Move Free TABS; Take 1 tablet daily Refills: 0 predniSONE 1 MG Oral Tablet; TAKE 4 TABLETS DAILY. Diane Quigley Start: 07-Mar-2018 Quantity: 360 Refills: 1 Atorvastatin Calcium 80 MG Oral Tablet; Take 1 tablet daily Start: 02-Sep-2018 Refills: 0 Ketoconazole 2 % External Cream; APPLY A THIN LAYER TO AFFECTED AREA(S) TWICE DAILY. JARON Peña Start: 02-Sep-2018 Quantity: 1 60 GM Tube Refills: 1 Multi-Vitamins TABS; TAKE 1 TABLET DAILY. Refills: 0 Probiotic CAPS; TAKE 1 CAPSULE DAILY. Refills: 0 Tolterodine Tartrate ER 4 MG Oral Capsul e Extended Release 24 Hour; TAKE 1 CAPSULE Daily JARON Peña Start: 03-Nov-2015 Quantity: 1 90 Capsule Bottle Refills: 3 CoQ10 200 MG Oral Capsule; TAKE 1 CAPSULE DAILY. Refills: 0 Tylenol 325 MG Oral Tablet; TAKE 2 TABLETS AT BEDTIME NEE DED. Refills: 0 Timolol Maleate 0.5 % Ophthalmic Solution Refills: 0 Carvedilol 25 MG Oral Tablet; take 1 tablet by mouth t wice a day JARON Peña Start: 18-Oct-2012 Quantity: 60 Refills: 5 Clindamycin HCl - 300 MG Oral Capsule; T RADHIKA 2 CAPSULE 1 hour prior to procedures Sharmila Quigley Quantity: 6 Refills: 1 metFORMIN HCl - 500 MG Oral Tablet; TAKE 0.5 TABLET Twice da madonna Refills: 0 Telmisartan 40 MG Oral Tablet; TAKE 1 TABLET ONCE DAILY. JARON Cline Start: 19-Mar-2018 Quantity: 90 Refills: 3 Fluticasone Propionate 50 MCG/ACT Nasal Suspension; PLACE 1 SPRAY INTO EACH NOSTRIL TWICE DAILY. Sharmila Quigley Start: 25-Jul-2011 Quantity: 1 9.9 ML Bottle Refills: 3 raNITIdine HCl - 150 MG Oral Capsule; TAKE 1 CAPSULE E VERY 12 HOURS DAILY. Sharmila Quigley Start: 18-Aug-2013 Quantity: 180 Refills: 3 Indapamide 1.25 MG Oral Tablet; TAKE 1 TABLET ONCE DAILY. Sharmila Jaeger Start: 20-Aug-2018 Quantity: 30 Refills: 5 Procedures History of Total Abdominal Hysterectomy With Removal Of Both Status: Completed Ovaries History of Total Hip Replacement Status: Completed Need for prophylactic measure History of Cath Stent 2 Type Drug-Eluting Status: Completed History of Cath Stent 1 Proximal Circumflex Status: Completed History of Cath Stent 2 Proximal Circumflex Status: Completed History of Cath Stent 1 Type Drug-Eluting Status: Completed Immunizations Pneumococcal polysaccharide vaccine, 23 valent On: 1 16:12 Lot #: [id number], [employer] Influenza On: 14-Mar-2011 16:13 Lot #: [id number], [employer] Influenza On: 18-Mar-2012 13:01 Lot #: [id number], [employer] Influenza On: 18-Feb-2013 12:28 Lot #: [id number], [employer] Fluzone High-Dose Intramuscular Suspension On: 03-Mar-2014 1 1:09 Lot #: [id number], [employer] Fluzone High-Dose Intramuscular Suspension On: 05-Mar-2015 1 5:14 Lot #: [id number], [employer] Fluzone High-Dose Intramuscular Suspension On: 08-Feb-2016 15 :51 Lot #: [id number], [employer] Fluzone High-Dose Intramuscular Suspension On: 06-Feb-2017 13 :39 Lot #: [id number], [employer] Fluzone High-Dose Intramuscular Suspension On: 21-Feb-2018 1 7:34 Lot #: [id number], [employer] Family History Father No pertinent family history (V49.89) (Z78.9) Status: Active Brother Family history of diabetes mellitus (V18.0) (Z83.3) Status: Active Mother Family history of cerebrovascular accident (V17.1) (Z82.3) S tatus: Active Social History - Smoking Status Never smoker Plan of Treatment Planned Encounters Appointment; Ladarius Combs PA-C Start: 20-Nov-2018 10:00 Requ est Planned Observations Planned Goals not documented Results X-Ray Chest 1 View Portable Laboratory: [facility] Diagnostic (Pending) Imaging [address] [place] 27-Aug-2018 19:43 X-Ray Chest 1 VW Portable [facility]XR1P[phone] XRay Report Patient: EMANUEL ORONA Admit Date: 08/27 MR#: [id number] Address1: [address] [facility] Acct ID:[id number] Address2: [address] Date: 1935 [facility] Zip: [place] [address] Age: 83 Location: ED Sex: F Room/Bed: Att Phy: Diagnosis: CHEST PAIN [place] Phy: Olvin Quigley MD Service Date: 0 08/27/18 [facility] Phy: Interpreting Phy: Chung Quispe MD Admit Phy: Ordering Phy: Carlos Dial M.D. cc: XR chest 1V portable CLINICAL HISTORY: Atypical chest pain COMPARISON STUDY: 03/15/2018 FINDINGS: The heart is mildly enlarged. There is no lobar consolidation. There is progressive interstitial thickening. There are no pleural effusions.[ IMPRESSION: Cardiomegaly and progressive interstitial thickening. Diagnostic considerations include progressive interstitial lung disease, interstitial lung disease with mild superimposed congestive failure, or interstitial lung disease with a superimposed acute interstitial inflammatory process. Clinical and radiographic follow-up is recommended. Electronically signed by: Chung Quispe M.D. 08/27/2018 7:45 PM Dictated: 08/27/181942 Transcribed: 08/27/181942 Troponin I (Pending) Laboratory: [facility] Laboratory [address] [facility] [address] tel: 27-Aug-2018 23:16 TROPONIN (cTnI) 0.022 ng/ml Range: 0-0. 045 ng/ml PT/INR (Pending) Laboratory: [facility] Laboratory Comments: C omment Note: [facility] [address] [facility] [place] [address] tel: drawn bloo d if OK 28-Aug-2018 5:13 Prothrombin Time 11.0 {Seconds} Range: 9.0-12.0 Seconds INR 1.1 Range: 0.9-1.1 LYME DISEASE AB IGG AND IGM Laboratory: [facility] Laboratory [address] [place] [address] tel: 28-Aug-2018 10:05 Lyme Disease AB IGG Negative Range: Neg ative Lyme Disease AB IGM Negative Range: Neg ative X-ray Chest, PA and Lateral Laboratory: [facility] Diagnostic Routine Imaging [address] [facility] 29-Aug-2018 7:40 CHEST 2 VIEWS ROUTINE [facility] [phone] XRay Report Patient: EMANUEL ORONA Admit Date: 08/27 MR#: [id number] Address1: [address] [place] Acct ID:[id number] Address2: [address] Date: 1935 [facility] Zip: [place] [address] Age: 83 Location: Sex: F Room/Bed: [facility] Att Phy: Adis Moreno DO Diagnosis: SYMP TOMATIC BRADYCARDIA [place] Phy: Olvin Quigley MD Service Date: 0 08/29/18 Fam Phy: Interpreting Phy: Chung Quispe MD Admit Phy: Jason Starr M.D. Ordering Phy: Barry Zhong MD cc: XR chest 2V routine CLINICAL HISTORY: Chest x-ray status post pacemaker placement COMPARISON STUDY: 08/27/2018 FINDINGS: The heart remains enlarged. There is a left subclavian dual-chamber central venous pacemaker. Electrodes position is unremarkable. There is no pneumothorax. There is improving mild pulmonary vascular congestion.[ IMPRESSION: 1. Cardiomegaly and improving pulmonary vascular congestion 2. No evidence of pneumothorax status post placement of a left subclavian dual-chamber central venous pacemaker. Electronically signed by: Chung Quispe M.D. 08/29/2018 7:41 AM Dictated: 08/29/18 0740 Transcribed: 08/29/18 0740 Vital Signs 02-Sep-2018 13:39 Systolic 210 mm[Hg] Comments: Location: LUE; Position: Sitting Diastolic 84 mm[Hg] Comments: Location: LUE; Position: Sitting Weight 168.1 lb Heart Rate 80 /min BMI Calculated 31.76 kg/m2 BSA Calculated 1.75 m2 20-Aug-2018 15:16 Systolic 170 mm[Hg] Comments: Location: RUE; Position: Sitting Diastolic 72 mm[Hg] Comments: Location: RUE; Position: Sitting Weight 170.6 lb Heart Rate 84 /min BMI Calculated 32.23 kg/m2 BSA Calculated 1.77 m2 Encounters Appointment; Leia Peña PA-C 02-Sep-2018 13:30 Encounter Diagnosis: Problem not documented Appointment; Olvin Quigley M.D. 20-Aug-2018 15:30 Encounter Diagnosis: Problem not documented Appointment; Olvin Quigley M.D. 19-Jul-2018 13:00 Encounter Diagnosis: Problem not documented Appointment; Olvin Quigley M.D. 17-Jun-2018 11:30 Encounter Diagnosis: Problem not documented Appointment; Ladarius Combs PA-C 30-May-2018 11:00 Encounter Diagnosis: Problem not documented Appointment; Liliana Wesley M.D. 29-May-2018 11:00 Encounter Diagnosis: Problem not documented Appointment; Leia Peña PA-C 19-Mar-2018 14:00 Encounter Diagnosis: Problem not documented Appointment; Liliana Wesley M.D. 07-Mar-2018 10:00 Encounter Diagnosis: Problem not documented Appointment; Olvin Quigley M.D. 21-Feb-2018 15:45 Encounter Diagnosis: Problem not documented Appointment; Ladarius Combs PA-C 27-Nov-2017 9:30 Encounter Diagnosis: Problem not documented Appointment; Olvin Quigley M.D. 13-Nov-2017 14:15 Encounter Diagnosis: Problem not documented Appointment; Liliana Wesley M.D. 05-Sep-2017 11:00 Encounter Diagnosis: Problem not documented Appointment; Olvin Quigley M.D. 03-Aug-2017 13:30 Encounter Diagnosis: Problem not documented Appointment; Ladarius Combs PA-C 24-May-2017 10:00 Encounter Diagnosis: Problem not documented Appointment; Liliana Wesley M.D. 08-May-2017 10:40 Encounter Diagnosis: Problem not documented Appointment; Olvin Quigley M.D. 17-Apr-2017 13:00 Encounter Diagnosis: Problem not documented Appointment; Cathy Sanchez M.D. 09-Apr-2017 10:20 Encounter Diagnosis: Problem not documented Appointment; Liliana Wesley M.D. 06-Mar-2017 13:20 Encounter Diagnosis: Problem not documented Appointment; Leia Peña PA-C 06-Feb-2017 13:00 Encounter Diagnosis: Problem not documented Appointment; Liliana Wesley M.D. 30-Jan-2017 13:20 Encounter Diagnosis: Problem not documented Appointment; Liliana Wesley M.D. 26-Dec-2016 13:40 Encounter Diagnosis: Problem not documented Appointment; Leia Peña PA-C 07-Dec-2016 11:15 Encounter Diagnosis: Problem not documented Appointment; Liliana Wesley M.D. 21-Nov-2016 10:40 Encounter Diagnosis: Problem not documented Appointment; Barry Cruz M.D. 31-Oct-2016 9:30 Encounter Diagnosis: Problem not documented Appointment; Olvin Quigley M.D. 27-Oct-2016 11:45 Encounter Diagnosis: Problem not documented Appointment; Ladarius Combs PA-C 20-Nov-2018 10:00 Encounter Diagnosis: Problem not documented
== END 2018-08-30 10:30 | disposition home health service (06) | DRG 244 ==
LOC: ED 19:17 → 2S 19:17 → SUATTDRO 21:46 → 2S 22:00 → SUATTDRO 08-29 10:29
DX: E11.9 Type 2 diabetes mellitus without complications; H40.9 Unspecified glaucoma; I25.10 Atherosclerotic heart disease of native coronary artery without angina pectoris; Z88.0 Allergy status to penicillin; Z79.82 Long term (current) use of aspirin; Z88.5 Allergy status to narcotic agent; I44.1 Atrioventricular block, second degree; Z79.899 Other long term (current) drug therapy; Z79.84 Long term (current) use of oral hypoglycemic drugs; Z86.73 Personal history of transient ischemic attack (TIA), and cerebral infarction without residual deficits; Z95.5 Presence of coronary angioplasty implant and graft; Z79.52 Long term (current) use of systemic steroids; Z88.1 Allergy status to other antibiotic agents; Z88.8 Allergy status to other drugs, medicaments and biological substances; Z51.81 Encounter for therapeutic drug level monitoring; I10 Essential (primary) hypertension

== ENCOUNTER 2021-07-26 13:24 | Observation (INO) ==
--- NOTE | 2021-07-26 14:06 | Emergency Department Note ---
Impression & Plan Chest pain, Pacemaker, Whole body pain, Hypomagnesemia, History of coronary artery disease ED Provider Note NAME: EMANUEL ORONA AGE: 86 SEX: F : 1935 ARRIVES VIA: Ambulance INFORMANT: Patient, ED PROVIDER(S): Marcelino Ruggiero MD Chief Complaint: Body pain HPI: Patient presents with all over body pain which she states began yesterday when she struck the top of her head on the opening of the car door but did not pass out. The patient did try some BenGay but this did not seem to improve her symptoms. The patient now complains of all over body pain including chest pains. Patient states the chest pain may be exertional but may not be but is also reproducible. The patient does have occasional coughing fits but it is nonproductive. No alcohol or tobacco use. Patient states that she has had a chest pain ever since she was recently seen here in the hospital approximately a week or 2 ago. Patient denies any lower extremity swelling or history of DVT. The patient denies any chills but did feel little warm. Upon presentation the patient's temp is 37.6. Patient denies any shortness of breath or extremity swelling. No recent travel ROS: See HPI for pertinent positives and negatives. A total of 10 systems were reviewed and otherwise negative. Past medical history: See below Surgical history: See below Social history: See below Physical Exam: GENERAL: NAD, wearing glasses, wearing a mask, non-toxic. EYE EXAM: Normal conjunctiva. PERRL, no anisocoria and EOM's grossly intact w/o pain. NECK: Supple, no nuchal rigidity, no adenopathy, non-tender. No signs of meningismus. Chest: Anterior reproducible chest wall pain without crepitus or flail chest LUNGS: Clear to auscultation. Normal chest wall mechanics. HEART: NSR, no MRG. ABDOMEN: Abdomen soft, non-tender, normo-active bowel sounds, no masses, no rebound or guarding. BACK: No CVA TTP. SKIN: No rashes and no bruising. UPPER EXTREMITIES: Upper extremities are grossly normal. Mild diffuse discomfort with no overlying skin changes or swelling, compartments are soft and no crepitus LOWER EXTREMITIES: Grossly normal, no edema. Mild diffuse discomfort with no overlying skin changes or swelling, compartments are soft and no crepitus NEURO EXAM: A&O x3, cranial nerves II-XII grossly intact, normal speech, moves all 4 extremities on command w/o issue. Differential diagnoses: Infection, dehydration, metabolic abnormality, hypo/hyperglycemia, electrolyte disturbance, anemia, hypoxia, cardiac sources, intracerebral event, toxicologic, neurologic, as well as other pathologies. Course: Patient was seen and evaluated the bedside. Full history physical exam was performed. EKG interpreted by me A sensed V paced rhythm, rate of 88, wide QRS, left axis deviation. Left bundle branch block pattern. No obvious sgarbossa criteria. Imaging Studies: See Below Cardiac monitoring: An order was placed for continuous cardiac monitoring. The monitor shows a rate of 72 with sinus rhythm. MDM: Patient was seen due to concern for multiple complaints including all of her body pain and chest pain. The patient does have a prior history of CAD status post angioplasty. The patient is unsure as whether not she had a true stent placed. Patient also does have a pacemaker in place. Blood work was obtained the patient was treated symptomatically for pain medication and pacemaker was attempted to be interrogated. Patient's blood work showed a normal white count H&H and platelet count. The patient's kidney function is unremarkable. Very mild hypomagnesemia which is ordered for replacement. Troponin detectable but not elevated. Patient had related that she had been having chest pain ever since she was recently here earlier in the month the patient does not have any obvious acute EKG changes just faster rate. Patient pacemaker was unable to be interrogated due to difficulty with the device. Given the patient's overall body pain I did order flu and COVID is could be secondary to body aches. Patient chest x-ray with cardiomegaly with mild interstitial coarsening. Head CT negative. CT abdomen pelvis has no bowel wall thickening or obstruction and no evidence of acute diverticulitis. Normal appendix. The patient does live [place] for [facility] feels that she can manage at home. I did consider the possibility of a polymyalgia flare and thus suggest a steroid ordered. I did Siuta the on-call hospitalist Dr. Burt patient was admitted to the medicine service Past Med/Surg History Medical History Cervical radiculopathy Complex endometrial hyperplasia Coronary artery disease, occlusive CVA (cerebral vascular accident) (~09/2018) History of kidney stones History of polymyalgia rheumatica Ischemic cardiomyopathy FPC (current) use of systemic steroids LUE weakness (09/09/13) Lumbar radiculopathy Myalgia and myositis Obesity Osteopenia Presence of stent in coronary artery in patient with coronary artery disease Primary hypertension Rheumatoid arthritis 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, without long-term current use of insulin Urinary incontinence Surgical History History of knee replacement S/P knee replacement Stented coronary artery Family History Grandmother (Maternal) Myocardial infarction Stroke Mother Myocardial infarction Diabetes Stroke Brother Myocardial infarction Diabetes Stroke Other No significant family history Denies family history of Ovarian cancer Prostate cancer Breast cancer Colorectal cancer Social History Smoking Status: Never smoker Hx Alcohol Use: No Hx Substance Use: No Preferred Language: Hebrew Communication Ability: Effective Foster Winder Required: No Beliefs That Will Affect Care: Judaism Judaism Beliefs: Caodaism marital status: / Current Living Situation: Alone Feels Safe at Home: Yes Seatbelt Use: always Assistive Devices: None Allergies Allergies Allergy/AdvReac Type Severity Reaction Status Date / Time Cephalosporins Allergy Intermediate HIVES Verified 07/26/21 15:58 Penicillins Allergy Intermediate HIVES Verified 07/26/21 15:58 valdecoxib Allergy Intermediate ITCHING,ANTOLIN Verified 07/26/21 15:58 SEATED prednisone Allergy Unknown Unknown Verified 07/26/21 15:58 codeine AdvReac Intermediate NAUSEA Verified 07/26/21 15:58 pantoprazole AdvReac Intermediate NAUSEATED Verified 07/26/21 15:58 Home Meds Home Medications Medication Instructions Recorded Confirmed Lactobacillus 40-Bifidobact 1 cap PO DAILY 03/15/18 07/26/21 3-S.thermophilus 100 billion cell capsule (Probiotic) glucosam 750 mg-chondroi 100 1 tab PO DAILY 03/15/18 07/26/21 mg-hyalur 1.65 mg-CF borate 108 mg tablet ([facility] [employer]) multivitamin 1 tab PO DAILY 03/15/18 07/26/21 nitroglycerin 0.4 mg sublingual 0.4 mg SUBLINGUAL DIRECTED PRN 03/15/18 07/26/21 tablet (Nitrostat) timolol maleate 0.5 % eye drops 1 drp OPB QAM 03/15/18 07/26/21 aspirin 81 mg tablet,delayed 81 mg PO DAILY 05/11/20 07/26/21 release (Aspirin Low Dose) ketoconazole 2 % topical cream 1 applic TOPICAL DAILY 05/11/20 07/26/21 cholecalciferol (vitamin D3) 50 50 mcg PO DAILY 07/29/20 07/26/21 mcg (2,000 unit) capsule apple cider vinegar 500 mg tablet 750 mg PO QAM tab 03/29/21 07/26/21 propylene glycol 0.6 % eye drops 1 drp OPHTHALMIC (EYE) TID 03/29/21 07/26/21 (Systane Balance) acetaminophen 325 mg tablet 650 mg PO Q6H PRN 07/26/21 07/26/21 (Tylenol) Previous Rx's Medication Instructions Recorded nystatin 100,000 unit/gram topical 1 applic TOPICAL TID PRN #60 g 05/11/20 powder fluticasone propionate 50 1 spray INTRANASAL BID PRN #47.4 ml 07/12/20 mcg/actuation nasal spray,suspension (Flonase Allergy Relief) atorvastatin 80 mg tablet 80 mg PO DAILY #90 tab 10/05/20 metformin 500 mg tablet,extended 500 mg PO DAILY #90 tab 01/27/21 release 24hr omeprazole 20 mg capsule,delayed 20 mg PO DAILY PRN #90 cap 02/25/21 release nifedipine 60 mg tablet,extended 60 mg PO DAILY #90 tab 03/30/21 release carvedilol 25 mg tablet 25 mg PO BID #60 tab 05/16/21 telmisartan 40 mg tablet (Micardis) 40 mg PO DAILY #90 tab 07/01/21 benzonatate 100 mg capsule 100 mg PO TID PRN #90 cap 07/14/21 prednisone 1 mg tablet 3 mg PO DAILY #270 tab 07/14/21 clindamycin HCl 300 mg capsule 600 mg PO DIRECTED PRN #2 cap 07/20/21 Results & Data (ED) Vital Signs Vital Signs - 24 hr 07/26/21 13:36 07/26/21 13:43 07/26/21 14:00 Temperature 37.6 C H Temperature Source Oral Pulse Rate 85 81 Pulse Rate [Right Finger] Pulse Rate from SpO2 Sensor 85 80 Pulse Rhythm Regular Pulse Rhythm [Right Finger] Pulse Strength Normal Pulse Strength [Right Finger] Respiratory Rate 33 H 23 Respiratory Effort / Characteristics Non-Labored Spontaneous Respiratory Depth Normal Respiratory Pattern Regular Blood Pressure 154/72 H Blood Pressure [Right Arm] Blood Pressure Mean 99 Blood Pressure Mean [Right Arm] Blood Pressure Position Sitting Blood Pressure Position [Right Arm] Pulse Oximetry 95 93 93 Oxygen Delivery Method Room Air Room Air Oxygen Flow Rate 0 Sepsis Recent Fever Within 48 Hours No Sepsis New/Unexplained Change in Mental Status N/A Sepsis Action Taken by Nursing No Action Required 07/26/21 14:30 07/26/21 14:56 07/26/21 15:00 Temperature Temperature Source Pulse Rate 87 105 H 93 H Pulse Rate [Right Finger] Pulse Rate from SpO2 Sensor 87 94 H Pulse Rhythm Pulse Rhythm [Right Finger] Pulse Strength Pulse Strength [Right Finger] Respiratory Rate 28 H 40 H 29 H Respiratory Effort / Characteristics Respiratory Depth Respiratory Pattern Blood Pressure 189/77 H 175/73 H Blood Pressure [Right Arm] Blood Pressure Mean 114 107 Blood Pressure Mean [Right Arm] Blood Pressure Position Blood Pressure Position [Right Arm] Pulse Oximetry 91 95 Oxygen Delivery Method Oxygen Flow Rate Sepsis Recent Fever Within 48 Hours Sepsis New/Unexplained Change in Mental Status Sepsis Action Taken by Nursing 07/26/21 15:30 07/26/21 16:00 07/26/21 16:30 Temperature Temperature Source Pulse Rate 84 76 73 Pulse Rate [Right Finger] Pulse Rate from SpO2 Sensor 83 76 74 Pulse Rhythm Pulse Rhythm [Right Finger] Pulse Strength Pulse Strength [Right Finger] Respiratory Rate 26 H 22 22 Respiratory Effort / Characteristics Respiratory Depth Respiratory Pattern Blood Pressure 163/70 H 152/85 H 159/74 H Blood Pressure [Right Arm] Blood Pressure Mean 101 107 102 Blood Pressure Mean [Right Arm] Blood Pressure Position Blood Pressure Position [Right Arm] Pulse Oximetry 91 93 92 Oxygen Delivery Method Oxygen Flow Rate Sepsis Recent Fever Within 48 Hours Sepsis New/Unexplained Change in Mental Status Sepsis Action Taken by Nursing 07/26/21 17:00 07/26/21 17:35 07/26/21 18:00 Temperature Temperature Source Pulse Rate 70 73 69 Pulse Rate [Right Finger] Pulse Rate from SpO2 Sensor 69 73 69 Pulse Rhythm Pulse Rhythm [Right Finger] Pulse Strength Pulse Strength [Right Finger] Respiratory Rate 24 24 20 Respiratory Effort / Characteristics Respiratory Depth Respiratory Pattern Blood Pressure 138/79 138/72 Blood Pressure [Right Arm] Blood Pressure Mean 98 94 Blood Pressure Mean [Right Arm] Blood Pressure Position Blood Pressure Position [Right Arm] Pulse Oximetry 93 91 94 Oxygen Delivery Method Oxygen Flow Rate Sepsis Recent Fever Within 48 Hours Sepsis New/Unexplained Change in Mental Status Sepsis Action Taken by Nursing 07/26/21 19:00 07/26/21 21:00 Temperature Temperature Source Pulse Rate Pulse Rate [Right Finger] 67 68 Pulse Rate from SpO2 Sensor Pulse Rhythm Pulse Rhythm [Right Finger] Regular Pulse Strength Pulse Strength [Right Finger] Normal Respiratory Rate 18 24 Respiratory Effort / Characteristics Non-Labored Spontaneous Non-Labored Spontaneous Respiratory Depth Normal Normal Respiratory Pattern Regular Blood Pressure Blood Pressure [Right Arm] 157/63 H 174/69 H Blood Pressure Mean Blood Pressure Mean [Right Arm] 94 104 Blood Pressure Position Blood Pressure Position [Right Arm] Lying Pulse Oximetry 93 94 Oxygen Delivery Method Room Air Room Air Oxygen Flow Rate Sepsis Recent Fever Within 48 Hours Sepsis New/Unexplained Change in Mental Status Sepsis Action Taken by Shelter Medications Current Medication List: was personally reviewed by me Laboratory Data Attestation: I reviewed the patient's lab results. Result diagrams: 07/26/21 15:00 07/26/21 15:00 Lab Results 07/26/21 07/26/21 07/26/21 Range/Units 15:00 15:00 15:00 WBC 9.14 (4.8-10.8) K/uL RBC 4.06 L (4.2-5.4) M/uL Hgb 12.6 (12.0-16.0) g/dL Hct 38.9 (37-47) % MCV 95.8 (80-100) fL MCH 31.0 (25-34) pg MCHC 32.4 (32-36) g/dL RDW Std Deviation 49.9 H (36.4-46.3) fL RDW Coeff of Neeru 14.2 (11.5-14.5) % Plt Count 212 (130-400) K/uL MPV 10.4 (7.4-10.4) fL Immature Gran % (Auto) 0.2 % Neut % (Auto) 73.8 % Lymph % (Auto) 15.1 % [place] % (Auto) 9.2 % Eos % (Auto) 1.6 % Baso % (Auto) 0.1 % Neut # (Auto) 6.74 H (1.4-6.5) K/uL Lymph # (Auto) 1.38 (1.2-3.4) K/uL [place] # (Auto) 0.84 H (0.11-0.59) K/uL Eos # (Auto) 0.15 (0-0.5) K/uL Baso # (Auto) 0.01 (0-0.2) K/uL Immature Gran # (Auto) 0.02 (0.00-0.02) K/uL Sodium 138 (136-145) mmol/L Potassium 3.9 (3.5-5.1) mmol/L Chloride 101 (98-107) mmol/L Carbon Dioxide 29 (21-32) mmol/L Anion Gap 8 (3-11) BUN 12 (6-23) mg/dl Creatinine 0.68 (0.6-1.2) mg/dl Est Cr Clr Drug Dosing 56.5 ml/min Est GFR ( Amer) 93.1 ml/min Est GFR (Non-Af Amer) 80.3 ml/min BUN/Creatinine Ratio 17.6 (10-20) Glucose 94 (70-99(Fasting)) mg/dl Calcium 9.6 (8.5-10.1) mg/dl Magnesium 1.6 L (1.7-2.4) mg/dl Total Bilirubin 1.2 H (0.2-1.0) mg/dl AST 18 (13-39) U/L ALT 7 (7-52) U/L Alkaline Phosphatase 72 (34-104) U/L Troponin I 0.03 (0-0.04) ng/ml Total Protein 7.7 (6.0-8.3) gm/dl Albumin 4.0 (3.4-5.0) gm/dl Globulin 3.7 (2.5-4.0) gm/dl Albumin/Globulin Ratio 1.1 (0.9-2) TSH 1.931 (0.300-4.500) uIu/ml Urine Color Urine Appearance (Clear) Urine pH (4.5-7.5) Ur Specific [place] (1.000-1.030) Urine Protein (Negative) Urine Glucose (UA) (Negative) Urine Ketones (Negative) Urine Blood (Negative) Urine Nitrite (Negative) Urine Bilirubin (Negative) Urine Urobilinogen (Negative) Ur Leukocyte Esterase (Negative) Urine WBC (Auto) (0-5) /hpf Urine RBC (Auto) (0-4) /hpf U Hyaline Cast (Auto) (0-5) /lpf U Epithel Cells (Auto) (0-5) /lpf Urine Bacteria (Auto) (Negative) Influ A Molecular Assay (Negative) Influ B Molecular Assay (Negative) SARS-CoV-2, RNA, NAAT (NEGATIVE) 07/26/21 07/26/21 07/26/21 Range/Units 15:00 16:25 16:25 WBC (4.8-10.8) K/uL RBC (4.2-5.4) M/uL Hgb (12.0-16.0) g/dL Hct (37-47) % MCV (80-100) fL MCH (25-34) pg MCHC (32-36) g/dL RDW Std Deviation (36.4-46.3) fL RDW Coeff of Neeru (11.5-14.5) % Plt Count (130-400) K/uL MPV (7.4-10.4) fL Immature Gran % (Auto) % Neut % (Auto) % Lymph % (Auto) % [place] % (Auto) % Eos % (Auto) % Baso % (Auto) % Neut # (Auto) (1.4-6.5) K/uL Lymph # (Auto) (1.2-3.4) K/uL [place] # (Auto) (0.11-0.59) K/uL Eos # (Auto) (0-0.5) K/uL Baso # (Auto) (0-0.2) K/uL Immature Gran # (Auto) (0.00-0.02) K/uL Sodium (136-145) mmol/L Potassium (3.5-5.1) mmol/L Chloride (98-107) mmol/L Carbon Dioxide (21-32) mmol/L Anion Gap (3-11) BUN (6-23) mg/dl Creatinine (0.6-1.2) mg/dl Est Cr Clr Drug Dosing ml/min Est GFR ( Amer) ml/min Est GFR (Non-Af Amer) ml/min BUN/Creatinine Ratio (10-20) Glucose (70-99(Fasting)) mg/dl Calcium (8.5-10.1) mg/dl Magnesium (1.7-2.4) mg/dl Total Bilirubin (0.2-1.0) mg/dl AST (13-39) U/L ALT (7-52) U/L Alkaline Phosphatase (34-104) U/L Troponin I (0-0.04) ng/ml Total Protein (6.0-8.3) gm/dl Albumin (3.4-5.0) gm/dl Globulin (2.5-4.0) gm/dl Albumin/Globulin Ratio (0.9-2) TSH (0.300-4.500) uIu/ml Urine Color Yellow Urine Appearance Clear (Clear) Urine pH 6.5 (4.5-7.5) Ur Specific [place] 1.007 (1.000-1.030) Urine Protein Negative (Negative) Urine Glucose (UA) Negative (Negative) Urine Ketones Negative (Negative) Urine Blood Negative (Negative) Urine Nitrite Negative (Negative) Urine Bilirubin Negative (Negative) Urine Urobilinogen Negative (Negative) Ur Leukocyte Esterase Trace H (Negative) Urine WBC (Auto) 5-10 H (0-5) /hpf Urine RBC (Auto) 0-4 (0-4) /hpf U Hyaline Cast (Auto) 0 (0-5) /lpf U Epithel Cells (Auto) >30 H (0-5) /lpf Urine Bacteria (Auto) Negative (Negative) Influ A Molecular Assay Negative (Negative) Influ B Molecular Assay Negative (Negative) SARS-CoV-2, RNA, NAAT NEGATIVE (NEGATIVE) 07/26/21 Range/Units 18:27 WBC (4.8-10.8) K/uL RBC (4.2-5.4) M/uL Hgb (12.0-16.0) g/dL Hct (37-47) % MCV (80-100) fL MCH (25-34) pg MCHC (32-36) g/dL RDW Std Deviation (36.4-46.3) fL RDW Coeff of Neeru (11.5-14.5) % Plt Count (130-400) K/uL MPV (7.4-10.4) fL Immature Gran % (Auto) % Neut % (Auto) % Lymph % (Auto) % [place] % (Auto) % Eos % (Auto) % Baso % (Auto) % Neut # (Auto) (1.4-6.5) K/uL Lymph # (Auto) (1.2-3.4) K/uL [place] # (Auto) (0.11-0.59) K/uL Eos # (Auto) (0-0.5) K/uL Baso # (Auto) (0-0.2) K/uL Immature Gran # (Auto) (0.00-0.02) K/uL Sodium (136-145) mmol/L Potassium (3.5-5.1) mmol/L Chloride (98-107) mmol/L Carbon Dioxide (21-32) mmol/L Anion Gap (3-11) BUN (6-23) mg/dl Creatinine (0.6-1.2) mg/dl Est Cr Clr Drug Dosing ml/min Est GFR ( Amer) ml/min Est GFR (Non-Af Amer) ml/min BUN/Creatinine Ratio (10-20) Glucose (70-99(Fasting)) mg/dl Calcium (8.5-10.1) mg/dl Magnesium (1.7-2.4) mg/dl Total Bilirubin (0.2-1.0) mg/dl AST (13-39) U/L ALT (7-52) U/L Alkaline Phosphatase (34-104) U/L Troponin I < 0.03 (0-0.04) ng/ml Total Protein (6.0-8.3) gm/dl Albumin (3.4-5.0) gm/dl Globulin (2.5-4.0) gm/dl Albumin/Globulin Ratio (0.9-2) TSH (0.300-4.500) uIu/ml Urine Color Urine Appearance (Clear) Urine pH (4.5-7.5) Ur Specific [place] (1.000-1.030) Urine Protein (Negative) Urine Glucose (UA) (Negative) Urine Ketones (Negative) Urine Blood (Negative) Urine Nitrite (Negative) Urine Bilirubin (Negative) Urine Urobilinogen (Negative) Ur Leukocyte Esterase (Negative) Urine WBC (Auto) (0-5) /hpf Urine RBC (Auto) (0-4) /hpf U Hyaline Cast (Auto) (0-5) /lpf U Epithel Cells (Auto) (0-5) /lpf Urine Bacteria (Auto) (Negative) Influ A Molecular Assay (Negative) Influ B Molecular Assay (Negative) SARS-CoV-2, RNA, NAAT (NEGATIVE) Administered Medications Acetaminophen (Acetaminophen 500 Mg Tab) 1,000 mg PO TID JACKSON Stop: 08/25/21 20:59 Last Admin: 07/26/21 21:14 Dose: 1,000 mg Documented by: [id number] Magnesium Sulfate/Dextrose (Magnesium Sulfate / D5w) 1 gm in 100 mls @ 50 mls/hr IV Q2H STA Stop: 07/26/21 22:52 Last Admin: 07/26/21 21:17 Dose: 50 mls/hr Documented by: [id number] Discontinued Medications Acetaminophen (Acetaminophen 500 Mg Tab) 1,000 mg PO NOW STA Stop: 07/26/21 14:22 Last Admin: 07/26/21 14:48 Dose: 1,000 mg Documented by: [id number] Sodium Chloride (Nss) 500 mls @ 999 mls/hr IV .Q31M JACKSON Stop: 07/26/21 15:00 Last Infusion: 07/26/21 15:30 Dose: 0 mls/hr Documented by: [id number] Admin: 07/26/21 14:47 Dose: 999 mls/hr Documented by: [id number] Magnesium Sulfate/Dextrose (Magnesium Sulfate / D5w) 1 gm in 100 mls @ 100 mls/hr IV NOW STA Stop: 07/26/21 16:52 Last Infusion: 07/26/21 17:50 Dose: 0 mls/hr Documented by: [id number] Admin: 07/26/21 16:49 Dose: 100 mls/hr Documented by: [id number] Ioversol (Optiray 320 100ml) 95 ml IV ONCE ONE Stop: 07/26/21 17:36 Last Admin: 07/26/21 17:28 Dose: 95 ml Documented by: [id number] Methylprednisolone (Methylprednisolone 40 Mg/Ml Vial) 40 mg IV NOW STA Stop: 07/26/21 19:41 Last Admin: 07/26/21 20:02 Dose: 40 mg Documented by: [id number] Morphine Sulfate (Morphine Sulfate 2 Mg/Ml Carp) 2 mg IV NOW STA Stop: 07/26/21 14:22 Last Admin: 07/26/21 14:54 Dose: 2 mg Documented by: [id number] Imaging Data Radiologist's Impression: Chest X-Ray 07/26/21 14:21 XR chest 1V portable CLINICAL HISTORY: weakness TECHNIQUE: Single frontal radiograph of the chest was obtained. Comparison: Comparison is made to chest one view 07/13/2021 FINDINGS: Dual lead pacemaker is seen. Calcified aortic knob is seen. Stable cardiomegaly. Mild interstitial coarsening is unchanged. No evidence of pleural effusion or pneumothorax. IMPRESSION: Cardiomegaly with mild interstitial coarsening. ACT 112: Negative or not required by law. Electronically signed by: Shivam Wilkinson M.D. 07/26/2021 4:[address] 07/26/21 14:[address] DOSE: 690.05 mGycm HISTORY: Fall with head injury. TECHNIQUE: Multiaxial CT images of the head were performed without the use of intravenous contrast. Automated exposure control was utilized for this study. A dose lowering technique was utilized adhering to the principles of ALARA. Comparison: Head CT 07/13/2021. Findings: The paranasal sinuses and mastoid air cells are clear. The calvarium and skull base are intact. There is no mass, hematoma, midline shift, acute infarct. White matter hypodensity is nonspecific but suggestive of microvascular ischemic change. The ventricles and sulci demonstrate mild age-related involutional changes. Impression: No significant change compared to the prior study. No acute intracranial abnormality. ACT 112: Negative or not required by law. Electronically signed by: Anthony Conley M.D. 07/26/2021 5:57 PM Abdomen/Pelvis CT 07/26/21 14:[address] WITH IV CONTRAST CT DOSE: 904.12 mGycm HISTORY: Diffuse abdominal pain. Nausea. TECHNIQUE: Multiaxial CT images of the abdomen and pelvis were performed fol lowing the use of intravenous contrast. A dose lowering technique was utilized adhering to the principles of ALARA. COMPARISON STUDY: Abdomen and pelvis CT 06/22/2016. FINDINGS: Mild fibrotic changes within the lung bases. There are few punctate ca lcified granuloma seen within the left lower lobe. No pneumoperitoneum. No pneumatosis. There is a left hip prosthesis again noted. 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 No fractures within the visualized osseous structures. Pacemaker wires are noted. The heart is mildly enlarged. There is a trace pericardial effusion, unchanged. Advanced coronary artery calcifications are noted. A few small gallstones. No gallbladder wall thickening. A few punctate calcified granulomas seen within the liver and spleen. The main portal vein is patent. The adrenal glands and pancreas are unremarkable. Bilateral cortical renal scarring. No hydronephrosis. Small bilateral renal hypodense lesions favor cysts. The bladder is mildly distended. No bladder wall thickening. There is a left retroaortic renal vein. Moderate calcified plaque within the normal caliber abdominal aorta. No pelvic lymphadenopathy. There is mild pelvic floor collapse. Prior hysterectomy. Colonic diverticulosis. No saloni dence for acute diverticulitis. No bowel wall thickening or obstruction. Normal appendix. IMPRESSION: 1. No bowel wall thickening or obstruction. 2. Colonic diverticulosis. No evidence for acute diverticulitis. 3. Normal appendix. 4. Cholelithiasis. No gallbladder wall thickening. 5. Trace pericardial effusion and mild cardiomegaly, unchanged. 6. Additional findings as described above. ACT 112: Negative or not required by law. Electronically signed by: Anthony Conley M.D. 07/26/2021 5:49 PM Discharge Plan Visit Data Chief Complaint: Weakness ED Provider: Marcelino Ruggiero Discharge Problem: Chest pain, Pacemaker, Whole body pain, Hypomagnesemia, History of coronary artery disease Patient Disposition: Admitted As Inpatient Forms Stand Alone Forms: [facility] Prescriptions Prescriptions: No Action fluticasone propionate [Flonase Allergy Relief] 50 mcg/actuation spray,suspension 1 spray INTRANASAL BID PRN (Reason: Nasal Congestion) Qty: 47.4 RF: 3 atorvastatin 80 mg tablet 80 mg PO DAILY Qty: 90 RF: 3 metformin 500 mg tablet extended release 24hr 500 mg PO DAILY Qty: 90 RF: 3 omeprazole 20 mg capsule,delayed release(DR/EC) 20 mg PO DAILY PRN (Reason: Acid Reflux) Qty: 90 RF: 1 carvedilol 25 mg tablet 25 mg PO BID Qty: 60 RF: 5 telmisartan [Micardis] 40 mg tablet 40 mg PO DAILY Qty: 90 RF: 3 clindamycin HCl 300 mg capsule 600 mg PO DIRECTED PRN (Reason: Prophylaxis) Qty: 2 RF: 0 prednisone 1 mg tablet 3 mg PO DAILY Qty: 270 RF: 1 benzonatate 100 mg capsule 100 mg PO TID PRN (Reason: cough) Qty: 90 RF: 3 cholecalciferol (vitamin D3) 50 mcg (2,000 unit) capsule 50 mcg PO DAILY RF: 0 Systane Balance 0.6 % drops 1 drp ophthalmic (eye) TID RF: 0 apple cider vinegar 500 mg tablet 750 mg PO QAM RF: 0 nifedipine 60 mg tablet extended release 60 mg PO DAILY Qty: 90 RF: 3 multivitamin Tablet 1 tab PO DAILY RF: 0 nitroglycerin [Nitrostat] 0.4 mg Tablet, Sublingual 0.4 mg Sublingual DIRECTED PRN (Reason: Chest Pain) RF: 0 timolol maleate 0.5 % drops 1 drp OPB QAM RF: 0 [employer] 750 mg-100 mg- 1.65 mg-108 mg Tablet 1 tab PO DAILY RF: 0 Probiotic 100 billion cell Capsule 1 cap PO DAILY RF: 0 aspirin [Aspirin Low Dose] 81 mg Tablet,Delayed Release (Dr/Ec) 81 mg PO DAILY RF: 0 ketoconazole 2 % cream 1 applic topical DAILY RF: 0 nystatin 100,000 unit/gram powder 1 applic topical TID PRN (Reason: rash) Qty: 60 RF: 0 acetaminophen [Tylenol] 325 mg Tablet 650 mg PO Q6H PRN (Reason: PAIN/FEVER) RF: 0 Referrals Referrals: Shelli Olmstead MD [Primary Care Provider] -
[2021-07-26] MEDS ORDERED: MoRPHine SULFATE 2 MG/ML CARP IV STA (14:21)
[2021-07-26] MEDS ORDERED: ACETAMINOPHEN 500 MG TAB PO STA (14:21)
[2021-07-26] MEDS ORDERED: SODIUM CHLORIDE 0.9% 500 ML IV SCH (14:30)
[2021-07-26 15:13] LABS: Basophils # (auto) 0.01 K/uL (0-0.2); Basophils % (auto) 0.1 %; Eosinophils # (auto) 0.15 K/uL (0-0.5); Eosinophils % (auto) 1.6 %; Hematocrit (blood only) 38.9 % (37-47); Hemoglobin 12.6 g/dL (12.0-16.0); Immature Granulocytes # (auto) 0.02 K/uL (0.00-0.02); Immature Granulocytes % (auto) 0.2 %; Lymphocytes # (auto) 1.38 K/uL (1.2-3.4); Lymphocytes % (auto) 15.1 %; Mean Corpuscular Hgb Conc 32.4 g/dL (32-36); Mean Corpuscular Volume 95.8 fL (80-100); Mean Platelet Volume 10.4 fL (7.4-10.4); Monocytes # (auto) 0.84 K/uL (0.11-0.59); Monocytes % (auto) 9.2 %; Neutrophils # (auto) 6.74 K/uL (1.4-6.5); Neutrophils % (auto) 73.8 %; Platelet Count 212 K/uL (130-400); RDW Coefficient of Variation 14.2 % (11.5-14.5); RDW Standard Deviation 49.9 fL (36.4-46.3); Red Blood Count 4.06 M/uL (4.2-5.4); White Blood Count 9.14 K/uL (4.8-10.8)
[2021-07-26 15:27] LABS: Appearance Urine Clear (Clear); Bacteria Urine Automated Negative (Negative); Bilirubin Urine Negative (Negative); Blood Urine Negative (Negative); Cast Urine Automated 0 /lpf (0-5); Color Urine Yellow; Epithelial Cell Urine Auto >30 /lpf (0-5); Glucose Urine UA Negative (Negative); Ketones Urine Negative (Negative); Leukocyte Esterase Urine Trace (Negative); Nitrite Urine Negative (Negative); Protein Urine Negative (Negative); RBC Urine Automated 0-4 /hpf (0-4); Specific Gravity Urine 1.007 (1.000-1.030); Urobilinogen Urine Negative (Negative); pH Urine 6.5 (4.5-7.5)
[2021-07-26 15:36] LABS: Albumin Globulin Ratio 1.1 (0.9-2); BUN Creatinine Ratio 17.6 (10-20); Bilirubin,Total 1.2 mg/dl (0.2-1.0); Calcium 9.6 mg/dl (8.5-10.1); Creatinine Clr Calc Pharmacy 56.5 ml/min; Est GFR (African American) 93.1 ml/min; Est GFR (Non-African American) 80.3 ml/min; Globulin 3.7 gm/dl (2.5-4.0); Magnesium 1.6 mg/dl (1.7-2.4); Potassium 3.9 mmol/L (3.5-5.1); Total Protein 7.7 gm/dl (6.0-8.3)
[2021-07-26 15:38] LABS: Troponin I 0.03 ng/ml (0-0.04)
[2021-07-26] MEDS ORDERED: MAGNESIUM SULFATE / D5W 1 GM/100 ML BAG IV STA ×2 (15:53→20:53)
--- NOTE | 2021-07-26 16:14 | Electrocardiogram Report ---
Test Reason : Blood Pressure : / mmHG Vent. Rate : 088 BPM Atrial Rate : 088 BPM P-R Int : 198 ms QRS Dur : 166 ms QT Int : 428 ms P-R-T Axes : 066 -61 110 degrees QTc Int : 517 ms Atrial-sensed ventricular-paced rhythm Abnormal ECG When compared with ECG of 13-JUL-2021 11:12, Vent. rate has increased BY 25 BPM Confirmed by Barry Zhong ([id number]) on 07/26/2021 4:14:07 PM Referred By: Confirmed By:Dean Zhong
--- NOTE | 2021-07-26 16:16 | XRay Report ---
XR chest 1V portable CLINICAL HISTORY: weakness TECHNIQUE: Single frontal radiograph of the chest was obtained. Comparison: Comparison is made to chest one view 07/13/2021 FINDINGS: Dual lead pacemaker is seen. Calcified aortic knob is seen. Stable cardiomegaly. Mild interstitial co arsening is unchanged. No evidence of pleural effusion or pneumothorax. IMPRESSION: Cardiomegaly with mild interstitial coarsening. ACT 112: Negative or not required by law. Electronically signed by: Shivam Wilkinson M.D. 07/26/2021 4:14 PM
[2021-07-26 16:56] LABS: Influenza A virus by PCR Negative (Negative); Influenza B virus by PCR Negative (Negative)
[2021-07-26] MEDS ORDERED: OPTIRAY 320 100ml IV ONE (17:35)
--- NOTE | 2021-07-26 17:51 | CT Scan Report ---
ABDOMEN AND PELVIS CT WITH IV CONTRAST CT DOSE: 904.12 mGycm HISTORY: Diffuse abdominal pain. Nausea. TECHNIQUE: Multiaxial CT images of the abdomen and pelvis were performed following the use of intrave nous contrast. A dose lowering technique was utilized adhering to the principles of ALARA. COMPARISON STUDY: Abdomen and pelvis CT 06/22/2016. FINDINGS: Mild fibrotic changes within the lung bases. There are few punctate calcified granuloma see n within the left lower lobe. No pneumoperitoneum. No pneumatosis. There is a left hip prosthesis aga in noted. 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 No fractures within the visualized osseous structures. Pacemaker wires are noted. The heart is mildly enlarged. There is a trace pericar dial effusion, unchanged. Advanced coronary artery calcifications are noted. A few small gallstones. No gallbladder wall thickening. A few punctate calcified granulomas seen within the liver and spleen. The main portal vein is patent. The adrenal glands and pancreas are unremarkable. Bilateral cortical renal scarring. No hydronephrosis. Small bilateral renal hypodense lesions favor cysts. The bladder is mildly distended. No bladder wall thickening. There is a left retroaortic renal vein. Moderate rufina cified plaque within the normal caliber abdominal aorta. No pelvic lymphadenopathy. There is mild pel joe floor collapse. Prior hysterectomy. Colonic diverticulosis. No evidence for acute diverticulitis. No bowel wall thickening or obstruction. Normal appendix. IMPRESSION: 1. No bowel wall thickening or obstruction. 2. Colonic diverticulosis. No evidence for acute diverticulitis. 3. Normal appendix. 4. Cholelithiasis. No gallbladder wall thickening. 5. Trace pericardial effusion and mild cardiomegaly, unchanged. 6. Additional findings as described above. ACT 112: Negative or not required by law. Electronically signed by: Anthony Conley M.D. 07/26/2021 5:49 PM
--- NOTE | 2021-07-26 18:00 | CT Scan Report ---
HEAD CT NONCONTRAST CT DOSE: 690.05 mGycm HISTORY: Fall with head injury. TECHNIQUE: Multiaxial CT images of the head were performed without the use of intravenous contrast. A utomated exposure control was utilized for this study. A dose lowering technique was utilized adheri ng to the principles of ALARA. Comparison: Head CT 07/13/2021. Findings: The paranasal sinuses and mastoid air cells are clear. The calvarium and skull base are int act. There is no mass, hematoma, midline shift, acute infarct. White matter hypodensity is nonspecifi c but suggestive of microvascular ischemic change. The ventricles and sulci demonstrate mild age-rela britta involutional changes. Impression: No significant change compared to the prior study. No acute intracranial abnormality. ACT 112: Negative or not required by law. Electronically signed by: Anthony Conley M.D. 07/26/2021 5:57 PM
--- NOTE | 2021-07-26 20:54 | History & Physical Report ---
Date of Service July 26, 2021 Assessment & Plan (1) Whole body pain: Plan: 86yo female with history of PMR on chronic Prednisone 3mg daily presenting with body pain ongoing x 1 day. Pain is generalized, involving mostly arms/legs/chest/back and neck. She does report some bone pain in her legs today as well. Etiology unclear. Possibly secondary to flare of PMR. Patient has been on longstanding Prednisone - stable dosing. She has had pain flares after attempted Prednisone weaning in the past. She was administered Solumedrol 40mg IV in the ER ESR and CRP are elevated -Observation to medical floor -Start scheduled Tylenol 1gm TID -Consider increasing Prednisone -Fall precautions (2) History of polymyalgia rheumatica: Plan: Patient on longstanding Prednisone for diagnosis of PMR, possible RA? Uncertain if body pain as described above is secondary to PMR flare. She was given Solumedrol 40mg IV in the ER which should help her pain if truly secondary to flare from PMR. -Will continue Prednisone 3mg po daily. Hold off on increasing daily dose for now as she just received IV dose -Scheduled Tylenol (3) History of coronary artery disease: Plan: Chronic. Patient with history of ACS in 2013 s/p SANDY x 2 placed to LCx -Continue ASA 81mg po daily -Continue Lipitor 80mg po daily -Continue Carvedilol 25mg po BID (4) Cognitive impairment: Plan: Patient with cognitive impairment, ?vascular dementia as well as fixed paranoid delusional disorder for years. She is living at home independently with family close by and seems to be doing well with this. Patient has been referred for formal neurocognitive evaluation as an outpatient to further elucidate her cognitive impairment. -Delirium prevention strategies with frequent orientation, maintenance of sleep/wake cycle (5) Ischemic cardiomyopathy: Plan: Compensated. Last echo 10/2019 with mild LVH, mild LA dilation and mild to moderate MR -Continue Telmisartan -Continue Carvedilol (6) Hypertension: Plan: Blood pressure elevated -Continue Telmisartan 40mg po daily -Continue Nifedipine 60mg po daily -Continue Carvedilol 25mg po daily -Continue to monitor - goal BP <140/80 Plan: F/E/N - LR at 80mL/hr x 1 liter, Mg repleted in ER, CC/AHA diet as tolerated Ppx - Low risk Code - Full Dispo - Observation to medical History of Present Illness Chief Complaint: body pain Primary Care Provider: Shelli Olmstead MD Ayla Lugo is an 86yo female with history of CAD, prior CVA, PMR on chronic long-standing prednisone 3mg daily. Patient reported a mild headache and runny nose yesterday then started having pain in her arms, back, chest and neck last evening. She was unable to sleep well due to discomfort. This AM she woke with severe pain in her arms, neck, back, chest. She states that the pain is sharp and severe, involves the muscles and bones as well. No exacerbating or relieving factors identified. She reports feeling warm at home but did not check her temperature. She denies cough, SOB, abdominal pain. She did have some nausea earlier today as well but no vomiting. She is eating and drinking well. No additional complaints at this time. ER Course: Solumedrol 40mg, Tylenol, Mg, Morphine, NSS Allergies Allergy/AdvReac Type Severity Reaction Status Date / Time Cephalosporins Allergy Intermediate HIVES Verified 07/26/21 15:58 Penicillins Allergy Intermediate HIVES Verified 07/26/21 15:58 valdecoxib Allergy Intermediate ITCHING,ANTOLIN Verified 07/26/21 15:58 SEATED prednisone Allergy Unknown Unknown Verified 07/26/21 15:58 codeine AdvReac Intermediate NAUSEA Verified 07/26/21 15:58 pantoprazole AdvReac Intermediate NAUSEATED Verified 07/26/21 15:58 Home Medications Medication Instructions Recorded Confirmed Type Lactobacillus 40-Bifidobact 1 cap PO DAILY 03/15/18 07/26/21 History 3-S.thermophilus 100 billion cell capsule (Probiotic) glucosam 750 mg-chondroi 100 1 tab PO DAILY 03/15/18 07/26/21 History mg-hyalur 1.65 mg-CF borate 108 mg tablet ([employer]) multivitamin 1 tab PO DAILY 03/15/18 07/26/21 History nitroglycerin 0.4 mg sublingual 0.4 mg SUBLINGUAL DIRECTED PRN 03/15/18 07/26/21 History tablet (Nitrostat) timolol maleate 0.5 % eye drops 1 drp OPB QAM 03/15/18 07/26/21 History aspirin 81 mg tablet,delayed 81 mg PO DAILY 05/11/20 07/26/21 History release (Aspirin Low Dose) ketoconazole 2 % topical cream 1 applic TOPICAL DAILY 05/11/20 07/26/21 History nystatin 100,000 unit/gram topical 1 applic TOPICAL TID PRN #60 g 05/11/20 07/26/21 Rx powder fluticasone propionate 50 1 spray INTRANASAL BID PRN #47.4 ml 07/12/20 07/26/21 Rx mcg/actuation nasal spray,suspension (Flonase Allergy Relief) cholecalciferol (vitamin D3) 50 50 mcg PO DAILY 07/29/20 07/26/21 History mcg (2,000 unit) capsule atorvastatin 80 mg tablet 80 mg PO DAILY #90 tab 10/05/20 07/26/21 Rx metformin 500 mg tablet,extended 500 mg PO DAILY #90 tab 01/27/21 07/26/21 Rx release 24hr omeprazole 20 mg capsule,delayed 20 mg PO DAILY PRN #90 cap 02/25/21 07/26/21 Rx release apple cider vinegar 500 mg tablet 750 mg PO QAM tab 03/29/21 07/26/21 History propylene glycol 0.6 % eye drops 1 drp OPHTHALMIC (EYE) TID 03/29/21 07/26/21 History (Systane Balance) nifedipine 60 mg tablet,extended 60 mg PO DAILY #90 tab 03/30/21 07/26/21 Rx release carvedilol 25 mg tablet 25 mg PO BID #60 tab 05/16/21 07/26/21 Rx telmisartan 40 mg tablet (Micardis) 40 mg PO DAILY #90 tab 07/01/21 07/26/21 Rx benzonatate 100 mg capsule 100 mg PO TID PRN #90 cap 07/14/21 07/26/21 Rx prednisone 1 mg tablet 3 mg PO DAILY #270 tab 07/14/21 07/26/21 Rx clindamycin HCl 300 mg capsule 600 mg PO DIRECTED PRN #2 cap 07/20/2107/06 Rx acetaminophen 325 mg tablet 650 mg PO Q6H PRN 07/26/21 07/26/21 History (Tylenol) Past Med/Surg History Medical History (Updated 07/27/21 @ 00:43 by Lubna M Javed, DO) Cervical radiculopathy Complex endometrial hyperplasia Coronary artery disease, occlusive CVA (cerebral vascular accident) (~09/2018) History of kidney stones History of polymyalgia rheumatica Hypertension Ischemic cardiomyopathy half-way (current) use of systemic steroids LUE weakness (09/09/13) Lumbar radiculopathy Myalgia and myositis Obesity Osteopenia Presence of stent in coronary artery in patient with coronary artery disease Primary hypertension Rheumatoid arthritis 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, without long-term current use of insulin Urinary incontinence Surgical History History of knee replacement S/P knee replacement Stented coronary artery Family History Grandmother (Maternal) Myocardial infarction Stroke Mother Myocardial infarction Diabetes Stroke Brother Myocardial infarction Diabetes Stroke Other No significant family history Denies family history of Ovarian cancer Prostate cancer Breast cancer Colorectal cancer Social History Smoking Status: Never smoker Hx Alcohol Use: No Hx Substance Use: No Preferred Language: Japanese Communication Ability: Effective 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: No Beliefs That Will Affect Care: None marital status: / Current Living Situation: Alone Other Information That Helps Us Care for You: No Feels Safe at Home: Yes Safety Concerns: Feels Safe At This Time Seatbelt Use: always Assistive Devices: Denture - Upper, Glasses and Walker Review of Systems Review of Systems: All systems reviewed & are unremarkable except as noted in HPI & below Physical Exam Physical Exam: General: patient resting comfortably, NAD, non-toxic in appearance, AA&O x 4 Skin: warm, dry, intact, no rashes or lesions HEENT: NC/AT, PERRL, EOMI, anicteric sclera, conjunctiva without injection, external ear normal to inspection and nontender, nares patent, moist mucus membranes, dentition intact, no oropharyngeal lesions, neck supple, trachea midline, no LAD, no thyromegaly, no JVD Heart: +S1/S2, regular, no m/r/g Lungs: equal air entry bilaterally, no rales/rhonchi/wheezes Abd: +BS, soft, NT/ND, no masses/organomegaly/ascites Ext: warm, 2+ pulses in UE/LE bilaterally, no clubbing/cyanosis or edema Neuro: nonfocal, patient AA&O x 4, speech intact, no facial droop, moving all extremities on command with equal strength 5/5 Tenderness with palpation of arms and legs. No joint swelling or tenderness Results & Data Results & Data ([facility]) Vital Signs (Past 12 Hours) Vital Signs Temp Pulse Pulse Resp BP BP Pulse Ox 07/26/21 19:00 67 18 157/63 H 93 07/26/21 18:00 69 20 138/72 94 07/26/21 17:35 73 24 91 07/26/21 17:00 70 24 138/79 93 07/26/21 16:30 73 22 159/74 H 92 07/26/21 16:00 76 22 152/85 H 93 07/26/21 15:30 84 26 H 163/70 H 91 07/26/21 15:00 93 H 29 H 175/73 H 95 07/26/21 14:56 105 H 40 H 189/77 H 07/26/21 14:30 87 28 H 91 07/26/21 14:00 81 23 93 07/26/21 13:43 93 07/26/21 13:36 37.6 C H 85 33 H 154/72 H 95 Laboratory Results Laboratory Results WBC 9.14 K/uL (4.8-10.8) 07/26/21 15:00 RBC 4.06 M/uL (4.2-5.4) L 07/26/21 15:00 Hgb 12.6 g/dL (12.0-16.0) 07/26/21 15:00 Hct 38.9 % (37-47) 07/26/21 15:00 MCV 95.8 fL (80-100) 07/26/21 15:00 MCH 31.0 pg (25-34) 07/26/21 15:00 MCHC 32.4 g/dL (32-36) 07/26/21 15:00 RDW Std Deviation 49.9 fL (36.4-46.3) H 07/26/21 15:00 RDW Coeff of [place] 14.2 % (11.5-14.5) 07/26/21 15:00 Plt Count 212 K/uL (130-400) 07/26/21 15:00 MPV 10.4 fL (7.4-10.4) 07/26/21 15:00 Immature Gran % (Auto) 0.2 % 07/26/21 15:00 Neut % (Auto) 73.8 % 07/26/21 15:00 Lymph % (Auto) 15.1 % 07/26/21 15:00 [place] % (Auto) 9.2 % 07/26/21 15:00 Eos % (Auto) 1.6 % 07/26/21 15:00 Baso % (Auto) 0.1 % 07/26/21 15:00 Neut # (Auto) 6.74 K/uL (1.4-6.5) H 07/26/21 15:00 Lymph # (Auto) 1.38 K/uL (1.2-3.4) 07/26/21 15:00 [place] # (Auto) 0.84 K/uL (0.11-0.59) H 07/26/21 15:00 Eos # (Auto) 0.15 K/uL (0-0.5) 07/26/21 15:00 Baso # (Auto) 0.01 K/uL (0-0.2) 07/26/21 15:00 Immature Gran # (Auto) 0.02 K/uL (0.00-0.02) 07/26/21 15:00 ESR 71 mm/hr (0-30) H 07/26/21 15:00 Sodium 138 mmol/L (136-145) 07/26/21 15:00 Potassium 3.9 mmol/L (3.5-5.1) 07/26/21 15:00 Chloride 101 mmol/L (98-107) 07/26/21 15:00 Carbon Dioxide 29 mmol/L (21-32) 07/26/21 15:00 Anion Gap 8 (3-11) 07/26/21 15:00 BUN 12 mg/dl (6-23) 07/26/21 15:00 Creatinine 0.68 mg/dl (0.6-1.2) 07/26/21 15:00 Est Cr Clr Drug Dosing 56.5 ml/min 07/26/21 15:00 Est GFR ( Amer) 93.1 ml/min 07/26/21 15:00 Est GFR (Non-Af Amer) 80.3 ml/min 07/26/21 15:00 BUN/Creatinine Ratio 17.6 (10-20) 07/26/21 15:00 Glucose 94 mg/dl (70-99(Fasting)) 07/26/21 15:00 POC Glucose 172 mg/dl (70-99) H 07/26/21 22:46 Calcium 9.6 mg/dl (8.5-10.1) 07/26/21 15:00 Magnesium 1.6 mg/dl (1.7-2.4) L 07/26/21 15:00 Total Bilirubin 1.2 mg/dl (0.2-1.0) H 07/26/21 15:00 AST 18 U/L (13-39) 07/26/21 15:00 ALT 7 U/L (7-52) 07/26/21 15:00 Alkaline Phosphatase 72 U/L (34-104) 07/26/21 15:00 Total Creatine Kinase 31 U/L (26-192) 07/26/21 18:33 Troponin I < 0.03 ng/ml (0-0.04) 07/26/21 18:27 C-Reactive Protein 7.24 mg/dl (0-0.5) H 07/26/21 18:33 Total Protein 7.7 gm/dl (6.0-8.3) 07/26/21 15:00 Albumin 4.0 gm/dl (3.4-5.0) 07/26/21 15:00 Globulin 3.7 gm/dl (2.5-4.0) 07/26/21 15:00 Albumin/Globulin Ratio 1.1 (0.9-2) 07/26/21 15:00 TSH 1.931 uIu/ml (0.300-4.500) 07/26/21 15:00 Urine Color Yellow 07/26/21 15:00 Urine Appearance Clear (Clear) 07/26/21 15:00 Urine pH 6.5 (4.5-7.5) 07/26/21 15:00 Ur Specific [place] 1.007 (1.000-1.030) 07/26/21 15:00 Urine Protein Negative (Negative) 07/26/21 15:00 Urine Glucose (UA) Negative (Negative) 07/26/21 15:00 Urine Ketones Negative (Negative) 07/26/21 15:00 Urine Blood Negative (Negative) 07/26/21 15:00 Urine Nitrite Negative (Negative) 07/26/21 15:00 Urine Bilirubin Negative (Negative) 07/26/21 15:00 Urine Urobilinogen Negative (Negative) 07/26/21 15:00 Ur Leukocyte Esterase Trace (Negative) H 07/26/21 15:00 Urine WBC (Auto) 5-10 /hpf (0-5) H 07/26/21 15:00 Urine RBC (Auto) 0-4 /hpf (0-4) 07/26/21 15:00 U Hyaline Cast (Auto) 0 /lpf (0-5) 07/26/21 15:00 U Epithel Cells (Auto) >30 /lpf (0-5) H 07/26/21 15:00 Urine Bacteria (Auto) Negative (Negative) 07/26/21 15:00 Influ A Molecular Assay Negative (Negative) 07/26/21 16:25 Influ B Molecular Assay Negative (Negative) 07/26/21 16:25 SARS-CoV-2, RNA, NAAT NEGATIVE (NEGATIVE) 07/26/21 16:25 Impressions Chest X-Ray 07/26/21 14:21 XR chest 1V portable CLINICAL HISTORY: weakness TECHNIQUE: Single frontal radiograph of the chest was obtained. Comparison: Comparison is made to chest one view 07/13/2021 FINDINGS: Dual lead pacemaker is seen. Calcified aortic knob is seen. Stable cardiomegaly. Mild interstitial coarsening is unchanged. No evidence of pleural effusion or pneumothorax. IMPRESSION: Cardiomegaly with mild interstitial coarsening. ACT 112: Negative or not required by law. Electronically signed by: Shivam Wilkinson M.D. 07/26/2021 4:[address] 07/26/21 14:[address] DOSE: 690.05 mGycm HISTORY: Fall with head injury. TECHNIQUE: Multiaxial CT images of the head were performed without the use of intravenous contrast. Automated exposure control was utilized for this study. A dose lowering technique was utilized adhering to the principles of ALARA. Comparison: Head CT 07/13/2021. Findings: The paranasal sinuses and mastoid air cells are clear. The calvarium and skull base are intact. There is no mass, hematoma, midline shift, acute infarct. White matter hypodensity is nonspecific but suggestive of microvascular ischemic change. The ventricles and sulci demonstrate mild age-related involutional changes. Impression: No significant change compared to the prior study. No acute intracranial abnormality. ACT 112: Negative or not required by law. Electronically signed by: Anthony Conley M.D. 07/26/2021 5:57 PM Abdomen/Pelvis CT 07/26/21 14:[address] WITH IV CONTRAST CT DOSE: 904.12 mGycm HISTORY: Diffuse abdominal pain. Nausea. TECHNIQUE: Multiaxial CT images of the abdomen and pelvis were performed following the use of intravenous contrast. A dose lowering technique was utilized adhering to the principles of ALARA. COMPARISON STUDY: Abdomen and pelvis CT 06/22/2016. FINDINGS: Mild fibrotic changes within the lung bases. There are few punctate calcified granuloma seen within the left lower lobe. No pneumoperitoneum. No pneumatosis. There is a left hip prosthesis again noted. 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 No fractures within the visualized osseous structures. Pacemaker wires are noted. The heart is mildly enlarged. There is a trace pericardial effusion, unchanged. Advanced coronary artery calcifications are noted. A few small gallstones. No gallbladder wall thickening. A few punctate calcified granulomas seen within the liver and spleen. The main portal vein is patent. The adrenal glands and pancreas are unremarkable. Bilateral cortical renal scarring. No hydronephrosis. Small bilateral renal hypodense lesions favor cysts. The bladder is mildly distended. No bladder wall thickening. There is a left retroaortic renal vein. Moderate calcified plaque within the normal caliber abdominal aorta. No pelvic lymphadenopathy. There is mild pelvic floor collapse. Prior hysterectomy. Colonic diverticulosis. No evidence for acute diverticulitis. No bowel wall thickening or obstruction. Normal appendix. IMPRESSION: 1. No bowel wall thickening or obstruction. 2. Colonic diverticulosis. No evidence for acute diverticulitis. 3. Normal appendix. 4. Cholelithiasis. No gallbladder wall thickening. 5. Trace pericardial effusion and mild cardiomegaly, unchanged. 6. Additional findings as described above. ACT 112: Negative or not required by law. Electronically signed by: Anthony Conley M.D. 07/26/2021 5:49 PM PG Care Time/CCT Total # of Minutes Spent Total Time Spent with Patient: Total time spent is greater than 50% in coordination of care (as documented) at patient's floor/unit and/or counseling patient: Coding Level of Care Code INT OBSERVATION CARE 50M LVL 2 Diagnoses Whole body pain R52 History of coronary artery disease Z86.79 Cognitive impairment R41.89 Ischemic cardiomyopathy I25.5 History of polymyalgia rheumatica Z87.39 Hypertension I10
[2021-07-26] MEDS: ACETAMINOPHEN 500 MG TAB PO SCH (21:14)
[2021-07-26] MEDS ORDERED: CARBOHYDRATES FOR HYPOGLYCEMIA PO PRN (22:43)
[2021-07-26] MEDS ORDERED: ONDANSETRON INJ 2 MG/ML 2 ML VIAL IV PRN (22:43)
[2021-07-26] MEDS ORDERED: BENZONATATE 100 MG CAPSULE PO PRN (22:43)
[2021-07-26] MEDS ORDERED: GLUCOSE 10 TABS/TUBE PO PRN (22:43)
[2021-07-26] MEDS ORDERED: GLUCAGON FOR INJ 1 MG VIAL SQ PRN (22:43)
[2021-07-26] MEDS ORDERED: LACTATED RINGER'S 1,000 ML IV SCH (22:43)
[2021-07-26] MEDS ORDERED: GLUCOSE 40% GEL 15 GM TUBE PO PRN (22:43)
[2021-07-26] MEDS ORDERED: DEXTROSE 50% 50 ML SYRINGE IV PRN (22:43)
[2021-07-26 23:41] LABS: C Reactive Protein 7.24 mg/dl (0-0.5)
[2021-07-26] MEDS: carvediloL 25 MG TAB PO SCH (23:45)
[2021-07-26] MEDS: ARTIFICIAL TEARS OP SCH (23:46)
[2021-07-27 06:05] LABS: Hematocrit (blood only) 35.8 % (37-47); Hemoglobin 11.6 g/dL (12.0-16.0); Immature Granulocytes # (auto) 0.01 K/uL (0.00-0.02); Immature Granulocytes % (auto) 0.2 %; Lymphocytes # (auto) 0.42 K/uL (1.2-3.4); Lymphocytes % (auto) 8.2 %; Mean Corpuscular Hgb Conc 32.4 g/dL (32-36); Mean Corpuscular Volume 95.7 fL (80-100); Mean Platelet Volume 10.5 fL (7.4-10.4); Neutrophils # (auto) 4.57 K/uL (1.4-6.5); Neutrophils % (auto) 89.6 %; Platelet Count 200 K/uL (130-400); RDW Coefficient of Variation 13.9 % (11.5-14.5); RDW Standard Deviation 48.7 fL (36.4-46.3); Red Blood Count 3.74 M/uL (4.2-5.4)
[2021-07-27 06:27] LABS: Albumin Level 3.5 gm/dl (3.4-5.0); Bilirubin Direct 0.1 mg/dl (0-0.2); Bilirubin,Total 0.7 mg/dl (0.2-1.0); Calcium 9.3 mg/dl (8.5-10.1); Est GFR (African American) 99.8 ml/min; Est GFR (Non-African American) 86.1 ml/min; Potassium 4.2 mmol/L (3.5-5.1); Total Protein 6.8 gm/dl (6.0-8.3)
[2021-07-27] MEDS: ASPIRIN 81 MG ECTAB PO SCH (08:55)
[2021-07-27] MEDS: NIFEdipine EXTENDED REL 30 MG TABCR PO SCH (08:55)
[2021-07-27] MEDS: ACETAMINOPHEN 500 MG TAB PO SCH ×3 (08:55→20:55)
[2021-07-27] MEDS: TELMISARTAN 40 MG TAB PO SCH (08:55)
[2021-07-27] MEDS: ATORVASTATIN 40 MG TAB PO SCH (08:56)
[2021-07-27] MEDS: carvediloL 25 MG TAB PO SCH ×2 (08:56→20:56)
[2021-07-27] MEDS: KETOCONAZOLE 2% CR 15 GM TUBE EXT SCH (08:56)
[2021-07-27] MEDS: TIMOLOL MALEATE 0.5% OP SOLN 5 ML BTL OP SCH (08:56)
[2021-07-27] MEDS: ARTIFICIAL TEARS OP SCH ×3 (08:57→21:03)
[2021-07-27] MEDS ORDERED: predniSONE 1 MG TAB PO SCH (09:00)
[2021-07-27] MEDS: MAGNESIUM SULFATE / D5W 1 GM/100 ML BAG IV SCH ×2 (10:10→12:10)
[2021-07-27] MEDS: predniSONE 20 MG TAB PO SCH (14:38)
--- NOTE | 2021-07-27 16:34 | Hospitalist Progress Note ---
Date of Service July 27, 2021 Assessment & Plan (1) Whole body pain: Plan: 86yo female with history of PMR on chronic Prednisone 3mg daily presenting with body pain ongoing x 1 day. Pain is generalized, involving mostly arms/legs/chest/back and neck. She does report some bone pain in her legs today as well. Etiology unclear. Possibly secondary to flare of PMR. Patient has been on longstanding Prednisone - stable dosing. She has had pain flares after attempted Prednisone weaning in the past. -Placed in observation to med/surg -She was administered Solumedrol 40mg IV in the ER -ESR and CRP are elevated -Ordered scheduled Tylenol 1gm TID -Fall precautions -D/C Prednisone 3mg dose and start burst with quick taper--ordered Prednisone 40mg -PT/OT eval (2) History of polymyalgia rheumatica: Plan: Patient on longstanding Prednisone for diagnosis of PMR, possible RA? She was given Solumedrol 40mg IV in the ER which should help her pain if truly secondary to flare from PMR. (3) History of coronary artery disease: Plan: Chronic. Patient with history of ACS in 2013 s/p SANDY x 2 placed to LCx -Continue ASA 81mg po daily -Continue Lipitor 80mg po daily -Continue Carvedilol 25mg po BID (4) Cognitive impairment: Plan: Patient with cognitive impairment, ?vascular dementia as well as fixed paranoid delusional disorder for years. She is living at home independently with family close by and seems to be doing well with this. Patient has been referred for formal neurocognitive evaluation as an outpatient to further elucidate her cognitive impairment. -Delirium prevention strategies with frequent orientation, maintenance of sleep/wake cycle (5) Ischemic cardiomyopathy: Plan: Compensated. Last echo 10/2019 with mild LVH, mild LA dilation and mild to moderate MR -Continue Telmisartan -Continue Carvedilol (6) Hypertension: Plan: Blood pressure elevated -Continue Telmisartan 40mg po daily -Continue Nifedipine 60mg po daily -Continue Carvedilol 25mg po daily -Continue to monitor - goal BP <140/80 Plan: Magnesium replacement ordered but appears it was replaced in the ER yesterday but no repeat level drawn this AM. Repeat level ordered now and in AM. PT/OT consulted but no note from today to review, ideally would like to ensure that she will do fine once she returns home since she does live alone. Attempted to contact pt's son and daughter who are listed as contacts but neither answered (all numbers listed were tried). Anticipate can d/c tomorrow with home health (PT/OT/SN). Plan d/w Dr. Armenta. Admission and Anticipated Discharge Date Admission Date: July 26, 2021 Subjective Patient seen on daily rounds this morning. Hospitalized yesterday evening with diffuse body pains suspected to be due to PMR flare. On rounds, she appears comfortable and is sitting up in bed, notes some mild pain in her left shoulder. No chest pain or dyspnea. No symptoms. Apparently, pt lives alone, has some cognitive impairment and paranoid delusional disorder with concern for dementia. Her daughter who is POA lives in [place]. Has other children (sons) that live locally. Review of Systems Review of Systems: CONSTITUTIONAL: Denies weight loss/gain, fever and chills, fatigue, malaise, generalized weakness. HEENT: Denies changes in vision and hearing. RESPIRATORY: Denies SOB, cough, wheezing. CV: Denies palpitations, CP, lower extremity edema, orthopnea, PND. GI: Denies abdominal pain, nausea, vomiting and diarrhea. : Denies dysuria and urinary frequency, urgency, hesitancy. MUSCULOSKELETAL: Diffuse joint pain/myalgias. SKIN: Denies rash and pruritus. NEUROLOGICAL: Denies headache, syncope, focal weakness, numbness, tingling. PSYCHIATRIC: Denies recent changes in mood. Denies anxiety and depression. Physical Exam Physical Exam: GENERAL: 86 yo well-developed, well-nourished WF. NAD. LUNGS: Clear to auscultation bilaterally w/o w/r/r CARDIOVASCULAR: Regular rate and rhythm. ABDOMEN: Soft, non-tender and non-distended. BS normal x 4 quad. EXTREMITIES: No edema. Non-tender. Peripheral pulses +2/4. NEUROLOGIC: A&O x3. No focal neurological deficits. PSYCHIATRIC: Cooperative. Appropriate mood and affect. SKIN: Warm, dry, intact. No rashes or lesions. Results & Data Results & Data ([facility]) Vital Signs (Past 12 Hours) Vital Signs Temp Pulse Resp BP Pulse Ox 07/27/21 14:58 37.0 C 70 16 143/65 H 93 07/27/21 07:50 36.5 C 62 16 174/71 H 95 Laboratory Results 07/27/21 05:29 07/27/21 05:29 PG Care Time/CCT Total # of Minutes Spent Total Time Spent with Patient: Total time spent is greater than 50% in coordination of care (as documented) at patient's floor/unit and/or counseling patient: Coding Level of Care Code 51187 Office/OBS Consult Lvl 2 Diagnoses Whole body pain R52 History of polymyalgia rheumatica Z87.39 History of coronary artery disease Z86.79 Cognitive impairment R41.89 Ischemic cardiomyopathy I25.5 Hypertension I10 :
[2021-07-27] MEDS: INSULIN ASPART PER UNIT SC SCH (21:41)
[2021-07-28] MEDS ORDERED: INSULIN ASPART PER UNIT SC SCH (07:30)
[2021-07-28] MEDS: INSULIN ASPART PER UNIT SC SCH ×2 (08:59→13:34)
[2021-07-28] MEDS ORDERED: INSULIN GLARGINE SOLOSTAR 100 UNITS/ML 3 ML PEN SC SCH (09:00)
[2021-07-28] MEDS: carvediloL 25 MG TAB PO SCH (09:06)
[2021-07-28] MEDS: ACETAMINOPHEN 500 MG TAB PO SCH ×2 (09:06→13:33)
[2021-07-28] MEDS: ASPIRIN 81 MG ECTAB PO SCH (09:06)
[2021-07-28] MEDS: predniSONE 20 MG TAB PO SCH (09:07)
[2021-07-28] MEDS: ARTIFICIAL TEARS OP SCH ×2 (09:07→13:33)
[2021-07-28] MEDS: NIFEdipine EXTENDED REL 30 MG TABCR PO SCH (09:07)
[2021-07-28] MEDS: ATORVASTATIN 40 MG TAB PO SCH (09:07)
[2021-07-28] MEDS: KETOCONAZOLE 2% CR 15 GM TUBE EXT SCH (09:07)
[2021-07-28] MEDS: TELMISARTAN 40 MG TAB PO SCH (09:07)
[2021-07-28] MEDS: TIMOLOL MALEATE 0.5% OP SOLN 5 ML BTL OP SCH (09:08)
--- NOTE | 2021-07-28 17:49 | Discharge Summary ---
Date of Service July 28, 2021 Admission HPI Per Admitting Provider Ayla Lugo is an 86yo female with history of CAD, prior CVA, PMR on chronic long-standing prednisone 3mg daily. Patient reported a mild headache and runny nose yesterday then started having pain in her arms, back, chest and neck last evening. She was unable to sleep well due to discomfort. This AM she woke with severe pain in her arms, neck, back, chest. She states that the pain is sharp and severe, involves the muscles and bones as well. No exacerbating or relieving factors identified. She reports feeling warm at home but did not check her temperature. She denies cough, SOB, abdominal pain. She did have some nausea earlier today as well but no vomiting. She is eating and drinking well. No additional complaints at this time. ER Course: Solumedrol 40mg, Tylenol, Mg, Morphine, NSS Principal Diagnosis 1. Polyarthralgias 2. PMR flare 3. Dyspepsia Discharge Exam General: Resting comfortably in her bedside chair. NAD. HEENT: Head is AT/NC. Buccal mucosa is moist and pink Neck: No JVD. Negative hepatojugular reflex Cardiac: RRR with 1/6 RANDI Lungs: CTA without W/R/R Abdomen: Normoactive X4. Soft and nontender in all quadrants. Extremities: No peripheral clubbing cyanosis or edema Neuro: A&O X4. Cranial nerves II through XII are grossly intact. No focal neuro deficits Skin: No obvious skin lesions or rashes Psych: Appropriate affect. Pleasant and cooperative Discharge Data Allergies Allergy/AdvReac Type Severity Reaction Status Date / Time Cephalosporins Allergy Intermediate HIVES Verified 07/26/21 15:58 Penicillins Allergy Intermediate HIVES Verified 07/26/21 15:58 valdecoxib Allergy Intermediate ITCHING,ANTOLIN Verified 07/26/21 15:58 SEATED prednisone Allergy Unknown Unknown Verified 07/26/21 15:58 codeine AdvReac Intermediate NAUSEA Verified 07/26/21 15:58 pantoprazole AdvReac Intermediate NAUSEATED Verified 07/26/21 15:58 Consultations 07/26/21 19:41 ED Decision to Admit Stat Ordered Studies 07/26/21 14:21 CT head/brain wo con Stat 07/26/21 14:22 CT abd pelvis IV con only Stat Hospital Course (1) Whole body pain: 86yo female with history of PMR on chronic Prednisone 3mg daily presenting with body pain ongoing x 1 day. Pain is generalized, involving mostly arms/legs/chest/back and neck. She does report some bone pain in her legs today as well. Etiology unclear. Possibly secondary to flare of PMR. Patient has been on longstanding Prednisone - stable dosing. She has had pain flares after attempted Prednisone weaning in the past. Prednisone recently decreased from 4mg to 3mg over the past month -She was administered Solumedrol 40mg IV in the ER -ESR and CRP are elevated (71 and 7.24 respectively) -Pain has nearly resolved with high-dose steroids -Seen by PT/OT and cleared/independent charge -Would advise continued prednisone taper back down to her 4 mg. Recommend follow-up ESR in 2 to 4 weeks at discretion of PCP. (2) History of polymyalgia rheumatica: Patient on longstanding Prednisone for diagnosis of PMR. She was given Solumedrol 40mg IV and subsequently started on oral prednisone at 40 mg. Pain nearly resolved (3) Dyspepsia: -Takes omeprazole chronically -Change omeprazole to pantoprazole and increase to twice daily. Can take Pepcid as needed (4) History of coronary artery disease: Chronic. Patient with history of ACS in 2013 s/p SANDY x 2 placed to LCx -Continue ASA 81mg po daily -Continue Lipitor 80mg po daily -Continue Carvedilol 25mg po BID (5) Cognitive impairment: Patient with cognitive impairment, ?vascular dementia as well as fixed paranoid delusional disorder for years. She is living at home independently with family close by and seems to be doing well with this. Patient has been referred for formal neurocognitive evaluation as an outpatient to further elucidate her cognitive impairment. -Delirium prevention strategies with frequent orientation, maintenance of sleep/wake cycle (6) Ischemic cardiomyopathy: Compensated. Last echo 10/2019 with mild LVH, mild LA dilation and mild to moderate MR -Continue Telmisartan -Continue Carvedilol (7) Hypertension: Blood pressure elevated -Continue Telmisartan 40mg po daily -Continue Nifedipine 60mg po daily -Continue Carvedilol 25mg po daily -Continue to monitor - goal BP <140/80 Discharge to home. Plan of care discussed with PCP along with attending providerDr. Covaleski. Total Time Total Time Spent Total Time Spent (In Minutes): 25 minutes Discharge Plan Discharge Items Patient Disposition: Home - Home Health Services Reason For Visit: BODY PAINS Discharge Diagnosis: 1. Polyarthralgias 2. PMR flare 3. Dyspepsia Activity: Resume your previous activity Non-emergency contact: Primary Care Provider Call non-emergency contact if: you have any medication questions Follow-up/Referrals: Shelli Olmstead MD [Primary Care Provider] - 08/12/21 2:00 pm (Appointment will be with Carrol Burt) Diet: Carb Consistent or DM2 Addtl Attending Provider Instructions: You were hospitalized with generalized joint pain. Your inflammatory markers were elevated and it seems likely that you are having a flare-up of your PMR (polymyalgia rheumatica) given the recent decrease in your prednisone. Unfortunately, you are not tolerating this decreased dose of prednisone. You are being sent home on a tapering course of prednisone to take 40 mg daily X 2 days, 30 mg daily X 2 days, 20 mg daily X 2 days, 10 mg daily X 2 days and then transition to 4 mg daily. Stay on 4 mg daily with follow-up recommendations at the discretion of your PCP. It is true that we need to find the lowest dose po ssible as long-term prednisone therapy does cause other complications such as elevated blood sugars, GI irritation, and renal impairment. You will need to have follow up labs (inflammatory markers- ERS/CRP) to trend. These are at the discretion of your PCP. The discomfort that you are experiencing and dyspepsia, is likely related to the chronic prednisone. You do take omeprazole daily. I have changed this to pantoprazole (which can be more effective in some patients) and I have increased the dose to twice a day. For any breakthrough dyspepsia, you can take Pepcid 20 mg twice daily as needed (this can be obtained [id number]). Follow-up with your family doctor within 7 to 10 days Return to the ED for any new or worsening symptoms Pending Studies at Discharge: No Stand-Alone Forms: [facility] Medications and DC Order Prescriptions: New prednisone 10 mg tablet 10 mg PO DIRECTED Qty: 20 RF: 0 pantoprazole 40 mg tablet,delayed release (DR/EC) 40 mg PO BID Qty: 60 RF: 0 Continued fluticasone propionate [Flonase Allergy Relief] 50 mcg/actuation spray,suspension 1 spray INTRANASAL BID PRN (Reason: Nasal Congestion) Qty: 47.4 RF: 3 atorvastatin 80 mg tablet 80 mg PO DAILY Qty: 90 RF: 3 metformin 500 mg tablet extended release 24hr 500 mg PO DAILY Qty: 90 RF: 3 carvedilol 25 mg tablet 25 mg PO BID Qty: 60 RF: 5 telmisartan [Micardis] 40 mg tablet 40 mg PO DAILY Qty: 90 RF: 3 clindamycin HCl 300 mg capsule 600 mg PO DIRECTED PRN (Reason: Prophylaxis) Qty: 2 RF: 0 benzonatate 100 mg capsule 100 mg PO TID PRN (Reason: cough) Qty: 90 RF: 3 cholecalciferol (vitamin D3) 50 mcg (2,000 unit) capsule 50 mcg PO DAILY RF: 0 Systane Balance 0.6 % drops 1 drp ophthalmic (eye) TID RF: 0 apple cider vinegar 500 mg tablet 750 mg PO QAM RF: 0 nifedipine 60 mg tablet extended release 60 mg PO DAILY Qty: 90 RF: 3 multivitamin Tablet 1 tab PO DAILY RF: 0 nitroglycerin [Nitrostat] 0.4 mg Tablet, Sublingual 0.4 mg Sublingual DIRECTED PRN (Reason: Chest Pain) RF: 0 timolol maleate 0.5 % drops 1 drp OPB QAM RF: 0 Move Free Joint Health 750 mg-100 mg- 1.65 mg-108 mg Tablet 1 tab PO DAILY RF: 0 Probiotic 100 billion cell Capsule 1 cap PO DAILY RF: 0 aspirin [Aspirin Low Dose] 81 mg Tablet,Delayed Release (Dr/Ec) 81 mg PO DAILY RF: 0 ketoconazole 2 % cream 1 applic topical DAILY RF: 0 nystatin 100,000 unit/gram powder 1 applic topical TID PRN (Reason: rash) Qty: 60 RF: 0 acetaminophen [Tylenol] 325 mg Tablet 650 mg PO Q6H PRN (Reason: PAIN/FEVER) RF: 0 Discontinued omeprazole 20 mg capsule,delayed release(DR/EC) 20 mg PO DAILY PRN (Reason: Acid Reflux) Qty: 90 RF: 1 prednisone 1 mg tablet 3 mg PO DAILY Qty: 270 RF: 1 Discharge Orders: Discharge Order (Routine); Ordered 07/28/21 Ordered By: Carolyn Manriquez/Other Patient Handouts: Hypomagnesemia Dc, Polymyalgia Rheumatica Admission Data Admit Date/Time: 07/26/21 20:53 Attending Provider: Jae Armenta Admit Provider: Lubna Burt Primary Care Provider: Shelli Olmstead Other Providers: Lubna Burt Other Interventions: Discharge Summary Assessment (RN) Last Done: 07/28/21 14:12 Coding Level of Care Code 87489 OBS Care - Discharge Diagnoses Whole body pain R52 History of polymyalgia rheumatica Z87.39 History of coronary artery disease Z86.79 Cognitive impairment R41.89 Ischemic cardiomyopathy I25.5 Hypertension I10 Dyspepsia R10.13
== END 2021-07-28 15:24 | disposition home health service (06) ==
LOC: 3E 13:24 → ED 13:24 → SUATTDRO 20:53 → 3E 22:17

== ENCOUNTER 2022-05-14 05:23 | Inpatient (IN) ==
[2022-05-14 06:30] LABS: Basophils # (auto) 0.04 K/uL (0-0.2); Basophils % (auto) 0.4 %; Eosinophils # (auto) 0.22 K/uL (0-0.50); Hematocrit (blood only) 37.8 % (34.1-44.9); Hemoglobin 12.2 g/dl (12.0-16.0); Immature Granulocytes # (auto) 0.04 K/uL (0.00-0.02); Immature Granulocytes % (auto) 0.4 %; Lymphocytes # (auto) 1.43 K/uL (1.2-3.4); Lymphocytes % (auto) 12.7 %; Mean Corpuscular Hemoglobin 30.2 pg (25.0-34.0); Mean Corpuscular Hgb Conc 32.3 g/dL (32.0-36.0); Mean Corpuscular Volume 93.6 fL (80.0-100.0); Monocytes # (auto) 0.46 K/uL (0.24-0.82); Monocytes % (auto) 4.1 %; Neutrophils # (auto) 9.05 K/uL (1.4-6.5); Neutrophils % (auto) 80.4 %; Platelet Count 243 K/uL (130-400); RDW Coefficient of Variation 13.7 % (11.5-14.5); RDW Standard Deviation 46.9 fL (36.4-46.3); Red Blood Count 4.04 M/uL (3.93-5.22); White Blood Count 11.24 K/ul (4.8-10.8)
[2022-05-14] MEDS ORDERED: FUROSEMIDE 40 MG/4 ML VIAL IV ONE (06:53)
[2022-05-14 06:57] LABS: Alanine Aminotransferase 6 U/L (7-52); Albumin Globulin Ratio 1.1 (0.9-2); Albumin Level 3.9 gm/dl (3.4-5.0); Alkaline Phosphatase 74 U/L (34-104); Anion Gap 8 (3-11); Aspartate Aminotransferase 20 U/L (13-39); BUN Creatinine Ratio 21.5 (10-20); Bilirubin,Total 0.8 mg/dl (0.2-1.0); Blood Urea Nitrogen 20 mg/dl (6-23); Calcium 9.3 mg/dl (8.5-10.1); Carbon Dioxide 26 mmol/L (21-32); Chloride 105 mmol/L (98-107); Est GFR (African American) 65.4 ml/min; Est GFR (Non-African American) 56.4 ml/min; Globulin 3.4 gm/dl (2.5-4.0); Glucose 138 mg/dl (70-99(Fasting)); Sodium 139 mmol/L (136-145); Total Protein 7.3 gm/dl (6.0-8.3)
[2022-05-14 07:02] LABS: Troponin I High Sensitivity 21.3 pg/ml (0-14)
--- NOTE | 2022-05-14 07:05 | Emergency Department Note ---
Impression & Plan Pulmonary edema, Hypoxia, Substernal chest pain, Uncontrolled hypertension Admit to the [facility] ED Provider Note NAME: EMANUEL ORONA AGE: 86 SEX: F ARRIVES VIA: Ambulance INFORMANT: Patient ED PROVIDER(S): Yazmin Del Toro DO CHIEF COMPLAINT: Chest pain and shortness of breath PLAN: Disposition: Admit to the [facility] Condition: Guarded MEDICAL DECISION MAKING: This is an 86-year-old female patient who presents to the emergency department with chest pain and shortness of breath. Upon EMS arrival at her home, the patient was quite anxious and hypoxic. O2 saturations were 83%. Patient states that her symptoms have been worsening over the past 1 week and were associated with a fever. She describes discomfort in the right side of her neck, right shoulder and right side of her chest. Patient states she called 911 tonight because she had a hard time breathing. Patient was quite hypertensive upon arrival here in the emergency department and without supplemental O2, O2 saturations dropped to 69%. Laboratory studies reveal a mildly elevated white blood cell count of 11.24. Troponin is mildly elevated at 21.3. Patient was given a dose of sublingual nitro in an effort to control her chest pain and blood pressure. Unfortunately this worsened her frontal headache. The patient became quite anxious and was given a dose of IV Ativan. Patient had received IV Lasix and was diuresing nicely. After review of the information above and other included data, I feel the patient will require inpatient psychiatric care. I discussed the case with the [facility] and they will evaluate for further care. Triage Nursing notes reviewed and agree with them. External medical records were reviewed from primary care visits. Vital Signs: reviewed and remarkable for no significant abnormalities Differential diagnosis: Flash pulmonary edema, pneumonia, STEMI, NSTEMI, uncontrolled hypertension, sepsis ER treatment provided: Cardiac monitoring Twelve-lead EKG Sublingual nitroglycerin IV Lasix IV Zofran IV Ativan Diagnostics interpreted by me: ECG: Atrial sensed ventricular paced rhythm at a rate of 87. There is no signs of ischemia. There is no ectopy. Cardiac Monitoring: Paced rhythm at 80 Laboratory studies: See below Imaging studies: As per my interpretation Portable chest x-ray: Moderate pulmonary edema with cardiomegaly HPI: 86/F arrives for evaluation of shortness of breath. Patient describes having intermittent episodes of right-sided chest pain over the past 1 week with worsening shortness of breath. Patient describes occasional cough and fever with discomfort in the right side of her neck. Patient states that her breathing worsened tonight to the point that she could hardly breathe and called 911. She also describes some head pain. PAST MEDICAL HISTORY:See Below PAST SURGICAL HISTORY:See Below FAMILY HISTORY:See Below SOCIAL HISTORY:See Below HOME MEDICATIONS:See list ALLERGIES:See list VITALS:See Below PHYSICAL EXAMINATION: HEENT: Head - normocephalic and atraumatic. Pupils are equal, round, and reactive to light. Extraocular eye muscles are intact, and sclera are anicteric. Nose - moist nasal mucosa without discharge. Mouth - moist buccal mucosa. Oropharynx is nonerythematous and there is no tonsillar exudate or edema noted. Neck: Supple; no cervical lymphadenopathy Heart: Regular rate and rhythm. There is a normal S1 and S2 with no murmurs, clicks, or gallops appreciated. Lungs: Diminished breath sounds in all lung hurtado with rales at both bases. Abdomen: Soft, completely nontender, nondistended, with good bowel sounds. There are no palpable pulsatile masses or hepatosplenomegaly. There is no guarding, rigidity, or rebound noted. Extremities: No evidence of cyanosis, clubbing, or edema. There are easily palpable peripheral pulses. Skin: warm and dry with good turgor and no rashes. ED COURSE: Times/Reassessments: 540 the patient was evaluated in room B2. A complete history and physical was performed. Laboratory studies were drawn as above. An order was placed for continuous cardiac monitoring. The patient was in an atrial paced rhythm at a rate of 87. A twelve-lead EKG was obtained as described above. A portable chest x-ray was performed. The patient was given a dose of IV Lasix. The patient complained of some nausea and was given a dose of IV Zofran. She was given a sublingual nitro for her chest discomfort and elevated blood pressure. Unfortunately this gave the patient a significant headache. A Albarran catheter was placed. Patient was given an IV dose of Ativan. This reduced the patient's blood pressure somewhat and she was able to rest more comfortably. I have personally spent greater than 40 minutes of critical care time in the direct management of this patient. This includes bedside care, interpretation of diagnostic studies, and testing, discussion with consultants, patient, and family members, and other required patient management activities. This 40 minutes is in excess of all separately billable procedures. 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 LUE weakness (09/09/13) Lumbar radiculopathy Moderate mitral regurgitation Myalgia and myositis Obesity Osteopenia Presence of stent in coronary artery in patient with coronary artery disease Primary hypertension Rheumatoid arthritis 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, without long-term current use of insulin Urinary incontinence Surgical History History of knee replacement S/P knee replacement Stented coronary artery Family History Grandmother (Maternal) Myocardial infarction Stroke Mother Myocardial infarction Diabetes Stroke Brother Myocardial infarction Diabetes Stroke Other No significant family history Denies family history of Ovarian cancer Prostate cancer Breast cancer Colorectal cancer Social History Smoking Status: Never smoker Hx Alcohol Use: No Hx Substance Use: No Preferred Language: [place] Communication Ability: Effective Communication Ability Comment: FORGETFUL DOES NOT READ OR WRITE WELL 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 Required: No Beliefs That Will Affect Care: Yarsanism Yarsanism Beliefs: BAPTIST marital status: / Current Living Situation: Alone Feels Safe at Home: Yes Safety Concerns: Feels Safe At This Time Seatbelt Use: always Assistive Devices: Denture - Upper and Glasses Allergies Allergies Allergy/AdvReac Type Severity Reaction Status Date / Time Cephalosporins Allergy Intermediate HIVES Verified 05/03/22 07:16 Penicillins Allergy Intermediate HIVES Verified 05/03/22 07:16 valdecoxib Allergy Intermediate ITCHING,ANTOLIN Verified 05/03/22 07:16 SEATED prednisone Allergy Unknown Unknown Verified 05/03/22 07:16 codeine AdvReac Intermediate NAUSEA Verified 05/03/22 07:16 pantoprazole AdvReac Intermediate NAUSEATED Verified 05/03/22 07:16 Home Meds Home Medications Medication Instructions Recorded Confirmed Lactobacillus 40-Bifidobact 1 cap PO DAILY 03/15/18 05/14/22 3-S.thermophilus 100 billion cell capsule (Probiotic) glucosam 750 mg-chondroi 100 1 tab PO DAILY 03/15/18 05/14/22 mg-hyalur 1.65 mg-CF borate 108 mg tablet ([employer] [facility]) multivitamin 1 tab PO DAILY 03/15/18 05/14/22 cholecalciferol (vitamin D3) 50 50 mcg PO DAILY 07/29/20 05/14/22 mcg (2,000 unit) capsule apple cider vinegar 500 mg tablet 750 mg PO QAM 03/29/21 05/14/22 propylene glycol 0.6 % eye drops 1 drp ophthalmic (eye) TID 03/29/21 05/14/22 (Systane Balance) acetaminophen 325 mg tablet 650 mg PO Q6H PRN PAIN/FEVER 07/26/21 05/14/22 (Tylenol) Previous Rx's Medication Instructions Recorded atorvastatin 80 mg tablet 80 mg PO DAILY #90 tabs 09/29/21 telmisartan 40 mg tablet (Micardis) 40 mg PO DAILY #90 tabs 10/18/21 timolol maleate 0.5 % eye drops 1 drp OPB QAM #15 mL 10/18/21 ketoconazole 2 % topical cream 1 applic topical BID #60 grams 10/25/21 nitroglycerin 0.4 mg sublingual 0.4 mg sublingual DIRECTED PRN 10/25/21 tablet (Nitrostat) Chest Pain #30 tabs nystatin 100,000 unit/gram topical 1 applic topical DAILY PRN rash 10/25/21 powder #60 grams fluticasone propionate 50 1 spray intranasal BID PRN Nasal 12/06/21 mcg/actuation nasal Congestion #47.4 mL spray,suspension (Flonase Allergy Relief) metformin 500 mg tablet,extended 500 mg PO DAILY #90 tabs 12/20/21 release 24hr pantoprazole 40 mg tablet,delayed 40 mg PO BID #180 tabs 12/20/21 release carvedilol 25 mg tablet 25 mg PO BID #60 tabs 12/26/21 rivaroxaban 20 mg tablet (Xarelto) 20 mg PO DAILY #30 tabs 04/25/22 Results & Data (ED) Vital Signs Vital Signs - 24 hr 05/14/22 07:45 05/14/22 07:50 05/14/22 07:55 Pulse Rate Respiratory Rate Blood Pressure 200/125 H 214/117 H 206/121 H Blood Pressure Mean 150 149 149 Pulse Oximetry Oxygen Delivery Method Oxygen Flow Rate 05/14/22 08:00 05/14/22 08:05 05/14/22 08:08 Pulse Rate 95 H Respiratory Rate 28 H Blood Pressure 207/118 H 198/122 H 217/118 H Blood Pressure Mean 147 147 151 Pulse Oximetry 99 100 Oxygen Delivery Method Nasal Cannula Nasal Cannula Oxygen Flow Rate 4 4 Laboratory Data 05/14/22 05:32 05/14/22 05:32 Lab Results 05/14/22 05/14/22 05/14/22 Range/Units 05:32 05:32 05:32 WBC 11.24 H (4.8-10.8) K/ul RBC 4.04 (3.93-5.22) M/uL Hgb 12.2 (12.0-16.0) g/dl Hct 37.8 (34.1-44.9) % MCV 93.6 (80.0-100.0) fL MCH 30.2 (25.0-34.0) pg MCHC 32.3 (32.0-36.0) g/dL RDW Std Deviation 46.9 H (36.4-46.3) fL RDW Coeff of Neeru 13.7 (11.5-14.5) % Plt Count 243 (130-400) K/uL MPV 11.0 (9.4-12.3) fL Immature Gran % (Auto) 0.4 % Neut % (Auto) 80.4 % Lymph % (Auto) 12.7 % [place] % (Auto) 4.1 % Eos % (Auto) 2.0 % Baso % (Auto) 0.4 % Neut # (Auto) 9.05 H (1.4-6.5) K/uL Lymph # (Auto) 1.43 (1.2-3.4) K/uL [place] # (Auto) 0.46 (0.24-0.82) K/uL Eos # (Auto) 0.22 (0-0.50) K/uL Baso # (Auto) 0.04 (0-0.2) K/uL Immature Gran # (Auto) 0.04 H (0.00-0.02) K/uL Sodium 139 (136-145) mmol/L Potassium 4.0 (3.5-5.1) mmol/L Chloride 105 (98-107) mmol/L Carbon Dioxide 26 (21-32) mmol/L Anion Gap 8 (3-11) BUN 20 (6-23) mg/dl Creatinine 0.93 (0.6-1.2) mg/dl Est Cr Clr Drug Dosing Not Reportable Est GFR ( Amer) 65.4 ml/min Est GFR (Non-Af Amer) 56.4 ml/min BUN/Creatinine Ratio 21.5 H (10-20) Glucose 138 H (70-99(Fasting)) mg/dl Calcium 9.3 (8.5-10.1) mg/dl Total Bilirubin 0.8 (0.2-1.0) mg/dl AST 20 (13-39) U/L ALT 6 L (7-52) U/L Alkaline Phosphatase 74 (34-104) U/L Troponin I High Sens 21.3 H (0-14) pg/ml C-Reactive Protein 0.91 H (0-0.5) mg/dl Total Protein 7.3 (6.0-8.3) gm/dl Albumin 3.9 (3.4-5.0) gm/dl Globulin 3.4 (2.5-4.0) gm/dl Albumin/Globulin Ratio 1.1 (0.9-2) Procalcitonin (0-0.5) ng/ml Urine Color Urine Appearance (Clear) Urine pH (4.5-7.5) Ur Specific [place] (1.000-1.030) Urine Protein (Negative) Urine Glucose (UA) (Negative) Urine Ketones (Negative) Urine Blood (Negative) Urine Nitrite (Negative) Urine Bilirubin (Negative) Urine Urobilinogen (Negative) Ur Leukocyte Esterase (Negative) Urine WBC (Auto) (0-5) /hpf Urine RBC (Auto) (0-4) /hpf U Hyaline Cast (Auto) (0-5) /lpf U Epithel Cells (Auto) (0-5) /lpf Urine Bacteria (Auto) (Negative) SARS-CoV-2 (PCR) (Negative) Influenza Type A (PCR) (Neg) Influenza Type B (PCR) (Neg) RSV (RT-PCR) (Neg) 05/14/22 05/14/22 05/14/22 Range/Units 05:32 06:15 07:16 WBC (4.8-10.8) K/ul RBC (3.93-5.22) M/uL Hgb (12.0-16.0) g/dl Hct (34.1-44.9) % MCV (80.0-100.0) fL MCH (25.0-34.0) pg MCHC (32.0-36.0) g/dL RDW Std Deviation (36.4-46.3) fL RDW Coeff of Neeru (11.5-14.5) % Plt Count (130-400) K/uL MPV (9.4-12.3) fL Immature Gran % (Auto) % Neut % (Auto) % Lymph % (Auto) % [place] % (Auto) % Eos % (Auto) % Baso % (Auto) % Neut # (Auto) (1.4-6.5) K/uL Lymph # (Auto) (1.2-3.4) K/uL [place] # (Auto) (0.24-0.82) K/uL Eos # (Auto) (0-0.50) K/uL Baso # (Auto) (0-0.2) K/uL Immature Gran # (Auto) (0.00-0.02) K/uL Sodium (136-145) mmol/L Potassium (3.5-5.1) mmol/L Chloride (98-107) mmol/L Carbon Dioxide (21-32) mmol/L Anion Gap (3-11) BUN (6-23) mg/dl Creatinine (0.6-1.2) mg/dl Est Cr Clr Drug Dosing Est GFR ( Amer) ml/min Est GFR (Non-Af Amer) ml/min BUN/Creatinine Ratio (10-20) Glucose (70-99(Fasting)) mg/dl Calcium (8.5-10.1) mg/dl Total Bilirubin (0.2-1.0) mg/dl AST (13-39) U/L ALT (7-52) U/L Alkaline Phosphatase (34-104) U/L Troponin I High Sens (0-14) pg/ml C-Reactive Protein (0-0.5) mg/dl Total Protein (6.0-8.3) gm/dl Albumin (3.4-5.0) gm/dl Globulin (2.5-4.0) gm/dl Albumin/Globulin Ratio (0.9-2) Procalcitonin < 0.05 (0-0.5) ng/ml Urine Color Yellow Urine Appearance Clear (Clear) Urine pH 6.0 (4.5-7.5) Ur Specific [place] 1.013 (1.000-1.030) Urine Protein 1+ H (Negative) Urine Glucose (UA) Negative (Negative) Urine Ketones Negative (Negative) Urine Blood Negative (Negative) Urine Nitrite Negative (Negative) Urine Bilirubin Negative (Negative) Urine Urobilinogen Negative (Negative) Ur Leukocyte Esterase Trace H (Negative) Urine WBC (Auto) 1-5 (0-5) /hpf Urine RBC (Auto) 0-4 (0-4) /hpf U Hyaline Cast (Auto) 0 (0-5) /lpf U Epithel Cells (Auto) 10-20 H (0-5) /lpf Urine Bacteria (Auto) Negative (Negative) SARS-CoV-2 (PCR) NEGATIVE (Negative) Influenza Type A (PCR) Negative (Neg) Influenza Type B (PCR) Negative (Neg) RSV (RT-PCR) Negative (Neg) Administered Medications Artificial Tears (Artificial Tears) 1 drops OP TID [facility] Stop: 06/13/22 13:59 Last Admin: 05/14/22 21:28 Dose: 1 drops Documented By: Admin: 05/14/22 15:04 Dose: Not Given Documented By: RANJANA Atorvastatin Calcium (Atorvastatin 40 Mg Tab) 80 mg PO DAILY [facility] Stop: 06/13/22 08:59 Last Admin: 05/14/22 10:56 Dose: 80 mg Documented By: RANJANA Carvedilol (Carvedilol 25 Mg Tab) 25 mg PO BID [facility] Stop: 06/13/22 08:59 Last Admin: 05/14/22 21:22 Dose: 25 mg Documented By: Admin: 05/14/22 10:56 Dose: 25 mg Documented By: RANJANA Furosemide (Furosemide 40 Mg/4 Ml Vial) 40 mg IV BID [facility] Stop: 06/13/22 08:59 Last Admin: 05/14/22 21:22 Dose: 40 mg Documented By: Admin: 05/14/22 10:57 Dose: 40 mg Documented By: RANJANA Insulin Aspart (Insulin Aspart Per Unit) 0 units SC ACHS [facility] Stop: 06/13/22 11:29 Last Admin: 05/14/22 21:44 Dose: Not Given Documented By: Admin: 05/14/22 16:30 Dose: Not Given Documented By: [id number] Admin: 05/14/22 13:17 Dose: Not Given Documented By: RANJANA Multivitamins (Multivitamin Tab) 1 tab PO DAILY [facility] Stop: 06/13/22 08:59 Last Admin: 05/14/22 10:57 Dose: 1 tab Documented By: RANJANA Nystatin (Nystatin Powder 15gm Btl) 1 appln EXT TID [facility] Stop: 06/13/22 20:59 Last Admin: 05/14/22 21:29 Dose: 1 appln Documented By: ALEJANDRO Pantoprazole Sodium (Pantoprazole 40 Mg Tab) 40 mg PO BID [facility] Stop: 06/13/22 08:59 Last Admin: 05/14/22 21:22 Dose: 40 mg Documented By: Admin: 05/14/22 10:57 Dose: 40 mg Documented By: RANJANA Rivaroxaban (Rivaroxaban 20 Mg Tab) 20 mg PO DAILY [facility] Stop: 06/13/22 08:59 Last Admin: 05/14/22 10:57 Dose: 20 mg Documented By: ARNJANA Telmisartan (Telmisartan 40 Mg Tab) 40 mg PO DAILY [facility] Stop: 06/13/22 08:59 Last Admin: 05/14/22 10:57 Dose: 40 mg Documented By: RANJANA Timolol Maleate (Timolol Maleate 0.5% Op Soln 5 Ml Btl) 1 drops OPB QAM [facility] Stop: 06/13/22 08:59 Last Admin: 05/14/22 10:57 Dose: 1 drops Documented By: RANJANA Vitamin D (Cholecalciferol 1,000 Units 25 Mcg Tab) 2,000 units PO DAILY [facility] Stop: 06/13/22 08:59 Last Admin: 05/14/22 10:56 Dose: 2,000 units Documented By: RANJANA Discontinued Medications Furosemide (Furosemide 40 Mg/4 Ml Vial) 40 mg IV ONE ONE Stop: 05/14/22 06:54 Last Admin: 05/14/22 07:11 Dose: 40 mg Documented By: RANJANA Lorazepam (Lorazepam 2 Mg/1 Ml Vial) 1 mg IV NOW STA Stop: 05/14/22 07:38 Last Admin: 05/14/22 07:53 Dose: 1 mg Documented By: RANJANA Nitroglycerin (Nitroglycerin Sl 0.4 Mg/Tab Tab) Confirm Administered Dose 0.4 mg .ROUTE .STK-MED ONE Stop: 05/14/22 07:26 Last Admin: 05/14/22 07:28 Dose: Not Given Documented By: RANJANA Nitroglycerin (Nitroglycerin Sl 0.4 Mg/Tab Tab) 0.4 mg SL NOW STA Stop: 05/14/22 07:26 Last Admin: 05/14/22 07:28 Dose: 0.4 mg Documented By: RANJANA Non-Formulary Medication (Apple Cider Vinegar) 750 mg PO QAM [facility] Stop: 06/13/22 08:59 Last Admin: 05/14/22 11:17 Dose: Not Given Documented By: RANJANA Non-Formulary Medication (Rokacsed-Qzntf-Abtof-Cf Borate [[facility]]) 1 tab PO DAILY [facility] Stop: 06/13/22 08:59 Last Admin: 05/14/22 11:17 Dose: Not Given Documented By: RANJANA Non-Formulary Medication (Metformin) 500 mg PO DAILY [facility] Stop: 06/13/22 08:59 Last Admin: 05/14/22 11:17 Dose: Not Given Documented By: RANJANA Ondansetron HCl (Ondansetron Inj 2 Mg/Ml 2 Ml Vial) 4 mg IV NOW STA Stop: 05/14/22 07:38 Last Admin: 05/14/22 07:53 Dose: 4 mg Documented By: RANJANA Discharge Plan Visit Data Chief Complaint: Chest Pain Stated Complaint: ALL OVER BODY PAIN/CHEST PAIN X1 [facility] ED Provider: Yazmin Del Toro Discharge Problem: Pulmonary edema, Hypoxia, Substernal chest pain, Uncontrolled hypertension Patient Disposition: Admitted As Inpatient Discharge Instructions Interventions: ED Discharge Assessment Last Done: 05/14/22 08:51 : Pulmonary edema Qualifiers: Chronicity: acute Qualified Code(s): J81.0 - Acute pulmonary edema
[2022-05-14 07:13] LABS: Influenza A virus by PCR Negative (Neg); Influenza B virus by PCR Negative (Neg); RSV by PCR Negative (Neg); SARS CoV2 RNA(COVID-19) Ceph NEGATIVE (Negative)
[2022-05-14] MEDS ORDERED: NITROGLYCERIN SL 0.4 MG/TAB TAB SL STA (07:25)
[2022-05-14] MEDS ORDERED: NITROGLYCERIN SL 0.4 MG/TAB TAB ONE (07:25)
[2022-05-14] MEDS ORDERED: ONDANSETRON INJ 2 MG/ML 2 ML VIAL IV STA (07:37)
[2022-05-14] MEDS ORDERED: LORazepam 2 MG/1 ML VIAL IV STA (07:37)
[2022-05-14 08:10] LABS: Appearance Urine Clear (Clear); Bacteria Urine Automated Negative (Negative); Bilirubin Urine Negative (Negative); Blood Urine Negative (Negative); Cast Urine Automated 0 /lpf (0-5); Color Urine Yellow; Glucose Urine UA Negative (Negative); Ketones Urine Negative (Negative); Leukocyte Esterase Urine Trace (Negative); Nitrite Urine Negative (Negative); Protein Urine 1+ (Negative); RBC Urine Automated 0-4 /hpf (0-4); Specific Gravity Urine 1.013 (1.000-1.030); Urobilinogen Urine Negative (Negative)
--- NOTE | 2022-05-14 08:29 | XRay Report ---
XR chest 1V portable HISTORY: 86 years-old Female Dyspnea acute shortness of breath COMPARISON: 07/26/2021 TECHNIQUE: AP view of the chest FINDINGS: Cardiac silhouette is enlarged. Left subclavian pacer. Pulmonary vascular congestion with intermixed interstitial and alveolar densities. Small pleural effusions with bibasilar densities and mild right hemidiaphragmatic elevation. Degenerative changes of the shoulders and spine. IMPRESSION: 1. Cardiomegaly with intermixed interstitial and alveolar opacities suggestive of pulmonary edema. Mu ltifocal pneumonia considered less likely. 2. Small pleural effusions. ACT 112: Negative or not required by law. The above report was generated using voice recognition software. It may contain grammatical, syntax o r spelling errors. Electronically signed by: Wilian Mariscal M.D. 05/14/2022 8:28 AM
[2022-05-14] MEDS ORDERED: ONDANSETRON INJ 2 MG/ML 2 ML VIAL IV PRN (08:51)
[2022-05-14] MEDS ORDERED: FLUTICASONE PROPIONATE NA SPR 16 GM BTL NAE PRN (08:51)
[2022-05-14] MEDS ORDERED: NITROGLYCERIN SL 0.4 MG/TAB TAB SL PRN (08:51)
[2022-05-14] MEDS ORDERED: ALUMINUM/MAGNESIUM SUSP 30 ML UDC PO PRN (08:51)
[2022-05-14] MEDS ORDERED: ACETAMINOPHEN 325 MG TAB PO PRN (08:51)
[2022-05-14] MEDS ORDERED: POLYETHYLENE (MIRALAX) 17 GM PACK PO PRN (08:51)
[2022-05-14] MEDS ORDERED: MAGNESIUM HYDROXIDE SUSP 30 ML UDC PO PRN (08:51)
[2022-05-14] MEDS ORDERED: NON-FORMULARY MEDICATION (Glucosam-Chond-Hyalu-Cf Borate [Move Free Joint Health] 750 mg-1 PO SCH (09:00)
[2022-05-14] MEDS ORDERED: DEXTROSE 50% 50 ML SYRINGE IV PRN (10:15)
[2022-05-14] MEDS ORDERED: GLUCOSE 10 TAB/TUBE PO PRN (10:15)
[2022-05-14] MEDS ORDERED: GLUCAGON FOR INJ 1 MG VIAL IM PRN (10:15)
[2022-05-14] MEDS ORDERED: CARBOHYDRATES FOR HYPOGLYCEMIA PO PRN (10:15)
[2022-05-14] MEDS ORDERED: GLUCOSE 40% GEL 15 GM TUBE PO PRN (10:15)
[2022-05-14] MEDS: carvediloL 25 MG TAB PO SCH ×2 (10:56→21:22)
[2022-05-14] MEDS: CHOLECALCIFEROL 1,000 UNITS 25 MCG TAB PO SCH (10:56)
[2022-05-14] MEDS: ATORVASTATIN 40 MG TAB PO SCH (10:56)
[2022-05-14] MEDS: RIVAROXABAN 20 MG TAB PO SCH (10:57)
[2022-05-14] MEDS: PANTOprazole 40 MG TAB PO SCH ×2 (10:57→21:22)
[2022-05-14] MEDS: MULTIVITAMIN TAB PO SCH (10:57)
[2022-05-14] MEDS: FUROSEMIDE 40 MG/4 ML VIAL IV SCH ×2 (10:57→21:22)
[2022-05-14] MEDS: TELMISARTAN 40 MG TAB PO SCH (10:57)
[2022-05-14] MEDS: TIMOLOL MALEATE 0.5% OP SOLN 5 ML BTL OPB SCH (10:57)
[2022-05-14] MEDS: INSULIN ASPART PER UNIT SC SCH ×3 (13:17→21:44)
[2022-05-14] MEDS: ARTIFICIAL TEARS OP SCH ×2 (15:04→21:28)
--- NOTE | 2022-05-14 18:45 | History & Physical Report ---
Date of Service May 14, 2022 Assessment & Plan (1) Moderate mitral regurgitation: Plan: Acute on what appears to be chronic diastolic CHF/HFpEFprobably mediated by mitral regurgitation. Acuity as to "why now" not entirely cleargiven that she is a somewhat difficult historian. Common things being common, sodium ingestion certainly is highly probable. Hopefully as she feels better we can get a little bit better diet history, or at least educated on sodium restriction moving forward. At the same time, while I suspect her blood pressure is reactive to her distress, it certainly is plausible that a spike in blood pressure (either de tunde or from medication nonadherence) could have created a spike in afterload leading to the diastolic CHF ---> Diurese with IV Lasix, continue supportive care ---> Last echo only less than 2 months agoand less demand ischemia situation evolves dramatically, probably no clear need for follow-up echo at this time (2) Cognitive impairment: Plan: Seems to be a chronic issueprobably an interplay of anxiety and some degree of dementiashe is also noted to have a degree of paranoid thinking and her outpatient visits. Certainly this limits being able to capps in HPI well. I do suspect her difficulty with word finding fits more with this than anything cerebrovascular the way she describes it (perioral numbness bilaterally fitting heavily with anxiety, no focal numbness to fit with cerebrovascular disease, the vague expression that if given enough time she is able to find the right words, etc.). It would be nice to be able to discuss with her son Caleb who seems to live in the area to get a good idea of her baseline/ability to care for self, versus now. (3) Type 2 diabetes mellitus with diabetic neuropathy, without long-term current use of insulin: Plan: Holding metformin, will utilize fingersticks and supplemental insulin. Last A1c, about 6 months ago, was 6.3 (4) Hypertension: Plan: See aboveprobably blood pressure is uncontrolled due to distress, possibly due to nonadherence or just a spike. Anticipate improvement on Lasix/with diuresis, may need to adjust baseline med regimen depending on her progress (5) Ischemic cardiomyopathy: Plan: With subsequent demand ischemiano clear anginal symptoms, troponin nominally elevatedtrend to peakno clear need for repeat echo at this time, follow clinically (6) Hypercholesterolemia: Plan: Home meds (7) Atrial fibrillation: Plan: Rate controlled, anticoagulated (8) Acid reflux disease: Plan: Home meds (9) DVT prophylaxis: Plan: Anticoagulated with Xarelto (for atrial fibrillation) (10) Discharge planning issues: Plan: [facility] [place] [facility] In discussion with patient she is a full code PT/OT eval and treat to assist in discharge planning Admission and Anticipated Discharge Date Admission Date: May 14, 2022 History of Present Illness Chief Complaint: Shortness of breath Primary Care Provider: Shelli Olmstead MD Patient is a somewhat difficult historian due to what appears to be baseline anxiety, may be some baseline confusion, or bothbut to the best I can put together she has had progressive shortness of breath over the last week or so. Seems to maybe have some degree of orthopnea although this is not entirely clear. Seems to have had weight gain of 5 to 10 pounds, but the timeline is not very clear. Denies fever chills or sweats on very directed questioningit was hard to get past chills because she would keep circling back to the fact that she is always cold, when I would demonstrate a rigor she would loosely deny that but again endorsed that she is always coldit seems like the always cold has gone on for quite a while. She eventually had enough worsening of the shortness of breath that she decided to come to the hospital for further evaluation. As far as her diet, she does not endorse much of anything that sounds to be high in sodium, although the bulk of her hot meals come from [employer]. She lives at home with her cat. Separately, she notes a difficulty with getting the right word outshe is very vague with this as well. She notes that its been going on for quite a while, off again/on againwhen it happens she endorses possibly a degree of bilateral perioral numbness, no unilateral, and no unilateral numbness or weakness otherwise/face/arm/anywhere else. She seems to relate if she tries hard enough she is able to get the right word out. She is unable to give me a provoking factor for the episodes, duration for the episodes ("it depends on how long people let me try") and is unable to say if anything seems to make the episodes go away. In discussion of CODE STATUS, she is unable to give me a direct answershe notes that she has advanced directives but does not express any direct answer whatsoever as to what is on them. On directed questioning when asked if she would want CPR or ventilator, she says yes. She asked me to call her son Josh times today I have tried to callhis home line has no answer/no machine, his cell phone was no answer and the voicemail box has not yet been set up. Nursing denies seeing any family at the bedside since she has been admitted. Allergies Allergy/AdvReac Type Severity Reaction Status Date / Time Cephalosporins Allergy Intermediate HIVES Verified 05/03/22 07:16 Penicillins Allergy Intermediate HIVES Verified 05/03/22 07:16 valdecoxib Allergy Intermediate ITCHING,ANTOLIN Verified 05/03/22 07:16 SEATED prednisone Allergy Unknown Unknown Verified 05/03/22 07:16 codeine AdvReac Intermediate NAUSEA Verified 05/03/22 07:16 pantoprazole AdvReac Intermediate NAUSEATED Verified 05/03/22 07:16 Home Medications Medication Instructions Recorded Confirmed Type Lactobacillus 40-Bifidobact 1 cap PO DAILY 03/15/18 05/14/22 History 3-S.thermophilus 100 billion cell capsule (Probiotic) glucosam 750 mg-chondroi 100 1 tab PO DAILY 03/15/18 05/14/22 History mg-hyalur 1.65 mg-CF borate 108 mg tablet ([facility]) multivitamin 1 tab PO DAILY 03/15/18 05/14/22 History cholecalciferol (vitamin D3) 50 50 mcg PO DAILY 07/29/20 05/14/22 History mcg (2,000 unit) capsule apple cider vinegar 500 mg tablet 750 mg PO QAM 03/29/21 05/14/22 History propylene glycol 0.6 % eye drops 1 drp ophthalmic (eye) TID 03/29/21 05/14/22 History (Systane Balance) acetaminophen 325 mg tablet 650 mg PO Q6H PRN PAIN/FEVER 07/26/21 05/14/22 History (Tylenol) atorvastatin 80 mg tablet 80 mg PO DAILY #90 tabs 09/29/21 05/14/22 Rx telmisartan 40 mg tablet (Micardis) 40 mg PO DAILY #90 tabs 10/18/21 05/14/22 Rx timolol maleate 0.5 % eye drops 1 drp OPB QAM #15 mL 10/18/21 05/14/22 Rx ketoconazole 2 % topical cream 1 applic topical BID #60 grams 10/25/21 05/14/22 Rx nitroglycerin 0.4 mg sublingual 0.4 mg sublingual DIRECTED PRN 10/25/21 05/14/22 Rx tablet (Nitrostat) Chest Pain #30 tabs nystatin 100,000 unit/gram topical 1 applic topical DAILY PRN rash 10/25/21 05/14/22 Rx powder #60 grams fluticasone propionate 50 1 spray intranasal BID PRN Nasal 12/06/21 05/14/22 Rx mcg/actuation nasal Congestion #47.4 mL spray,suspension (Flonase Allergy Relief) metformin 500 mg tablet,extended 500 mg PO DAILY #90 tabs 12/20/21 05/14/22 Rx release 24hr pantoprazole 40 mg tablet,delayed 40 mg PO BID #180 tabs 12/20/21 05/14/22 Rx release carvedilol 25 mg tablet 25 mg PO BID #60 tabs 12/26/21 05/14/22 Rx rivaroxaban 20 mg tablet (Xarelto) 20 mg PO DAILY #30 tabs 04/25/22 05/14/22 Rx Past Med/Surg History Medical History Cervical radiculopathy Complex endometrial hyperplasia Coronary artery disease, occlusive CVA (cerebral vascular accident) (~09/2018) History of kidney stones History of polymyalgia rheumatica Hypertension Hypomagnesemia 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 LUE weakness (09/09/13) Lumbar radiculopathy Moderate mitral regurgitation Myalgia and myositis Obesity Osteopenia Presence of stent in coronary artery in patient with coronary artery disease Primary hypertension Rheumatoid arthritis 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, without long-term current use of insulin Urinary incontinence Surgical History History of knee replacement S/P knee replacement Stented coronary artery Family History Grandmother (Maternal) Myocardial infarction Stroke Mother Myocardial infarction Diabetes Stroke Brother Myocardial infarction Diabetes Stroke Other No significant family history Denies family history of Ovarian cancer Prostate cancer Breast cancer Colorectal cancer Social History Smoking Status: Never smoker Hx Alcohol Use: No Hx Substance Use: No Preferred Language: Vietnamese Communication Ability: Effective Communication Ability Comment: FORGETFUL DOES NOT READ OR 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: No Beliefs That Will Affect Care: Yarsani Yarsani Beliefs: PROTESTANT marital status: / Current Living Situation: Alone Feels Safe at Home: Yes Safety Concerns: Feels Safe At This Time Seatbelt Use: always Assistive Devices: Denture - Upper and Glasses Review of Systems Review of Systems: All systems reviewed & are unremarkable except as noted in HPI & below Physical Exam Physical Exam: In general she is awake alert oriented x3 the best I can assess, but again as aboveseems to either be anxious, somewhat forgetful, or somewhat both making the interaction fairly difficultshe seems to wander a lot in conversation, and give answers that are almost, but not quite, peripherally related to the question asked. HEENT normocephalic atraumatic mucous membranes moist. Cardio is regular without rubs murmurs gallops. Lungs show markedly noticeable bibasilar rales up to about the custodial point no rhonchi no wheezes very mild accessory muscles good effort, she is on oxygen mask when I see her, and she is mildly tachypneic. Abdomen is soft mildly distended no focal tenderness no guarding rebound or rigidity. Extremities show no cyanosis clubbing or edema she has bilateral symmetric calf tenderness with no palpable cords. Neuro shows cranial nerves II through XII are grossly intact gross motor and sensory are intact. Musculoskeletal yields no gross lesions. Mental status is as abovetechnically seems to have good recent recall but it takes a lot of directed questioning to obtain answers, probably fair remote recall at best. Somewhat anxious mood and affect, hard to assess judgment and insight. Results & Data Results & Data ([facility]) Vital Signs (Past 12 Hours) Vital Signs Temp Pulse Pulse Resp BP BP Pulse Ox 05/14/22 15:30 05/14/22 16:20 80 05/14/22 15:46 98.8 F 73 24 185/77 H 97 05/14/22 15:08 77 21 164/63 H 95 05/14/22 13:00 79 156/84 H 96 05/14/22 12:00 188/96 H 97 05/14/22 11:00 96 H 182/108 H 97 05/14/22 10:59 180/99 H 05/14/22 10:00 103 H 25 H 238/136 H 97 05/14/22 10:00 05/14/22 11:01 98.2 F 101 H 20 182/108 H 97 05/14/22 09:08 98 H 197/132 H 96 05/14/22 08:08 217/118 H 100 05/14/22 08:05 198/122 H 05/14/22 08:00 95 H 28 H 207/118 H 99 05/14/22 07:55 206/121 H 05/14/22 07:50 214/117 H 05/14/22 07:45 200/125 H 05/14/22 07:40 207/119 H 05/14/22 07:36 205/125 H 05/14/22 09:30 05/14/22 07:00 101 H 34 H 69 L 05/14/22 07:30 99 H 25 H 217/156 H 96 05/14/22 07:27 99 H 25 H 215/129 H 97 05/14/22 07:11 94 H 28 H 247/136 H 97 Pulse Ox Pulse Ox O2 Del Method O2 Del Method O2 Del Method O2 Flow Rate O2 Flow Rate 05/14/22 15:30 Nasal Cannula 2 05/14/22 16:20 05/14/22 15:46 Nasal Cannula 2.5 05/14/22 15:08 Nasal Cannula 2 05/14/22 13:00 Nasal Cannula 2 05/14/22 12:00 Nasal Cannula 4 05/14/22 11:00 Nasal Cannula 4 05/14/22 10:59 05/14/22 10:00 Nasal Cannula 4 05/14/22 10:00 Nasal Cannula 4 05/14/22 11:01 Nasal Cannula 4 05/14/22 09:08 Nasal Cannula 4 05/14/22 08:08 Nasal Cannula 4 05/14/22 08:05 05/14/22 08:00 Nasal Cannula 4 05/14/22 07:55 05/14/22 07:50 05/14/22 07:45 05/14/22 07:40 05/14/22 07:36 05/14/22 09:30 98 69 L Nasal Cannula Room Air 4 05/14/22 07:00 Room Air 05/14/22 07:30 Nasal Cannula 5 05/14/22 07:27 Nasal Cannula 5 05/14/22 07:11 Nasal Cannula 5 Code Status & VTE Plan VTE Prophylaxis Plan VTE Prophylaxis will be ordered: Yes PG Care Time/CCT Total # of Minutes Spent Total Time Spent with Patient: Total time spent is greater than 50% in coordination of care (as documented) at patient's floor/unit and/or counseling patient: Coding Level of Care Code 40050 INT INP/OBS CARE 375MIN Diagnoses Moderate mitral regurgitation I34.0 Cognitive impairment R41.89 Type 2 diabetes mellitus with diabetic neuropathy, without long-term current use of insulin E11.40 Hypertension I10 Ischemic cardiomyopathy I25.5 Hypercholesterolemia E78.00 Atrial fibrillation I48.91 Acid reflux disease K21.9 Esophagitis presence: without esophagitis DVT prophylaxis Z29.9 Discharge planning issues Z02.9 (1) Acid reflux disease Esophagitis presence: without esophagitis Qualified Code(s): K21.9 - Gastro- esophageal reflux disease without esophagitis
[2022-05-14] MEDS: NYSTATIN POWDER 15GM BTL EXT SCH (21:29)
--- NOTE | 2022-05-15 06:26 | Electrocardiogram Report ---
Test Reason : Blood Pressure : / mmHG Vent. Rate : 087 BPM Atrial Rate : 087 BPM P-R Int : 198 ms QRS Dur : 172 ms QT Int : 436 ms P-R-T Axes : 060 -70 100 degrees QTc Int : 524 ms Atrial-sensed ventricular-paced rhythm Abnormal ECG When compared with ECG of 26-JUL-2021 13:35, No significant change was found Confirmed by Tom Higgins ([id number]) on 05/15/2022 6:26:01 AM Referred By: REFERRED SELF Confirmed By:Tom Higgins
[2022-05-15 06:54] LABS: Basophils # (auto) 0.04 K/uL (0-0.2); Basophils % (auto) 0.5 %; Eosinophils # (auto) 0.17 K/uL (0-0.50); Eosinophils % (auto) 2.3 %; Hematocrit (blood only) 39.8 % (34.1-44.9); Hemoglobin 13.1 g/dl (12.0-16.0); Immature Granulocytes # (auto) 0.09 K/uL (0.00-0.02); Immature Granulocytes % (auto) 1.2 %; Lymphocytes # (auto) 1.16 K/uL (1.2-3.4); Lymphocytes % (auto) 15.6 %; Mean Corpuscular Hemoglobin 29.7 pg (25.0-34.0); Mean Corpuscular Hgb Conc 32.9 g/dL (32.0-36.0); Mean Corpuscular Volume 90.2 fL (80.0-100.0); Mean Platelet Volume 10.5 fL (9.4-12.3); Monocytes # (auto) 0.57 K/uL (0.24-0.82); Monocytes % (auto) 7.7 %; Neutrophils # (auto) 5.39 K/uL (1.4-6.5); Neutrophils % (auto) 72.7 %; Platelet Count 258 K/uL (130-400); RDW Coefficient of Variation 13.7 % (11.5-14.5); RDW Standard Deviation 44.9 fL (36.4-46.3); Red Blood Count 4.41 M/uL (3.93-5.22); White Blood Count 7.42 K/ul (4.8-10.8)
--- NOTE | 2022-05-15 07:22 | Hospitalist Progress Note ---
Date of Service May 15, 2022 Assessment & Plan (1) Pulmonary edema: Plan: 86yo Female with PMH: HFpEF, dementia, HTN, afib, heart block with pacer placed, CVAx2, CAD, RA, chronic pain, fixed paranoid delusional disorder, urinary incontinence here for SOB. Acute hypoxic resp failure sec to chf exac -still hypoxic. continue NC O2 and wean acute HFpEF exacerbation -CXR: Cardiomegaly with intermixed interstitial and alveolar opacities suggestive of pulmonary edema. Multifocal pneumonia considered less likely. Small pleural effusions. 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 PGY 2, FCM Highly complex patient (2) Hypoxia: (3) Substernal chest pain: (4) Atrial fibrillation: (5) Pacemaker: (6) Type 2 diabetes mellitus with diabetic neuropathy, without long-term current use of insulin: Admission and Anticipated Discharge Date Admission Date: May 14, 2022 Supervising Physician Co-Signing Physician Notes Resident Physician Supervision Note: I independently interviewed and examined the patient and verified the jaeger history and physical, reviewed labs and image studies and agree with resident findings and care plan. Subjective Patient seen at bedside, calm comfortable cooperative. Patient states her SOB feels improved from yesterday but still present. She exhibits occasional word finding difficulties and forgeting the question, but is able to converse appropriately with some prompting. Patient denies any nausea headache chest pain, describes some mild abd pain on palpation, some pain on light palpation of her ankles and bottom of feet but not her calves. Patient states she lives alone with her cat, is supposed to have a walker but can ambulate within the house without one. She calls her 4 children daily, daughter a doctor and calls daily to check in on her, other 3 sons live within 1 mile radius. Patient otherwise manages her own medications. Tolerated breakfast well. Review of Systems Review of Systems: All systems reviewed & are unremarkable except as noted in HPI & below Physical Exam Constitutional: well developed, well nourished, cooperative and comfortable Eyes: PERRL, conjunctivae normal, anicteric sclerae ENMT: external ear and nose normal, oropharynx normal Neck: trachea midline, no thyromegaly Respiratory: normal respiratory effort Auscultation: + crackles (b/l lower quadrants) Cardiovascular: Rate/Rhythm: regular rate and regular rhythm No tenderness on palpation of calves, some tenderness onlight touch to b/l feet and ankles Gastrointestinal (Abdomen): Inspection/Auscultation: abdomen normal to inspection Percussion/Palpation: + abdomen tender (mild, diffuse) and abdomen soft Skin: no rashes, warm and dry Results & Data Results & Data ([facility]) Vital Signs (Past 12 Hours) Vital Signs Temp Pulse Resp BP Pulse Ox O2 Del Method O2 Flow Rate 05/15/22 03:38 37 C 70 20 145/75 H 95 Nasal Cannula 2 05/14/22 20:00 Nasal Cannula 2 05/14/22 22:52 37.2 C 65 16 139/73 94 Nasal Cannula 2 05/14/22 19:29 36.6 C 74 16 145/67 H 95 Nasal Cannula 3 Resident Activity Tracking Resident Involvement: Resident Care Provided Care Provided: Adult Hospital Medicine (1) Pulmonary edema Chronicity: acute Qualified Code(s): J81.0 - Acute pulmonary edema
[2022-05-15 07:29] LABS: BUN Creatinine Ratio 23.3 (10-20); Calcium 9.7 mg/dl (8.5-10.1); Est GFR (African American) 68.1 ml/min; Est GFR (Non-African American) 58.7 ml/min; Potassium 3.5 mmol/L (3.5-5.1)
[2022-05-15] MEDS: INSULIN ASPART PER UNIT SC SCH ×4 (08:06→20:13)
[2022-05-15] MEDS: TELMISARTAN 40 MG TAB PO SCH (08:08)
[2022-05-15] MEDS: MULTIVITAMIN TAB PO SCH (08:09)
[2022-05-15] MEDS: carvediloL 25 MG TAB PO SCH ×2 (08:09→20:13)
[2022-05-15] MEDS: PANTOprazole 40 MG TAB PO SCH ×2 (08:09→20:13)
[2022-05-15] MEDS: ADVANCED PROBIOTIC 1250 MG CAPSULE PO SCH (08:09)
[2022-05-15] MEDS: ATORVASTATIN 40 MG TAB PO SCH (08:09)
[2022-05-15] MEDS: CHOLECALCIFEROL 1,000 UNITS 25 MCG TAB PO SCH (08:09)
[2022-05-15] MEDS: TIMOLOL MALEATE 0.5% OP SOLN 5 ML BTL OPB SCH (08:10)
[2022-05-15] MEDS: ARTIFICIAL TEARS OP SCH ×3 (08:10→20:12)
[2022-05-15] MEDS: NYSTATIN POWDER 15GM BTL EXT SCH ×3 (08:10→20:13)
[2022-05-15] MEDS: FUROSEMIDE 40 MG/4 ML VIAL IV SCH ×2 (08:10→20:18)
[2022-05-15] MEDS: RIVAROXABAN 20 MG TAB PO SCH ×2 (08:16→17:36)
[2022-05-15 08:45] LABS: Estimated Average Glucose 137 mg/dl; Hemoglobin A1C 6.4 % (4.5-5.6)
--- NOTE | 2022-05-16 07:20 | Hospitalist Progress Note ---
Date of Service May 16, 2022 Assessment & Plan (1) Pulmonary edema: Plan: 86yo Female with PMH: HFpEF, dementia, HTN, afib, heart block with pacer placed, CVAx2, CAD, RA, chronic pain, fixed paranoid delusional disorder, urinary incontinence here for SOB. Acute hypoxic resp failure sec to chf exac -still hypoxic. continue NC O2 and wean Acute HFpEF exacerbation -CXR: findings consistent with pul edema -weight on admit 67.9kg -last echo 03/28/22, EF 55-60%, mod LVH, mod mitral regurge -received lasix 40mg IV in ED -BUN rising - decrease lasix from 40mgs bid to 40mgs IV daily -trend BMP -daily I&Os, -may remove see once fully diuresed -daily weights Weakness -noted by PT/OT -referrals to SNF rehab placed by KALYAN Dementia -has baseline with fixed paranoid delusional disorder, has had word finding difficulties for some time -contact family as needed for further information DM2 -hold metformin -SSI -last A1c 6.3 HTN -continue Telmisartan, timolol -continue to monitor Afib/heart block on 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 PGY 2, FCM (2) Hypoxia: (3) Substernal chest pain: (4) Atrial fibrillation: (5) Pacemaker: (6) Type 2 diabetes mellitus with diabetic neuropathy, without long-term current use of insulin: Admission and Anticipated Discharge Date Admission Date: May 14, 2022 Supervising Physician Co-Signing Physician Notes Resident Physician Supervision Note: I independently interviewed and examined the patient and verified the jaeger history and physical, reviewed labs and image studies and agree with resident findings and care plan. Subjective Patient seen at bedside, has nursing assistance for bathing. Per chart check patient diuresing well, we will decrease her lasix at this time. Per Dr. Lam, patient' family interested in rehab Review of Systems Review of Systems: All systems reviewed & are unremarkable except as noted in HPI & below Physical Exam Constitutional: well developed, well nourished, cooperative and comfortable Eyes: PERRL, conjunctivae normal, anicteric sclerae ENMT: external ear and nose normal, oropharynx normal Neck: trachea midline, no thyromegaly Respiratory: normal respiratory effort Auscultation: + crackles (b/l lower quadrants) Cardiovascular: Rate/Rhythm: regular rate and regular rhythm Gastrointestinal (Abdomen): Inspection/Auscultation: abdomen normal to inspection Percussion/Palpation: + abdomen tender (mild, diffuse) and abdomen soft Skin: no rashes, warm and dry Results & Data Results & Data ([facility]) Vital Signs (Past 12 Hours) Vital Signs Temp Pulse Resp BP Pulse Ox O2 Del Method O2 Flow Rate 05/16/22 04:11 36.9 C 74 22 138/72 94 Nasal Cannula 2 05/16/22 00:03 36.4 C L 73 18 146/74 H 98 Nasal Cannula 2 05/15/22 20:00 Nasal Cannula 2 05/15/22 19:36 36.9 C 75 17 132/75 95 Nasal Cannula 2 Resident Activity Tracking Resident Involvement: Resident Care Provided Care Provided: Adult Hospital Medicine (1) Pulmonary edema Chronicity: acute Qualified Code(s): J81.0 - Acute pulmonary edema
[2022-05-16 07:48] LABS: BUN Creatinine Ratio 33.9 (10-20); Calcium 9.4 mg/dl (8.5-10.1); Creatinine Clr Calc Pharmacy 33.1 ml/min; Est GFR (African American) 52.2 ml/min; Est GFR (Non-African American) 45.1 ml/min; Potassium 3.6 mmol/L (3.5-5.1)
[2022-05-16] MEDS: NYSTATIN POWDER 15GM BTL EXT SCH ×3 (08:24→19:56)
[2022-05-16] MEDS: ARTIFICIAL TEARS OP SCH ×3 (08:24→19:55)
[2022-05-16] MEDS: TIMOLOL MALEATE 0.5% OP SOLN 5 ML BTL OPB SCH (08:24)
[2022-05-16] MEDS: ADVANCED PROBIOTIC 1250 MG CAPSULE PO SCH (08:25)
[2022-05-16] MEDS: CHOLECALCIFEROL 1,000 UNITS 25 MCG TAB PO SCH (08:25)
[2022-05-16] MEDS: MULTIVITAMIN TAB PO SCH (08:25)
[2022-05-16] MEDS: carvediloL 25 MG TAB PO SCH ×2 (08:25→19:56)
[2022-05-16] MEDS: TELMISARTAN 40 MG TAB PO SCH (08:25)
[2022-05-16] MEDS: ATORVASTATIN 40 MG TAB PO SCH (08:25)
[2022-05-16] MEDS: PANTOprazole 40 MG TAB PO SCH ×2 (08:25→19:56)
[2022-05-16] MEDS: INSULIN ASPART PER UNIT SC SCH ×4 (08:31→19:57)
[2022-05-16] MEDS: FUROSEMIDE 40 MG/4 ML VIAL IV SCH (08:32)
[2022-05-16] MEDS: RIVAROXABAN 20 MG TAB PO SCH (16:59)
[2022-05-16] MEDS ORDERED: FUROSEMIDE INJ 20 MG/2 ML VIAL IV SCH (21:00)
--- NOTE | 2022-05-17 06:49 | Hospitalist Progress Note ---
Date of Service May 17, 2022 Assessment & Plan (1) Pulmonary edema: Plan: 86yo Female with PMH: HFpEF, dementia, HTN, afib, heart block with pacer placed, CVAx2, CAD, RA, chronic pain, fixed paranoid delusional disorder, urinary incontinence here for SOB. Acute hypoxic resp failure sec to chf exac -still hypoxic. continue NC O2 and wean Acute HFpEF exacerbation -CXR: findings consistent with pul edema -weight on admit 67.9kg -last echo 03/28/22, EF 55-60%, mod LVH, mod mitral regurge -received lasix 40mg IV in ED, -neg 6L with rise in creatinine - stopped lasix -trend BMP -daily I&Os, see removed -daily weights Acute Right Peroneal Vein DVT (ordered for leg soreness) -likely unprovoked -on Xarelto 15mg daily due to CrCl, will increase to 15mg BID when appropriate -given her history dementia, possible she was not regularly on Xarelto while at home, along with her b/l leg pain on admission these may have occurred before hospitalization Weakness -noted by PT/OT -referrals to SNF rehab placed by CM Dementia -has baseline with fixed paranoid delusional disorder, has had word finding difficulties for some time -contact family as needed for further information DM2 -hold metformin -SSI -last A1c 6.3 HTN -continue Telmisartan, timolol -continue to monitor Afib/heart block on pacer -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 PGY 2, FCM (2) Hypoxia: (3) Substernal chest pain: (4) Atrial fibrillation: (5) Pacemaker: (6) Type 2 diabetes mellitus with diabetic neuropathy, without long-term current use of insulin: Admission and Anticipated Discharge Date Admission Date: May 14, 2022 Supervising Physician Co-Signing Physician Notes Resident Physician Supervision Note: I independently interviewed and examined the patient and verified the jaeger history and physical, reviewed labs and image studies and agree with resident findings and care plan. Subjective Patient seen at bedside, calm comfortable cooperative. Denies SOB, has good appetite. Notes increased pain along her right calf and ankle. Otherwise no concerns Review of Systems Review of Systems: All systems reviewed & are unremarkable except as noted in HPI & below Physical Exam Constitutional: well developed, well nourished, cooperative and comfortable Eyes: PERRL, conjunctivae normal, anicteric sclerae ENMT: external ear and nose normal, oropharynx normal Neck: trachea midline, no thyromegaly Respiratory: normal respiratory effort Auscultation: + crackles (b/l lower quadrants, improved) Cardiovascular: Rate/Rhythm: regular rate and regular rhythm Gastrointestinal (Abdomen): Inspection/Auscultation: abdomen normal to inspection Percussion/Palpation: abdomen soft Skin: no rashes, warm and dry Results & Data Results & Data ([facility]) Vital Signs (Past 12 Hours) Vital Signs Temp Pulse Pulse Resp BP BP Pulse Ox 05/17/22 06:30 36.7 C 61 16 126/64 98 05/17/22 03:08 36.8 C 64 18 118/61 99 05/16/22 22:00 64 05/16/22 19:45 05/16/22 22:57 36.9 C 66 16 109/60 95 05/16/22 19:04 37 C 72 18 108/63 97 O2 Del Method O2 Flow Rate 05/17/22 06:30 Nasal Cannula 2 05/17/22 03:08 Nasal Cannula 2 05/16/22 22:00 05/16/22 19:45 Nasal Cannula 2 05/16/22 22:57 Nasal Cannula 2 05/16/22 19:04 Nasal Cannula 2 Resident Activity Tracking Resident Involvement: Resident Care Provided Care Provided: Adult Hospital Medicine (1) Pulmonary edema Chronicity: acute Qualified Code(s): J81.0 - Acute pulmonary edema
[2022-05-17 07:35] LABS: BUN Creatinine Ratio 32.2 (10-20); Calcium 9.3 mg/dl (8.5-10.1); Creatinine Clr Calc Pharmacy 25.8 ml/min; Est GFR (African American) 37.9 ml/min; Est GFR (Non-African American) 32.7 ml/min; Potassium 3.5 mmol/L (3.5-5.1)
[2022-05-17] MEDS: TIMOLOL MALEATE 0.5% OP SOLN 5 ML BTL OPB SCH (08:53)
[2022-05-17] MEDS: FUROSEMIDE 40 MG/4 ML VIAL IV SCH ×2 (08:53→10:19)
[2022-05-17] MEDS: CHOLECALCIFEROL 1,000 UNITS 25 MCG TAB PO SCH (08:54)
[2022-05-17] MEDS: PANTOprazole 40 MG TAB PO SCH ×2 (08:54→20:30)
[2022-05-17] MEDS: carvediloL 25 MG TAB PO SCH ×2 (08:54→20:30)
[2022-05-17] MEDS: ATORVASTATIN 40 MG TAB PO SCH (08:54)
[2022-05-17] MEDS: ADVANCED PROBIOTIC 1250 MG CAPSULE PO SCH (08:54)
[2022-05-17] MEDS: TELMISARTAN 40 MG TAB PO SCH (08:55)
[2022-05-17] MEDS: MULTIVITAMIN TAB PO SCH (08:55)
[2022-05-17] MEDS: NYSTATIN POWDER 15GM BTL EXT SCH ×3 (08:55→20:31)
[2022-05-17] MEDS: INSULIN ASPART PER UNIT SC SCH ×4 (08:57→20:31)
[2022-05-17] MEDS: ARTIFICIAL TEARS OP SCH ×3 (08:57→20:30)
[2022-05-17] MEDS: DICLOFENAC SOD 1% GEL 100 GM TUBE EXT SCH ×2 (10:21→20:30)
--- NOTE | 2022-05-17 10:41 | Ultrasound Report ---
US venous doppler LE RT CLINICAL HISTORY: Calf pain on palpation TECHNIQUE: Right lower extremity real-time compression venous ultrasound with Color Doppler imaging. Utilizing real-time ultrasonic imaging multiple real time high-resolution ultrasonic images with comp ression and noncompression maneuvers of the deep venous system in addition to color doppler imaging w ere performed from the common femoral vein through the proximal calf veins. COMPARISON: Comparison is made to a venous Doppler ultrasound 06/07/2020 FINDINGS: There is discontinuous flow and noncompressibility of the right proximal peroneal vein. No superficia l venous thrombosis is identified. Impression: Deep venous thrombus is in the proximal right peroneal vein. ACT 112: Negative or not required by law. Electronically signed by: Shivam Wilkinson M.D. 05/17/2022 10:40 AM
[2022-05-17] MEDS ORDERED: RIVAROXABAN 15 MG TAB PO SCH (16:30)
[2022-05-18 06:49] LABS: Hematocrit (blood only) 34.4 % (34.1-44.9); Hemoglobin 11.3 g/dl (12.0-16.0); Mean Corpuscular Hemoglobin 29.7 pg (25.0-34.0); Mean Corpuscular Hgb Conc 32.8 g/dL (32.0-36.0); Mean Corpuscular Volume 90.5 fL (80.0-100.0); Mean Platelet Volume 10.8 fL (9.4-12.3); Platelet Count 221 K/uL (130-400); RDW Coefficient of Variation 13.4 % (11.5-14.5); White Blood Count 7.05 K/ul (4.8-10.8)
--- NOTE | 2022-05-18 07:01 | Hospitalist Progress Note ---
Date of Service May 18, 2022 Assessment & Plan (1) Pulmonary edema: Plan: 86yo Female with PMH: HFpEF, dementia, HTN, afib, heart block with pacer placed, CVAx2, CAD, RA, chronic pain, fixed paranoid delusional disorder, urinary incontinence here for SOB. Acute hypoxic resp failure sec to chf exac -resolved -currently on room air Acute HFpEF exacerbation -CXR: findings consistent with pul edema -weight on admit 67.9kg -last echo 03/28/22, EF 55-60%, mod LVH, mod mitral regurge -received lasix 40mg IV in ED, -neg 6L with rise in creatinine - stopped lasix -trend BMP -daily I&Os, see removed -daily weights Acute Right Peroneal Vein DVT (ordered for leg soreness) -likely unprovoked -on Xarelto increase to 15mg BID -given her history dementia, possible she was not regularly on Xarelto while at home, along with her b/l leg pain on admission these may have occurred before hospitalization Weakness -noted by PT/OT -referrals to SNF rehab placed by CM Dementia -has baseline with fixed paranoid delusional disorder, has had word finding difficulties for some time -contact family as needed for further information DM2 -hold metformin -SSI -last A1c 6.3 HTN -continue Telmisartan, timolol -continue to monitor Afib/heart block on pacer -on case monitor -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 PGY 2, FCM (2) Hypoxia: (3) Substernal chest pain: (4) Atrial fibrillation: (5) Pacemaker: (6) Type 2 diabetes mellitus with diabetic neuropathy, without long-term current use of insulin: Admission and Anticipated Discharge Date Admission Date: May 14, 2022 Supervising Physician Co-Signing Physician Notes Resident Physician Supervision Note: I independently interviewed and examined the patient and verified the jaeger history and physical, reviewed labs and image studies and agree with resident findings and care plan. Subjective Patient seen at bedside, sleeping comfortably. No acute concerns overnight. Physical Exam Constitutional: well developed, well nourished, cooperative and comfortable Eyes: PERRL, conjunctivae normal, anicteric sclerae ENMT: external ear and nose normal, oropharynx normal Neck: trachea midline, no thyromegaly Respiratory: normal respiratory effort Cardiovascular: Rate/Rhythm: regular rate and regular rhythm Gastrointestinal (Abdomen): Inspection/Auscultation: abdomen normal to inspection Percussion/Palpation: abdomen soft Skin: no rashes, warm and dry Results & Data Results & Data ([facility]) Vital Signs (Past 12 Hours) Vital Signs Temp Pulse Pulse Resp BP BP Pulse Ox 05/17/22 20:00 05/18/22 03:09 36.6 C 63 122/73 99 05/17/22 22:03 67 05/17/22 22:41 37.2 C 66 18 104/58 L 98 05/17/22 20:07 37.5 C 66 15 126/64 93 05/17/22 19:48 37.5 C 66 17 126/64 98 O2 Del Method O2 Flow Rate 05/17/22 20:00 Nasal Cannula 2 05/18/22 03:09 Nasal Cannula 2 05/17/22 22:03 05/17/22 22:41 Nasal Cannula 2 05/17/22 20:07 Nasal Cannula 2 05/17/22 19:48 Nasal Cannula 2 Resident Activity Tracking Resident Involvement: Resident Care Provided Care Provided: Adult Hospital Medicine (1) Pulmonary edema Chronicity: acute Qualified Code(s): J81.0 - Acute pulmonary edema
[2022-05-18 08:40] LABS: BUN Creatinine Ratio 36.1 (10-20); Calcium 9.6 mg/dl (8.5-10.1); Creatinine Clr Calc Pharmacy 28.6 ml/min; Est GFR (African American) 42.4 ml/min; Est GFR (Non-African American) 36.6 ml/min; Potassium 3.5 mmol/L (3.5-5.1)
[2022-05-18] MEDS: INSULIN ASPART PER UNIT SC SCH ×4 (09:05→21:49)
[2022-05-18] MEDS: carvediloL 25 MG TAB PO SCH ×2 (09:56→21:04)
[2022-05-18] MEDS: PANTOprazole 40 MG TAB PO SCH ×2 (09:56→21:04)
[2022-05-18] MEDS: CHOLECALCIFEROL 1,000 UNITS 25 MCG TAB PO SCH (09:56)
[2022-05-18] MEDS: MULTIVITAMIN TAB PO SCH (09:56)
[2022-05-18] MEDS: ADVANCED PROBIOTIC 1250 MG CAPSULE PO SCH (09:56)
[2022-05-18] MEDS: TELMISARTAN 40 MG TAB PO SCH (09:57)
[2022-05-18] MEDS: NYSTATIN POWDER 15GM BTL EXT SCH ×3 (09:57→21:04)
[2022-05-18] MEDS: TIMOLOL MALEATE 0.5% OP SOLN 5 ML BTL OPB SCH (09:57)
[2022-05-18] MEDS: DICLOFENAC SOD 1% GEL 100 GM TUBE EXT SCH ×2 (09:57→21:02)
[2022-05-18] MEDS: ATORVASTATIN 40 MG TAB PO SCH (09:57)
[2022-05-18] MEDS: ARTIFICIAL TEARS OP SCH ×3 (09:57→21:03)
[2022-05-18] MEDS: RIVAROXABAN 15 MG TAB PO SCH ×2 (10:05→21:04)
[2022-05-18] MEDS ORDERED: POTASSIUM CHLORIDE CRTAB 20 MEQ TABCR PO STA (11:24)
--- NOTE | 2022-05-19 06:58 | Hospitalist Progress Note ---
Date of Service May 19, 2022 Assessment & Plan (1) Pulmonary edema: Plan: 86yo Female with PMH: HFpEF, dementia, HTN, afib, heart block with pacer placed, CVAx2, CAD, RA, chronic pain, fixed paranoid delusional disorder, urinary incontinence here for SOB. Acute hypoxic resp failure sec to chf exac -resolved -currently on room air Acute HFpEF exacerbation -CXR: findings consistent with pul edema -weight on admit 67.9kg -last echo 03/28/22, EF 55-60%, mod LVH, mod mitral regurge -received lasix 40mg IV in ED -neg 6L with rise in creatinine - stopped lasix -trend BMP -daily I&Os, see removed -daily weights Acute Right Peroneal Vein DVT (ordered for leg soreness) -likely unprovoked -on Xarelto increase to 15mg BID note CrCl is under 30, continue to monitor -given her history dementia, possible she was not regularly on Xarelto while at home, along with her b/l leg pain on admission these may have occurred before hospitalization Weakness -noted by PT/OT -referrals to SNF rehab placed by CM, possible placement sunday Dementia -has baseline with fixed paranoid delusional disorder, has had word finding difficulties for some time -contact family as needed for further information DM2 -hold metformin -SSI -last A1c 6.3 HTN -continue Telmisartan, timolol -continue to monitor Afib/heart block on pacer -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 PGY 2, FCM (2) Hypoxia: (3) Substernal chest pain: (4) Atrial fibrillation: (5) Pacemaker: (6) Type 2 diabetes mellitus with diabetic neuropathy, without long-term current use of insulin: Admission and Anticipated Discharge Date Admission Date: May 14, 2022 Supervising Physician Co-Signing Physician Notes Resident Physician Supervision Note: I independently interviewed and examined the patient and verified the jaeger history and physical, reviewed labs and image studies and agree with resident findings and care plan. Subjective Patient seen at bedside, calm comfortable cooperative. Is sad, states her and son in law on Sunday. States she wishes she could be at home to help. Understands possible placement for PT sunday. Otherwise no acute concerns, no SOB Review of Systems Review of Systems: All systems reviewed & are unremarkable except as noted in HPI & below Physical Exam Constitutional: well developed, well nourished, cooperative and comfortable Eyes: PERRL, conjunctivae normal, anicteric sclerae ENMT: external ear and nose normal, oropharynx normal Neck: trachea midline, no thyromegaly Respiratory: normal respiratory effort Auscultation: lungs clear to auscultation bilaterally Cardiovascular: Rate/Rhythm: regular rate and regular rhythm Gastrointestinal (Abdomen): Inspection/Auscultation: abdomen normal to inspection Percussion/Palpation: abdomen soft Skin: no rashes, warm and dry Results & Data Results & Data ([facility]) Vital Signs (Past 12 Hours) Vital Signs Temp Pulse Resp BP Pulse Ox O2 Del Method 05/19/22 03:00 36.8 C 66 18 111/57 L 94 Room Air 05/18/22 22:59 36.6 C 68 18 116/58 L 96 Room Air 05/18/22 19:00 36.6 C 68 18 116/58 L 96 Room Air Resident Activity Tracking Resident Involvement: Resident Care Provided Care Provided: Adult Hospital Medicine (1) Pulmonary edema Chronicity: acute Qualified Code(s): J81.0 - Acute pulmonary edema
[2022-05-19 07:55] LABS: BUN Creatinine Ratio 42.5 (10-20); Calcium 9.4 mg/dl (8.5-10.1); Creatinine Clr Calc Pharmacy 35.7 ml/min; Est GFR (African American) 55.8 ml/min; Est GFR (Non-African American) 48.2 ml/min; Potassium 3.9 mmol/L (3.5-5.1)
[2022-05-19] MEDS: ARTIFICIAL TEARS OP SCH ×3 (10:02→20:48)
[2022-05-19] MEDS: ATORVASTATIN 40 MG TAB PO SCH (10:03)
[2022-05-19] MEDS: CHOLECALCIFEROL 1,000 UNITS 25 MCG TAB PO SCH (10:03)
[2022-05-19] MEDS: carvediloL 25 MG TAB PO SCH ×2 (10:03→20:48)
[2022-05-19] MEDS: DICLOFENAC SOD 1% GEL 100 GM TUBE EXT SCH ×2 (10:03→20:48)
[2022-05-19] MEDS: MULTIVITAMIN TAB PO SCH (10:04)
[2022-05-19] MEDS: ADVANCED PROBIOTIC 1250 MG CAPSULE PO SCH (10:04)
[2022-05-19] MEDS: NYSTATIN POWDER 15GM BTL EXT SCH ×3 (10:04→20:47)
[2022-05-19] MEDS: PANTOprazole 40 MG TAB PO SCH ×2 (10:05→20:48)
[2022-05-19] MEDS: RIVAROXABAN 15 MG TAB PO SCH ×2 (10:05→20:47)
[2022-05-19] MEDS: TELMISARTAN 40 MG TAB PO SCH (10:05)
[2022-05-19] MEDS: TIMOLOL MALEATE 0.5% OP SOLN 5 ML BTL OPB SCH (10:05)
[2022-05-19] MEDS: INSULIN ASPART PER UNIT SC SCH ×4 (10:27→20:42)
[2022-05-19] MEDS: ACETAMINOPHEN 325 MG TAB PO PRN (22:01)
[2022-05-20 07:31] LABS: BUN Creatinine Ratio 41.2 (10-20); Calcium 9.7 mg/dl (8.5-10.1); Creatinine Clr Calc Pharmacy 38.5 ml/min; Est GFR (African American) 62.2 ml/min; Est GFR (Non-African American) 53.6 ml/min; Potassium 3.8 mmol/L (3.5-5.1)
--- NOTE | 2022-05-20 07:48 | Hospitalist Progress Note ---
Date of Service May 20, 2022 Assessment & Plan (1) Pulmonary edema: Plan: 86yo Female with PMH: HFpEF, dementia, HTN, afib, heart block with pacer placed, CVAx2, CAD, RA, chronic pain, fixed paranoid delusional disorder, urinary incontinence here for SOB. Acute hypoxic resp failure sec to chf exac -resolved -currently on room air Acute HFpEF exacerbation -CXR: findings consistent with pul edema -weight on admit 67.9kg -last echo 03/28/22, EF 55-60%, mod LVH, mod mitral regurge -received lasix 40mg IV in ED -neg 6L with rise in creatinine - stopped lasix -trend BMP -daily I&Os, see removed -daily weights Acute Right Peroneal Vein DVT (ordered for leg soreness) -likely unprovoked -on Xarelto increase to 15mg BID note CrCl is under 30, continue to monitor -given her history dementia, possible she was not regularly on Xarelto while at home, along with her b/l leg pain on admission these may have occurred before hospitalization Weakness -noted by PT/OT -referrals to SNF rehab placed by CM, possible placement 05/22 Dementia -has baseline with fixed paranoid delusional disorder, has had word finding difficulties for some time -contact family as needed for further information DM2 -hold metformin -SSI -last A1c 6.3 HTN -continue Telmisartan, timolol -continue to monitor Afib/heart block on pacer -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 -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 -continue xarelto GERD -continue protonix HLD -continue lipitor FENa: heart healthy carb consistent Code Status: Full DVT PPX: xarelto PT/OT: ordered, recommend SNF rehab Dispo: PCU/tele, can downgrade to med/tele (2) Hypoxia: (3) Substernal chest pain: (4) Atrial fibrillation: (5) Pacemaker: (6) Type 2 diabetes mellitus with diabetic neuropathy, without long-term current use of insulin: Admission and Anticipated Discharge Date Admission Date: May 14, 2022 Supervising Physician Co-Signing Physician Notes Resident Physician Supervision Note: I independently interviewed and examined the patient and verified the jaeger history and physical, reviewed labs and image studies and agree with resident findings and care plan. Subjective Seen at bedside. Patient resting comfortably. No acute complaints at this time. Review of Systems Review of Systems: All systems reviewed & are unremarkable except as noted in Subjective Physical Exam Physical Exam: GENERAL: A&Ox3. NAD. CHEST/LUNGS: CTAB A/P. No crackles, wheezes, rales, rhonchi. HEART: RRR. No m/g/r. No carotid bruits. SKIN: Warm and dry. No rashes or lesions. Results & Data Results & Data ([facility]) Vital Signs (Past 12 Hours) Vital Signs Temp Pulse Pulse Resp BP Pulse Ox O2 Del Method 05/20/22 07:10 36.8 C 72 16 150/61 H 94 Room Air 05/19/22 22:26 37.0 C 68 16 147/68 H 94 Room Air 05/19/22 21:48 Room Air 05/19/22 20:01 37.3 C 65 17 121/63 96 Room Air Resident Activity Tracking Resident Involvement: Resident Care Provided Care Provided: Adult Hospital Medicine (1) Pulmonary edema Chronicity: acute Qualified Code(s): J81.0 - Acute pulmonary edema
[2022-05-20] MEDS: CHOLECALCIFEROL 1,000 UNITS 25 MCG TAB PO SCH (08:24)
[2022-05-20] MEDS: DICLOFENAC SOD 1% GEL 100 GM TUBE EXT SCH ×2 (08:24→20:29)
[2022-05-20] MEDS: MULTIVITAMIN TAB PO SCH (08:24)
[2022-05-20] MEDS: ADVANCED PROBIOTIC 1250 MG CAPSULE PO SCH (08:24)
[2022-05-20] MEDS: RIVAROXABAN 15 MG TAB PO SCH ×2 (08:25→20:28)
[2022-05-20] MEDS: carvediloL 25 MG TAB PO SCH ×2 (08:25→20:28)
[2022-05-20] MEDS: PANTOprazole 40 MG TAB PO SCH ×2 (08:25→20:28)
[2022-05-20] MEDS: ATORVASTATIN 40 MG TAB PO SCH (08:25)
[2022-05-20] MEDS: TELMISARTAN 40 MG TAB PO SCH (08:25)
[2022-05-20] MEDS: NYSTATIN POWDER 15GM BTL EXT SCH ×3 (08:26→20:29)
[2022-05-20] MEDS: TIMOLOL MALEATE 0.5% OP SOLN 5 ML BTL OPB SCH (08:26)
[2022-05-20] MEDS: ARTIFICIAL TEARS OP SCH ×3 (08:27→20:27)
[2022-05-20] MEDS: INSULIN ASPART PER UNIT SC SCH ×4 (10:02→20:48)
[2022-05-20] MEDS: ACETAMINOPHEN 325 MG TAB PO PRN (20:22)
[2022-05-21 06:52] LABS: Hematocrit (blood only) 34.3 % (34.1-44.9); Hemoglobin 11.2 g/dl (12.0-16.0); Mean Corpuscular Hemoglobin 29.5 pg (25.0-34.0); Mean Corpuscular Hgb Conc 32.7 g/dL (32.0-36.0); Mean Corpuscular Volume 90.3 fL (80.0-100.0); Mean Platelet Volume 10.9 fL (9.4-12.3); Platelet Count 219 K/uL (130-400); RDW Coefficient of Variation 13.2 % (11.5-14.5); RDW Standard Deviation 43.8 fL (36.4-46.3); White Blood Count 4.71 K/ul (4.8-10.8)
--- NOTE | 2022-05-21 07:18 | Hospitalist Progress Note ---
Date of Service May 21, 2022 Assessment & Plan (1) Pulmonary edema: Plan: 86yo Female with PMH: HFpEF, dementia, HTN, afib, heart block with pacer placed, CVAx2, CAD, RA, chronic pain, fixed paranoid delusional disorder, urinary incontinence here for SOB. Acute hypoxic resp failure sec to chf exac -resolved -currently on room air Acute HFpEF exacerbation -CXR: findings consistent with pul edema -weight on admit 67.9kg -last echo 03/28/22, EF 55-60%, mod LVH, mod mitral regurge -received lasix 40mg IV in ED -neg 6L with rise in creatinine - stopped lasix -daily I&Os, see removed -daily weights Acute Right Peroneal Vein DVT (ordered for leg soreness) -likely unprovoked -on Xarelto increase to 15mg BID note CrCl is under 30, continue to monitor -given her history dementia, possible she was not regularly on Xarelto while at home, along with her b/l leg pain on admission these may have occurred before hospitalization Weakness -noted by PT/OT -referrals to SNF rehab placed by CM, possible placement 05/22 Dementia -has baseline with fixed paranoid delusional disorder, has had word finding difficulties for some time -contact family as needed for further information DM2 -hold metformin -SSI -last A1c 6.3 HTN -continue Telmisartan, timolol -continue to monitor Afib/heart block on pacer -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 -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 -continue xarelto GERD -continue protonix HLD -continue lipitor FENa: heart healthy carb consistent Code Status: Full DVT PPX: xarelto PT/OT: ordered, recommend SNF rehab Dispo: MedSurg; placement pending (2) Hypoxia: (3) Substernal chest pain: (4) Atrial fibrillation: (5) Pacemaker: (6) Type 2 diabetes mellitus with diabetic neuropathy, without long-term current use of insulin: Admission and Anticipated Discharge Date Admission Date: May 14, 2022 Supervising Physician Co-Signing Physician Notes Resident Physician Supervision Note: I independently interviewed and examined the patient and verified the jaeger history and physical, reviewed labs and image studies and agree with resident findings and care plan. Subjective Patient seen at bedside. Doing well with no complaints or concerns, calm and cooperative. Denies any current issues. Review of Systems Review of Systems: All systems reviewed & are unremarkable except as noted in Subjective Physical Exam Physical Exam: GENERAL: A&Ox3. NAD. CHEST/LUNGS: CTAB A/P. No crackles, wheezes, rales, rhonchi. HEART: RRR. No m/g/r. No carotid bruits. SKIN: Warm and dry. No rashes or lesions. Results & Data Results & Data ([facility]) Vital Signs (Past 12 Hours) Vital Signs Temp Pulse Resp BP Pulse Ox O2 Del Method 05/20/22 20:15 Room Air 05/20/22 20:26 36.6 C 61 16 138/65 95 Room Air (1) Pulmonary edema Chronicity: acute Qualified Code(s): J81.0 - Acute pulmonary edema
[2022-05-21] MEDS: ATORVASTATIN 40 MG TAB PO SCH (08:13)
[2022-05-21] MEDS: TELMISARTAN 40 MG TAB PO SCH (08:13)
[2022-05-21] MEDS: CHOLECALCIFEROL 1,000 UNITS 25 MCG TAB PO SCH (08:14)
[2022-05-21] MEDS: PANTOprazole 40 MG TAB PO SCH ×2 (08:14→20:48)
[2022-05-21] MEDS: carvediloL 25 MG TAB PO SCH ×2 (08:14→20:45)
[2022-05-21] MEDS: MULTIVITAMIN TAB PO SCH (08:14)
[2022-05-21] MEDS: RIVAROXABAN 15 MG TAB PO SCH ×2 (08:14→20:49)
[2022-05-21] MEDS: DICLOFENAC SOD 1% GEL 100 GM TUBE EXT SCH ×2 (08:15→20:48)
[2022-05-21] MEDS: ADVANCED PROBIOTIC 1250 MG CAPSULE PO SCH (08:15)
[2022-05-21] MEDS: TIMOLOL MALEATE 0.5% OP SOLN 5 ML BTL OPB SCH (08:15)
[2022-05-21] MEDS: NYSTATIN POWDER 15GM BTL EXT SCH ×3 (08:15→20:48)
[2022-05-21] MEDS: ARTIFICIAL TEARS OP SCH ×3 (08:16→20:47)
[2022-05-21] MEDS: INSULIN ASPART PER UNIT SC SCH ×4 (09:52→20:44)
[2022-05-22] MEDS: ATORVASTATIN 40 MG TAB PO SCH (08:00)
[2022-05-22] MEDS: carvediloL 25 MG TAB PO SCH ×2 (08:00→20:25)
[2022-05-22] MEDS: RIVAROXABAN 15 MG TAB PO SCH ×2 (08:00→20:26)
[2022-05-22] MEDS: DICLOFENAC SOD 1% GEL 100 GM TUBE EXT SCH ×2 (08:01→20:24)
[2022-05-22] MEDS: ARTIFICIAL TEARS OP SCH ×3 (08:01→20:23)
[2022-05-22] MEDS: CHOLECALCIFEROL 1,000 UNITS 25 MCG TAB PO SCH (08:01)
[2022-05-22] MEDS: TELMISARTAN 40 MG TAB PO SCH (08:01)
[2022-05-22] MEDS: ADVANCED PROBIOTIC 1250 MG CAPSULE PO SCH (08:01)
[2022-05-22] MEDS: MULTIVITAMIN TAB PO SCH (08:01)
[2022-05-22] MEDS: NYSTATIN POWDER 15GM BTL EXT SCH ×3 (08:02→20:24)
[2022-05-22] MEDS: PANTOprazole 40 MG TAB PO SCH ×2 (08:02→20:25)
[2022-05-22] MEDS: TIMOLOL MALEATE 0.5% OP SOLN 5 ML BTL OPB SCH (08:02)
[2022-05-22] MEDS: INSULIN ASPART PER UNIT SC SCH ×4 (09:11→21:00)
--- NOTE | 2022-05-22 09:22 | Hospitalist Progress Note ---
Date of Service May 22, 2022 Assessment & Plan (1) Pulmonary edema: Plan: 86yo Female with PMH: HFpEF, dementia, HTN, afib, heart block with pacer placed, CVAx2, CAD, RA, chronic pain, fixed paranoid delusional disorder, urinary incontinence here for SOB. Acute HFpEF exacerbation with acute hypoxic respiratory failure -CXR: findings consistent with pulmonary edema -weight on admit 71.7 kg to 68.8 kg today -last echocardiogram 03/28/22, EF 55-60%, moderate LVH, moderate mitral regurgitation -Pt not currently on diuretic therapy at home, she will need PRN diuretic on discharge -Suspect her CHF exacerbation was due to poor afterload control -Continue carvedilol 25 mg BID -Increased telmisartan 40 mg to 80 mg today, will continue on discharge Acute right peroneal vein thrombus -likely unprovoked -Currently on Xarelto 15 mg BID note CrCl is under 30, continue to monitor -given her history dementia, possible she was not regularly on Xarelto while at home, along with her b/l leg pain on admission these may have occurred before hospitalization Weakness -noted by PT/OT -referrals to SNF rehab placed by CM, possible placement 05/22 Dementia -has baseline with fixed paranoid delusional disorder, has had word finding difficulties for some time -Continue reorientation/redirection DM2 -hold metformin -SSI -last A1c 6.3 HTN -continue telmisartan, timolol -continue to monitor Atrial fibrillation/heart block on pacer -on library monitor -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 -continue Xarelto GERD -continue Protonix HLD -continue statin FENa: heart healthy carb consistent Code Status: Full DVT PPX: Xarelto PT/OT: ordered, recommend SNF rehab Dispo: Medical/surgical; placement pending for SNF (2) Hypoxia: (3) Substernal chest pain: (4) Atrial fibrillation: (5) Pacemaker: (6) Type 2 diabetes mellitus with diabetic neuropathy, without long-term current use of insulin: Admission and Anticipated Discharge Date Admission Date: May 14, 2022 Supervising Physician Co-Signing Physician Notes I personally examined the patient and verified all jaeger points of history and exam, discussed case, and agree with decision making with Dr Grubbs. Feeling better, just weak. Awaiting rehab. Would like to build to make it home to [place] for her son-in-law's funeralher daughter delayed it until June with hopes she can be there. Vitals noted, in general she is in no distress. HEENT normocephalic atraumatic mucous membranes moist. Breathing unlabored no accessory muscle use good effort. Skin shows no rashes no pallor or icterus. Neuro without focal deficits. Acute on chronic diastolic CHFeither from high afterload, excess sodium intake, or both. Improved. Continue to titrate med management outpatient regimen. Awaiting rehab, stable when bed available. Subjective No acute events overnight. She is doing well, denies any dyspnea or chest pain. Leg swelling and R leg pain is improving but not entirely resolved. Understands she will go to rehab after hospital. Review of Systems Review of Systems: Per subjective Physical Exam Physical Exam: GENERAL: A&Ox3. NAD. CHEST/LUNGS: CTAB A/P. No crackles, wheezes, rales, rhonchi. HEART: RRR. No m/g/r. No carotid bruits. SKIN: Warm and dry. No rashes or lesions. EXT: 1+ peripheral edema up to knees b/l, mild tenderness to palpation of R calf Results & Data Results & Data ([facility]) Vital Signs (Past 12 Hours) Vital Signs Temp Pulse Resp BP BP Pulse Ox O2 Del Method 05/22/22 07:33 37.9 C H 69 16 182/81 H 97 Room Air 05/21/22 23:10 37 C 62 18 142/69 H 97 Room Air Resident Activity Tracking Resident Involvement: Resident Care Provided Care Provided: Adult Hospital Medicine (1) Pulmonary edema Chronicity: acute Qualified Code(s): J81.0 - Acute pulmonary edema
--- NOTE | 2022-05-22 19:47 | Billing Data ---
Date of Service May 22, 2022 Coding Level of Care Code 70836 SUB INP/OBS CARE
[2022-05-23] MEDS: TELMISARTAN 40 MG TAB PO SCH (08:33)
[2022-05-23] MEDS: RIVAROXABAN 15 MG TAB PO SCH ×2 (08:34→20:20)
[2022-05-23] MEDS: CHOLECALCIFEROL 1,000 UNITS 25 MCG TAB PO SCH (08:34)
[2022-05-23] MEDS: carvediloL 25 MG TAB PO SCH ×2 (08:34→20:20)
[2022-05-23] MEDS: ATORVASTATIN 40 MG TAB PO SCH (08:34)
[2022-05-23] MEDS: PANTOprazole 40 MG TAB PO SCH ×2 (08:34→20:20)
[2022-05-23] MEDS: ARTIFICIAL TEARS OP SCH ×3 (08:35→20:17)
[2022-05-23] MEDS: MULTIVITAMIN TAB PO SCH (08:35)
[2022-05-23] MEDS: DICLOFENAC SOD 1% GEL 100 GM TUBE EXT SCH ×2 (08:35→20:17)
[2022-05-23] MEDS: ADVANCED PROBIOTIC 1250 MG CAPSULE PO SCH (08:35)
[2022-05-23] MEDS: NYSTATIN POWDER 15GM BTL EXT SCH ×3 (08:36→20:17)
[2022-05-23] MEDS: TIMOLOL MALEATE 0.5% OP SOLN 5 ML BTL OPB SCH (08:36)
[2022-05-23] MEDS ORDERED: TELMISARTAN 40 MG TAB PO SCH (09:00)
[2022-05-23] MEDS: INSULIN ASPART PER UNIT SC SCH ×4 (09:41→20:44)
--- NOTE | 2022-05-23 10:19 | Discharge Summary ---
Date of Service May 23, 2022 Admission HPI Per Admitting Provider Patient is a somewhat difficult historian due to what appears to be baseline anxiety, may be some baseline confusion, or bothbut to the best I can put together she has had progressive shortness of breath over the last week or so. Seems to maybe have some degree of orthopnea although this is not entirely clear. Seems to have had weight gain of 5 to 10 pounds, but the timeline is not very clear. Denies fever chills or sweats on very directed questioningit was hard to get past chills because she would keep circling back to the fact that she is always cold, when I would demonstrate a rigor she would loosely deny that but again endorsed that she is always coldit seems like the always cold has gone on for quite a while. She eventually had enough worsening of the shortness of breath that she decided to come to the hospital for further evaluation. As far as her diet, she does not endorse much of anything that sounds to be high in sodium, although the bulk of her hot meals come from [employer]. She lives at home with her cat. Separately, she notes a difficulty with getting the right word outshe is very vague with this as well. She notes that its been going on for quite a while, off again/on againwhen it happens she endorses possibly a degree of bilateral perioral numbness, no unilateral, and no unilateral numbness or weakness otherwise/face/arm/anywhere else. She seems to relate if she tries hard enough she is able to get the right word out. She is unable to give me a provoking factor for the episodes, duration for the episodes ("it depends on how long people let me try") and is unable to say if anything seems to make the episodes go away. In discussion of CODE STATUS, she is unable to give me a direct answershe notes that she has advanced directives but does not express any direct answer whatsoever as to what is on them. On directed questioning when asked if she would want CPR or ventilator, she says yes. She asked me to call her son Rickveral times today I have tried to callhis home line has no answer/no machine, his cell phone was no answer and the voicemail box has not yet been set up. Nursing denies seeing any family at the bedside since she has been admitted. Admission Exam Per Admitting Provider In general she is awake alert oriented x3 the best I can assess, but again as ab oveseems to either be anxious, somewhat forgetful, or somewhat both making the interaction fairly difficultshe seems to wander a lot in conversation, and give answers that are almost, but not quite, peripherally related to the question asked. HEENT normocephalic atraumatic mucous membranes moist. Cardio is regular without rubs murmurs gallops. Lungs show markedly noticeable bibasilar rales up to about the prison point no rhonchi no wheezes very mild accessory muscles good effort, she is on oxygen mask when I see her, and she is mildly tachypneic. Abdomen is soft mildly distended no focal tenderness no guarding rebound or rigidity. Extremities show no cyanosis clubbing or edema she has bilateral symmetric calf tenderness with no palpable cords. Neuro shows cranial nerves II through XII are grossly intact gross motor and sensory are intact. Musculoskeletal yields no gross lesions. Mental status is as abovetechnically seems to have good recent recall but it takes a lot of directed questioning to obtain answers, probably fair remote recall at best. Somewhat anxious mood and affect, hard to assess judgment and insight. Principal Diagnosis Acute on chronic diastolic CHF exacerbation Discharge Exam GENERAL: elderly woman in no acute distress CHEST/LUNGS: Largely clear to auscultation with faint bibasilar crackles. No wheezes, rales, rhonchi. HEART: RRR. Systolic murmur over LUSB. No carotid bruits. SKIN: Warm and dry. No rashes or lesions. EXT: no peripheral edema, no tenderness to palpation of calves b/l Discharge Data Allergies Allergy/AdvReac Type Severity Reaction Status Date / Time Cephalosporins Allergy Intermediate HIVES Verified 05/03/22 07:16 Penicillins Allergy Intermediate HIVES Verified 05/03/22 07:16 valdecoxib Allergy Intermediate ITCHING,ANTOLIN Verified 05/03/22 07:16 SEATED prednisone Allergy Unknown Unknown Verified 05/03/22 07:16 codeine AdvReac Intermediate NAUSEA Verified 05/03/22 07:16 pantoprazole AdvReac Intermediate NAUSEATED Verified 05/03/22 07:16 Consultations 05/14/22 08:02 ED Decision to Admit Stat Ordered Studies 05/17/22 08:23 US venous doppler LE RT Routine Hospital Course (1) Atrial fibrillation: 86yo Female with PMH: HFpEF, dementia, HTN, afib, heart block with pacer placed, CVAx2, CAD, RA, chronic pain, fixed paranoid delusional disorder, urinary incontinence here for SOB with hypoxemia secondary to acute HFpEF from Acute HFpEF exacerbation with acute hypoxic respiratory failure -- resolved -CXR: findings consistent with pulmonary edema -weight on admit 71.7 kg, improving on day-to-day labs -last echocardiogram 03/28/22, EF 55-60%, moderate LVH, moderate mitral regurgitation -Suspect her CHF exacerbation was due to need for further afterload control -Continue carvedilol 25 mg BID, telmisartan 40 mg (consider increase to 80 mg as outpatient) -Pt not currently on diuretic therapy at home; discharged home with Lasix 40 mg PRN -One Lasix 20 mg PO dose given prior to discharge given residual crackles on lung exam -Recommend SNF -- P2P denied as well as family appeal. CM assisting in options- [facility] vs. home w/ home health -Discharged home with family support, plan for eventual home health services Acute right peroneal vein thrombus -likely unprovoked; however, given h/o dementia, ?Xarelto compliance issues -Currently on Xarelto 15 mg BID -- continue through 06/07, thereafter daily (adjust with renal labs PRN) Weakness -extensive deconditioning in setting of the above issues -referrals to SNF rehab placed by CM, placement search complicated by lack of insurance approval Dementia -has baseline with fixed paranoid delusional disorder, has had word finding difficulties for some time -Continue reorientation/redirection DM2 -SSI while here, hold metformin -last A1c 6.3 HTN -continue telmisartan, timolol Atrial fibrillation/heart block on pacer -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 -continue Xarelto GERD -continue Protonix HLD -continue statin FENa: heart healthy, carb consistent Code Status: Full DVT PPX: Xarelto PT/OT: recommend SNF rehab Dispo: Medical/surgical; P2P and family appeal denied for SNF. Discharged home with family support today, plan for home health (2) Type 2 diabetes mellitus with diabetic neuropathy, without long-term current use of insulin: Total Time Total Time Spent Total Time Spent (In Minutes): 30 Discharge Plan Discharge Items Patient Disposition: Transfer Longterm Fac Reason For Visit: DECOMPENSATED CHF Discharge Diagnosis: as above Activity: Per Instructions section Non-emergency contact: Primary Care Provider Call non-emergency contact if: you have any medication questions and your symptoms worsen Follow-up/Referrals: Shelli Olmstead MD [Primary Care Provider] - Diet: Heart Healthy Addtl Attending Provider Instructions: You were admitted for CHF (congestive heart failure) exacerbation. You were treated with diuretics to help remove extra fluid from your body. You will be going home with support from your son but the plan is eventually to have home health services set up for you. Follow-up appointments: Make a follow-up appointment with your PCP Dr. Olmstead within the next week. It is very important that you follow up with them shortly after discharge from the hospital. Medications: Your medication list has been reviewed and reconciled upon discharge to ensure accuracy and continuity of care. An updated list of all your medications is included with your hospital discharge paperwork. Please review this list closely, and make note of any changes. We sent a new medication called Lasix to the pharmacy. Please take Lasix if you notice increasing difficulty breathing, swelling in your legs/elsewhere in your body, or sudden weight gain- 2 lbs or more in 24 hours. Your blood thinner, Xarelto, had its dosage changed in the hospital. You previously took 20 mg daily. Going forward, you will take 15 mg twice a day (as close to 12 hours apart as possible). After June 07, please take 15 mg once a day unless advised otherwise by Dr. Olmstead. Take your medications as instructed; do not skip a dose of your medicines. Make sure all of your doctors know every medicine you are taking (including [id number] medicines, vitamins, and supplements). Call your primary care provider before taking any new medicines (including vbkq-mlz-vqxbeme medicines, vitamins, and supplements), because some of these may interact with your current medications, or may make your symptoms worse. Tell your primary care provider if you cannot afford your medications. Activity: You can do normal everyday activities as your body allows. Take rest breaks if you feel tired. Do not over-exert yourself. Stop activity if you have pain, shortness of breath or feel dizzy. Weight: It is important for you to monitor your daily weights. Weigh yourself every morning using the same scale. Wear the same amount of clothing each time, without anything in your pockets. Keep a log of your daily weights, and bring this log with you every time you see your primary care physician, or any other doctor. Call your primary care physician if you gain more than 2-3 pounds in 1-2 days. Diet: Follow a low sodium (salt) diet. We recommend limiting your sodium intake to under 2000mg per day. Choose foods and drinks with low or no salt. Remove the salt shaker from your table at home. We also recommend limiting your daily fluid intake to 1800mL (60oz) in order to help your body balance fluids. Do not drink excessive beer, alcohol, or wine. If you are struggling with these restrictions, or need additional help incorporating healthy habits into your daily life, please contact your primary care provider. CONTACT YOUR PRIMARY CARE PROVIDER if you experience any of the following: Shortness of breath or have more difficulty breathing Swelling of your feet, ankles, hands or abdomen Feeling tired with normal activity or experiencing dizziness or fainting Difficulty following your treatment plan, or difficulty taking medications CALL 911 OR GO TO THE EMERGENCY DEPARTMENT if you experience any of the following: Severe abdominal pain Severe nausea/vomiting Severe chest pain, or chest pain that radiates (moves) to your jaw or arm Sudden, severe shortness of breath or difficulty breathing Thank you for allowing us to participate in your care. Pending Studies at Discharge: No Stand-Alone Forms: My [facility] Skilled Items Patient informed of condition?: Yes DNR: No Discharge Level of Care: Skilled Communicable Disease: No Discharge Prognosis: Stable Lines: None Urinary Catheter: No Medications and DC Order Prescriptions: New furosemide [Lasix] 40 mg tablet 40 mg PO DAILY PRN (Reason: weight gain) Qty: 30 0RF Xarelto 15 mg Tablet 15 mg PO BID Qty: 60 0RF Continued atorvastatin 80 mg tablet 80 mg PO DAILY Qty: 90 3RF telmisartan [Micardis] 40 mg tablet 40 mg PO DAILY Qty: 90 3RF timolol maleate 0.5 % drops 1 drp OPB QAM Qty: 15 3RF fluticasone propionate [Flonase Allergy Relief] 50 mcg/actuation spray,suspension 1 spray INTRANASAL BID PRN (Reason: Nasal Congestion) Qty: 47.4 3RF metformin 500 mg tablet extended release 24hr 500 mg PO DAILY Qty: 90 3RF Rx Instructions: sunday pantoprazole 40 mg tablet,delayed release (DR/EC) 40 mg PO BID Qty: 180 3RF carvedilol 25 mg tablet 25 mg PO BID Qty: 60 5RF nystatin 100,000 unit/gram powder 1 applic topical DAILY PRN (Reason: rash) Qty: 60 0RF Rx Instructions: Apply to abdominal rash daily ketoconazole 2 % cream 1 applic topical BID Qty: 60 1RF Rx Instructions: Apply to rash on belly twice daily nitroglycerin [Nitrostat] 0.4 mg tablet, sublingual 0.4 mg Sublingual DIRECTED PRN (Reason: Chest Pain) Qty: 30 0RF cholecalciferol (vitamin D3) 50 mcg (2,000 unit) capsule 50 mcg PO DAILY Systane Balance 0.6 % drops 1 drp ophthalmic (eye) TID apple cider vinegar 500 mg tablet 750 mg PO QAM multivitamin Tablet 1 tab PO DAILY [employer] [facility] 750 mg-100 mg- 1.65 mg-108 mg Tablet 1 tab PO DAILY Probiotic 100 billion cell Capsule 1 cap PO DAILY Rx Instructions: UNKNOWN STRENGTH acetaminophen [Tylenol] 325 mg Tablet 650 mg PO Q6H PRN (Reason: PAIN/FEVER) Discontinued Xarelto 20 mg tablet 20 mg PO DAILY Qty: 30 2RF Rx Instructions: must administer with evening meal Discharge Orders: Discharge Order- CHF (Routine); Ordered 05/29/22 Ordered By: Hailey Manriquez/Other Patient Handouts: Managing Type 2 Diabetes Admission Data Admit Date/Time: 05/14/22 08:14 Attending Provider: Ayad Jackson Admit Provider: Ayad Jackson Primary Care Provider: Shelli Olmstead Other Providers: Keavy,Care ; Nimco Hawthorne Bulpitt ; Ayad Jackson ; Meche Lam ; [facility] Resident Activity Tracking Resident Involvement: Resident Care Provided Care Provided: Adult Hospital Medicine
[2022-05-23] MEDS: ACETAMINOPHEN 325 MG TAB PO PRN ×2 (11:36→15:32)
--- NOTE | 2022-05-23 12:11 | Hospitalist Progress Note ---
Date of Service May 23, 2022 Assessment & Plan (1) Pulmonary edema: Plan: 86yo Female with PMH: HFpEF, dementia, HTN, afib, heart block with pacer placed, CVAx2, CAD, RA, chronic pain, fixed paranoid delusional disorder, urinary incontinence here for SOB. Acute HFpEF exacerbation with acute hypoxic respiratory failure -CXR: findings consistent with pulmonary edema -weight on admit 71.7 kg to 68.8 kg today -last echocardiogram 03/28/22, EF 55-60%, moderate LVH, moderate mitral regurgitation -Pt not currently on diuretic therapy at home, she will need PRN diuretic on discharge -Suspect her CHF exacerbation was due to poor afterload control -Continue carvedilol 25 mg BID -Continue telmisartan 40 mg. Consider increase to 80 mg as outpatient for further afterload reduction Acute right peroneal vein thrombus -likely unprovoked -Currently on Xarelto 15 mg BID note CrCl is under 30, continue to monitor -given her history dementia, possible she was not regularly on Xarelto while at home, along with her b/l leg pain on admission these may have occurred before hospitalization Weakness -noted by PT/OT -referrals to SNF rehab placed by CM, placement search ongoing Dementia -has baseline with fixed paranoid delusional disorder, has had word finding difficulties for some time -Continue reorientation/redirection DM2 -hold metformin -SSI -last A1c 6.3 HTN -continue telmisartan, timolol -continue to monitor Atrial fibrillation/heart block on pacer -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 -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 -continue Xarelto GERD -continue Protonix HLD -continue statin FENa: heart healthy carb consistent Code Status: Full DVT PPX: Xarelto PT/OT: recommend SNF rehab Dispo: Medical/surgical; placement search for termite inspector care facility with intermittent skilled therapy per peer to peer discussion (2) Hypoxia: (3) Substernal chest pain: (4) Atrial fibrillation: (5) Pacemaker: (6) Type 2 diabetes mellitus with diabetic neuropathy, without long-term current use of insulin: Admission and Anticipated Discharge Date Admission Date: May 14, 2022 Supervising Physician Co-Signing Physician Notes I personally examined the patient and verified all jaeger points of history and exam, discussed case, and agree with decision making with Dr Grubbs. weak but in the chair. insurance peer to peer farce better outlined by dr rubio. Vitals noted, in general she is in no distress. HEENT normocephalic atraumatic mucous membranes moist. Breathing unlabored no accessory muscle use good effort. Skin shows no rashes no pallor or icterus. Neuro without focal deficits. Acute on chronic diastolic CHFeither from high afterload, excess sodium intake, or both. Improved. Continue to titrate med management outpatient regimen. for rehab/snf not safe for home insurance causing delay in necessary care and raising risk of nosocomial infection/further deconditioning Subjective No acute events overnight. She is doing well, denies any dyspnea or chest pain. Leg swelling and R leg pain is improving further. Understands she will go to rehab after hospital. Review of Systems Review of Systems: Per subjective Physical Exam Physical Exam: GENERAL: A&Ox3. NAD. CHEST/LUNGS: CTAB A/P. No crackles, wheezes, rales, rhonchi. HEART: RRR. No m/g/r. No carotid bruits. SKIN: Warm and dry. No rashes or lesions. EXT: trace peripheral edema, mild tenderness to palpation of R calf Results & Data Results & Data ([facility]) Vital Signs (Past 12 Hours) Vital Signs Temp Pulse Resp BP Pulse Ox O2 Del Method 05/23/22 07:17 36.9 C 54 L 16 156/66 H 94 Room Air Resident Activity Tracking Resident Involvement: Resident Care Provided Care Provided: Adult Hospital Medicine (1) Pulmonary edema Chronicity: acute Qualified Code(s): J81.0 - Acute pulmonary edema
--- NOTE | 2022-05-23 15:30 | Communication Note ---
Date of Service: May 23, 2022 Engaged with a [id number] earlier today given insurance's surprising denial of a senior living facility. I engaged in an extensive discussion with the insurance agency owner physician MISSY: while patient may be able to perform certain physical tasks on paper, we (as her care team, who have been seeing her in-person daily, and - alongside the professional recommendations of BOTH OT and PT) do not feel safe with her returning home alone given her deconditioning, age, recent HFpEF exacerbation, and new DVT (to add to this, there is some concern that maybe she has not been taking Xarelto regularly, and now would be fully responsible for self-administering again). Interestingly, over the phone, I was told by this insurance agency owner that one of our options was pursuing an "intermittent skilled therapy" setup at a "long-term care facility," to which I agreed and expressed interest. This patient care representative said he would include this in the letter to our facility. However, I was just informed by that all requests were DENIED by insurance. This leaves us in an unfortunate position where, in the absence of being able to secure a personal care facility that now has to independently be arranged by patient's family (who is currently grieving the loss of another family member), patient would have to return home alone -- which again, for the many and extensive reasons listed above (which are ?insufficient), are strongly unfavorable and concern her medical team greatly. In the interim, her extended hospital stay as a result of the insurance denial also poses increased risk of iatrogenic harm from a prolonged hospital stay, including nosocomial infections and rehospitalization. Appeal number was provided by to the daughter. Case extensively discussed with attending physician.
--- NOTE | 2022-05-23 19:34 | Billing Data ---
Date of Service May 23, 2022 Coding Level of Care Code INP/OBS CONSULT LVL 3, 45 MIN
--- NOTE | 2022-05-23 19:35 | Billing Data ---
Date of Service May 23, 2022 Coding Level of Care Code 95421 SUB INP/OBS CARE
[2022-05-24] MEDS: carvediloL 25 MG TAB PO SCH ×2 (08:06→20:43)
[2022-05-24] MEDS: RIVAROXABAN 15 MG TAB PO SCH ×2 (08:07→20:43)
[2022-05-24] MEDS: ADVANCED PROBIOTIC 1250 MG CAPSULE PO SCH (08:07)
[2022-05-24] MEDS: TELMISARTAN 40 MG TAB PO SCH (08:07)
[2022-05-24] MEDS: ATORVASTATIN 40 MG TAB PO SCH (08:07)
[2022-05-24] MEDS: PANTOprazole 40 MG TAB PO SCH ×2 (08:07→20:44)
[2022-05-24] MEDS: MULTIVITAMIN TAB PO SCH (08:07)
[2022-05-24] MEDS: CHOLECALCIFEROL 1,000 UNITS 25 MCG TAB PO SCH (08:08)
[2022-05-24] MEDS: ARTIFICIAL TEARS OP SCH ×3 (08:08→20:41)
[2022-05-24] MEDS: NYSTATIN POWDER 15GM BTL EXT SCH ×3 (08:09→20:44)
[2022-05-24] MEDS: DICLOFENAC SOD 1% GEL 100 GM TUBE EXT SCH ×2 (08:09→20:42)
[2022-05-24] MEDS: TIMOLOL MALEATE 0.5% OP SOLN 5 ML BTL OPB SCH (08:10)
[2022-05-24] MEDS: INSULIN ASPART PER UNIT SC SCH ×4 (09:39→21:00)
--- NOTE | 2022-05-24 16:19 | Hospitalist Progress Note ---
Date of Service May 24, 2022 Assessment & Plan (1) Pulmonary edema: Plan: 86yo Female with PMH: HFpEF, dementia, HTN, afib, heart block with pacer placed, CVAx2, CAD, RA, chronic pain, fixed paranoid delusional disorder, urinary incontinence here for SOB. Acute HFpEF exacerbation with acute hypoxic respiratory failure -CXR: findings consistent with pulmonary edema -weight on admit 71.7 kg to 68.8 kg today -last echocardiogram 03/28/22, EF 55-60%, moderate LVH, moderate mitral regurgitation -Pt not currently on diuretic therapy at home, she will need PRN diuretic on discharge -Suspect her CHF exacerbation was due to poor afterload control -Continue carvedilol 25 mg BID -Continue telmisartan 40 mg. Consider increase to 80 mg as outpatient for further afterload reduction -Appears pt will be going home with family support once arranged since insurance will not authorize SNF/rehab Acute right peroneal vein thrombus -likely unprovoked -Currently on Xarelto 15 mg BID note CrCl is under 30, continue to monitor -given her history dementia, possible she was not regularly on Xarelto while at home, along with her b/l leg pain on admission these may have occurred before hospitalization Weakness -noted by PT/OT -referrals to SNF rehab placed by CM, placement search complicated by lack of insurance approval Dementia -has baseline with fixed paranoid delusional disorder, has had word finding difficulties for some time -Continue reorientation/redirection DM2 -hold metformin -SSI -last A1c 6.3 HTN -continue telmisartan, timolol -continue to monitor Atrial fibrillation/heart block on pacer -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 -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 -continue Xarelto GERD -continue Protonix HLD -continue statin FENa: heart healthy carb consistent Code Status: Full DVT PPX: Xarelto PT/OT: recommend SNF rehab Dispo: Medical/surgical; anticipate d/c home with family support as rehab is unfortunately not approved by insurance (2) Hypoxia: (3) Substernal chest pain: (4) Atrial fibrillation: (5) Pacemaker: (6) Type 2 diabetes mellitus with diabetic neuropathy, without long-term current use of insulin: Admission and Anticipated Discharge Date Admission Date: May 14, 2022 Supervising Physician Co-Signing Physician Notes I personally examined the patient and verified all jaeger points of history and exam, discussed case, and agree with decision making with Dr Grubbs. In the chair. Notes that she will be able to have her son stay with her. Vitals noted, in general she is in no distress. HEENT normocephalic atraumatic mucous membranes moist. Breathing unlabored no accessory muscle use good effort. Skin shows no rashes no pallor or icterus. Neuro without focal def icits. Acute on chronic diastolic CHFeither from high afterload, excess sodium intake, or both. Improved. If son can stay with her, seems like she would be okay at home with outpatient therapy. Subjective No acute events overnight. She is doing well, denies any dyspnea or chest pain. Denies any acute complaints. States she can have her son live with her briefly to take care of her in lieu of going to rehab. Review of Systems Review of Systems: Per HPI Physical Exam Physical Exam: GENERAL: A&Ox3. NAD. CHEST/LUNGS: CTAB A/P. No crackles, wheezes, rales, rhonchi. HEART: RRR. No m/g/r. No carotid bruits. SKIN: Warm and dry. No rashes or lesions. EXT: trace peripheral edema, mild tenderness to palpation of R calf Results & Data Results & [facility] ([facility]) Vital Signs (Past 12 Hours) Vital Signs Temp Pulse Pulse Resp BP BP Pulse Ox 05/24/22 15:30 36.6 C 61 16 105/59 L 96 05/24/22 11:19 62 16 112/58 L 96 05/24/22 07:56 37.1 C 60 18 150/64 H 95 O2 Del Method 05/24/22 15:30 Room Air 05/24/22 11:19 Room Air 05/24/22 07:56 Room Air Resident Activity Tracking Resident Involvement: Resident Care Provided Care Provided: Adult Hospital Medicine (1) Pulmonary edema Chronicity: acute Qualified Code(s): J81.0 - Acute pulmonary edema
--- NOTE | 2022-05-24 18:57 | Billing Data ---
Date of Service May 24, 2022 Coding Level of Care Code 86002 SUB INP/OBS CARE
--- NOTE | 2022-05-24 18:58 | Billing Data ---
Date of Service May 24, 2022 Coding Level of Care Code 87258 SUB INP/OBS CARE
[2022-05-25] MEDS: RIVAROXABAN 15 MG TAB PO SCH ×2 (08:45→20:16)
[2022-05-25] MEDS: PANTOprazole 40 MG TAB PO SCH ×2 (08:45→20:16)
[2022-05-25] MEDS: CHOLECALCIFEROL 1,000 UNITS 25 MCG TAB PO SCH (08:45)
[2022-05-25] MEDS: TELMISARTAN 40 MG TAB PO SCH (08:45)
[2022-05-25] MEDS: MULTIVITAMIN TAB PO SCH (08:45)
[2022-05-25] MEDS: carvediloL 25 MG TAB PO SCH ×2 (08:45→20:15)
[2022-05-25] MEDS: ATORVASTATIN 40 MG TAB PO SCH (08:45)
[2022-05-25] MEDS: ADVANCED PROBIOTIC 1250 MG CAPSULE PO SCH (08:45)
[2022-05-25] MEDS: DICLOFENAC SOD 1% GEL 100 GM TUBE EXT SCH ×2 (08:46→20:15)
[2022-05-25] MEDS: NYSTATIN POWDER 15GM BTL EXT SCH ×3 (08:46→20:16)
[2022-05-25] MEDS: TIMOLOL MALEATE 0.5% OP SOLN 5 ML BTL OPB SCH (08:46)
[2022-05-25] MEDS: ARTIFICIAL TEARS OP SCH ×3 (08:46→20:14)
[2022-05-25] MEDS: INSULIN ASPART PER UNIT SC SCH ×4 (08:51→20:57)
--- NOTE | 2022-05-25 10:34 | Hospitalist Progress Note ---
Date of Service May 25, 2022 Assessment & Plan (1) Pulmonary edema: Plan: 86yo Female with PMH: HFpEF, dementia, HTN, afib, heart block with pacer placed, CVAx2, CAD, RA, chronic pain, fixed paranoid delusional disorder, urinary incontinence here for SOB. Acute HFpEF exacerbation with acute hypoxic respiratory failure -CXR: findings consistent with pulmonary edema -weight on admit 71.7 kg to 68.8 kg today -last echocardiogram 03/28/22, EF 55-60%, moderate LVH, moderate mitral regurgitation -Pt not currently on diuretic therapy at home, she will need PRN diuretic on discharge -Suspect her CHF exacerbation was due to poor afterload control -Continue carvedilol 25 mg BID -Continue telmisartan 40 mg. Consider increase to 80 mg as outpatient for further afterload reduction -Appears pt will be going home with family support once arranged since insurance will not authorize SNF/rehab Acute right peroneal vein thrombus -likely unprovoked -Currently on Xarelto 15 mg BID note CrCl is under 30, continue to monitor -given her history dementia, possible she was not regularly on Xarelto while at home, along with her b/l leg pain on admission these may have occurred before hospitalization Weakness -noted by PT/OT -referrals to SNF rehab placed by CM, placement search complicated by lack of insurance approval Dementia -has baseline with fixed paranoid delusional disorder, has had word finding difficulties for some time -Continue reorientation/redirection DM2 -hold metformin -SSI -last A1c 6.3 HTN -continue telmisartan, timolol -continue to monitor Atrial fibrillation/heart block on pacer -on nurse monitoring -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 -continue Xarelto GERD -continue Protonix HLD -continue statin FENa: heart healthy carb consistent Code Status: Full DVT PPX: Xarelto PT/OT: recommend SNF rehab Dispo: Medical/surgical; anticipate d/c home with family support as rehab is unfortunately not approved by insurance (2) Hypoxia: (3) Substernal chest pain: (4) Atrial fibrillation: (5) Pacemaker: (6) Type 2 diabetes mellitus with diabetic neuropathy, without long-term current use of insulin: Admission and Anticipated Discharge Date Admission Date: May 14, 2022 Supervising Physician Co-Signing Physician Notes I personally examined the patient and verified all jaeger points of history and exam, discussed case, and agree with decision making with Dr Grubbs. not clear son can take care of her. she otherwise feels OK and would like to go home. Vitals noted, in general she is in no distress. HEENT normocephalic atraumatic mucous membranes moist. Breathing unlabored no accessory muscle use good effort. Skin shows no rashes no pallor or icterus. Neuro without focal deficits. Acute on chronic diastolic CHFeither from high afterload, excess sodium intake, or both. Improved. If son can stay with her, seems like she would be okay at home with outpatient therapy. team is trying to coordinate Subjective No acute events overnight. She is doing well, denies any dyspnea or chest pain. Denies any acute complaints. She did attempt to call her son yesterday to arrange for him staying with her after discharge in lieu of rehab. She was unfortunately unable to reach him, she will try again today. Review of Systems Review of Systems: Per HPI Physical Exam Physical Exam: GENERAL: A&Ox3. NAD. CHEST/LUNGS: CTAB A/P. No crackles, wheezes, rales, rhonchi. HEART: RRR. No m/g/r. No carotid bruits. SKIN: Warm and dry. No rashes or lesions. EXT: trace peripheral edema, mild tenderness to palpation of R calf Results & Data Results & Data ([facility]) Vital Signs (Past 12 Hours) Vital Signs Temp Pulse Resp BP Pulse Ox O2 Del Method 05/25/22 07:33 36.9 C 64 18 168/69 H 96 Room Air Resident Activity Tracking Resident Involvement: Resident Care Provided Care Provided: Adult Hospital Medicine (1) Pulmonary edema Chronicity: acute Qualified Code(s): J81.0 - Acute pulmonary edema
--- NOTE | 2022-05-25 18:10 | Billing Data ---
Date of Service May 25, 2022 Coding Level of Care Code 97804 SUB INP/OBS CARE
--- NOTE | 2022-05-26 07:50 | Hospitalist Progress Note ---
Date of Service May 26, 2022 Assessment & Plan (1) Atrial fibrillation: Plan: 86yo Female with PMH: HFpEF, dementia, HTN, afib, heart block with pacer placed, CVAx2, CAD, RA, chronic pain, fixed paranoid delusional disorder, urinary incontinence here for SOB. Acute HFpEF exacerbation with acute hypoxic respiratory failure -CXR: findings consistent with pulmonary edema -weight on admit 71.7 kg, improving on day-to-day labs -last echocardiogram 03/28/22, EF 55-60%, moderate LVH, moderate mitral regurgitation -Suspect her CHF exacerbation was due to poor afterload control -Continue carvedilol 25 mg BID -Continue telmisartan 40 mg. Consider increase to 80 mg as outpatient for further afterload reduction -Pt not currently on diuretic therapy at home; recommend initiating sliding scale discussion prior to discharge -Recommend SNF; however, initially denied. Family going through appeal process. Acute right peroneal vein thrombus -likely unprovoked; however, given h/o dementia, ?Xarelto compliance issues -Currently on Xarelto 15 mg BID -- continue through 06/07, thereafter daily (adjust with renal labs PRN) Weakness -extensive deconditioning in setting of the above issues -referrals to SNF rehab placed by CM, placement search complicated by lack of insurance approval Dementia -has baseline with fixed paranoid delusional disorder, has had word finding difficulties for some time -Continue reorientation/redirection DM2 -SSI while here, hold metformin -last A1c 6.3 HTN -continue telmisartan, timolol -continue to monitor Atrial fibrillation/heart block on pacer -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 -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 -continue Xarelto GERD -continue Protonix HLD -continue statin FENa: heart healthy carb consistent Code Status: Full DVT PPX: Xarelto PT/OT: recommend SNF rehab Dispo: Medical/surgical; anticipate d/c home with family support as rehab is unfortunately not approved by insurance (2) Type 2 diabetes mellitus with diabetic neuropathy, without long-term current use of insulin: Admission and Anticipated Discharge Date Admission Date: May 14, 2022 Supervising Physician Co-Signing Physician Notes I personally examined the patient and verified all jaeger points of history and exam, discussed case, and agree with decision making with Dr Grubbs. no clear coordination with son yet. appreciate case management efforts/dtr efforts in SNF appeal. Vitals noted, in general she is in no distress. HEENT normocephalic atraumatic mucous membranes moist. Breathing unlabored no accessory muscle use good effort. Skin shows no rashes no pallor or icterus. Neuro without focal deficits. Acute on chronic diastolic CHFeither from high afterload, excess sodium intake, or both. Improved. If son can stay with her, seems like she would be okay at home with outpatient therapy. team is trying to coordinate. for now remain inpatient until safe disposition can be arranged. at a surface level (ie for acute decision making) pt does appear to have capacity. despite that, i (as does the rest of the team, and her daughter) harbor grave concerns about her actual ability to care for herself. pt herself even seems loosely aware that this is true. Subjective NAEO. Feeling well. No SOB. No CP/palpitations. No n/v/d. Family appealing placement denial. Agree - she would strongly benefit from rehab. Please see my communication note from 05/23. Review of Systems Review of Systems: as per HPI Physical Exam Physical Exam: General: 86-year old female who is alert, oriented, and appears in no acute distress. HEENT: NCAT. - Eyes - Sclera are white, anicteric, and without injection. - Mouth - MMM - Neck - supple, no appreciable JVD Cardiac: Normal rate and regular rhythm; S1 and S2 present with no murmurs, rubs, or gallops. Pulmonary: Good respiratory effort with symmetric expansion of the chest. No use of accessory muscles. Lungs were clear to auscultation bilaterally with no crackles or wheezes. Abdominal: Normoactive bowel sounds. Abdomen was soft, nondistended, and non- tender to palpation. Extremities: Upper and lower extremities are warm and well perfused. [] peripheral edema in the lower extremities bilaterally Psych: Well-developed, well-nourished, appropriately dressed for occasion. Behavior is cooperative and appropriate. Affect is WNL. Insight is appropriate. Results & Data Results & Data ([facility]) Vital Signs (Past 12 Hours) Vital Signs Temp Pulse Resp BP Pulse Ox O2 Del Method 05/26/22 07:10 37.2 C 60 15 185/79 H 94 Room Air 05/25/22 20:11 37.0 C 62 18 136/68 96 Room Air Resident Activity Tracking Resident Involvement: Resident Care Provided Care Provided: Adult Hospital Medicine
[2022-05-26] MEDS: ATORVASTATIN 40 MG TAB PO SCH (08:15)
[2022-05-26] MEDS: MULTIVITAMIN TAB PO SCH (08:15)
[2022-05-26] MEDS: TELMISARTAN 40 MG TAB PO SCH (08:15)
[2022-05-26] MEDS: CHOLECALCIFEROL 1,000 UNITS 25 MCG TAB PO SCH (08:15)
[2022-05-26] MEDS: ADVANCED PROBIOTIC 1250 MG CAPSULE PO SCH (08:15)
[2022-05-26] MEDS: TIMOLOL MALEATE 0.5% OP SOLN 5 ML BTL OPB SCH (08:16)
[2022-05-26] MEDS: NYSTATIN POWDER 15GM BTL EXT SCH ×3 (08:16→20:43)
[2022-05-26] MEDS: PANTOprazole 40 MG TAB PO SCH ×2 (08:16→20:42)
[2022-05-26] MEDS: DICLOFENAC SOD 1% GEL 100 GM TUBE EXT SCH ×2 (08:16→20:42)
[2022-05-26] MEDS: RIVAROXABAN 15 MG TAB PO SCH ×2 (08:16→20:43)
[2022-05-26] MEDS: carvediloL 25 MG TAB PO SCH ×2 (08:16→20:42)
[2022-05-26] MEDS: ARTIFICIAL TEARS OP SCH ×3 (08:17→20:43)
[2022-05-26] MEDS: INSULIN ASPART PER UNIT SC SCH ×4 (09:09→21:04)
--- NOTE | 2022-05-26 18:39 | Billing Data ---
Date of Service May 26, 2022 Coding Level of Care Code 42708 SUB INP/OBS CARE
--- NOTE | 2022-05-27 07:27 | Hospitalist Progress Note ---
Date of Service May 27, 2022 Assessment & Plan (1) Atrial fibrillation: Plan: 86yo Female with PMH: HFpEF, dementia, HTN, afib, heart block with pacer placed, CVAx2, CAD, RA, chronic pain, fixed paranoid delusional disorder, urinary incontinence here for SOB. Acute HFpEF exacerbation with acute hypoxic respiratory failure -- resolved -CXR: findings consistent with pulmonary edema -weight on admit 71.7 kg, improving on day-to-day labs -last echocardiogram 03/28/22, EF 55-60%, moderate LVH, moderate mitral regurgitation -Suspect her CHF exacerbation was due to need for further afterload control -Continue carvedilol 25 mg BID, telmisartan 40 mg (consider increase to 80 mg as outpatient) -Pt not currently on diuretic therapy at home; recommend initiating sliding scale discussion near d/c -Recommend SNF -- P2P denied as well as family appeal. CM assisting in options- [facility] vs. home w/ home health Acute right peroneal vein thrombus -likely unprovoked; however, given h/o dementia, ?Xarelto compliance issues -Currently on Xarelto 15 mg BID -- continue through 06/07, thereafter daily (adjust with renal labs PRN) Weakness -extensive deconditioning in setting of the above issues -referrals to SNF rehab placed by CM, placement search complicated by lack of insurance approval Dementia -has baseline with fixed paranoid delusional disorder, has had word finding difficulties for some time -Continue reorientation/redirection DM2 -SSI while here, hold metformin -last A1c 6.3 HTN -continue telmisartan, timolol -continue to monitor Atrial fibrillation/heart block on pacer -on youth nutritional monitor -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 -continue Xarelto GERD -continue Protonix HLD -continue statin FENa: heart healthy carb consistent Code Status: Full DVT PPX: Xarelto PT/OT: recommend SNF rehab Dispo: Medical/surgical; P2P and family appeal denied for SNF. CM assisting- likely home w/ HH or [facility] (2) Type 2 diabetes mellitus with diabetic neuropathy, without long-term current use of insulin: Admission and Anticipated Discharge Date Admission Date: May 14, 2022 Supervising Physician Co-Signing Physician Notes I personally examined the patient and verified all jaeger points of history and exam, discussed case, and agree with decision making with Dr Grubbs. Family dynamic continuesapparently 2 of her adult children would like her to go to personal care, 1 feels comfortable with her going home, they cannot seem to get on the same page. Asked patient to please try to get on the phone with all of her adult children simultaneously. Did discuss that she has capacity, and therefore she should be allowed to make her own decisions. At the same time discussed with her that what I am seeing does make me feel like she would probably be better served at a personal care level, but that ultimately with capacity the decision would be hers. Vitals noted, in general she is in no distress. HEENT normocephalic atraumatic mucous membranes moist. Breathing unlabored no accessory muscle use good effort. Skin shows no rashes no pallor or icterus. Neuro without focal deficits. Acute on chronic diastolic CHFeither from high afterload, excess sodium intake, or both. Improved. Working on dispo situation. Asked patient to get on the phone with all of her family simultaneously so they can discuss the situation. Discussed with her that while I feel she would be better served at personal care than living at home alone, she does have capacity and is able to make her own decisions. Subjective NAEO. Family appeal to insurance unfortunately denied by insurance. Patient working with rehab services, didn't appear excessively short of breath and seemed to be tolerating well. Review of Systems Review of Systems: as per HPI Physical Exam Physical Exam: General: 86-year old female who is alert, oriented, and appears in no acute distress. HEENT: NCAT. Pulmonary: Good respiratory effort with symmetric expansion of the chest. No use of accessory muscles. Extremities: Upper and lower extremities are warm and well perfused Results & Data Results & Data ([facility]) Vital Signs (Past 12 Hours) Vital Signs Temp Pulse Resp BP Pulse Ox O2 Del Method 05/26/22 20:38 37.1 C 66 18 142/69 H 95 Room Air Resident Activity Tracking Resident Involvement: Resident Care Provided Care Provided: Adult Hospital Medicine
[2022-05-27] MEDS: TIMOLOL MALEATE 0.5% OP SOLN 5 ML BTL OPB SCH (08:20)
[2022-05-27] MEDS: ARTIFICIAL TEARS OP SCH ×3 (08:20→20:07)
[2022-05-27] MEDS: NYSTATIN POWDER 15GM BTL EXT SCH ×3 (08:20→20:06)
[2022-05-27] MEDS: PANTOprazole 40 MG TAB PO SCH ×2 (08:21→20:06)
[2022-05-27] MEDS: RIVAROXABAN 15 MG TAB PO SCH ×2 (08:21→20:06)
[2022-05-27] MEDS: MULTIVITAMIN TAB PO SCH (08:21)
[2022-05-27] MEDS: ATORVASTATIN 40 MG TAB PO SCH (08:21)
[2022-05-27] MEDS: CHOLECALCIFEROL 1,000 UNITS 25 MCG TAB PO SCH (08:21)
[2022-05-27] MEDS: TELMISARTAN 40 MG TAB PO SCH (08:21)
[2022-05-27] MEDS: DICLOFENAC SOD 1% GEL 100 GM TUBE EXT SCH ×2 (08:21→20:07)
[2022-05-27] MEDS: ADVANCED PROBIOTIC 1250 MG CAPSULE PO SCH (08:21)
[2022-05-27] MEDS: carvediloL 25 MG TAB PO SCH ×2 (08:21→20:05)
[2022-05-27] MEDS: INSULIN ASPART PER UNIT SC SCH ×4 (09:28→21:14)
[2022-05-27 11:06] LABS: BUN Creatinine Ratio 23.5 (10-20); Calcium 9.5 mg/dl (8.5-10.1); Creatinine Clr Calc Pharmacy 54.6 ml/min; Est GFR (African American) 93.1 ml/min; Est GFR (Non-African American) 80.3 ml/min
--- NOTE | 2022-05-27 18:38 | Billing Data ---
Date of Service May 27, 2022 Coding Level of Care Code 38390 SUB INP/OBS CARE
--- NOTE | 2022-05-28 07:16 | Hospitalist Progress Note ---
Date of Service May 28, 2022 Assessment & Plan (1) Atrial fibrillation: Plan: 86yo Female with PMH: HFpEF, dementia, HTN, afib, heart block with pacer placed, CVAx2, CAD, RA, chronic pain, fixed paranoid delusional disorder, urinary incontinence here for SOB with hypoxemia secondary to acute HFpEF from Acute HFpEF exacerbation with acute hypoxic respiratory failure -- resolved -CXR: findings consistent with pulmonary edema -weight on admit 71.7 kg, improving on day-to-day labs -last echocardiogram 03/28/22, EF 55-60%, moderate LVH, moderate mitral regurgitation -Suspect her CHF exacerbation was due to need for further afterload control -Continue carvedilol 25 mg BID, telmisartan 40 mg (consider increase to 80 mg as outpatient) -Pt not currently on diuretic therapy at home; recommend initiating sliding scale discussion near d/c -Recommend SNF -- P2P denied as well as family appeal. CM assisting in options- [facility] vs. home w/ home health. Unclear at this time. Monitor daily weights while awaiting dispo. If continues to increase and there are physical exam findings c/w hypervolemia, initiate diuresis and consider starting scheduled Acute right peroneal vein thrombus -likely unprovoked; however, given h/o dementia, ?Xarelto compliance issues -Currently on Xarelto 15 mg BID -- continue through 06/07, thereafter daily (adjust with renal labs PRN) Weakness -extensive deconditioning in setting of the above issues -referrals to SNF rehab placed by CM, placement search complicated by lack of insurance approval Dementia -has baseline with fixed paranoid delusional disorder, has had word finding difficulties for some time -Continue reorientation/redirection DM2 -SSI while here, hold metformin -last A1c 6.3 HTN -continue telmisartan, timolol -continue to monitor Atrial fibrillation/heart block on pacer -on personnel monitor -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 -continue Xarelto GERD -continue Protonix HLD -continue statin FENa: heart healthy carb consistent Code Status: Full DVT PPX: Xarelto PT/OT: recommend SNF rehab Dispo: Medical/surgical; P2P and family appeal denied for SNF. CM assisting- likely home w/ HH or [facility] (2) Type 2 diabetes mellitus with diabetic neuropathy, without long-term current use of insulin: Admission and Anticipated Discharge Date Admission Date: May 14, 2022 Supervising Physician Co-Signing Physician Notes I personally examined the patient and verified all jaeger points of history and exam, discussed case, and agree with decision making with Dr Bauer. tried to get family to have group discussion but she notes that 2 of her children would not roller picker. case management coordination with son who would answer/discuss greatly appreciated. plan for home tomorrow with son support and then additional services as they can be set up. Vitals noted, in general she is in no distress. HEENT normocephalic atraumatic mucous membranes moist. Breathing unlabored no accessory muscle use good effort. Skin shows no rashes no pallor or icterus. Neuro without focal deficits. Acute on chronic diastolic CHFeither from high afterload, excess sodium intake, or both. Improved. Working on dispo situation. for home tomorrow. has capacity. Subjective No acute events overnight. Tolerating PT, low-sodium diet well. No cp/palpitations/sob/n/v/d. Review of Systems Review of Systems: As per HPI Physical Exam Physical Exam: General: 86-year old female who is alert, oriented, and appears in no acute distress. HEENT: NCAT. - Eyes - Sclera are white, anicteric, and without injection. - Mouth - MMM - Neck - supple, no appreciable JVD Cardiac: Normal rate and regular rhythm; S1 and S2 present with no murmurs, rubs, or gallops. Pulmonary: Good respiratory effort with symmetric expansion of the chest. No use of accessory muscles. Lungs were clear to auscultation bilaterally with no crackles or wheezes. Abdominal: Normoactive bowel sounds. Abdomen was soft, nondistended, and non- tender to palpation. Extremities: Upper and lower extremities are warm and well perfused. No peripheral edema in the lower extremities bilaterally Results & Data Results & Data ([facility]) Vital Signs (Past 12 Hours) Vital Signs Temp Pulse Resp BP Pulse Ox O2 Del Method 05/27/22 20:02 36.9 C 60 16 128/70 95 Room Air Resident Activity Tracking Resident Involvement: Resident Care Provided Care Provided: Adult [facility]
[2022-05-28] MEDS: DICLOFENAC SOD 1% GEL 100 GM TUBE EXT SCH ×2 (07:57→21:09)
[2022-05-28] MEDS: NYSTATIN POWDER 15GM BTL EXT SCH ×3 (07:58→21:09)
[2022-05-28] MEDS: PANTOprazole 40 MG TAB PO SCH ×2 (07:58→21:10)
[2022-05-28] MEDS: ARTIFICIAL TEARS OP SCH ×3 (07:58→21:08)
[2022-05-28] MEDS: RIVAROXABAN 15 MG TAB PO SCH ×2 (07:58→21:10)
[2022-05-28] MEDS: TIMOLOL MALEATE 0.5% OP SOLN 5 ML BTL OPB SCH (07:58)
[2022-05-28] MEDS: ATORVASTATIN 40 MG TAB PO SCH (07:59)
[2022-05-28] MEDS: CHOLECALCIFEROL 1,000 UNITS 25 MCG TAB PO SCH (07:59)
[2022-05-28] MEDS: MULTIVITAMIN TAB PO SCH (08:00)
[2022-05-28] MEDS: ADVANCED PROBIOTIC 1250 MG CAPSULE PO SCH (08:00)
[2022-05-28] MEDS: INSULIN ASPART PER UNIT SC SCH ×4 (09:33→20:51)
[2022-05-28] MEDS: TELMISARTAN 40 MG TAB PO SCH (09:34)
[2022-05-28] MEDS: carvediloL 25 MG TAB PO SCH ×2 (09:34→21:09)
--- NOTE | 2022-05-28 18:01 | Billing Data ---
Date of Service May 28, 2022 Coding Level of Care Code 06840 SUB INP/OBS CARE
--- NOTE | 2022-05-28 18:08 | Billing Data ---
Date of Service May 28, 2022 Coding Level of Care Code 83092 SUB INP/OBS CARE
[2022-05-28] MEDS: ACETAMINOPHEN 325 MG TAB PO PRN (21:25)
[2022-05-29] MEDS: PANTOprazole 40 MG TAB PO SCH (08:31)
[2022-05-29] MEDS: ATORVASTATIN 40 MG TAB PO SCH (08:31)
[2022-05-29] MEDS: ADVANCED PROBIOTIC 1250 MG CAPSULE PO SCH (08:31)
[2022-05-29] MEDS: CHOLECALCIFEROL 1,000 UNITS 25 MCG TAB PO SCH (08:32)
[2022-05-29] MEDS: TELMISARTAN 40 MG TAB PO SCH (08:32)
[2022-05-29] MEDS: carvediloL 25 MG TAB PO SCH (08:33)
[2022-05-29] MEDS: MULTIVITAMIN TAB PO SCH (08:33)
[2022-05-29] MEDS: RIVAROXABAN 15 MG TAB PO SCH (08:33)
[2022-05-29] MEDS: DICLOFENAC SOD 1% GEL 100 GM TUBE EXT SCH (08:34)
[2022-05-29] MEDS: NYSTATIN POWDER 15GM BTL EXT SCH (08:34)
[2022-05-29] MEDS: TIMOLOL MALEATE 0.5% OP SOLN 5 ML BTL OPB SCH (08:34)
[2022-05-29] MEDS: ARTIFICIAL TEARS OP SCH (08:35)
[2022-05-29] MEDS: INSULIN ASPART PER UNIT SC SCH (08:43)
[2022-05-29] MEDS ORDERED: FUROSEMIDE INJ 20 MG/2 ML VIAL IV ONE (10:20)
[2022-05-29] MEDS ORDERED: FUROSEMIDE 20 MG TAB PO STA (10:21)
== END 2022-05-29 12:34 | disposition home or self-care (01) | DRG 291 ==
LOC: ED 05:23 → EDINP 08:14 → SUATTDRO 08:14 → 2S 08:51 → 3W 05-19 21:40
DX: Z79.84 Long term (current) use of oral hypoglycemic drugs; Z88.1 Allergy status to other antibiotic agents; I48.91 Unspecified atrial fibrillation; Z95.5 Presence of coronary angioplasty implant and graft; R53.1 Weakness; I50.33 Acute on chronic diastolic (congestive) heart failure; E78.00 Pure hypercholesterolemia, unspecified; J96.01 Acute respiratory failure with hypoxia; I11.0 Hypertensive heart disease with heart failure; R07.2 Precordial pain; Z95.0 Presence of cardiac pacemaker; Z88.8 Allergy status to other drugs, medicaments and biological substances; Z88.0 Allergy status to penicillin; I82.451 Acute embolism and thrombosis of right peroneal vein; F41.9 Anxiety disorder, unspecified; R32 Unspecified urinary incontinence; Z86.73 Personal history of transient ischemic attack (TIA), and cerebral infarction without residual deficits; E11.40 Type 2 diabetes mellitus with diabetic neuropathy, unspecified; Z75.1 Person awaiting admission to adequate facility elsewhere; Z88.6 Allergy status to analgesic agent; F03.90 Unspecified dementia, unspecified severity, without behavioral disturbance, psychotic disturbance, mood disturbance, and anxiety; G89.29 Other chronic pain; Z88.5 Allergy status to narcotic agent; I25.5 Ischemic cardiomyopathy; Z79.01 Long term (current) use of anticoagulants; I24.8 Other forms of acute ischemic heart disease; I34.0 Nonrheumatic mitral (valve) insufficiency; Z82.49 Family history of ischemic heart disease and other diseases of the circulatory system; Z82.3 Family history of stroke; K21.9 Gastro-esophageal reflux disease without esophagitis; Z79.899 Other long term (current) drug therapy

== ENCOUNTER 2023-05-25 20:15 | Observation (INO) ==
--- NOTE | 2023-05-25 21:21 | Emergency Department Note ---
Impression & Plan Precordial chest pain, CHF (congestive heart failure), Elevated troponin, Elevated brain natriuretic peptide (BNP) level ED Provider Note NAME: EMANUEL ORONA AGE: 87 SEX: F : 1935 ARRIVES VIA: Ambulance INFORMANT: [Patient][ems] ED PROVIDER(S): [Marcus Amado MD] CHIEF COMPLAINT: Cardiac assessment HISTORY OF PRESENT ILLNESS: The patient is an 87-year-old female brought by ambulance for chest pain. The patient apparently had chest pain earlier which did respond to nitroglycerin given by EMS. The pain improved. The patient currently denies any chest discomfort. It was reported that she had a headache but she denies that currently. She states that she is coughing but that is baseline for her. She does not feel short of breath. There has been no fever or vomiting. The patient did not want to come to the hospital, she is not sure why she is here. Of note, the patient is a very poor historian. PMHx/PSHx/Social Hx: See Below PHYSICAL EXAM: GENERAL: Patient is in no acute distress. HEENT: No acute trauma, normocephalic atraumatic, mucous membranes moist, no nasal congestion. NECK: No stridor, no adenopathy, no meningismus, trachea is midline. LUNGS: Crackles in both lower lung hurtado, no wheezing or respiratory distress. HEART: Mildly bradycardic, regular rhythm, 2/6 systolic murmur. ABDOMEN: Soft, nontender, no peritonitis. EXTREMITIES: No cyanosis, full range of motion of all the joints without pain or difficulty. Mild bilateral pedal edema. NEUROLOGIC: Awake and alert, no extremity deficits. Poor historian. SKIN: No jaundice, no diaphoresis. DIFFERENTIAL DIAGNOSIS: Cardiac ischemia, CHF, musculoskeletal pain, viral illness, pneumonia, anemia, ID, among others. EMERGENCY DEPARTMENT PROCEDURES: MEDICAL DECISION MAKING: There is no leukocytosis. A mild anemia was seen. The patient carries a history of anemia. There was a normal platelet count. No concerning coagulopathy. Sodium slightly low but not in need of emergent correction. There were some subtle liver enzyme elevations. No evidence for pancreatitis. Chest x-ray shows what appears to be some heart failure although, the film looks similar to previous films. BNP was elevated consistent with fluid overload. ECG shows an AV pacemaker, no obvious ischemia. Cardiac enzyme testing x 1 is slightly elevated. This troponin elevation could be secondary to cardiac injury or potentially just mismatch given her heart failure history. COVID, influenza and RSV test were negative. The patient received 1 inch of nitroglycerin paste. She was given 40 mg of IV Lasix. Patient is doing well. Given the complaints of chest discomfort, given her past history, given the relief with nitroglycerin, I do think a hospital stay would be warranted. She requires further cardiac workup/monitoring as well as potentially, further diuresis. I spoke with the patient and case management, the on-call hospitalist was consulted. Prior/Outside records/notes reviewed: Today's EMS notes describing her complaints and transport to this ED. ECG per my interpretation: Indication was chest pain. The ECG shows an AV pacemaker with a rate of 60. There is no ST elevation, no PVCs. The QTc is 534. Continuous Cardiac Monitoring per my interpretation: An order was placed for continuous cardiac monitoring. The monitor shows a rate of 62 with an AV pacemaker. Imaging/x-ray results per my interpretation: Chest x-ray shows what appears to be CHF but the film looks similar to previous films. No pneumothorax. Chronic Medical/Social conditions affecting care: Advanced age. Care/Management discussed with: Case management, the on-call hospitalist. Level of care consideration(s): After review of the information above and other included data: --I believe the patient requires escalation of care to admission DISPOSITION: Admission Past Med/Surg History Medical History Uncontrolled hypertension Substernal chest pain Hypoxia Pulmonary edema Atrial fibrillation Discharge planning issues DVT prophylaxis Moderate mitral regurgitation Hypertension Pacemaker Cognitive impairment Osteopenia Type 2 diabetes mellitus with diabetic neuropathy, without long-term current use of insulin Primary hypertension Presence of stent in coronary artery in patient with coronary artery disease CVA (cerebral vascular accident) (~09/2018) Cervical radiculopathy Complex endometrial hyperplasia Coronary artery disease, occlusive History of kidney stones History of polymyalgia rheumatica Ischemic cardiomyopathy care home (current) use of systemic steroids Lumbar radiculopathy Myalgia and myositis Obesity Rheumatoid arthritis Steroid-induced osteoporosis Urinary incontinence LUE weakness (09/09/13) Surgical History History of knee replacement S/P knee replacement Stented coronary artery Family History Grandmother (Maternal) Myocardial infarction Stroke Mother Myocardial infarction Diabetes Stroke Brother Myocardial infarction Diabetes Stroke Other No significant family history Denies family history of Ovarian cancer Prostate cancer Breast cancer Colorectal cancer Social History Smoking Status: Never smoker Do You Dip or Chew Tobacco: No; Hx Alcohol Use: No Hx Substance Use: No Preferred Language: Cuban Communication Ability: Effective Communication Ability Comment: FORGETFUL DOES NOT READ OR WRITE WELL Head Housekeeper Required: No Beliefs That Will Affect Care: Taoist Taoist Beliefs: SABIANIST marital status: / Current Living Situation: Alone Feels Safe at Home: Yes Seatbelt Use: always Assistive Devices: Cane and Walker Allergies Allergies Allergy/AdvReac Type Severity Reaction Status Date / Time Cephalosporins Allergy Intermediate HIVES Verified 05/25/23 21:49 Penicillins Allergy Intermediate HIVES Verified 05/25/23 21:49 valdecoxib Allergy Intermediate ITCHING,ANTOLIN Verified 05/25/23 21:49 SEATED prednisone Allergy Unknown Unknown Verified 05/25/23 21:49 codeine AdvReac Intermediate NAUSEA Verified 05/25/23 21:49 pantoprazole AdvReac Intermediate NAUSEATED Verified 05/25/23 21:49 Home Meds Home Medications Medication Instructions Recorded Confirmed Lactobacillus 40-Bifidobact 1 cap PO DAILY 03/15/18 05/25/23 3-S.thermophilus 100 billion cell capsule (Probiotic) glucosam 750 mg-chondroi 100 1 tab PO DAILY 03/15/18 05/25/23 mg-hyalur 1.65 mg-CF borate 108 mg tablet (Move Free Metagenomix) multivitamin 1 tab PO DAILY 03/15/18 05/25/23 cholecalciferol (vitamin D3) 50 50 mcg PO DAILY 07/29/20 05/25/23 mcg (2,000 unit) capsule apple cider vinegar 500 mg tablet 750 mg PO QAM 03/29/21 05/25/23 acetaminophen 325 mg tablet 650 mg PO Q6H PRN PAIN/FEVER 07/26/21 05/25/23 (Tylenol) atorvastatin 80 mg tablet 80 mg PO QAM 02/21/23 05/25/23 metformin 500 mg tablet,extended 500 mg PO 4XWK 02/21/23 05/25/23 release 24hr (osmotic) Previous Rx's Medication Instructions Recorded fluticasone propionate 50 1 spray intranasal BID PRN Nasal 12/06/21 mcg/actuation nasal Congestion #47.4 mL spray,suspension (Flonase Allergy Relief) nystatin 100,000 unit/gram topical 1 applic topical DAILY PRN rash 05/30/22 powder #60 grams timolol maleate 0.5 % eye drops 1 drp OPB QAM #15 mL 05/30/22 ketoconazole 2 % topical cream 1 applic topical BID #60 grams 06/09/22 Scooter #1 ea 06/13/22 propylene glycol 0.6 % eye drops 1 drp ophthalmic (eye) TID #1.5 mL 06/29/22 (Systane Balance) magnesium oxide 400 mg (241.3 mg 400 mg PO TID #90 tabs 08/08/22 magnesium) tablet nitroglycerin 0.4 mg sublingual 0.4 mg sublingual DIRECTED PRN 09/12/22 tablet (Nitrostat) Chest Pain #30 tabs telmisartan 40 mg tablet (Micardis) 40 mg PO DAILY #90 tabs 01/09/23 carvedilol 25 mg tablet 25 mg PO BID #180 tabs 01/17/23 potassium chloride 20 mEq 20 meq PO DAILY #90 tabs 02/15/23 tablet,extended release apixaban 5 mg tablet (Eliquis) 5 mg PO BID #180 tabs 04/01/23 furosemide 20 mg tablet 20 mg PO Q OTHER DAY weight gain 04/02/23 #30 tabs Results & Data (ED) Vital Signs Vital Signs - 24 hr 05/25/23 19:58 05/25/23 19:58 05/25/23 19:58 Temperature 36.6 C Temperature Source Oral Pulse Rate 60 Pulse Rate [Apical] Pulse Rhythm Regular Pulse Rhythm [Apical] Pulse Strength Normal Pulse Strength [Apical] Respiratory Rate 17 Respiratory Effort / Characteristics Non-Labored Spontaneous Non-Labored Spontaneous Respiratory Depth Normal Normal Respiratory Pattern Regular Blood Pressure 160/102 H Blood Pressure [Right Arm] Blood Pressure Mean 121 Blood Pressure Mean [Right Arm] Blood Pressure Position Semi-fowlers Blood Pressure Position [Right Arm] Pulse Oximetry 95 95 Oxygen Delivery Method Room Air Room Air Room Air Sepsis Recent Fever Within 48 Hours No Sepsis New/Unexplained Change in Mental Status N/A Sepsis Action Taken by Nursing No Action Required 05/25/23 19:58 05/25/23 20:22 05/25/23 20:54 Temperature 36.6 C Temperature Source Oral Pulse Rate 60 60 Pulse Rate [Apical] Pulse Rhythm Regular Pulse Rhythm [Apical] Pulse Strength Pulse Strength [Apical] Respiratory Rate 16 17 Respiratory Effort / Characteristics Non-Labored Spontaneous Respiratory Depth Normal Respiratory Pattern Regular Blood Pressure Blood Pressure [Right Arm] Blood Pressure Mean Blood Pressure Mean [Right Arm] Blood Pressure Position Blood Pressure Position [Right Arm] Pulse Oximetry 95 95 Oxygen Delivery Method Room Air Room Air Sepsis Recent Fever Within 48 Hours Sepsis New/Unexplained Change in Mental Status Sepsis Action Taken by Nursing 05/25/23 20:54 05/25/23 21:54 05/25/23 22:33 Temperature Temperature Source Pulse Rate Pulse Rate [Apical] 60 60 Pulse Rhythm Pulse Rhythm [Apical] Regular Regular Pulse Strength Pulse Strength [Apical] Normal Normal Respiratory Rate 16 16 17 Respiratory Effort / Characteristics Non-Labored Spontaneous Non-Labored Spontaneous Non-Labored Spontaneous Respiratory Depth Normal Normal Normal Respiratory Pattern Regular Regular Blood Pressure Blood Pressure [Right Arm] 162/102 H 171/70 H 166/75 H Blood Pressure Mean Blood Pressure Mean [Right Arm] 122 103 105 Blood Pressure Position Blood Pressure Position [Right Arm] Semi-fowlers Semi-fowlers Semi-fowlers Pulse Oximetry 95 95 Oxygen Delivery Method Room Air Room Air Sepsis Recent Fever Within 48 Hours Sepsis New/Unexplained Change in Mental Status Sepsis Action Taken by Nursing 05/25/23 23:00 05/26/23 00:47 Temperature 36.7 C Temperature Source Pulse Rate 63 60 Pulse Rate [Apical] Pulse Rhythm Pulse Rhythm [Apical] Pulse Strength Pulse Strength [Apical] Respiratory Rate 20 Respiratory Effort / Characteristics Respiratory Depth Respiratory Pattern Blood Pressure 170/76 H Blood Pressure [Right Arm] Blood Pressure Mean 107 Blood Pressure Mean [Right Arm] Blood Pressure Position Blood Pressure Position [Right Arm] Pulse Oximetry 96 Oxygen Delivery Method Sepsis Recent Fever Within 48 Hours Sepsis New/Unexplained Change in Mental Status Sepsis Action Taken by [facility] Medications Current Medication List: was personally reviewed by me Laboratory Data Attestation: I reviewed the patient's lab results. 05/25/23 20:45 05/25/23 20:45 Lab Results 05/25/23 05/25/23 05/25/23 Range/Units 20:45 20:48 23:01 WBC 6.87 (4.8-10.8) K/ul RBC 3.53 L (4.20-5.40) M/uL Hgb 10.9 L (12.0-16.0) g/dl Hct 33.5 L (37.0-47.0) % MCV 94.9 (80.0-100.0) fL MCH 30.9 (25.0-34.0) pg MCHC 32.5 (32.0-36.0) g/dL RDW Std Deviation 47.0 H (36.4-46.3) fL RDW Coeff of Neeru 13.5 (11.5-14.5) % Plt Count 230 (130-400) K/uL MPV 11.0 (9.4-12.4) fL Immature Gran % (Auto) 0.3 % Neut % (Auto) 63.4 % Lymph % (Auto) 25.2 % Dane % (Auto) 6.6 % Eos % (Auto) 3.9 % Baso % (Auto) 0.6 % Neut # (Auto) 4.36 (1.40-6.50) K/uL Lymph # (Auto) 1.73 (1.20-3.40) K/uL Dane # (Auto) 0.45 (0.11-0.59) K/uL Eos # (Auto) 0.27 (0.00-0.50) K/uL Baso # (Auto) 0.04 (0.00-0.20) K/uL Immature Gran # (Auto) 0.02 (0.01-0.20) K/uL PT Cancelled 12.2 H INR Cancelled 1.1 APTT Cancelled 37 H PTT Ratio Cancelled 1.3 Sodium 132 L (136-145) mmol/L Potassium 4.4 (3.5-5.1) mmol/L Chloride 97 L (98-107) mmol/L Carbon Dioxide 27 (21-32) mmol/L Anion Gap 8 (3-11) BUN 16 (6-23) mg/dl Creatinine 0.80 (0.6-1.2) mg/dl Est Cr Clr Drug Dosing 47.3 ml/min Est GFR ( Amer) 77.9 ml/min Est GFR (Non-Af Amer) 67.2 ml/min BUN/Creatinine Ratio 20.0 (10-20) Glucose 93 (70-99(Fasting)) mg/dl Calcium 9.1 (8.6-10.3) mg/dl Magnesium 1.8 (1.7-2.4) mg/dl Total Bilirubin 1.3 H (0.2-1.0) mg/dl AST 33 (13-39) U/L ALT 8 (7-52) U/L Alkaline Phosphatase 132 H (34-104) U/L Troponin I High Sens 19.4 H (0-14) pg/ml B-Natriuretic Peptide 510 H (0-100) pg/ml Total Protein 7.3 (6.0-8.3) gm/dl Albumin 3.7 (3.4-5.0) gm/dl Globulin 3.6 (2.5-4.0) gm/dl Albumin/Globulin Ratio 1.0 (0.9-2) Lipase 39 (11-82) U/L SARS-CoV-2 (PCR) NEGATIVE (Negative) Influenza Type A (PCR) Negative (Neg) Influenza Type B (PCR) Negative (Neg) RSV (RT-PCR) Negative (Neg) Administered Medications Discontinued Medications Furosemide (Furosemide 40 Mg/4 Ml Vial) 40 mg IV ONE ONE Stop: 05/25/23 23:15 Last Admin: 05/25/23 23:19 Dose: 40 mg Documented By: [facility] Nitroglycerin (Nitroglycerin 2% Ointment 30gm Tube) 1 inch EXT NOW STA Stop: 05/25/23 22:36 Last Admin: 05/25/23 23:12 Dose: 1 inch Documented By: [facility] Discharge Plan Visit Data Chief Complaint: Cardiac Assessment Stated Complaint: GENERAL ILLNESS, CHEST PAIN ED Provider: Marcus Amado Discharge Problem: Precordial chest pain, CHF (congestive heart failure), Elevated troponin, Elevated brain natriuretic peptide (BNP) level Patient Disposition: Admitted As Inpatient Condition: Fair Forms Stand Alone Forms: My [facility] Prescriptions Prescriptions: No Action fluticasone propionate [Flonase Allergy Relief] 50 mcg/actuation spray,suspension 1 spray INTRANASAL BID PRN (Reason: Nasal Congestion) Qty: 47.4 3RF nystatin 100,000 unit/gram powder 1 applic topical DAILY PRN (Reason: rash) Qty: 60 0RF Rx Instructions: Apply to abdominal rash daily timolol maleate 0.5 % drops 1 drp OPB QAM Qty: 15 3RF (DME) Scooter Misc See Rx Instructions .Route Qty: 1 0RF Rx Instructions: Powered scooter nitroglycerin [Nitrostat] 0.4 mg tablet, sublingual 0.4 mg Sublingual DIRECTED PRN (Reason: Chest Pain) Qty: 30 0RF telmisartan [Micardis] 40 mg tablet 40 mg PO DAILY Qty: 90 3RF carvedilol 25 mg tablet 25 mg PO BID Qty: 180 3RF Eliquis 5 mg tablet 5 mg PO BID Qty: 180 3RF furosemide 20 mg tablet 20 mg PO Q OTHER DAY Qty: 30 6RF Systane Balance 0.6 % drops 1 drp ophthalmic (eye) TID Qty: 1.5 6RF magnesium oxide 400 mg (241.3 mg magnesium) tablet 400 mg PO TID Qty: 90 2RF potassium chloride 20 mEq tablet extended release 20 meq PO DAILY Qty: 90 2RF cholecalciferol (vitamin D3) 50 mcg (2,000 unit) capsule 50 mcg PO DAILY apple cider vinegar 500 mg tablet 750 mg PO QAM ketoconazole 2 % cream 1 applic topical BID Qty: 60 1RF Rx Instructions: Apply to rash on belly twice daily multivitamin Tablet 1 tab PO DAILY Move Free [facility] 750 mg-100 mg- 1.65 mg-108 mg Tablet 1 tab PO DAILY Probiotic 100 billion cell Capsule 1 cap PO DAILY Rx Instructions: UNKNOWN STRENGTH metformin 500 mg tablet extended release 24hr 500 mg PO 4XWK Rx Instructions: sunday atorvastatin 80 mg tablet 80 mg PO QAM acetaminophen [Tylenol] 325 mg Tablet 650 mg PO Q6H PRN (Reason: PAIN/FEVER) Referrals Referrals: Brenda Gardiner MD [Primary Care Provider] - Discharge Problem: CHF (congestive heart failure) Qualifiers: Heart failure type: unspecified Heart failure chronicity: acute on chronic Q ualified Code(s): I50.9 - Heart failure, unspecified
[2023-05-25 21:31] LABS: Albumin Level 3.7 gm/dl (3.4-5.0); Bilirubin,Total 1.3 mg/dl (0.2-1.0); Calcium 9.1 mg/dl (8.6-10.3); Creatinine Clr Calc Pharmacy 47.3 ml/min; Est GFR (African American) 77.9 ml/min; Est GFR (Non-African American) 67.2 ml/min; Globulin 3.6 gm/dl (2.5-4.0); Magnesium 1.8 mg/dl (1.7-2.4); Potassium 4.4 mmol/L (3.5-5.1); Total Protein 7.3 gm/dl (6.0-8.3)
[2023-05-25 21:38] LABS: Troponin I High Sensitivity 19.4 pg/ml (0-14)
[2023-05-25 21:44] LABS: Basophils # (auto) 0.04 K/uL (0.00-0.20); Basophils % (auto) 0.6 %; Eosinophils # (auto) 0.27 K/uL (0.00-0.50); Eosinophils % (auto) 3.9 %; Hematocrit (blood only) 33.5 % (37.0-47.0); Hemoglobin 10.9 g/dl (12.0-16.0); Immature Granulocytes # (auto) 0.02 K/uL (0.01-0.20); Immature Granulocytes % (auto) 0.3 %; Lymphocytes # (auto) 1.73 K/uL (1.20-3.40); Lymphocytes % (auto) 25.2 %; Mean Corpuscular Hemoglobin 30.9 pg (25.0-34.0); Mean Corpuscular Hgb Conc 32.5 g/dL (32.0-36.0); Mean Corpuscular Volume 94.9 fL (80.0-100.0); Monocytes # (auto) 0.45 K/uL (0.11-0.59); Monocytes % (auto) 6.6 %; Neutrophils # (auto) 4.36 K/uL (1.40-6.50); Neutrophils % (auto) 63.4 %; Platelet Count 230 K/uL (130-400); RDW Coefficient of Variation 13.5 % (11.5-14.5); Red Blood Count 3.53 M/uL (4.20-5.40); White Blood Count 6.87 K/ul (4.8-10.8)
[2023-05-25] MEDS ORDERED: NITROGLYCERIN 2% OINTMENT 30GM TUBE EXT STA (22:35)
[2023-05-25 22:54] LABS: Influenza A virus by PCR Negative (Neg); Influenza B virus by PCR Negative (Neg); RSV by PCR Negative (Neg); SARS CoV2 RNA(COVID-19) Ceph NEGATIVE (Negative)
[2023-05-25] MEDS ORDERED: FUROSEMIDE 40 MG/4 ML VIAL IV ONE (23:14)
--- NOTE | 2023-05-25 23:27 | History & Physical Report ---
Date of Service May 25, 2023 Assessment & Plan (1) Chest pain: Plan: -Chest pain has mostly resolved at time of admission. -Labs in the ED significant for a troponin of 19.4 and a BNP of 510. -EKG showed paced rhythm -Chest x-ray showing pulmonary vascular congestion and some left-sided pleural effusion. Waiting on final read. -Will repeat troponin at 6 hours. -Received 40 mg IV Lasix, improved symptoms. -Most likely chest pain is related to acute exacerbation of congestive heart failure. -Will continue to monitor for further chest pain during admission (2) (HFpEF) heart failure with preserved ejection fraction: Plan: -Previous echo on 03/2022 showed an EF of 55 to 60%. -Hold off on echo at this time. -Symptoms improved with 40 mg IV Lasix. -Continue Lasix 20 mg every other day. May need help with remembering to take medications at home. (3) Primary hypertension: Plan: -Continue on Coreg 25 mg twice daily and telmisartan 40 mg daily. (4) Atrial fibrillation: Plan: -On Eliquis and has a cardiac pacemaker. -Continue Eliquis 5 mg twice daily. (5) Hypomagnesemia: Plan: -Continue magnesium oxide 400 mg 3 times daily. (6) Type 2 diabetes mellitus with diabetic neuropathy, without long-term current use of insulin: Plan: -Patient's home regimen held on admission -Continue BSG checks, sliding-scale insulin, hypoglycemic protocol -Hemoglobin A1c ordered for the a.m. (7) Pacemaker: Plan: -Paced rhythm (8) Hyperlipidemia: Plan: -Continue 80 mg atorvastatin. -Will order lipid panel in the a.m. Plan Fluids: None Nutrition: Type 2 diabetes and heart healthy Code status: Full code DVT ppx: On Eliquis Dispo: Telemetry Thank you for allowing me to participate in the care of your patient. -Dr. Marcus Carvalho PGY2 History of Present Illness Chief Complaint: Chest pain Primary Care Provider: Brenda Gardiner MD Patient is an 87-year-old female with past medical history of CAD, congestive heart failure with preserved ejection fraction, type 2 diabetes, hyperlipidemia, hypertension, A-fib on Eliquis, hypomagnesium, dual-chamber pacemaker for second-degree heart block who presents to the hospital for chest pain. Patient was brought in by EMS for chest pain. There was of the patient called 911 because they heard the patient outside calling for help. Patiently initially told EMS that she had a headache for several days and symptoms were worsening today as well as having intermittent chest pain. Patient is a poor historian and is alert and oriented x 2 (self and place) and states she is unsure of her past medical history and she states that she does not take any medications. When asked the reason she was brought into the hospital patient states that she was unsure why she was brought him to the hospital. When asked about chest pain she said that she has been having some chest pain on and off for the past week and has been in her right upper chest wall and right arm that gets worse with taking a deep breath and to touch. Patient denies any shortness of breath, abdominal pain, nausea, or vomiting. Called son who states that patient lives alone and that he has to go over every other day to help with taking her medications. He states that she usually does not take her medications when he does not come over. Allergies Allergy/AdvReac Type Severity Reaction Status Date / Time Cephalosporins Allergy Intermediate HIVES Verified 05/25/23 21:49 Penicillins Allergy Intermediate HIVES Verified 05/25/23 21:49 valdecoxib Allergy Intermediate ITCHING,ANTOLIN Verified 05/25/23 21:49 SEATED prednisone Allergy Unknown Unknown Verified 05/25/23 21:49 codeine AdvReac Intermediate NAUSEA Verified 05/25/23 21:49 pantoprazole AdvReac Intermediate NAUSEATED Verified 05/25/23 21:49 Home Medications Medication Instructions Recorded Confirmed Type Lactobacillus 40-Bifidobact 1 cap PO DAILY 03/15/18 05/25/23 History 3-S.thermophilus 100 billion cell capsule (Probiotic) glucosam 750 mg-chondroi 100 1 tab PO DAILY 03/15/18 05/25/23 History mg-hyalur 1.65 mg-CF borate 108 mg tablet (Move Free Encap) multivitamin 1 tab PO DAILY 03/15/18 05/25/23 History cholecalciferol (vitamin D3) 50 50 mcg PO DAILY 07/29/20 05/25/23 History mcg (2,000 unit) capsule apple cider vinegar 500 mg tablet 750 mg PO QAM 03/29/21 05/25/23 History acetaminophen 325 mg tablet 650 mg PO Q6H PRN PAIN/FEVER 07/26/21 05/25/23 History (Tylenol) fluticasone propionate 50 1 spray intranasal BID PRN Nasal 12/06/21 05/25/23 Rx mcg/actuation nasal Congestion #47.4 mL spray,suspension (Flonase Allergy Relief) nystatin 100,000 unit/gram topical 1 applic topical DAILY PRN rash 05/30/22 05/25/23 Rx powder #60 grams timolol maleate 0.5 % eye drops 1 drp OPB QAM #15 mL 05/30/22 05/25/23 Rx ketoconazole 2 % topical cream 1 applic topical BID #60 grams 06/09/22 05/25/23 Rx Scooter #1 ea 06/13/22 02/15/23 Rx propylene glycol 0.6 % eye drops 1 drp ophthalmic (eye) TID #1.5 mL 06/29/22 05/25/23 Rx (Systane Balance) magnesium oxide 400 mg (241.3 mg 400 mg PO TID #90 tabs 08/08/22 05/25/23 Rx magnesium) tablet nitroglycerin 0.4 mg sublingual 0.4 mg sublingual DIRECTED PRN 09/12/22 05/25/23 Rx tablet (Nitrostat) Chest Pain #30 tabs telmisartan 40 mg tablet (Micardis) 40 mg PO DAILY #90 tabs 01/09/23 05/25/23 Rx carvedilol 25 mg tablet 25 mg PO BID #180 tabs 01/17/23 05/25/23 Rx potassium chloride 20 mEq 20 meq PO DAILY #90 tabs 02/15/23 05/25/23 Rx tablet,extended release atorvastatin 80 mg tablet 80 mg PO QAM 02/21/23 05/25/23 History metformin 500 mg tablet,extended 500 mg PO 4XWK 02/21/23 05/25/23 History release 24hr (osmotic) apixaban 5 mg tablet (Eliquis) 5 mg PO BID #180 tabs 04/01/23 05/25/23 Rx furosemide 20 mg tablet 20 mg PO Q OTHER DAY weight gain 04/02/23 05/25/23 Rx #30 tabs Past Med/Surg History Medical History Uncontrolled hypertension Substernal chest pain Hypoxia Pulmonary edema Atrial fibrillation Discharge planning issues DVT prophylaxis Moderate mitral regurgitation Hypertension Pacemaker Cognitive impairment Osteopenia Type 2 diabetes mellitus with diabetic neuropathy, without long-term current use of insulin Primary hypertension Presence of stent in coronary artery in patient with coronary artery disease CVA (cerebral vascular accident) (~09/2018) Cervical radiculopathy Complex endometrial hyperplasia Coronary artery disease, occlusive History of kidney stones History of polymyalgia rheumatica 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 Lumbar radiculopathy Myalgia and myositis Obesity Rheumatoid arthritis Steroid-induced osteoporosis Urinary incontinence LUE weakness (09/09/13) Surgical History History of knee replacement S/P knee replacement Stented coronary artery Family History Grandmother (Maternal) Myocardial infarction Stroke Mother Myocardial infarction Diabetes Stroke Brother Myocardial infarction Diabetes Stroke Other No significant family history Denies family history of Ovarian cancer Prostate cancer Breast cancer Colorectal cancer Social History Smoking Status: Never smoker Second Hand Exposure: No; Do You Dip or Chew Tobacco: No; Tobacco Cessation Education Requested by Patient: No Hx Alcohol Use: No Hx Substance Use: No Preferred Language: Estonian Communication Ability: Effective Communication Ability Comment: FORGETFUL DOES NOT READ OR WRITE WELL Chief Growth Officer Required: No Beliefs That Will Affect Care: None marital status: / Current Living Situation: Alone Feels Safe at Home: Yes Safety Concerns: Feels Safe At This Time Seatbelt Use: always Assistive Devices: Cane Review of Systems Review of Systems: All systems reviewed & are unremarkable except as noted in Subjective Physical Exam Physical Exam: Constitutional: well-appearing, no acute distress HEENT: NCAT, no conjunctival injection CV: regular rhythm, no murmur appreciated, extremities well-perfused, no LE edema Resp: CTABL, no wheezes/rales/rhonchi appreciated, no increased work of breathing GI: soft, nondistended, nontender, BS normoactive MSK: no gross deformities appreciated Skin: warm, dry, no rash appreciated Neuro: alert, oriented, no focal neurologic deficit appreciated Results & Data Results & Data Vital Signs (Past 12 Hours) Vital Signs Temp Pulse Pulse Resp BP BP Pulse Ox 05/25/23 23:00 36.7 C 63 20 170/76 H 96 05/25/23 22:33 60 17 166/75 H 05/25/23 21:54 60 16 171/70 H 95 05/25/23 20:54 16 162/102 H 95 05/25/23 20:54 60 17 95 05/25/23 20:22 60 05/25/23 19:58 36.6 C 16 95 05/25/23 19:58 95 05/25/23 19:58 36.6 C 60 17 160/102 H 95 05/25/23 19:58 O2 Del Method 05/25/23 23:00 05/25/23 22:33 05/25/23 21:54 Room Air 05/25/23 20:54 Room Air 05/25/23 20:54 Room Air 05/25/23 20:22 05/25/23 19:58 Room Air 05/25/23 19:58 Room Air 05/25/23 19:58 Room Air 05/25/23 19:58 Room Air Supervising Physician Co-Signing Physician Notes Patient seen and examined, chart reviewed, case discussed with Dr. Carvalho and I agree with the assessment and plan as above. In brief, patient is an 87yo female with history of CAD and CHF, HTN, HLP, DM and AF presenting with chest pain. Pain is in the upper chest. Worse with motion. Reproducible. On exam patient is afebrile, HD stable, NAD Skin - no rash HEENT - MMM, Neck supple Heart - +S1/S2, regular Lungs - CTA, no rales/rhonchi/wheezes, crackles in bilateral bases Abd -+BS, soft, NT/ND Ext - warm, well perfused Labs and images reviewed Assessment/Plan Atypical chest pain - do not feel this is cardiac in nature. Trend troponin She appears to be in mild CHF. Given Lasix 40mg IV in the ER. Will resume her home medications - uncertain if she has been compliant Resume remainder of home medications Remainder as above Resident Activity Tracking Resident Involvement: Resident Care Provided Care Provided: Adult Hospital Medicine (1) Chest pain Chest pain type: unspecified Qualified Code(s): R07.9 - Chest pain, unspecified
[2023-05-25 23:41] LABS: INR 1.1 (0.9-1.1); Partial Thromboplastin Ratio 1.3; Partial Thromboplastin Time 37 Seconds (21-31); Prothrombin Time 12.2 Seconds (9.0-12.0)
[2023-05-26] MEDS ORDERED: ACETAMINOPHEN 325 MG TAB PO PRN (01:53)
[2023-05-26] MEDS ORDERED: DEXTROSE 50% 50 ML SYRINGE IV PRN (01:53)
[2023-05-26] MEDS ORDERED: CARBOHYDRATES FOR HYPOGLYCEMIA PO PRN (01:53)
[2023-05-26] MEDS ORDERED: GLUCOSE 40% GEL 15 GM TUBE PO PRN (01:53)
[2023-05-26] MEDS ORDERED: GLUCAGON FOR INJ 1 MG VIAL SQ PRN (01:53)
[2023-05-26] MEDS ORDERED: NITROGLYCERIN SL 0.4 MG/TAB TAB SL PRN (01:53)
[2023-05-26] MEDS ORDERED: GLUCOSE 10 TAB/TUBE PO PRN (01:53)
[2023-05-26] MEDS: carvediloL 25 MG TAB PO SCH ×3 (02:16→20:54)
[2023-05-26] MEDS: APIXABAN 5 MG TABLET PO SCH ×3 (02:16→20:54)
[2023-05-26 02:43] LABS: Basophils # (auto) 0.02 K/uL (0.00-0.20); Basophils % (auto) 0.3 %; Eosinophils # (auto) 0.26 K/uL (0.00-0.50); Eosinophils % (auto) 4.2 %; Hematocrit (blood only) 34.9 % (37.0-47.0); Hemoglobin 11.3 g/dl (12.0-16.0); Immature Granulocytes # (auto) 0.01 K/uL (0.01-0.20); Immature Granulocytes % (auto) 0.2 %; Lymphocytes # (auto) 1.19 K/uL (1.20-3.40); Lymphocytes % (auto) 19.2 %; Mean Corpuscular Hemoglobin 30.4 pg (25.0-34.0); Mean Corpuscular Hgb Conc 32.4 g/dL (32.0-36.0); Mean Corpuscular Volume 93.8 fL (80.0-100.0); Mean Platelet Volume 10.2 fL (9.4-12.4); Monocytes % (auto) 6.5 %; Neutrophils # (auto) 4.31 K/uL (1.40-6.50); Neutrophils % (auto) 69.6 %; Platelet Count 222 K/uL (130-400); RDW Coefficient of Variation 13.5 % (11.5-14.5); Red Blood Count 3.72 M/uL (4.20-5.40); White Blood Count 6.19 K/ul (4.8-10.8)
[2023-05-26 02:55] LABS: Albumin Level 3.6 gm/dl (3.4-5.0); BUN Creatinine Ratio 17.3 (10-20); Bilirubin,Total 1.2 mg/dl (0.2-1.0); Calcium 9.4 mg/dl (8.6-10.3); Chol HDL Ratio 2.2 (0-5); Creatinine Clr Calc Pharmacy 46.7 ml/min; Est GFR (African American) 76.8 ml/min; Est GFR (Non-African American) 66.2 ml/min; Globulin 3.5 gm/dl (2.5-4.0); Potassium 3.6 mmol/L (3.5-5.1); Total Protein 7.1 gm/dl (6.0-8.3)
--- NOTE | 2023-05-26 07:12 | Electrocardiogram Report ---
Test Reason : Blood Pressure : / mmHG Vent. Rate : 060 BPM Atrial Rate : 060 BPM P-R Int : 178 ms QRS Dur : 166 ms QT Int : 534 ms P-R-T Axes : 000 -53 133 degrees QTc Int : 534 ms AV dual-paced rhythm Abnormal ECG When compared with ECG of 04-APR-2023 18:26, Vent. rate has decreased BY 19 BPM Confirmed by Barry Zhong ([id number]) on 05/26/2023 7:12:13 AM Referred By: REFERRED SELF Confirmed By:Dean Zhong
[2023-05-26 07:20] LABS: Estimated Average Glucose 117 mg/dl; Hemoglobin A1C 5.7 % (4.5-5.6)
--- NOTE | 2023-05-26 08:10 | XRay Report ---
XR chest 1V portable HISTORY: Chest pain, nonspecific COMPARISON: Chest 04/04/2023. FINDINGS: No pneumothorax. The heart remains enlarged. There are trace bilateral pleural effusions. I nterstitial/vascular thickening persists. Is left-sided dual-chamber pacemaker. No new focal lung con solidations. IMPRESSION: 1. Cardiomegaly and pulmonary vascular congestion persists. 2. Trace bilateral pleural effusions. ACT 112: Negative or not required by law. Electronically signed by: Anthony Conley M.D. 05/26/2023 8:08 AM
[2023-05-26] MEDS ORDERED: FUROSEMIDE 20 MG TAB PO SCH (09:00)
[2023-05-26] MEDS: INSULIN ASPART PER UNIT CHARGE SC SCH ×4 (09:20→20:54)
[2023-05-26] MEDS: CHOLECALCIFEROL 1,000 UNITS 25 MCG TAB PO SCH (09:31)
[2023-05-26] MEDS: LOSARTAN POTASSIUM 50 MG TAB PO SCH (09:31)
[2023-05-26] MEDS: POTASSIUM CHLORIDE CRTAB 20 MEQ TABCR PO SCH (09:31)
[2023-05-26] MEDS: MAGNESIUM OXIDE 400 MG TAB PO SCH ×3 (09:32→20:54)
[2023-05-26] MEDS: ATORVASTATIN 40 MG TAB PO SCH (09:32)
--- NOTE | 2023-05-26 15:03 | Cardiology Consultation ---
Date of Consultation May 26, 2023 Assessment & Plan (1) (HFpEF) heart failure with preserved ejection fraction: (2) Chest pain: (3) History of coronary artery disease: (4) Pacemaker: (5) Second degree heart block: Plan 1. Heart failure with preserved ejection fraction: Time of presentation was chest pain, she does appear to have some element of volume overload. She did receive a single dose of intravenous diuretic apparently with good result. Lung examination currently benign. No evidence of peripheral edema. There has been some debate about her overall medication compliance which could have exacerbated the situation. I think as long she is in the hospital she can receive additional doses of intravenous diuretics on a scheduled basis. We can monitor her renal function electrolytes closely. At the time of discharge to follow-up in the [facility] failure [facility] for additional medication titration if required. Addition of an SG LT 2 inhibitor can be entertained (although overall medical compliance is in question) 2. Chest pain: Very atypical symptoms. Longstanding in nature and not suggestive of an acute coronary syndrome or coronary insufficiency. While she does have a history of coronary artery disease, I think the nature of her symptoms and the relatively normal high sensitivity troponins suggest this is not heart related. I do not think there is an indication for stress testing at this point. 3. Coronary disease: I do not believe her current symptoms of chest discomfort are related. She can continue aggressive secondary prevention of coronary disease with apixaban carvedilol and high-dose atorvastatin. 4. Atrial fibrillation: Currently in a paced atrial rhythm. On systemic anticoagulation dosed appropriately according to renal function and weight. 5. Normal function dual-chamber permanent pacemaker based on presenting EKG. History of Present Illness Reason for Consultation: Chest pain Requesting Physician: Betty Attending Physician: Monster Hernández MD History of Present Illness The patient is an 87-year-old woman with a history of coronary artery disease, resolved cardiomyopathy, heart failure with preserved ejection fraction, paroxysmal atrial fibrillation and complete heart block who was brought to the emergency room by EMS for reports of chest pain. The patient lives alone and is cared for by her son who provides help on an intermittent basis. It seems that the patient was complaining of some chest pain and there were some concerns of medication noncompliance. Patient was brought to the hospital for evaluation. Based on her history and symptoms cardiology was consulted. Unfortunately, the patient has little recollection of yesterday's events. During the initial parts of the interview it was unclear to her how she arrived at the hospital. Originally she felt like some girls brought her. However, later she did describe some symptoms of chest pain that she feels have been happening for several weeks. This was described primarily as a bandlike sensation across the upper chest with discomfort in the right shoulder and right arm. The symptoms are fairly constant and mild. Perhaps worse with deep inspiration changes in position. She did not endorse other symptoms of significant breathing difficulty. She denied orthopnea or significant lower extremity edema. She appeared to be somewhat confused about managing her medications and cooking meals at home. She states she is ambulatory around her residence without assistive devices. She states when she walks outside she often times will use a walker for stability. Allergies Allergy/AdvReac Type Severity Reaction Status Date / Time Cephalosporins Allergy Intermediate HIVES Verified 05/25/23 21:49 Penicillins Allergy Intermediate HIVES Verified 05/25/23 21:49 valdecoxib Allergy Intermediate ITCHING,ANTOLIN Verified 05/25/23 21:49 SEATED prednisone Allergy Unknown Unknown Verified 05/25/23 21:49 codeine AdvReac Intermediate NAUSEA Verified 05/25/23 21:49 pantoprazole AdvReac Intermediate NAUSEATED Verified 05/25/23 21:49 Home Medications Medication Instructions Recorded Confirmed Type Lactobacillus 40-Bifidobact 1 cap PO DAILY 03/15/18 05/25/23 History 3-S.thermophilus 100 billion cell capsule (Probiotic) glucosam 750 mg-chondroi 100 1 tab PO DAILY 03/15/18 05/25/23 History mg-hyalur 1.65 mg-CF borate 108 mg tablet (Move Free REEL Qualified) multivitamin 1 tab PO DAILY 03/15/18 05/25/23 History cholecalciferol (vitamin D3) 50 50 mcg PO DAILY 07/29/20 05/25/23 History mcg (2,000 unit) capsule apple cider vinegar 500 mg tablet 750 mg PO QAM 03/29/21 05/25/23 History acetaminophen 325 mg tablet 650 mg PO Q6H PRN PAIN/FEVER 07/26/21 05/25/23 History (Tylenol) fluticasone propionate 50 1 spray intranasal BID PRN Nasal 12/06/21 05/25/23 Rx mcg/actuation nasal Congestion #47.4 mL spray,suspension (Flonase Allergy Relief) nystatin 100,000 unit/gram topical 1 applic topical DAILY PRN rash 05/30/22 05/25/23 Rx powder #60 grams timolol maleate 0.5 % eye drops 1 drp OPB QAM #15 mL 05/30/22 05/25/23 Rx ketoconazole 2 % topical cream 1 applic topical BID #60 grams 06/09/22 05/25/23 Rx Scooter #1 ea 06/13/22 02/15/23 Rx propylene glycol 0.6 % eye drops 1 drp ophthalmic (eye) TID #1.5 mL 06/29/22 05/25/23 Rx (Systane Balance) magnesium oxide 400 mg (241.3 mg 400 mg PO TID #90 tabs 08/08/22 05/25/23 Rx magnesium) tablet nitroglycerin 0.4 mg sublingual 0.4 mg sublingual DIRECTED PRN 09/12/22 05/25/23 Rx tablet (Nitrostat) Chest Pain #30 tabs telmisartan 40 mg tablet (Micardis) 40 mg PO DAILY #90 tabs 01/09/23 05/25/23 Rx carvedilol 25 mg tablet 25 mg PO BID #180 tabs 01/17/23 05/25/23 Rx potassium chloride 20 mEq 20 meq PO DAILY #90 tabs 02/15/23 05/25/23 Rx tablet,extended release atorvastatin 80 mg tablet 80 mg PO QAM 02/21/23 05/25/23 History metformin 500 mg tablet,extended 500 mg PO 4XWK 02/21/23 05/25/23 History release 24hr (osmotic) apixaban 5 mg tablet (Eliquis) 5 mg PO BID #180 tabs 04/01/23 05/25/23 Rx furosemide 20 mg tablet 20 mg PO Q OTHER DAY weight gain 04/02/23 05/25/23 Rx #30 tabs Patient History Medical History Uncontrolled hypertension Substernal chest pain Hypoxia Pulmonary edema Atrial fibrillation Discharge planning issues DVT prophylaxis Moderate mitral regurgitation Hypertension Pacemaker Cognitive impairment Osteopenia Type 2 diabetes mellitus with diabetic neuropathy, without long-term current use of insulin Primary hypertension Presence of stent in coronary artery in patient with coronary artery disease CVA (cerebral vascular accident) (~09/2018) Cervical radiculopathy Complex endometrial hyperplasia Coronary artery disease, occlusive History of kidney stones History of polymyalgia rheumatica Ischemic cardiomyopathy longterm (current) use of systemic steroids Lumbar radiculopathy Myalgia and myositis Obesity Rheumatoid arthritis Steroid-induced osteoporosis Urinary incontinence LUE weakness (09/09/13) Surgical History History of knee replacement S/P knee replacement Stented coronary artery Family History Grandmother (Maternal) Myocardial infarction Stroke Mother Myocardial infarction Diabetes Stroke Brother Myocardial infarction Diabetes Stroke Other No significant family history Denies family history of Ovarian cancer Prostate cancer Breast cancer Colorectal cancer Social History Smoking Status: Never smoker Second Hand Exposure: No; Do You Dip or Chew Tobacco: No; Tobacco Cessation Education Requested by Patient: No Hx Alcohol Use: No Hx Substance Use: No Preferred Language: Romanian Communication Ability: Effective Communication Ability Comment: FORGETFUL DOES NOT READ OR WRITE WELL 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 Somewhat forgetful at times. Poor understanding of her current hospitalization. HEENT: Sclerae are anicteric. Pupils are equal and reactive to light and accommodation. Extraocular movements were intact. Neuro: Cranial nerves intact Lungs: Lungs are clear to auscultation bilaterally. There are no rales wheezes or rhonchi. She has normal respiratory effort without use of accessory muscles. There is normal pulmonary excursion. Cardiac: The rhythm was regular. S1 and S2 were normal. There are no murmurs on examination. The PMI was not markedly displaced on palpation. Abdomen: The abdomen was soft and nontender. Extremities: Patient has bilateral radial pulses that are equal in intensity. There is no evidence cyanosis or clubbing. There was no evidence of significant peripheral edema bilaterally. Skin: There are no rashes noted on examination today. Results & Data Vital Signs (Past 12 Hours) Vital Signs Temp Pulse Pulse Resp BP BP Pulse Ox 05/26/23 14:32 36.8 C 65 16 108/67 93 05/26/23 13:53 05/26/23 13:45 69 20 128/65 95 05/26/23 09:00 74 17 151/80 H 05/26/23 07:05 60 05/26/23 06:00 60 18 169/73 H 95 05/26/23 05:00 60 19 160/72 H 92 05/26/23 04:30 60 20 149/69 H 93 05/26/23 04:22 61 05/26/23 03:33 37.2 C 60 18 94 05/26/23 03:30 60 20 157/63 H 93 05/26/23 03:03 Pulse Ox O2 Del Method O2 Del Method 05/26/23 14:32 Room Air 05/26/23 13:53 Room Air 05/26/23 13:45 Room Air 05/26/23 09:00 05/26/23 07:05 05/26/23 06:00 05/26/23 05:00 05/26/23 04:30 05/26/23 04:22 05/26/23 03:33 Room Air 05/26/23 03:30 05/26/23 03:03 94 Room Air Laboratory Results Abnormal Lab Results 05/25/23 05/25/23 05/25/23 20:45 20:48 23:01 WBC 6.87 RBC 3.53 L Hgb 10.9 L Hct 33.5 L MCV 94.9 MCH 30.9 MCHC 32.5 RDW Std Deviation 47.0 H RDW Coeff of [place] 13.5 Plt Count 230 MPV 11.0 Immature Gran % (Auto) 0.3 Neut % (Auto) 63.4 Lymph % (Auto) 25.2 [place] % (Auto) 6.6 Eos % (Auto) 3.9 Baso % (Auto) 0.6 Neut # (Auto) 4.36 Lymph # (Auto) 1.73 [place] # (Auto) 0.45 Eos # (Auto) 0.27 Baso # (Auto) 0.04 Immature Gran # (Auto) 0.02 PT Cancelled 12.2 H INR Cancelled 1.1 APTT Cancelled 37 H PTT Ratio Cancelled 1.3 Sodium 132 L Potassium 4.4 Chloride 97 L Carbon Dioxide 27 Anion Gap 8 BUN 16 Creatinine 0.80 Est Cr Clr Drug Dosing 47.3 Est GFR ( Amer) 77.9 Est GFR (Non-Af Amer) 67.2 BUN/Creatinine Ratio 20.0 Glucose 93 POC Glucose Estimat Average Glucose Hemoglobin A1c Calcium 9.1 Magnesium 1.8 Total Bilirubin 1.3 H AST 33 ALT 8 Alkaline Phosphatase 132 H Troponin I High Sens 19.4 H B-Natriuretic Peptide 510 H Total Protein 7.3 Albumin 3.7 Globulin 3.6 Albumin/Globulin Ratio 1.0 Triglycerides Cholesterol LDL Cholesterol, Calc VLDL Cholesterol, Calc HDL Cholesterol Cholesterol/HDL Ratio Lipase 39 SARS-CoV-2 (PCR) NEGATIVE Influenza Type A (PCR) Negative Influenza Type B (PCR) Negative RSV (RT-PCR) Negative 05/26/23 05/26/23 05/26/23 02:21 08:00 12:44 WBC 6.19 RBC 3.72 L Hgb 11.3 L Hct 34.9 L MCV 93.8 MCH 30.4 MCHC 32.4 RDW Std Deviation 46.0 RDW Coeff of [place] 13.5 Plt Count 222 MPV 10.2 Immature Gran % (Auto) 0.2 Neut % (Auto) 69.6 Lymph % (Auto) 19.2 [place] % (Auto) 6.5 Eos % (Auto) 4.2 Baso % (Auto) 0.3 Neut # (Auto) 4.31 Lymph # (Auto) 1.19 L [place] # (Auto) 0.40 Eos # (Auto) 0.26 Baso # (Auto) 0.02 Immature Gran # (Auto) 0.01 PT INR APTT PTT Ratio Sodium 137 Potassium 3.6 Chloride 100 Carbon Dioxide 30 Anion Gap 7 BUN 14 Creatinine 0.81 Est Cr Clr Drug Dosing 46.7 Est GFR ( Amer) 76.8 Est GFR (Non-Af Amer) 66.2 BUN/Creatinine Ratio 17.3 Glucose 116 H POC Glucose 102 H 98 Estimat Average Glucose 117 Hemoglobin A1c 5.7 H Calcium 9.4 Magnesium Total Bilirubin 1.2 H AST 28 ALT 7 Alkaline Phosphatase 123 H Troponin I High Sens 17.4 H B-Natriuretic Peptide Total Protein 7.1 Albumin 3.6 Globulin 3.5 Albumin/Globulin Ratio 1.0 Triglycerides 58 Cholesterol 111 LDL Cholesterol, Calc 49 VLDL Cholesterol, Calc 12 HDL Cholesterol 50 Cholesterol/HDL Ratio 2.2 Lipase SARS-CoV-2 (PCR) Influenza Type A (PCR) Influenza Type B (PCR) RSV (RT-PCR) Diagnostic Findings Chest x-ray obtained the time admission revealed cardiomegaly and pulmonary vascular congestion. Dated 03/28/2022: Normal LV systolic function with ejection fraction of 55-60%. Moderate LVH. Mild left atrial dilation. Mild to moderate mitral annular calcification with moderate mitral regurgitation PG Care Time/CCT Total # of Minutes Spent Total Time Spent with Patient: Total time spent is greater than 50% in coordination of care (as documented) at patient's floor/unit and/or counseling patient: Coding Level of Care Code 59092 INT INP/OBS CARE 3MIN Diagnoses (HFpEF) heart failure with preserved ejection fraction I50.30 Chest pain R07.9 Chest pain type: unspecified History of coronary artery disease Z86.79 Pacemaker Z95.0 Second degree heart block I44.1 (2) Chest pain Chest pain type: unspecified Qualified Code(s): R07.9 - Chest pain, unspecified
--- NOTE | 2023-05-26 22:25 | Billing Data ---
Date of Service May 26, 2023 Coding Level of Care Code 58314 INT INP/OBS CARE
[2023-05-27] MEDS: MAGNESIUM OXIDE 400 MG TAB PO SCH ×3 (08:08→20:57)
[2023-05-27] MEDS: carvediloL 25 MG TAB PO SCH ×2 (08:08→20:56)
[2023-05-27] MEDS: APIXABAN 5 MG TABLET PO SCH ×2 (08:08→20:56)
[2023-05-27] MEDS: ATORVASTATIN 40 MG TAB PO SCH (08:09)
[2023-05-27] MEDS: CHOLECALCIFEROL 1,000 UNITS 25 MCG TAB PO SCH (08:10)
[2023-05-27] MEDS: LOSARTAN POTASSIUM 50 MG TAB PO SCH (08:10)
[2023-05-27] MEDS: POTASSIUM CHLORIDE CRTAB 20 MEQ TABCR PO SCH (08:18)
[2023-05-27] MEDS: INSULIN ASPART PER UNIT CHARGE SC SCH ×4 (08:18→20:53)
--- NOTE | 2023-05-27 10:13 | Hospitalist Progress Note ---
Date of Service May 27, 2023 Assessment & Plan (1) Chest pain: Plan: -Chest pain has mostly resolved at time of admission. -Labs in the ED significant for a troponin of 19.4 and a BNP of 510. -EKG showed paced rhythm -Chest x-ray showing pulmonary vascular congestion and some left-sided pleural effusion. -Received IV Lasix 40 mg -Evaluated by cardiology no need for further investigation. (2) (HFpEF) heart failure with preserved ejection fraction: Plan: -Previous echo on 03/2022 showed an EF of 55 to 60%. -Hold off on echo at this time. -Symptoms improved with 40 mg IV Lasix. -Continue Lasix 20 mg every other day. -Patient tends to be forgetful, she lives alone and at times according to the son forgets to take her medicines However they declined placement in his facility (3) Primary hypertension: Plan: -Continue on Coreg 25 mg twice daily and telmisartan 40 mg daily. (4) Atrial fibrillation: Plan: -On Eliquis and has a cardiac pacemaker. -Continue Eliquis 5 mg twice daily. (5) Hypomagnesemia: Plan: -Continue magnesium oxide 400 mg 3 times daily. (6) Type 2 diabetes mellitus with diabetic neuropathy, without long-term current use of insulin: Plan: -Patient's home regimen held on admission -Continue BSG checks, sliding-scale insulin, hypoglycemic protocol -Hemoglobin A1c ordered for the a.m. (7) Pacemaker: Plan: -Paced rhythm (8) Hyperlipidemia: Plan: -Continue 80 mg atorvastatin. -Will order lipid panel in the a.m. Plan I spoke with the son, although he agrees that the patient lives alone and at times tends to be forgetful but they do not want half-way placement. He said he is going to arrange for the mom to start using home health agency So plan is to discharge home when the home health agency set up Admission and Anticipated Discharge Date Admission Date: May 26, 2023 Subjective Patient seen and examined, sitting up in the chair, denies chest pain or shortness of breath Review of Systems Review of Systems: All systems reviewed are negative, apart from the ones contained in the history. Physical Exam Physical Exam: The patient is awake, alert and oriented 3, well developed and well nourished, normocephalic and atraumatic, lying in bed and in no acute distress. HEENT--PERRL, EOMI, mucous membranes and oropharynx mildly dry Neck--supple. No JVD. No bruits. Thyroid normal, trachea midline, no adenopathy. Heart--normal S1 and S2. No murmurs, rubs or gallops. Lungs--clear bilaterally, no respiratory distress, no accessory muscle use. Abdomen--normal bowel sounds and soft. Extremities--no cyanosis or clubbing. No edema. Dermatologic--normal skin turgor, normal color, no abnormal lymph nodes, no rash. Neurologic--cranial nerves II through XII grossly intact. Rheumatologic--normal range of motion. Psychiatric--normal affect. Results & Data Results & Data Vital Signs (Past 12 Hours) Vital Signs Temp Pulse Pulse Resp BP Pulse Ox Pulse Ox 05/27/23 07:15 98.1 F 69 16 167/80 H 95 05/27/23 05:14 71 05/27/23 03:12 98.4 F 68 16 152/68 H 93 05/27/23 03:00 98 05/26/23 23:11 98.2 F 74 17 137/67 94 O2 Del Method O2 Del Method O2 Flow Rate 05/27/23 07:15 Room Air 05/27/23 05:14 05/27/23 03:12 Room Air 05/27/23 03:00 Nasal Cannula 2 05/26/23 23:11 Room Air PG Care Time/CCT Total # of Minutes Spent Total Time Spent with Patient: Total time spent is greater than 50% in coordination of care (as documented) at patient's floor/unit and/or counseling patient: Coding Level of Care Code 82217 SUB INP/OBS CARE 2/35MIN Diagnoses Chest pain R07.9 Chest pain type: unspecified (HFpEF) heart failure with preserved ejection fraction I50.30 Primary hypertension I10 Atrial fibrillation I48.91 Hypomagnesemia E83.42 Type 2 diabetes mellitus with diabetic neuropathy, without long-term current use of insulin E11.40 Pacemaker Z95.0 Hyperlipidemia E78.5 Time Spent (min) 35 (1) Chest pain Chest pain type: unspecified Qualified Code(s): R07.9 - Chest pain, unspecified
--- NOTE | 2023-05-27 15:24 | Cardiology Progress Note ---
Date of Service May 27, 2023 Assessment & Plan (1) (HFpEF) heart failure with preserved ejection fraction: (2) Chest pain: (3) History of coronary artery disease: (4) Pacemaker: (5) Second degree heart block: Plan 1. Heart failure with preserved ejection fraction: She seems to have had a reasonable diuresis. Breathing troubles not seem to be a prominent complaint. Lung examination not entirely normal and there was evidence of volume overload at the time of admission. I think we will continue her on a daily dose of diuretic and add Jardiance as well. We will check renal function and electrolytes tomorrow. 2. Chest pain: I do not believe this was cardiac in nature. Longstanding, unremitting without significant elevation of biomarkers. Again, not a very bothersome symptom to the patient. 3. Coronary disease: Continue aggressive secondary prevention. 4. Atrial fibrillation: Currently in a paced atrial rhythm. On systemic anticoagulation dosed appropriately according to renal function and weight. 5. Normal function dual-chamber permanent pacemaker based on presenting EKG. Admission and Anticipated Discharge Date Admission Date: May 26, 2023 Subjective This morning patient claimed he feeling well. She still reported some symptoms of chest discomfort but only with prompting. This is not seem to be a symptom that bothers her very much. She was able to tolerate breakfast. She reports some limited ambulation and sitting up. She was able to sleep fairly flat in bed. She denies any orthopnea. No breathing difficulty at rest. Review of Systems Review of Systems: Per HPI Physical Exam Physical Exam: She is alert and answered questions appropriately. Somewhat forgetful at times. HEENT: Sclerae are anicteric. Pupils are equal and reactive to light and accommodation. Extraocular movements were intact. Neuro: Cranial nerves intact Lungs: Some crackles at the bases bilaterally. No expiratory wheezing. Normal respiratory effort. Cardiac: The rhythm was regular. S1 and S2 were normal. There are no murmurs on examination. The PMI was not markedly displaced on palpation. Extremities: Patient has bilateral radial pulses that are equal in intensity. There is no evidence cyanosis or clubbing. There was no evidence of significant peripheral edema bilaterally. Skin: There are no rashes noted on examination today. Results & Data Vital Signs (Past 12 Hours) Vital Signs Temp Pulse Pulse Resp BP BP Pulse Ox 05/27/23 15:08 36.8 C 64 16 144/68 H 94 05/27/23 11:16 36.5 C 65 16 139/64 96 05/27/23 07:15 36.7 C 69 16 167/80 H 95 05/27/23 05:14 71 O2 Del Method 05/27/23 15:08 Room Air 05/27/23 11:16 Room Air 05/27/23 07:15 Room Air 05/27/23 05:14 PG Care Time/CCT Total # of Minutes Spent Total Time Spent with Patient: Total time spent is greater than 50% in coordination of care (as documented) at patient's floor/unit and/or counseling patient: Coding Level of Care Code 58370 SUB INP/OBS CARE 2/35MIN Diagnoses (HFpEF) heart failure with preserved ejection fraction I50.30 Chest pain R07.9 Chest pain type: unspecified History of coronary artery disease Z86.79 Pacemaker Z95.0 Second degree heart block I44.1 (2) Chest pain Chest pain type: unspecified Qualified Code(s): R07.9 - Chest pain, unspecified
[2023-05-27] MEDS: FUROSEMIDE 20 MG TAB PO SCH (17:28)
[2023-05-28 07:17] LABS: BUN Creatinine Ratio 29.5 (10-20); Calcium 9.8 mg/dl (8.6-10.3); Creatinine Clr Calc Pharmacy 41.9 ml/min; Est GFR (African American) 69.4 ml/min; Est GFR (Non-African American) 59.9 ml/min; Potassium 4.1 mmol/L (3.5-5.1)
[2023-05-28] MEDS: MAGNESIUM OXIDE 400 MG TAB PO SCH ×2 (08:05→12:55)
[2023-05-28] MEDS: carvediloL 25 MG TAB PO SCH (08:05)
[2023-05-28] MEDS: LOSARTAN POTASSIUM 50 MG TAB PO SCH (08:06)
[2023-05-28] MEDS: FUROSEMIDE 20 MG TAB PO SCH (08:06)
[2023-05-28] MEDS: CHOLECALCIFEROL 1,000 UNITS 25 MCG TAB PO SCH (08:06)
[2023-05-28] MEDS: APIXABAN 5 MG TABLET PO SCH (08:07)
[2023-05-28] MEDS: ATORVASTATIN 40 MG TAB PO SCH (08:07)
[2023-05-28] MEDS: POTASSIUM CHLORIDE CRTAB 20 MEQ TABCR PO SCH (08:10)
[2023-05-28] MEDS: INSULIN ASPART PER UNIT CHARGE SC SCH ×2 (08:14→12:55)
[2023-05-28] MEDS ORDERED: EMPAGLIFLOZIN 10 MG TAB PO SCH (09:00)
--- NOTE | 2023-05-28 10:08 | XRay Report ---
XR chest 1V portable HISTORY: 87 years-old Female CHF acute shortness of breath COMPARISON: 05/25/2023 TECHNIQUE: AP view the chest FINDINGS: Cardiac silhouette is enlarged. Dual lead left subclavian pacer. Unchanged mild right hemidiaphragmat ic elevation. Pulmonary vascular congestion with chronic interstitial coarsening. No pneumothorax. Tr evita pleural effusions with mild left basilar atelectasis. No lobar airspace consolidation. Coronary a rterial stenting suggested. Degenerative changes of the shoulders and spine. IMPRESSION: 1. Cardiomegaly with pulmonary vascular congestion. 2. Probable trace pleural effusions. ACT 112: Negative or not required by law. The above report was generated using voice recognition software. It may contain grammatical, syntax o r spelling errors. Electronically signed by: Wilian Mariscal M.D. 05/28/2023 10:06 AM
--- NOTE | 2023-05-28 12:31 | Discharge Summary ---
Date of Service May 28, 2023 Admission HPI Per Admitting Provider Patient is an 87-year-old female with past medical history of CAD, congestive heart failure with preserved ejection fraction, type 2 diabetes, hyperlipidemia, hypertension, A-fib on Eliquis, hypomagnesium, dual-chamber pacemaker for second-degree heart block who presents to the hospital for chest pain. Patient was brought in by EMS for chest pain. There was of the patient called 911 because they heard the patient outside calling for help. Patiently initially told EMS that she had a headache for several days and symptoms were worsening today as well as having intermittent chest pain. Patient is a poor historian and is alert and oriented x 2 (self and place) and states she is unsure of her past medical history and she states that she does not take any medications. When asked the reason she was brought into the hospital patient states that she was unsure why she was brought him to the hospital. When asked about chest pain she said that she has been having some chest pain on and off for the past week and has been in her right upper chest wall and right arm that gets worse with taking a deep breath and to touch. Patient denies any shortness of breath, abdominal pain, nausea, or vomiting. Called son who states that patient lives alone and that he has to go over every other day to help with taking her medications. He states that she usually does not take her medications when he does not come over. Principal Diagnosis Acute diastolic congestive heart failure, chest pain without acute coronary syndrome Discharge Exam General-alert and oriented x3, no fevers, no chills HEENT-head atraumatic and normocephalic, pupils equal and reactive to light, extraocular muscles intact Neck-no lymphadenopathy or thyromegaly, trachea midline Chest-bibasilar inspiratory rales may be chronic. No wheezing. No dullness to percussion. Cardiac-regular rate and rhythm, normal S1 and S2 Abdomen-normal bowel sounds, nontender, no hepatosplenomegaly Extremities-no cyanosis, clubbing, or edema Neuro-cranial nerves II through XII intact, motor and sensory function within normal limits, strength symmetrical, no focal deficits Psych-normal affect, normal mood Discharge Data Allergies Allergy/AdvReac Type Severity Reaction Status Date / Time Cephalosporins Allergy Intermediate HIVES Verified 05/25/23 21:49 Penicillins Allergy Intermediate HIVES Verified 05/25/23 21:49 valdecoxib Allergy Intermediate ITCHING,ANTOLIN Verified 05/25/23 21:49 SEATED prednisone Allergy Unknown Unknown Verified 05/25/23 21:49 codeine AdvReac Intermediate NAUSEA Verified 05/25/23 21:49 pantoprazole AdvReac Intermediate NAUSEATED Verified 05/25/23 21:49 Consultations 05/25/23 23:23 ED Decision to Admit Stat 05/26/23 09:28 Consult Cardiology Routine Hospital Course (1) Chest pain: Resolved. No acute coronary syndrome. Appreciate cardiology consultation (2) (HFpEF) heart failure with preserved ejection fraction: Previous echo on 03/2022 showed an EF of 55 to 60%. Chest x-ray done today, May 28, looks better. She is now on room air. Lasix increased to daily dosing at discharge. Inspiratory rales may be chronic. (3) Primary hypertension: Stable. Continue Coreg and telmisartan (4) Atrial fibrillation: Stable. Continue Eliquis. PPM in place (5) Hypomagnesemia: Corrected. Continue magnesium oxide 400 mg 3 times daily. (6) Type 2 diabetes mellitus with diabetic neuropathy, without long-term current use of insulin: ADA diet. Sliding scale coverage as needed. Resume home regimen at discharge (7) Hyperlipidemia: Stable. Continue statin therapy Plan Home today, June 02, with home health Total Time Total Time Spent Total Time Spent (In Minutes): 45 minutes Discharge Plan Discharge Items Patient Disposition: Home - Home Health Services Reason For Visit: CHEST PAIN, CHF EXACERBATION Discharge Diagnosis: Acute diastolic CHF, chest pain without acute coronary syndrome Condition on Discharge: Good Activity: Resume your previous activity Non-emergency contact: Primary Care Provider Call non-emergency contact if: you have any medication questions and your symptoms worsen Follow-up/Referrals: Brenda Gardiner MD [Primary Care Provider] - Diet: Regular and Heart Healthy Addtl Attending Provider Instructions: Take Lasix daily after lunch. Jardiance is also new and taken once daily. It is for your heart Pending Studies at Discharge: No Stand-Alone Forms: My [employer], Smoking Cessation Medications and DC Order Prescriptions: New nitroglycerin [Nitrostat] 0.4 mg Tablet, Sublingual 0.4 mg sublingual Q5M PRN (Reason: chest pain) Qty: 25 0RF furosemide 20 mg Tablet 20 mg PO QAM Qty: 30 0RF Jardiance 10 mg Tablet 10 mg PO DAILY Qty: 30 0RF Continued fluticasone propionate [Flonase Allergy Relief] 50 mcg/actuation spray,suspension 1 spray INTRANASAL BID PRN (Reason: Nasal Congestion) Qty: 47.4 3RF nystatin 100,000 unit/gram powder 1 applic topical DAILY PRN (Reason: rash) Qty: 60 0RF Rx Instructions: Apply to abdominal rash daily timolol maleate 0.5 % drops 1 drp OPB QAM Qty: 15 3RF (DME) Scooter Misc See Rx Instructions .Route Qty: 1 0RF Rx Instructions: Powered scooter nitroglycerin [Nitrostat] 0.4 mg tablet, sublingual 0.4 mg Sublingual DIRECTED PRN (Reason: Chest Pain) Qty: 30 0RF telmisartan [Micardis] 40 mg tablet 40 mg PO DAILY Qty: 90 3RF carvedilol 25 mg tablet 25 mg PO BID Qty: 180 3RF Eliquis 5 mg tablet 5 mg PO BID Qty: 180 3RF Systane Balance 0.6 % drops 1 drp ophthalmic (eye) TID Qty: 1.5 6RF magnesium oxide 400 mg (241.3 mg magnesium) tablet 400 mg PO TID Qty: 90 2RF potassium chloride 20 mEq tablet extended release 20 meq PO DAILY Qty: 90 2RF cholecalciferol (vitamin D3) 50 mcg (2,000 unit) capsule 50 mcg PO DAILY apple cider vinegar 500 mg tablet 750 mg PO QAM ketoconazole 2 % cream 1 applic topical BID Qty: 60 1RF Rx Instructions: Apply to rash on belly twice daily multivitamin Tablet 1 tab PO DAILY [facility] 750 mg-100 mg- 1.65 mg-108 mg Tablet 1 tab PO DAILY Probiotic 100 billion cell Capsule 1 cap PO DAILY Rx Instructions: UNKNOWN STRENGTH metformin 500 mg tablet extended release 24hr 500 mg PO [id number] Rx Instructions: sunday atorvastatin 80 mg tablet 80 mg PO QAM acetaminophen [Tylenol] 325 mg Tablet 650 mg PO Q6H PRN (Reason: PAIN/FEVER) Discontinued furosemide 20 mg tablet 20 mg PO Q OTHER DAY Qty: 30 6RF Krames/Other Patient Handouts: Managing Type 2 Diabetes Admission Data Admit Date/Time: 05/26/23 00:26 Attending Provider: Carlito Owens Admit Provider: Marcus Carvalho Primary Care Provider: Brenda Gardiner Other Providers: Lubna Burt; Barry Zhong Coding Level of Care Code 89014 INP/OBS DISCH >30 MIN Diagnoses Chest pain R07.9 Chest pain type: unspecified (HFpEF) heart failure with preserved ejection fraction I50.30 Primary hypertension I10 Atrial fibrillation I48.91 Hypomagnesemia E83.42 Type 2 diabetes mellitus with diabetic neuropathy, without long-term current use of insulin E11.40 Hyperlipidemia E78.5
== END 2023-05-28 13:36 | disposition home health service (06) ==
LOC: EDINP 20:15 → ED 20:15 → SUATTDRO 05-26 00:26 → EDINP 05-26 13:53 → 2S 05-26 14:29